=== PATIENT | male | born 1955 | race Caucasian/White ===

== ENCOUNTER 2016-05-25 07:21 | Day surgery (SDC) | payer OTHER ==
[2016-05-24 13:29] VITALS: BMI 40.8
[2016-05-25 07:47] LABS: BASOPHIL 0.5 % (0-2.0); EOSINOPHIL 1.7 % (0-4.5); MCH 31.1 pg (25.7-33.7); MCHC 33.1 g/dl (32.0-35.9); MEAN PLT VOLUME 7.3 fl (7.5-11.1); NEUTROPHILS 74.6 % (42.8-82.8); PLATELET COUNT 140 K/MM3 (134-434); RDW 14.3 % (11.9-15.9); WHITE BLOOD COUNT 6.2 K/mm3 (4.0-10.0)
[2016-05-25 08:01] LABS: INR 1.08 (0.82-1.09); PROTHROMBIN TIME (PATIENT) 11.9 SEC (9.98-11.88)
[2016-05-25 11:39] VITALS: BP 138/73; PULSE 83; TEMP 97.8
== END 2016-05-25 11:30 | disposition home or self-care (01) ==
LOC: JRADIR 07:21
PROVIDERS: ATTEND Internal Medicine Hematology & Oncology
PROC: BH4BZZZ Ultrasonography of Chest Wall (ICD-10-PCS; principal; 2016-05-25)
PROC: 07B53ZX Excision of Right Axillary Lymphatic, Percutaneous Approach, Diagnostic (ICD-10-PCS; 2016-05-25)
DX: R59.0 Localized enlarged lymph nodes (principal); Z53.8 Procedure and treatment not carried out for other reasons
CPT/HCPCS: 36415; 76604; 76942; 85025; 85610

== ENCOUNTER 2016-05-31 06:13 | Day surgery (SDC) | payer OTHER ==
[2016-05-31] MEDS ORDERED: SODIUM CHLORIDE 250 ML IV ONE (08:00)
[2016-05-31] MEDS ORDERED: CYANOCOBALAMIN (VITAMIN B-12) 1000 MCG/1 ML VIAL IM ONE (08:00)
[2016-05-31 08:43] LABS: BASOPHIL 0.8 % (0-2.0); EOSINOPHIL 1.2 % (0-4.5); MCH 30.7 pg (25.7-33.7); MEAN CELL VOLUME 92.9 fl (80-96); MEAN PLT VOLUME 8.4 fl (7.5-11.1); NEUTROPHILS 72.2 % (42.8-82.8); PLATELET COUNT 133 K/MM3 (134-434); RDW 13.9 % (11.9-15.9); WHITE BLOOD COUNT 7.7 K/mm3 (4.0-10.0)
[2016-05-31] MEDS ORDERED: DEXAMETHASONE INJECTION 10 MG, ONDANSETRON INJECTION 12 MG in SODIUM CHLORIDE 100 ML IVPB ONE (09:00)
[2016-05-31] MEDS ORDERED: PEMETREXED DISODIUM IVPB ONE (09:30)
[2016-05-31] MEDS ORDERED: SODIUM CHLORIDE IVPB ONE (09:30)
[2016-05-31 10:31] VITALS: BP 149/76; PULSE 76; TEMP 98.4; BMI 41.0
== END 2016-05-31 14:40 | disposition home or self-care (01) ==
LOC: JCHEMO 06:13 → JONCCHEMO 06:13 → J7W 06:15 → JCHEMO 14:40
PROVIDERS: ATTEND Internal Medicine Hematology & Oncology
PROC: 3E04305 Introduction of Other Antineoplastic into Central Vein, Percutaneous Approach (ICD-10-PCS; principal; 2016-05-31)
PROC: 3E023GC Introduction of Other Therapeutic Substance into Muscle, Percutaneous Approach (ICD-10-PCS; 2016-05-31)
DX: Z12.11 Encounter for screening for malignant neoplasm of colon (principal); C34.90 Malignant neoplasm of unspecified part of unspecified bronchus or lung; I10 Essential (primary) hypertension; E11.9 Type 2 diabetes mellitus without complications; D70.1 Agranulocytosis secondary to cancer chemotherapy; T45.1X5A Adverse effect of antineoplastic and immunosuppressive drugs, initial encounter; Y92.9 Unspecified place or not applicable; E53.8 Deficiency of other specified B group vitamins
CPT/HCPCS: 36415; 85025; 96361; 96372; 96409; 96413; J9305

== ENCOUNTER 2016-06-01 06:52 | Day surgery (SDC) | payer OTHER ==
[2016-06-01] MEDS ORDERED: PEGFILGRASTIM 6 MG/0.6 ML DISP.SYRIN SQ ONE (08:00)
[2016-06-01 15:46] VITALS: PULSE 89
[2016-06-01 15:47] VITALS: BP 131/73; TEMP 98
== END 2016-06-01 14:00 | disposition home or self-care (01) ==
LOC: JCHEMO 06:52 → J7W 06:52 → JONCNONCHE 06:52 → JCHEMO 14:00
PROVIDERS: ATTEND Internal Medicine Hematology & Oncology
PROC: 3E013GC Introduction of Other Therapeutic Substance into Subcutaneous Tissue, Percutaneous Approach (ICD-10-PCS; principal; 2016-06-01)
DX: Z51.11 Encounter for antineoplastic chemotherapy (principal); C34.11 Malignant neoplasm of upper lobe, right bronchus or lung; D70.1 Agranulocytosis secondary to cancer chemotherapy; T45.1X5A Adverse effect of antineoplastic and immunosuppressive drugs, initial encounter; Y92.9 Unspecified place or not applicable; E53.8 Deficiency of other specified B group vitamins
CPT/HCPCS: 96372; J2505

== ENCOUNTER 2016-06-28 06:58 | Day surgery (SDC) | payer OTHER ==
[2016-06-28] MEDS ORDERED: CYANOCOBALAMIN (VITAMIN B-12) 1000 MCG/1 ML VIAL IM ONE (08:00)
[2016-06-28] MEDS ORDERED: SODIUM CHLORIDE 250 ML IV ONE (08:00)
[2016-06-28] MEDS ORDERED: ONDANSETRON INJECTION 12 MG, DEXAMETHASONE INJECTION 10 MG in SODIUM CHLORIDE 100 ML IVPB ONE (08:00)
[2016-06-28 08:22] LABS: BASOPHIL 0.7 % (0-2.0); EOSINOPHIL 1.4 % (0-4.5); MCHC 33.5 g/dl (32.0-35.9); MEAN CELL VOLUME 92.5 fl (80-96); MEAN PLT VOLUME 8.2 fl (7.5-11.1); NEUTROPHILS 75.9 % (42.8-82.8); PLATELET COUNT 138 K/MM3 (134-434); RDW 13.7 % (11.9-15.9); WHITE BLOOD COUNT 8.3 K/mm3 (4.0-10.0)
[2016-06-28] MEDS ORDERED: PEMETREXED DISODIUM IVPB ONE (08:30)
[2016-06-28] MEDS ORDERED: SODIUM CHLORIDE IVPB ONE (08:30)
[2016-06-28 09:59] LABS: ALBUMIN 3.5 g/dl (3.4-5.0); BILIRUBIN,DIRECT 0.1 mg/dL (0.0-0.2); BILIRUBIN,TOTAL 0.4 mg/dL (0.2-1.0); CALCIUM 8.8 mg/dL (8.5-10.1); CREATININE 1.2 mg/dL (0.7-1.3); MAGNESIUM 1.7 mg/dL (1.8-2.4); TOT PROT 6.7 g/dl (6.4-8.2)
[2016-06-28 16:13] VITALS: BP 140/70; PULSE 89; TEMP 98.2
== END 2016-06-28 10:49 | disposition home or self-care (01) ==
LOC: JONCCHEMO 06:58 → J7W 08:50 → JONCCHEMO 10:49
PROVIDERS: ATTEND Internal Medicine Hematology & Oncology
DX: Z51.11 Encounter for antineoplastic chemotherapy (principal); C34.11 Malignant neoplasm of upper lobe, right bronchus or lung; E53.8 Deficiency of other specified B group vitamins; D70.1 Agranulocytosis secondary to cancer chemotherapy
CPT/HCPCS: 36415; 80048; 80076; 82378; 83735; 85025; 96361; 96367; 96372; 96409; 96413; J9305

== ENCOUNTER 2016-06-30 06:59 | Day surgery (SDC) | payer OTHER ==
[~2016-06-30 06:59] MED LIST: PEGFILGRASTIM 6 MG/0.6 ML DISP.SYRIN SQ ONE
[2016-06-30] MEDS ORDERED: PEGFILGRASTIM 6 MG/0.6 ML DISP.SYRIN SQ ONE (08:00)
[2016-06-30 13:50] VITALS: BP 140/74; PULSE 68; TEMP 97.4
== END 2016-06-30 13:53 | disposition home or self-care (01) ==
LOC: JONCCHEMO 06:59 → J7W 11:15 → JONCCHEMO 13:53
PROVIDERS: ATTEND Internal Medicine Hematology & Oncology
PROC: 3E013GC Introduction of Other Therapeutic Substance into Subcutaneous Tissue, Percutaneous Approach (ICD-10-PCS; principal; 2016-06-30)
DX: C34.11 Malignant neoplasm of upper lobe, right bronchus or lung (principal); D70.1 Agranulocytosis secondary to cancer chemotherapy; E53.8 Deficiency of other specified B group vitamins
CPT/HCPCS: 96372; J2505; 96367; 96401

== ENCOUNTER 2016-07-26 07:03 | Day surgery (SDC) | payer OTHER ==
[2016-07-26] MEDS ORDERED: SODIUM CHLORIDE 250 ML IV ONE (08:00)
[2016-07-26] MEDS ORDERED: CYANOCOBALAMIN (VITAMIN B-12) 1000 MCG/1 ML VIAL IM ONE (08:30)
[2016-07-26] MEDS ORDERED: ONDANSETRON INJECTION 12 MG, DEXAMETHASONE INJECTION 10 MG in SODIUM CHLORIDE 100 ML IVPB ONE (08:30)
[2016-07-26 08:33] LABS: BASOPHIL 0.9 % (0-2.0); EOSINOPHIL 1.5 % (0-4.5); MCH 30.7 pg (25.7-33.7); MCHC 33.3 g/dl (32.0-35.9); MEAN CELL VOLUME 92.2 fl (80-96); MEAN PLT VOLUME 8.2 fl (7.5-11.1); NEUTROPHILS 75.1 % (42.8-82.8); PLATELET COUNT 132 K/MM3 (134-434); WHITE BLOOD COUNT 6.6 K/mm3 (4.0-10.0)
[2016-07-26] MEDS ORDERED: PEMETREXED DISODIUM IVPB ONE (09:00)
[2016-07-26] MEDS ORDERED: SODIUM CHLORIDE IVPB ONE (09:00)
[2016-07-26 14:16] VITALS: BP 141/73; PULSE 88; TEMP 98.3
[2016-07-26] MEDS ORDERED: PORTA CATH FLUSH 10 ML IVPUSH ONE (14:16)
== END 2016-07-26 11:00 | disposition home or self-care (01) ==
LOC: JONCCHEMO 07:03 → J7W 09:10 → JONCCHEMO 11:00
PROVIDERS: ATTEND Internal Medicine Hematology & Oncology
PROC: 3E04305 Introduction of Other Antineoplastic into Central Vein, Percutaneous Approach (ICD-10-PCS; principal; 2016-07-26)
PROC: 3E043GC Introduction of Other Therapeutic Substance into Central Vein, Percutaneous Approach (ICD-10-PCS; 2016-07-26)
PROC: 3E0437Z Introduction of Electrolytic and Water Balance Substance into Central Vein, Percutaneous Approach (ICD-10-PCS; 2016-07-26)
PROC: 3E023GC Introduction of Other Therapeutic Substance into Muscle, Percutaneous Approach (ICD-10-PCS; 2016-07-26)
DX: Z51.11 Encounter for antineoplastic chemotherapy (principal); C34.11 Malignant neoplasm of upper lobe, right bronchus or lung; C70.1 Malignant neoplasm of spinal meninges
CPT/HCPCS: 96372; 96375; 96409; J1100; J2405; J3420; J7030; J9305; 36415; 85025; 96360; 96361; 96367; 96413

== ENCOUNTER 2016-07-27 07:04 | Day surgery (SDC) | payer OTHER ==
[2016-07-27] MEDS ORDERED: PEGFILGRASTIM 6 MG/0.6 ML DISP.SYRIN SQ ONE (08:00)
[2016-07-27 17:55] VITALS: BP 125/59; PULSE 91; TEMP 98.3
== END 2016-07-27 14:50 | disposition home or self-care (01) ==
LOC: JONCCHEMO 07:04 → J7W 14:22 → JONCCHEMO 14:50
PROVIDERS: ATTEND Internal Medicine Hematology & Oncology
PROC: 3E023GC Introduction of Other Therapeutic Substance into Muscle, Percutaneous Approach (ICD-10-PCS; principal; 2016-07-27)
DX: Z51.11 Encounter for antineoplastic chemotherapy (principal); C34.11 Malignant neoplasm of upper lobe, right bronchus or lung
CPT/HCPCS: 96372; J2505

== ENCOUNTER 2016-08-23 07:13 | Day surgery (SDC) | payer OTHER ==
[2016-08-23] MEDS ORDERED: SODIUM CHLORIDE 250 ML IV ONE (08:00)
[2016-08-23] MEDS ORDERED: CYANOCOBALAMIN (VITAMIN B-12) 1000 MCG/1 ML VIAL IM ONE (08:00)
[2016-08-23] MEDS ORDERED: DEXAMETHASONE INJECTION 10 MG in SODIUM CHLORIDE 50 ML IVPB ONE (08:00)
[2016-08-23] MEDS ORDERED: ONDANSETRON INJECTION 12 MG in SODIUM CHLORIDE 50 ML IVPB ONE (08:00)
[2016-08-23] MEDS ORDERED: PEMETREXED DISODIUM IVPB ONE (08:30)
[2016-08-23] MEDS ORDERED: SODIUM CHLORIDE IVPB ONE (08:30)
[2016-08-23 09:19] LABS: BASOPHIL 0.7 % (0-2.0); EOSINOPHIL 1.8 % (0-4.5); MCH 30.9 pg (25.7-33.7); MCHC 33.7 g/dl (32.0-35.9); MEAN CELL VOLUME 91.4 fl (80-96); NEUTROPHILS 73.8 % (42.8-82.8); PLATELET COUNT 142 K/MM3 (134-434); RDW 13.7 % (11.9-15.9); WHITE BLOOD COUNT 6.4 K/mm3 (4.0-10.0)
[2016-08-23] MEDS ORDERED: PORTA CATH FLUSH 10 ML IVPUSH ONE (15:17)
[2016-08-23 15:18] VITALS: BP 143/86; PULSE 95; TEMP 98
== END 2016-08-23 15:23 | disposition home or self-care (01) ==
LOC: JONCCHEMO 07:13 → J7W 09:59 → JONCCHEMO 15:23
PROVIDERS: ATTEND Internal Medicine Hematology & Oncology
PROC: 3E04305 Introduction of Other Antineoplastic into Central Vein, Percutaneous Approach (ICD-10-PCS; principal; 2016-08-23)
PROC: 3E013GC Introduction of Other Therapeutic Substance into Subcutaneous Tissue, Percutaneous Approach (ICD-10-PCS; 2016-08-23)
DX: Z51.11 Encounter for antineoplastic chemotherapy (principal); C34.90 Malignant neoplasm of unspecified part of unspecified bronchus or lung; E53.8 Deficiency of other specified B group vitamins
CPT/HCPCS: 36415; 85025; 96372; 96413; 96415; J9305

== ENCOUNTER 2016-08-24 07:12 | Day surgery (SDC) | payer OTHER ==
[2016-08-24] MEDS ORDERED: PEGFILGRASTIM 6 MG/0.6 ML DISP.SYRIN SQ ONE (08:00)
[2016-08-24 14:08] VITALS: TEMP 98.3
[2016-08-24 14:09] VITALS: BP 125/78; PULSE 83
== END 2016-08-24 14:12 | disposition home or self-care (01) ==
LOC: JONCCHEMO 07:12 → J7W 13:18 → JONCCHEMO 14:12
PROVIDERS: ATTEND Internal Medicine Hematology & Oncology
PROC: 3E013GC Introduction of Other Therapeutic Substance into Subcutaneous Tissue, Percutaneous Approach (ICD-10-PCS; principal; 2016-08-24)
DX: C34.11 Malignant neoplasm of upper lobe, right bronchus or lung (principal)
CPT/HCPCS: 96372; J2505

== ENCOUNTER 2016-09-03 09:39 | Emergency (ER) | payer OTHER ==
[2016-09-03 10:04] VITALS: BMI 39.6
--- NOTE | 2016-09-03 10:17 | PDOC ---
History of Present Illness - General History Source: Patient Exam Limitations: No Limitations - History of Present Illness Initial Comments: CHIEF COMPLAINT: 59 y/o afebrile male with PMH adenocarcinoma of the lung ( currently on chemo), HTN, DM, colon polyps, kidney stones c/o low back pain for the past few days. HISTORY OF PRESENT ILLNESS: The patient does have prior history of lumbar spine disc removal many years ago. He states for the past few days he's had pain in his lumbar spine that his oxycodone isn't helping. Dr. Mcgill instructed him to come here if the pain became unbearable and the patient states this morning he couldn't take it anymore. He denies radiation of pain and admits the pain is worse on the right side. He denies recent fall or back trauma, radiation of pain into butt or legs, saddle anesthesia, numbness/ tingling/weakness in LEs. He has called Dr. Pagan, Neurologist, but does not have an appointment scheduled yet. He is currently receiving chemotherapy for his lung CA. Vital signs on arrival are notable for pulse of 100. REVIEW OF SYSTEMS: GENERAL/CONSTITUTIONAL: No fever/chills. No weakness. No weight change. HEAD, EYES, EARS, NOSE AND THROAT: No change in vision. No ear pain or discharge. No sore throat. CARDIOVASCULAR: No chest pain or shortness of breath. RESPIRATORY: No cough, wheezing, or hemoptysis. GASTROINTESTINAL: No abd pain, nausea, vomiting, diarrhea. GENITOURINARY: No dysuria, frequency, or change in urination. MUSCULOSKELETAL: No joint or muscle swelling or pain. No neck pain. +low back pain, worse on right side. SKIN: No rash or easy bruising. NEUROLOGIC: No headache, vertigo, loss of consciousness, or loss of sensation. PHYSICAL EXAM: GENERAL: The patient is awake, alert, and fully oriented, in no acute distress. His movements are slowed secondary to pain. HEAD: Normal with no signs of trauma. ENT: Pupils equal, round and reactive to light, extraocular movements intact, sclera anicteric, conjunctiva clear. Neck supple. LUNGS: Clear to auscultation bilaterally. Normal excursion. No respiratory distress or use of accessory muscles. CV: RRR, S1/S2, no MRG. Cap refill < 2 sec. ABDOMEN: Soft, non-distended, non-tender even to deep palpation, no hepatomegaly or splenomegaly, no masses. BACK: Midline lumbar spine TTP at L5 without step offs. Vertical, well healed scar to lumbar spine at level of pain. Reproducible pain with palpation of right lumbar paravertebral muscles. EXTREMITIES: Normal range of motion, no edema. NEUROLOGICAL: Normal speech, normal gait. CN II-XII grossly intact. No saddle anesthesia. Equal straight leg raise b/l. PSYCH: Normal mood, normal affect. SKIN: Warm, dry, normal turgor, no rashes or lesions noted. <Tressa Maza - Last Filed: 09/03/16 12:45> <David Hernandez - Last Filed: 09/03/16 19:53> - General Chief Complaint: Pain Stated Complaint: BACK PAIN Time Seen by Provider: 09/03/16 10:16 Past History - Past Medical History Anemia: No Asthma: No Cancer: Yes (lung ca) Cardiac Disorders: Yes (PE) CVA: No COPD: No CHF: No Dementia: No Diabetes: Yes (NIDDM) GI Disorders: Yes (COLONIC POLYPS) Disorders: No HTN: Yes Hypercholesterolemia: No Kidney Stones: Yes (LASER TREATMENT) Liver Disease: No Suicide Attempt (Hx): No Seizures: No Thyroid Disease: No - Surgical History Abdominal Surgery: No Appendectomy: No Cardiac Surgery: No Cholecystectomy: No Lung Surgery: No Neurologic Surgery: Yes (SPINAL CERVICAL FUSION TIMES TWO, LUMBAR LAMINECTOMY) Orthopedic Surgery: Yes (SPINAL FUSIONS X2 LAMINECTOMY X2 RIGHT KNEE ARTHROSCOPY ) - Psycho/Social/Smoking Cessation Hx Anxiety: No Suicidal Ideation: No Smoking Status: Yes Smoking History: Former smoker Have you smoked in the past 12 months: Yes Number of Cigarettes Smoked Daily: 30 If you are a former smoker, when did you quit?: 05/02 Information on smoking cessation initiated: No 'Breaking Loose' booklet given: 11/24/15 Hx Alcohol Use: No Drug/Substance Use Hx: No Substance Use Type: None Hx Substance Use Treatment: No <Tressa Maza - Last Filed: 09/03/16 12:45> <David Hernandez - Last Filed: 09/03/16 19:53> - Past Medical History Allergies/Adverse Reactions: Allergies Allergy/AdvReac Type Severity Reaction Status Date / Time No Known Drug Allergies Allergy Verified 09/03/16 10:04 Home Medications: Ambulatory Orders Glipizide [Glipizide ER] 5 mg PO DAILY 04/16/14 Enoxaparin [Lovenox -] 110 mg SQ BID #20 disp.syrin 05/15/14 Diazepam [Valium -] 10 mg PO TID PRN 06/21/14 Oxycodone HCl 10 mg PO Q4H PRN 08/26/14 Amlodipine Besylate 5 mg PO DAILY 05/24/16 Metformin HCl [Glucophage] 500 mg PO DAILY 05/24/16 Atorvastatin Calcium 10 mg PO DAILY 05/25/16 *Physical Exam - Vital Signs Last Vital Signs Temp Pulse Resp BP Pulse Ox 98.1 F 100 H 20 144/90 95 09/03/16 10:00 09/03/16 10:00 09/03/16 10:00 09/03/16 10:00 09/03/16 10:00 <Tressa Maza - Last Filed: 09/03/16 12:45> - Vital Signs Last Vital Signs Temp Pulse Resp BP Pulse Ox 98 F 87 16 141/68 100 09/03/16 13:28 09/03/16 13:28 09/03/16 13:28 09/03/16 13:28 09/03/16 13:28 <David Hernandez - Last Filed: 09/03/16 19:53> ED Treatment Course - Medications Given in the ED: ED Medications Discontinued Medications Generic Name Dose Route Start Last Admin Trade Name Freq PRN Reason Stop Dose Admin Diazepam 10 mg 09/03/16 10:34 09/03/16 10:55 Valium - PO 09/03/16 10:35 10 mg ONCE ONE Administration Ketorolac Tromethamine 60 mg 09/03/16 10:34 09/03/16 10:55 Toradol Injection - IM 09/03/16 10:35 60 mg ONCE ONE Administration <David Hernandez - Last Filed: 09/03/16 19:53> Medical Decision Making - Medical Decision Making A/P: 61 y/o male with Lung CA, HTN, HLD, DM, prior back surgery c/o atraumatic low back pain for the past few days. Plan is as follows: 1. CT scan lumbar spine r/o mets 2. IM toradol 3. PO valium CT scan lumbar spine IMPRESSION: No acute bony abnormalities. No evidence of compression deformities, spondylolisthesis. Similar changes were observed on CT of chest/ abdomen from 12/02/14. The patient was given his results. He states his pain has gone down from a 13/ 10 to a 7/10. He does have valium at home but he hasn't been taking it - I suggested he take 3 times per day for his back pain. I suggested he call Dr. Mcgill and ask him if he can take Ibuprofen along with the valium for pain. Instructed him to f/u with Dr. Pagan and return to the ER with any worsening or concerning symptoms. The patient verbalizes understanding of all instructions, has no further questions and is awaiting discharge. <Tressa Maza - Last Filed: 09/03/16 12:45> - Medical Decision Making 09/03/16 19:53 The patient was seen and evaluated in conjunction with JUAN A Maza under my direct supervision, ancillary studies were reviewed. I agree with the plan as outlined by JUAN A Maza . <David Hernandez - Last Filed: 09/03/16 19:53> *DC/Admit/Observation/Transfer <Tressa Maza - Last Filed: 09/03/16 12:45> <David Hernandez - Last Filed: 09/03/16 19:53> Diagnosis at time of Disposition: Low back strain Qualifiers: Encounter type: initial encounter Qualified Code(s): S39.012A - Strain of muscle, fascia and tendon of lower back, initial encounter - Discharge Dispostion Disposition: HOME Condition at time of disposition: Improved - Patient Instructions Printed Discharge Instructions: DI for Low Back Pain Additional Instructions: Discharge Instructions: -Take Valium 3 times per day for back pain; may cause drowsiness -Call Dr. Mcgill; ask him if you can take Ibuprofen; if so, take with valium for back pain -Return to the ER with any worsening or concerning symptoms.
[2016-09-03] MEDS ORDERED: KETOROLAC TROMETHAMINE 60 MG/2 ML VIAL IM ONE (10:34)
[2016-09-03] MEDS ORDERED: diazePAM 5 MG TABLET PO ONE (10:34)
[2016-09-03] MEDS ORDERED: KETOROLAC TROMETHAMINE 60 MG/2 ML VIAL ONE (10:48)
[2016-09-03] MEDS ORDERED: diazePAM 5 MG TABLET ONE (10:48)
[2016-09-03 14:54] VITALS: BP 141/68; PULSE 87; TEMP 98
== END 2016-09-03 13:30 | disposition home or self-care (01) ==
LOC: JER 09:39
PROC: 3E0233Z Introduction of Anti-inflammatory into Muscle, Percutaneous Approach (ICD-10-PCS; principal; 2016-09-03)
DX: S39.012A Strain of muscle, fascia and tendon of lower back, initial encounter (principal); C34.90 Malignant neoplasm of unspecified part of unspecified bronchus or lung; I10 Essential (primary) hypertension; E11.9 Type 2 diabetes mellitus without complications; Z79.84 Long term (current) use of oral hypoglycemic drugs; Z87.442 Personal history of urinary calculi; Z86.711 Personal history of pulmonary embolism
CPT/HCPCS: 72131-TC; 96372; 99282-25

== ENCOUNTER 2016-09-20 07:43 | Day surgery (SDC) | payer OTHER ==
[2016-09-20 09:10] LABS: BASOPHIL 1.2 % (0-2.0); EOSINOPHIL 2.1 % (0-4.5); MCHC 34.1 g/dl (32.0-35.9); MEAN CELL VOLUME 90.9 fl (80-96); MEAN PLT VOLUME 8.1 fl (7.5-11.1); NEUTROPHILS 69.4 % (42.8-82.8); PLATELET COUNT 142 K/MM3 (134-434); RDW 14.1 % (11.9-15.9); WHITE BLOOD COUNT 7.2 K/mm3 (4.0-10.0)
[2016-09-20] MEDS ORDERED: CYANOCOBALAMIN (VITAMIN B-12) 1000 MCG/1 ML VIAL IM ONE (10:00)
[2016-09-20] MEDS ORDERED: ONDANSETRON INJECTION 12 MG in SODIUM CHLORIDE 50 ML IVPB ONE (10:00)
[2016-09-20] MEDS ORDERED: DEXAMETHASONE INJECTION 10 MG in SODIUM CHLORIDE 50 ML IVPB ONE (10:00)
[2016-09-20] MEDS ORDERED: SODIUM CHLORIDE 250 ML IV ONE (10:00)
[2016-09-20] MEDS ORDERED: PEMETREXED DISODIUM IVPB ONE (10:30)
[2016-09-20] MEDS ORDERED: SODIUM CHLORIDE IVPB ONE (10:30)
[2016-09-20] MEDS ORDERED: PORTA CATH FLUSH 10 ML IVPUSH ONE (10:43)
[2016-09-20 11:50] LABS: ALBUMIN 3.4 g/dl (3.4-5.0); ALK PHOS 137 U/L (45-117); BILIRUBIN,TOTAL 0.4 mg/dL (0.2-1.0); MAGNESIUM 1.7 mg/dL (1.8-2.4); SGOT/AST 20 U/L (15-37); SGPT/ALT 42 U/L (12-78); TOT PROT 6.8 g/dl (6.4-8.2)
[2016-09-20 11:53] LABS: BILIRUBIN,DIRECT < 0.1 mg/dL (0.0-0.2)
[2016-09-20 16:14] VITALS: BP 145/82; PULSE 92; TEMP 98
== END 2016-09-20 18:32 | disposition home or self-care (01) ==
LOC: JONCCHEMO 07:43 → J7W 10:06 → JONCCHEMO 18:32
PROVIDERS: ATTEND Internal Medicine Hematology & Oncology
PROC: 3E04305 Introduction of Other Antineoplastic into Central Vein, Percutaneous Approach (ICD-10-PCS; principal; 2016-09-20)
PROC: 3E023GC Introduction of Other Therapeutic Substance into Muscle, Percutaneous Approach (ICD-10-PCS; 2016-09-20)
DX: Z51.11 Encounter for antineoplastic chemotherapy (principal); C34.90 Malignant neoplasm of unspecified part of unspecified bronchus or lung; E53.8 Deficiency of other specified B group vitamins
CPT/HCPCS: 36415; 80076; 82378; 83735; 85025; 96360; 96367; 96372; 96413; J9305

== ENCOUNTER 2016-09-22 07:37 | Day surgery (SDC) | payer OTHER ==
[2016-09-22 09:35] VITALS: BP 122/70; PULSE 96; TEMP 98.2
[2016-09-22] MEDS ORDERED: PEGFILGRASTIM 6 MG/0.6 ML DISP.SYRIN SQ ONE (10:00)
== END 2016-09-22 09:53 | disposition home or self-care (01) ==
LOC: JONCCHEMO 07:37 → J7W 09:26 → JONCCHEMO 09:53
PROVIDERS: ATTEND Internal Medicine Hematology & Oncology
PROC: 3E013GC Introduction of Other Therapeutic Substance into Subcutaneous Tissue, Percutaneous Approach (ICD-10-PCS; principal; 2016-09-22)
DX: C34.90 Malignant neoplasm of unspecified part of unspecified bronchus or lung (principal)
CPT/HCPCS: 96372; J2505

== ENCOUNTER 2016-10-18 07:33 | Day surgery (SDC) | payer OTHER ==
[2016-10-18 09:16] LABS: BASOPHIL 1.3 % (0-2.0); MCH 30.8 pg (25.7-33.7); MCHC 33.8 g/dl (32.0-35.9); MEAN CELL VOLUME 91.2 fl (80-96); MEAN PLT VOLUME 8.1 fl (7.5-11.1); NEUTROPHILS 71.2 % (42.8-82.8); PLATELET COUNT 189 K/MM3 (134-434); RDW 14.1 % (11.9-15.9); WHITE BLOOD COUNT 7.5 K/mm3 (4.0-10.0)
[2016-10-18 09:32] LABS: ALBUMIN 3.5 g/dl (3.4-5.0); ALK PHOS 120 U/L (45-117); ANION GAP 9 (8-16); BILIRUBIN,DIRECT < 0.1 mg/dL (0.0-0.2); CO2 28 mmol/L (21-32); CREATININE 1.8 mg/dL (0.7-1.3); GLUCOSE,RANDOM 190 mg/dL (74-106); MAGNESIUM 1.7 mg/dL (1.8-2.4); SGOT/AST 18 U/L (15-37); SGPT/ALT 27 U/L (12-78); TOT PROT 7.4 g/dl (6.4-8.2)
[2016-10-18 09:35] LABS: BILIRUBIN,TOTAL 0.2 mg/dL (0.2-1.0)
[2016-10-18] MEDS ORDERED: DEXAMETHASONE INJECTION 10 MG in SODIUM CHLORIDE 50 ML IVPB ONE (10:00)
[2016-10-18] MEDS ORDERED: ONDANSETRON INJECTION 12 MG in SODIUM CHLORIDE 50 ML IVPB ONE (10:00)
[2016-10-18] MEDS ORDERED: SODIUM CHLORIDE 250 ML IV ONE (10:00)
[2016-10-18] MEDS ORDERED: CYANOCOBALAMIN (VITAMIN B-12) 1000 MCG/1 ML VIAL IM ONE (10:00)
[2016-10-18] MEDS ORDERED: PEMETREXED DISODIUM IVPB ONE (10:30)
[2016-10-18] MEDS ORDERED: SODIUM CHLORIDE IVPB ONE (10:30)
[2016-10-18] MEDS ORDERED: PORTA CATH FLUSH 10 ML IVPUSH ONE (10:37)
[2016-10-18 13:25] VITALS: BP 117/70; PULSE 86; TEMP 98.1
== END 2016-10-18 13:58 | disposition home or self-care (01) ==
LOC: JONCCHEMO 07:33 → J7W 10:21 → JONCCHEMO 13:58
PROVIDERS: ATTEND Internal Medicine Hematology & Oncology
DX: Z51.11 Encounter for antineoplastic chemotherapy (principal); C34.90 Malignant neoplasm of unspecified part of unspecified bronchus or lung
CPT/HCPCS: 36415; 80053; 80076; 83735; 85025; 96361; 96375; 96409; 96413; J9305

== ENCOUNTER 2016-10-20 07:49 | Day surgery (SDC) | payer OTHER ==
[2016-10-20] MEDS ORDERED: PEGFILGRASTIM 6 MG/0.6 ML DISP.SYRIN SQ ONE (10:00)
[2016-10-20 12:46] VITALS: BP 105/67; PULSE 97; TEMP 98.3
== END 2016-10-20 14:42 | disposition home or self-care (01) ==
LOC: JONCCHEMO 07:49 → J7W 12:01 → JONCCHEMO 14:42
PROVIDERS: ATTEND Internal Medicine Hematology & Oncology
PROC: 3E013GC Introduction of Other Therapeutic Substance into Subcutaneous Tissue, Percutaneous Approach (ICD-10-PCS; principal; 2016-10-20)
DX: C34.90 Malignant neoplasm of unspecified part of unspecified bronchus or lung (principal)
CPT/HCPCS: 96372; J2505

== ENCOUNTER 2016-11-15 07:31 | Day surgery (SDC) | payer OTHER ==
[2016-11-15] MEDS ORDERED: SODIUM CHLORIDE 250 ML IV ONE (08:00)
[2016-11-15] MEDS ORDERED: DEXAMETHASONE INJECTION 10 MG in SODIUM CHLORIDE 50 ML IVPB ONE (08:30)
[2016-11-15] MEDS ORDERED: CYANOCOBALAMIN (VITAMIN B-12) 1000 MCG/1 ML VIAL IM ONE (08:30)
[2016-11-15] MEDS ORDERED: ONDANSETRON INJECTION 12 MG in SODIUM CHLORIDE 50 ML IVPB ONE (08:30)
[2016-11-15 08:40] LABS: BASOPHIL 0.8 % (0-2.0); EOSINOPHIL 1.2 % (0-4.5); MCH 31.3 pg (25.7-33.7); MCHC 33.7 g/dl (32.0-35.9); MEAN CELL VOLUME 92.8 fl (80-96); NEUTROPHILS 76.5 % (42.8-82.8); PLATELET COUNT 135 K/MM3 (134-434); RDW 14.5 % (11.9-15.9); WHITE BLOOD COUNT 7.3 K/mm3 (4.0-10.0)
[2016-11-15] MEDS ORDERED: PEMETREXED DISODIUM IVPB ONE (09:00)
[2016-11-15] MEDS ORDERED: SODIUM CHLORIDE IVPB ONE (09:00)
[2016-11-15 09:17] LABS: ALBUMIN 3.2 g/dl (3.4-5.0); ANION GAP 8 (8-16); BILIRUBIN,TOTAL 0.2 mg/dL (0.2-1.0); CALCIUM 8.8 mg/dL (8.5-10.1); CO2 24 mmol/L (21-32); CREATININE 1.5 mg/dL (0.7-1.3); GLUCOSE,RANDOM 270 mg/dL (74-106); SGOT/AST 17 U/L (15-37); SGPT/ALT 34 U/L (12-78); TOT PROT 6.5 g/dl (6.4-8.2)
[2016-11-15 09:18] LABS: ALK PHOS 129 U/L (45-117)
[2016-11-15 09:20] LABS: BILIRUBIN,DIRECT < 0.1 mg/dL (0.0-0.2)
[2016-11-15 16:01] VITALS: BP 136/53; PULSE 70; TEMP 97.7
== END 2016-11-15 11:30 | disposition home or self-care (01) ==
LOC: JONCCHEMO 07:31 → J7W 09:09 → JONCCHEMO 11:30
PROVIDERS: ATTEND Internal Medicine Hematology & Oncology
PROC: 3E04305 Introduction of Other Antineoplastic into Central Vein, Percutaneous Approach (ICD-10-PCS; principal; 2016-11-15)
PROC: 3E013GC Introduction of Other Therapeutic Substance into Subcutaneous Tissue, Percutaneous Approach (ICD-10-PCS; 2016-11-15)
DX: Z51.11 Encounter for antineoplastic chemotherapy (principal); C34.90 Malignant neoplasm of unspecified part of unspecified bronchus or lung; C79.51 Secondary malignant neoplasm of bone; E53.8 Deficiency of other specified B group vitamins
CPT/HCPCS: 36415; 80053; 80076; 85025; 96361; 96367; 96372; 96375; 96409; 96413; J9305

== ENCOUNTER 2016-11-16 07:30 | Day surgery (SDC) | payer OTHER ==
[2016-11-16] MEDS ORDERED: PEGFILGRASTIM 6 MG/0.6 ML DISP.SYRIN SQ ONE (08:00)
[2016-11-16 17:54] VITALS: BP 125/91; PULSE 64; TEMP 97.8
== END 2016-11-16 14:30 | disposition home or self-care (01) ==
LOC: JONCCHEMO 07:30 → J7W 13:56 → JONCCHEMO 14:30
PROVIDERS: ATTEND Internal Medicine Hematology & Oncology
PROC: 3E013GC Introduction of Other Therapeutic Substance into Subcutaneous Tissue, Percutaneous Approach (ICD-10-PCS; principal; 2016-11-16)
DX: Z51.11 Encounter for antineoplastic chemotherapy (principal); C34.90 Malignant neoplasm of unspecified part of unspecified bronchus or lung; C79.51 Secondary malignant neoplasm of bone
CPT/HCPCS: 96372; J2505

== ENCOUNTER 2016-12-13 07:23 | Day surgery (SDC) | payer OTHER ==
[2016-12-13 09:56] VITALS: TEMP 98.2
[2016-12-13 10:00] LABS: BASOPHIL 0.3 % (0-2.0); EOSINOPHIL 1.4 % (0-4.5); MCH 31.4 pg (25.7-33.7); MCHC 33.2 g/dl (32.0-35.9); MEAN CELL VOLUME 94.5 fl (80-96); MEAN PLT VOLUME 7.9 fl (7.5-11.1); NEUTROPHILS 75.1 % (42.8-82.8); PLATELET COUNT 156 K/MM3 (134-434); RDW 15.2 % (11.9-15.9); WHITE BLOOD COUNT 7.6 K/mm3 (4.0-10.0)
[2016-12-13] MEDS ORDERED: ONDANSETRON INJECTION 12 MG in SODIUM CHLORIDE 50 ML IVPB ONE (10:00)
[2016-12-13] MEDS ORDERED: SODIUM CHLORIDE 250 ML IV ONE (10:00)
[2016-12-13] MEDS ORDERED: CYANOCOBALAMIN (VITAMIN B-12) 1000 MCG/1 ML VIAL IM ONE (10:00)
[2016-12-13] MEDS ORDERED: DEXAMETHASONE INJECTION 10 MG in SODIUM CHLORIDE 50 ML IVPB ONE (10:00)
[2016-12-13] MEDS ORDERED: PORTA CATH FLUSH 10 ML IVPUSH ONE (10:14)
[2016-12-13 10:19] LABS: ANION GAP 7 (8-16); CALCIUM 9.1 mg/dL (8.5-10.1); CO2 30 mmol/L (21-32); CREATININE 1.2 mg/dL (0.7-1.3); GLUCOSE,RANDOM 193 mg/dL (74-106)
[2016-12-13 10:22] LABS: ALBUMIN 3.4 g/dl (3.4-5.0); ALK PHOS 117 U/L (45-117); BILIRUBIN,TOTAL 0.4 mg/dL (0.2-1.0); SGOT/AST 22 U/L (15-37); SGPT/ALT 50 U/L (12-78); TOT PROT 6.8 g/dl (6.4-8.2)
[2016-12-13 10:24] LABS: BILIRUBIN,DIRECT < 0.2 mg/dL (0.0-0.2)
[2016-12-13] MEDS ORDERED: PEMETREXED DISODIUM IVPB ONE (10:30)
[2016-12-13] MEDS ORDERED: SODIUM CHLORIDE IVPB ONE (10:30)
[2016-12-13 15:48] VITALS: BP 149/84; PULSE 77
== END 2016-12-13 12:20 | disposition home or self-care (01) ==
LOC: JONCCHEMO 07:23 → J7W 09:23 → JONCCHEMO 12:20
PROVIDERS: ATTEND Internal Medicine Hematology & Oncology
PROC: 3E04305 Introduction of Other Antineoplastic into Central Vein, Percutaneous Approach (ICD-10-PCS; principal; 2016-12-13)
PROC: 3E00XGC Introduction of Other Therapeutic Substance into Skin and Mucous Membranes, External Approach (ICD-10-PCS; 2016-12-13)
DX: Z51.11 Encounter for antineoplastic chemotherapy (principal); C34.90 Malignant neoplasm of unspecified part of unspecified bronchus or lung; C79.51 Secondary malignant neoplasm of bone
CPT/HCPCS: 36415; 80048; 80076; 85025; 96361; 96372; 96375; 96413; J9305

== ENCOUNTER 2016-12-14 07:41 | Day surgery (SDC) | payer OTHER ==
[2016-12-14] MEDS ORDERED: PEGFILGRASTIM 6 MG/0.6 ML DISP.SYRIN SQ ONE (10:00)
[2016-12-14 14:11] VITALS: BP 134/77; PULSE 83; TEMP 97.5
== END 2016-12-14 14:17 | disposition home or self-care (01) ==
LOC: JONCCHEMO 07:41 → J7W 13:45 → JONCCHEMO 14:17
PROVIDERS: ATTEND Internal Medicine Hematology & Oncology
PROC: 3E013GC Introduction of Other Therapeutic Substance into Subcutaneous Tissue, Percutaneous Approach (ICD-10-PCS; principal; 2016-12-14)
DX: C34.90 Malignant neoplasm of unspecified part of unspecified bronchus or lung (principal)
CPT/HCPCS: 96372; J2505

== ENCOUNTER 2017-01-17 07:30 | Day surgery (SDC) | payer OTHER ==
[2017-01-17 09:19] LABS: BASOPHIL 0.3 % (0-2.0); EOSINOPHIL 0.8 % (0-4.5); MCH 32.2 pg (25.7-33.7); MCHC 33.4 g/dl (32.0-35.9); MEAN CELL VOLUME 96.6 fl (80-96); MEAN PLT VOLUME 8.4 fl (7.5-11.1); NEUTROPHILS 76.4 % (42.8-82.8); PLATELET COUNT 126 K/MM3 (134-434); RDW 14.4 % (11.9-15.9); WHITE BLOOD COUNT 6.7 K/mm3 (4.0-10.0)
[2017-01-17 09:30] LABS: ALBUMIN 3.3 g/dl (3.4-5.0); ALK PHOS 109 U/L (45-117); ANION GAP 5 (8-16); BILIRUBIN,DIRECT < 0.1 mg/dL (0.0-0.2); BILIRUBIN,TOTAL 0.3 mg/dL (0.2-1.0); CALCIUM 8.6 mg/dL (8.5-10.1); CO2 29 mmol/L (21-32); CREATININE 1.3 mg/dL (0.7-1.3); GLUCOSE,RANDOM 188 mg/dL (74-106); MAGNESIUM 1.7 mg/dL (1.8-2.4); SGOT/AST 13 U/L (15-37); SGPT/ALT 29 U/L (12-78); TOT PROT 6.8 g/dl (6.4-8.2)
[2017-01-17 09:58] VITALS: PULSE 78; TEMP 97.9
[2017-01-17] MEDS ORDERED: PORTA CATH FLUSH 10 ML IVPUSH ONE (09:58)
[2017-01-17] MEDS ORDERED: DEXAMETHASONE INJECTION 10 MG in SODIUM CHLORIDE 50 ML IVPB ONE (10:00)
[2017-01-17] MEDS ORDERED: CYANOCOBALAMIN (VITAMIN B-12) 1000 MCG/1 ML VIAL IM ONE (10:00)
[2017-01-17] MEDS ORDERED: ONDANSETRON INJECTION 12 MG in SODIUM CHLORIDE 50 ML IVPB ONE (10:00)
[2017-01-17] MEDS ORDERED: SODIUM CHLORIDE 250 ML IV ONE (10:00)
[2017-01-17] MEDS ORDERED: PEMETREXED DISODIUM IVPB ONE (10:30)
[2017-01-17] MEDS ORDERED: MAGNESIUM SULF 50% (8.12 MEQ/2 ML-1 GM VIAL) IVPB ONE (10:30)
[2017-01-17] MEDS ORDERED: SODIUM CHLORIDE IVPB ONE (10:30)
[2017-01-17 13:25] VITALS: BP 125/75
== END 2017-01-17 12:30 | disposition home or self-care (01) ==
LOC: JONCCHEMO 07:30 → J7W 09:47 → JONCCHEMO 12:30
PROVIDERS: ATTEND Internal Medicine Hematology & Oncology
PROC: 3E04305 Introduction of Other Antineoplastic into Central Vein, Percutaneous Approach (ICD-10-PCS; principal; 2017-01-17)
PROC: 3E013GC Introduction of Other Therapeutic Substance into Subcutaneous Tissue, Percutaneous Approach (ICD-10-PCS; 2017-01-17)
DX: Z51.11 Encounter for antineoplastic chemotherapy (principal); C34.90 Malignant neoplasm of unspecified part of unspecified bronchus or lung
CPT/HCPCS: 36415; 80053; 80076; 83735; 85025; 96361; 96367; 96372; 96375; 96409; 96413; J9305

== ENCOUNTER 2017-01-18 07:27 | Day surgery (SDC) | payer OTHER ==
[2017-01-18] MEDS ORDERED: PEGFILGRASTIM 6 MG/0.6 ML DISP.SYRIN SQ ONE (10:00)
[2017-01-18 17:20] VITALS: BP 116/66; PULSE 85; TEMP 98.7
== END 2017-01-18 13:20 | disposition home or self-care (01) ==
LOC: JONCCHEMO 07:27 → J7W 13:04 → JONCCHEMO 13:20
PROVIDERS: ATTEND Internal Medicine Hematology & Oncology
PROC: 3E013GC Introduction of Other Therapeutic Substance into Subcutaneous Tissue, Percutaneous Approach (ICD-10-PCS; principal; 2017-01-18)
DX: C34.90 Malignant neoplasm of unspecified part of unspecified bronchus or lung (principal)
CPT/HCPCS: 96372; J2505

== ENCOUNTER 2017-06-01 08:00 | Day surgery (SDC) | payer OTHER ==
[2017-05-24 12:49] VITALS: BMI 39.7
[2017-06-01] MEDS ORDERED: MIDAZOLAM HCL 2 MG/2 ML SINGLE DOSE VIAL ONE ×2 (09:23→09:35)
[2017-06-01] MEDS ORDERED: LIDOCAINE HCL 2% (50ML VIAL) INF ONE (09:39)
[2017-06-01] MEDS ORDERED: KETOROLAC TROMETHAMINE 30 MG/1 ML VIAL ONE (09:59)
[2017-06-01] MEDS ORDERED: PROMETHAZINE HCL 25 MG/1 ML VIAL IVPUSH PRN (10:14)
[2017-06-01] MEDS ORDERED: ONDANSETRON 4 MG/2 ML VIAL IVPUSH PRN (10:14)
[2017-06-01] MEDS ORDERED: LACTATED RINGERS SOLUTION 1,000 ML IV SCH (10:15)
[2017-06-01 11:57] VITALS: TEMP 98.5
[2017-06-01 12:27] VITALS: BP 140/86; PULSE 72
--- NOTE | 2017-06-04 12:10 | OP ---
DATE OF OPERATION: 06/01/2017 PREOPERATIVE DIAGNOSIS: Left carpal tunnel syndrome. POSTOPERATIVE DIAGNOSIS: Left carpal tunnel syndrome. OPERATIVE PROCEDURE: Left carpal tunnel release. ANESTHESIA: Local with sedation. COMPLICATIONS: None. ESTIMATED BLOOD LOSS: Minimal. INDICATIONS FOR PROCEDURE: The patient is a 62-year-old male with the above findings indicated for operative treatment. Risks, benefits, and alternatives were discussed with the patient at length. Proper informed consent was obtained. DESCRIPTION OF PROCEDURE: After proper identification of patient and correct operative site, the patient was brought to the operating room and placed supine on the operative table, prominences well padded. Sedation was given by the anesthesiologist. Local anesthesia was given with 2% lidocaine. The left upper extremity was prepped and draped in the usual sterile fashion. A well-padded tourniquet was placed with a sterile prep. Esmarch bandage used to exsanguinate the left upper extremity. Tourniquet was inflated to 250 mmHg. Longitudinal incision was made at the proximal aspect of the palm. Incision was taken sharply through the skin with sharp and blunt dissection through the subcutaneous tissues. Palmar fascia was divided longitudinally. Transcarpal ligament was divided longitudinally along with the distal 4 cm antebrachial fascia under direct visualization with loop magnification. This provided complete release of the median nerve at the wrist. The wound was irrigated with saline and repaired with a 4-0 nylon suture. Sterile dressings were applied. The patient was reversed from anesthesia and brought to the recovery room in stable condition. He tolerated the procedure well. Svetlana [id number]
== END 2017-06-01 12:10 | disposition home or self-care (01) ==
LOC: FASU 08:00
PROVIDERS: ATTEND Orthopaedic Surgery Hand Surgery
PROC: 01N50ZZ Release Median Nerve, Open Approach (ICD-10-PCS; principal; 2017-06-01 09:52)
DX: G56.02 Carpal tunnel syndrome, left upper limb (principal)
CPT/HCPCS: 82962

== ENCOUNTER 2017-12-14 07:32 | Day surgery (SDC) | payer OTHER ==
[2017-12-14 08:52] LABS: BASO % 0.7 % (0-2.0); EOS % 1.5 % (0-4.5); HEMATOCRIT 41.9 % (35.4-49); HEMOGLOBIN 13.7 GM/dL (11.7-16.9); LYMPH % 15.8 % (8-40); MCH 28.8 pg (25.7-33.7); MCHC 32.8 g/dl (32.0-35.9); MEAN CELL VOLUME 87.9 fl (80-96); MEAN PLT VOLUME 8.1 fl (7.5-11.1); MONO % 5.4 % (3.8-10.2); NEUT % 76.6 % (42.8-82.8); PLATELET COUNT 121 K/MM3 (134-434); RBC 4.77 M/mm3 (4.00-5.60); RDW 14.2 % (11.9-15.9); WHITE BLOOD COUNT 7.3 K/mm3 (4.0-10.0)
[2017-12-14] MEDS ORDERED: SODIUM CHLORIDE 250 ML IV ONE ×2 (09:00→10:40)
[2017-12-14 09:12] LABS: ALBUMIN 3.1 g/dl (3.4-5.0); ALK PHOS 131 U/L (45-117); ANION GAP 6 MMOL/L (8-16); BILIRUBIN,TOTAL 0.2 mg/dL (0.2-1.0); BLOOD UREA NITROGEN 12 mg/dL (7-18); CALCIUM 8.6 mg/dL (8.5-10.1); CHLORIDE 102 mmol/L (98-107); CO2 32 mmol/L (21-32); CREATININE 1.3 mg/dL (0.7-1.3); GLUCOSE,RANDOM 241 mg/dL (74-106); POTASSIUM 4.6 mmol/L (3.5-5.1); SGOT/AST 16 U/L (15-37); SGPT/ALT 33 U/L (12-78); SODIUM 140 mmol/L (136-145); TOT PROT 6.5 g/dl (6.4-8.2)
[2017-12-14 09:19] LABS: ALBUMIN 3.1 g/dl (3.4-5.0); ALK PHOS 130 U/L (45-117); BILIRUBIN,DIRECT < 0.2 mg/dL (0.0-0.2); BILIRUBIN,TOTAL 0.3 mg/dL (0.2-1.0); SGOT/AST 18 U/L (15-37); SGPT/ALT 32 U/L (12-78); TOT PROT 6.5 g/dl (6.4-8.2)
[2017-12-14] MEDS ORDERED: DEXAMETHASONE INJECTION 10 MG in SODIUM CHLORIDE 50 ML IVPB ONE (10:00)
[2017-12-14] MEDS ORDERED: CYANOCOBALAMIN (VITAMIN B-12) 1000 MCG/1 ML VIAL IM ONE (10:00)
[2017-12-14] MEDS ORDERED: PALONOSETRON HCL 0.25 MG/5 ML VIAL IVPUSH ONE (10:00)
[2017-12-14] MEDS ORDERED: SODIUM CHLORIDE IVPB ONE (10:30)
[2017-12-14] MEDS ORDERED: PEMETREXED DISODIUM IVPB ONE (10:30)
[2017-12-14 11:37] VITALS: TEMP 98.1
[2017-12-14] MEDS ORDERED: PORTA CATH FLUSH 10 ML IVPUSH ONE (11:42)
[2017-12-14 12:57] VITALS: BP 141/75; PULSE 81
== END 2017-12-14 12:15 | disposition home or self-care (01) ==
LOC: JONCCHEMO 07:32 → J7W 09:53 → JONCCHEMO 12:15
PROVIDERS: ATTEND Internal Medicine Hematology & Oncology
DX: Z51.11 Encounter for antineoplastic chemotherapy (principal); C34.90 Malignant neoplasm of unspecified part of unspecified bronchus or lung
CPT/HCPCS: 36415; 80053; 80076; 83735; 85025; 96361; 96372; 96375; 96409; 96413; J1100; J2469; J9305

== ENCOUNTER 2018-01-10 07:46 | Day surgery (SDC) | payer OTHER ==
[2018-01-10] MEDS ORDERED: SODIUM CHLORIDE 250 ML IV ONE ×2 (08:00→09:11)
[2018-01-10] MEDS ORDERED: PALONOSETRON HCL 0.25 MG/5 ML VIAL IVPUSH ONE (08:30)
[2018-01-10] MEDS ORDERED: DEXAMETHASONE INJECTION 10 MG in SODIUM CHLORIDE 50 ML IVPB ONE (08:30)
[2018-01-10] MEDS ORDERED: CYANOCOBALAMIN (VITAMIN B-12) 1000 MCG/1 ML VIAL IM ONE (08:30)
[2018-01-10] MEDS ORDERED: PEMETREXED DISODIUM IVPB ONE (09:00)
[2018-01-10] MEDS ORDERED: SODIUM CHLORIDE IVPB ONE (09:00)
[2018-01-10 09:15] LABS: BASO % 0.7 % (0-2.0); EOS % 1.4 % (0-4.5); HEMATOCRIT 42.4 % (35.4-49); HEMOGLOBIN 14.2 GM/dL (11.7-16.9); LYMPH % 14.2 % (8-40); MCH 29.6 pg (25.7-33.7); MCHC 33.5 g/dl (32.0-35.9); MEAN CELL VOLUME 88.4 fl (80-96); MEAN PLT VOLUME 8.6 fl (7.5-11.1); MONO % 5.8 % (3.8-10.2); NEUT % 77.9 % (42.8-82.8); PLATELET COUNT 131 K/MM3 (134-434); RBC 4.79 M/mm3 (4.00-5.60); RDW 15.6 % (11.9-15.9); WHITE BLOOD COUNT 8.1 K/mm3 (4.0-10.0)
[2018-01-10 10:05] LABS: ALBUMIN 3.5 g/dl (3.4-5.0); ALK PHOS 154 U/L (45-117); BILIRUBIN,DIRECT < 0.2 mg/dL (0.0-0.2); BILIRUBIN,TOTAL 0.4 mg/dL (0.2-1); MAGNESIUM 1.7 mg/dL (1.8-2.4); SGOT/AST 20 U/L (15-37); SGPT/ALT 49 U/L (13-61); TOT PROT 7.2 g/dl (6.4-8.2)
[2018-01-10 11:09] LABS: ALBUMIN 3.6 g/dl (3.4-5.0); ALK PHOS 156 U/L (45-117); ANION GAP 10 MMOL/L (8-16); BILIRUBIN,TOTAL 0.4 mg/dL (0.2-1); BLOOD UREA NITROGEN 14 mg/dL (7-18); CALCIUM 9.3 mg/dL (8.5-10.1); CHLORIDE 97 mmol/L (98-107); CO2 30 mmol/L (21-32); CREATININE 1.5 mg/dL (0.55-1.3); POTASSIUM 4.6 mmol/L (3.5-5.1); SGOT/AST 22 U/L (15-37); SGPT/ALT 49 U/L (13-61); SODIUM 138 mmol/L (136-145); TOT PROT 7.4 g/dl (6.4-8.2)
[2018-01-10 11:13] LABS: GLUCOSE,RANDOM 329 mg/dL (74-106)
[2018-01-10] MEDS ORDERED: MAGNESIUM SULF 50% (8.12 MEQ/2 ML-1 GM VIAL) IVPB ONE (12:00)
[2018-01-10] MEDS ORDERED: INSULIN (NOVOLOG) ASPART 100 UNITS/ML 10ML VIAL SQ ONE (12:00)
[2018-01-10 16:29] VITALS: BP 140/74; PULSE 96; TEMP 97.9
[2018-01-10] MEDS ORDERED: PORTA CATH FLUSH 10 ML IVPUSH ONE (16:29)
== END 2018-01-10 12:15 | disposition home or self-care (01) ==
LOC: JONCCHEMO 07:46 → J7W 09:49 → JONCCHEMO 12:15
PROVIDERS: ATTEND Internal Medicine Hematology & Oncology
PROC: 3E04305 Introduction of Other Antineoplastic into Central Vein, Percutaneous Approach (ICD-10-PCS; principal; 2018-01-10)
PROC: 3E043GC Introduction of Other Therapeutic Substance into Central Vein, Percutaneous Approach (ICD-10-PCS; 2018-01-10)
PROC: 3E043GC Introduction of Other Therapeutic Substance into Central Vein, Percutaneous Approach (ICD-10-PCS; 2018-01-10)
DX: Z51.11 Encounter for antineoplastic chemotherapy (principal); C34.90 Malignant neoplasm of unspecified part of unspecified bronchus or lung
CPT/HCPCS: 36415; 80053; 80076; 82378; 83735; 85025; 96361; 96365; 96367; 96375; 96409; 96413; 96417; J1100; J2469; J9305

== ENCOUNTER 2018-01-11 07:46 | Day surgery (SDC) | payer OTHER ==
[2018-01-11] MEDS ORDERED: PEGFILGRASTIM 6 MG/0.6 ML DISP.SYRIN SQ ONE (09:00)
[2018-01-11 15:40] VITALS: BP 145/82; PULSE 87; TEMP 97.9
== END 2018-01-11 13:40 | disposition home or self-care (01) ==
LOC: JONCCHEMO 07:46 → J7W 13:33 → JONCCHEMO 13:40
PROVIDERS: ATTEND Internal Medicine Hematology & Oncology
PROC: 3E013GC Introduction of Other Therapeutic Substance into Subcutaneous Tissue, Percutaneous Approach (ICD-10-PCS; principal; 2018-01-11)
DX: C34.90 Malignant neoplasm of unspecified part of unspecified bronchus or lung (principal); Z76.89 Persons encountering health services in other specified circumstances
CPT/HCPCS: 96372; J2505

== ENCOUNTER 2018-02-06 07:44 | Day surgery (SDC) | payer OTHER ==
[2018-02-06] MEDS ORDERED: SODIUM CHLORIDE 250 ML IV ONE ×2 (09:00→10:40)
[2018-02-06 09:19] LABS: BASO % 0.6 % (0-2.0); EOS % 1.2 % (0-4.5); HEMATOCRIT 41.7 % (35.4-49); HEMOGLOBIN 13.8 GM/dL (11.7-16.9); LYMPH % 13.6 % (8-40); MCHC 33.1 g/dl (32.0-35.9); MEAN CELL VOLUME 90.4 fl (80-96); MEAN PLT VOLUME 8.7 fl (7.5-11.1); MONO % 6.5 % (3.8-10.2); NEUT % 78.1 % (42.8-82.8); PLATELET COUNT 147 K/MM3 (134-434); RBC 4.61 M/mm3 (4.00-5.60); RDW 16.1 % (11.9-15.9); WHITE BLOOD COUNT 6.7 K/mm3 (4.0-10.0)
[2018-02-06] MEDS ORDERED: PORTA CATH FLUSH 10 ML IVPUSH ONE (09:21)
[2018-02-06 09:22] VITALS: TEMP 98.5
[2018-02-06] MEDS ORDERED: amLODIPine BESYLATE 5 MG TABLET (FP) PO PRN (09:27)
[2018-02-06] MEDS ORDERED: CYANOCOBALAMIN (VITAMIN B-12) 1000 MCG/1 ML VIAL IM ONE (10:00)
[2018-02-06] MEDS ORDERED: PALONOSETRON HCL 0.25 MG/5 ML VIAL IVPUSH ONE (10:00)
[2018-02-06] MEDS ORDERED: DEXAMETHASONE INJECTION 10 MG in SODIUM CHLORIDE 50 ML IVPB ONE (10:00)
[2018-02-06 10:01] LABS: ALBUMIN 3.6 g/dl (3.4-5.0); ALK PHOS 152 U/L (45-117); ANION GAP 3 MMOL/L (8-16); BILIRUBIN,DIRECT 0.1 mg/dL (0.0-0.2); BILIRUBIN,TOTAL 0.4 mg/dL (0.2-1); BLOOD UREA NITROGEN 13 mg/dL (7-18); CALCIUM 8.9 mg/dL (8.5-10.1); CHLORIDE 101 mmol/L (98-107); CO2 32 mmol/L (21-32); CREATININE 1.4 mg/dL (0.55-1.3); MAGNESIUM 1.9 mg/dL (1.8-2.4); POTASSIUM 4.4 mmol/L (3.5-5.1); SGOT/AST 16 U/L (15-37); SGPT/ALT 48 U/L (13-61); SODIUM 136 mmol/L (136-145); TOT PROT 7.4 g/dl (6.4-8.2)
[2018-02-06 10:25] LABS: GLUCOSE,RANDOM 324 mg/dL (74-106)
[2018-02-06] MEDS ORDERED: PEMETREXED DISODIUM IVPB ONE (10:30)
[2018-02-06] MEDS ORDERED: SODIUM CHLORIDE IVPB ONE (10:30)
[2018-02-06] MEDS ORDERED: INSULIN (NOVOLOG) ASPART 100 UNITS/ML 10ML VIAL ONE (10:39)
[2018-02-06] MEDS ORDERED: INSULIN (NOVOLOG) ASPART 100 UNITS/ML 10ML VIAL SQ ONE (11:00)
[2018-02-06 12:55] VITALS: BP 133/79; PULSE 83
== END 2018-02-06 11:20 | disposition home or self-care (01) ==
LOC: JONCCHEMO 07:44 → J7W 09:09 → JONCCHEMO 11:20
PROVIDERS: ATTEND Internal Medicine Hematology & Oncology
PROC: 3E04305 Introduction of Other Antineoplastic into Central Vein, Percutaneous Approach (ICD-10-PCS; principal; 2018-02-06)
PROC: 3E0437Z Introduction of Electrolytic and Water Balance Substance into Central Vein, Percutaneous Approach (ICD-10-PCS; 2018-02-06)
DX: Z51.11 Encounter for antineoplastic chemotherapy (principal); C34.90 Malignant neoplasm of unspecified part of unspecified bronchus or lung
CPT/HCPCS: 36415; 80053; 80076; 83735; 85025; 96361; 96372; 96375; 96409; 96413; J1100; J2469; J9305

== ENCOUNTER 2018-02-07 07:21 | Day surgery (SDC) | payer OTHER ==
[2018-02-07] MEDS ORDERED: PEGFILGRASTIM 6 MG/0.6 ML DISP.SYRIN SQ ONE (10:00)
[2018-02-07 15:24] VITALS: BP 126/71; PULSE 82; TEMP 97.5
== END 2018-02-07 13:05 | disposition home or self-care (01) ==
LOC: JONCCHEMO 07:21 → J7W 12:53 → JONCCHEMO 13:05
PROVIDERS: ATTEND Internal Medicine Hematology & Oncology
PROC: 3E013GC Introduction of Other Therapeutic Substance into Subcutaneous Tissue, Percutaneous Approach (ICD-10-PCS; principal; 2018-02-07)
DX: C34.90 Malignant neoplasm of unspecified part of unspecified bronchus or lung (principal); Z76.89 Persons encountering health services in other specified circumstances
CPT/HCPCS: 96372; J2505

== ENCOUNTER 2018-03-13 07:31 | Day surgery (SDC) | payer OTHER ==
[2018-03-13] MEDS ORDERED: SODIUM CHLORIDE 250 ML IV ONE ×2 (09:00→10:40)
[2018-03-13 09:37] LABS: BASO % 0.7 % (0-2.0); HEMATOCRIT 41.3 % (35.4-49); HEMOGLOBIN 14.4 GM/dL (11.7-16.9); LYMPH % 17.6 % (8-40); MCH 31.9 pg (25.7-33.7); MCHC 34.9 g/dl (32.0-35.9); MEAN CELL VOLUME 91.4 fl (80-96); MEAN PLT VOLUME 8.5 fl (7.5-11.1); MONO % 5.6 % (3.8-10.2); NEUT % 75.1 % (42.8-82.8); PLATELET COUNT 142 K/MM3 (134-434); RBC 4.52 M/mm3 (4.00-5.60); RDW 14.5 % (11.9-15.9); WHITE BLOOD COUNT 5.9 K/mm3 (4.0-10.0)
[2018-03-13] MEDS ORDERED: amLODIPine BESYLATE 5 MG TABLET (FP) PO PRN (09:58)
[2018-03-13] MEDS ORDERED: CYANOCOBALAMIN (VITAMIN B-12) 1000 MCG/1 ML VIAL IM ONE (10:00)
[2018-03-13] MEDS ORDERED: DEXAMETHASONE INJECTION 10 MG in SODIUM CHLORIDE 50 ML IVPB ONE (10:00)
[2018-03-13] MEDS ORDERED: PALONOSETRON HCL 0.25 MG/5 ML VIAL IVPUSH ONE (10:00)
[2018-03-13] MEDS ORDERED: SODIUM CHLORIDE IVPB ONE (10:30)
[2018-03-13] MEDS ORDERED: PEMETREXED DISODIUM IVPB ONE (10:30)
[2018-03-13 10:54] LABS: ALBUMIN 3.5 g/dl (3.4-5.0); ALK PHOS 162 U/L (45-117); ANION GAP 7 MMOL/L (8-16); BILIRUBIN,DIRECT 0.1 mg/dL (0.0-0.2); BILIRUBIN,TOTAL 0.4 mg/dL (0.2-1); BLOOD UREA NITROGEN 15 mg/dL (7-18); CALCIUM 8.6 mg/dL (8.5-10.1); CHLORIDE 97 mmol/L (98-107); CO2 30 mmol/L (21-32); CREATININE 1.5 mg/dL (0.55-1.3); POTASSIUM 4.3 mmol/L (3.5-5.1); SGOT/AST 21 U/L (15-37); SGPT/ALT 47 U/L (13-61); SODIUM 134 mmol/L (136-145); TOT PROT 7.1 g/dl (6.4-8.2)
[2018-03-13 11:17] LABS: GLUCOSE,RANDOM 406 mg/dL (74-106)
[2018-03-13] MEDS ORDERED: INSULIN (NOVOLOG) ASPART 100 UNITS/ML 10ML VIAL ONE (11:23)
[2018-03-13] MEDS ORDERED: INSULIN (NOVOLOG) ASPART 100 UNITS/ML 10ML VIAL SQ ONE (11:45)
[2018-03-13] MEDS ORDERED: PORTA CATH FLUSH 10 ML IVPUSH ONE (15:59)
[2018-03-13 16:00] VITALS: BP 148/92; PULSE 95; TEMP 98.4
== END 2018-03-13 11:30 | disposition home or self-care (01) ==
LOC: JONCCHEMO 07:31 → J7W 09:10 → JONCCHEMO 11:30
PROVIDERS: ATTEND Internal Medicine Hematology & Oncology
DX: Z51.11 Encounter for antineoplastic chemotherapy (principal); C34.90 Malignant neoplasm of unspecified part of unspecified bronchus or lung
CPT/HCPCS: 36415; 80048; 80076; 83735; 85025; 96361; 96365; 96367; 96372; 96375; 96409; 96413; J1100; J2469; J9305

== ENCOUNTER 2018-03-14 07:30 | Day surgery (SDC) | payer OTHER ==
[2018-03-14] MEDS ORDERED: PEGFILGRASTIM 6 MG/0.6 ML DISP.SYRIN SQ ONE (10:00)
[2018-03-14 15:36] VITALS: BP 141/83; PULSE 84; TEMP 97.6
== END 2018-03-14 13:00 | disposition home or self-care (01) ==
LOC: JONCCHEMO 07:30
PROVIDERS: ATTEND Internal Medicine Hematology & Oncology
PROC: 3E013GC Introduction of Other Therapeutic Substance into Subcutaneous Tissue, Percutaneous Approach (ICD-10-PCS; principal; 2018-03-14)
DX: C34.90 Malignant neoplasm of unspecified part of unspecified bronchus or lung (principal); Z76.89 Persons encountering health services in other specified circumstances
CPT/HCPCS: 96372; J2505

== ENCOUNTER 2018-04-20 07:27 | Day surgery (SDC) | payer OTHER ==
[2018-04-20] MEDS ORDERED: SODIUM CHLORIDE 250 ML IV ONE ×2 (08:00→09:15)
[2018-04-20] MEDS ORDERED: DEXAMETHASONE SODIUM PHOSPHATE 10 MG in SODIUM CHLORIDE 50 ML IVPB ONE (08:30)
[2018-04-20] MEDS ORDERED: PALONOSETRON HCL 0.25 MG/5 ML VIAL IVPUSH ONE (08:30)
[2018-04-20] MEDS ORDERED: CYANOCOBALAMIN (VITAMIN B-12) 1000 MCG/1 ML VIAL IM ONE (08:30)
[2018-04-20] MEDS ORDERED: SODIUM CHLORIDE IVPB ONE (09:00)
[2018-04-20] MEDS ORDERED: PEMETREXED DISODIUM IVPB ONE (09:00)
[2018-04-20 09:01] LABS: BASO % 0.6 % (0-2.0); HEMATOCRIT 42.8 % (35.4-49); HEMOGLOBIN 15.1 GM/dL (11.7-16.9); LYMPH % 19.2 % (8-40); MCH 32.1 pg (25.7-33.7); MCHC 35.3 g/dl (32.0-35.9); MEAN CELL VOLUME 90.9 fl (80-96); MEAN PLT VOLUME 8.5 fl (7.5-11.1); MONO % 5.7 % (3.8-10.2); NEUT % 73.5 % (42.8-82.8); PLATELET COUNT 128 K/MM3 (134-434); RBC 4.71 M/mm3 (4.00-5.60); RDW 13.8 % (11.9-15.9); WHITE BLOOD COUNT 6.7 K/mm3 (4.0-10.0)
[2018-04-20 09:45] LABS: ALBUMIN 3.6 g/dl (3.4-5.0); ALK PHOS 128 U/L (45-117); ANION GAP 7 MMOL/L (8-16); BILIRUBIN,DIRECT 0.1 mg/dL (0.0-0.2); BILIRUBIN,TOTAL 0.3 mg/dL (0.2-1); BLOOD UREA NITROGEN 13 mg/dL (7-18); CALCIUM 8.8 mg/dL (8.5-10.1); CHLORIDE 102 mmol/L (98-107); CO2 28 mmol/L (21-32); CREATININE 1.6 mg/dL (0.55-1.3); GLUCOSE,RANDOM 173 mg/dL (74-106); MAGNESIUM 1.9 mg/dL (1.8-2.4); POTASSIUM 3.9 mmol/L (3.5-5.1); SGOT/AST 19 U/L (15-37); SGPT/ALT 51 U/L (13-61); SODIUM 137 mmol/L (136-145); TOT PROT 7.2 g/dl (6.4-8.2)
[2018-04-20 09:52] VITALS: TEMP 98.1
[2018-04-20] MEDS ORDERED: PORTA CATH FLUSH 10 ML IVPUSH ONE (10:01)
[2018-04-20 13:42] VITALS: BP 138/75; PULSE 80
== END 2018-04-20 11:30 | disposition home or self-care (01) ==
LOC: JONCCHEMO 07:27 → J7W 09:17 → JONCCHEMO 11:30
PROVIDERS: ATTEND Internal Medicine Hematology & Oncology
DX: Z51.11 Encounter for antineoplastic chemotherapy (principal); C34.90 Malignant neoplasm of unspecified part of unspecified bronchus or lung
CPT/HCPCS: 36415; 80053; 80076; 83735; 85025; 96361; 96375; 96409; 96413; J2469; J9305

== ENCOUNTER 2018-04-21 05:37 | Day surgery (SDC) | payer OTHER ==
[2018-04-21] MEDS ORDERED: PEGFILGRASTIM 6 MG/0.6 ML DISP.SYRIN SQ ONE (09:00)
[2018-04-21 17:09] VITALS: BP 140/83; PULSE 78; TEMP 98.4
== END 2018-04-21 13:30 | disposition home or self-care (01) ==
LOC: JONCCHEMO 05:37 → J7W 15:30
PROVIDERS: ATTEND Internal Medicine Hematology & Oncology
PROC: 3E013GC Introduction of Other Therapeutic Substance into Subcutaneous Tissue, Percutaneous Approach (ICD-10-PCS; principal; 2018-04-21)
DX: C34.90 Malignant neoplasm of unspecified part of unspecified bronchus or lung (principal); Z76.89 Persons encountering health services in other specified circumstances
CPT/HCPCS: 96372; J2505

== ENCOUNTER 2018-05-18 07:18 | Day surgery (SDC) | payer OTHER ==
[2018-05-18 08:37] LABS: BASO % 0.4 % (0-2.0); EOS % 1.4 % (0-4.5); HEMATOCRIT 42.7 % (35.4-49); LYMPH % 18.8 % (8-40); MCH 32.6 pg (25.7-33.7); MCHC 35.1 g/dl (32.0-35.9); MEAN PLT VOLUME 8.5 fl (7.5-11.1); MONO % 5.5 % (3.8-10.2); NEUT % 73.9 % (42.8-82.8); PLATELET COUNT 126 K/MM3 (134-434); RBC 4.59 M/mm3 (4.00-5.60); RDW 14.3 % (11.9-15.9); WHITE BLOOD COUNT 6.5 K/mm3 (4.0-10.0)
[2018-05-18 09:32] LABS: ALBUMIN 3.6 g/dl (3.4-5.0); ALK PHOS 136 U/L (45-117); ANION GAP 6 MMOL/L (8-16); BILIRUBIN,DIRECT 0.1 mg/dL (0.0-0.2); BILIRUBIN,TOTAL 0.3 mg/dL (0.2-1); BLOOD UREA NITROGEN 14 mg/dL (7-18); CALCIUM 8.3 mg/dL (8.5-10.1); CHLORIDE 102 mmol/L (98-107); CO2 29 mmol/L (21-32); CREATININE 1.4 mg/dL (0.55-1.3); GLUCOSE,RANDOM 249 mg/dL (74-106); MAGNESIUM 1.8 mg/dL (1.8-2.4); POTASSIUM 3.9 mmol/L (3.5-5.1); SGOT/AST 28 U/L (15-37); SGPT/ALT 65 U/L (13-61); SODIUM 138 mmol/L (136-145); TOT PROT 7.2 g/dl (6.4-8.2)
[2018-05-18] MEDS ORDERED: DEXAMETHASONE SODIUM PHOSPHATE 10 MG in SODIUM CHLORIDE 50 ML IVPB ONE (10:00)
[2018-05-18] MEDS ORDERED: CYANOCOBALAMIN (VITAMIN B-12) 1000 MCG/1 ML VIAL IM ONE (10:00)
[2018-05-18] MEDS ORDERED: SODIUM CHLORIDE 250 ML IV ONE ×2 (10:00→10:40)
[2018-05-18] MEDS ORDERED: PALONOSETRON HCL 0.25 MG/5 ML VIAL IVPUSH ONE (10:00)
[2018-05-18] MEDS ORDERED: SODIUM CHLORIDE IVPB ONE (10:30)
[2018-05-18] MEDS ORDERED: PEMETREXED DISODIUM IVPB ONE (10:30)
[2018-05-18 14:16] VITALS: TEMP 97.5
[2018-05-18 14:23] VITALS: BP 138/77; PULSE 79
[2018-05-18] MEDS ORDERED: PORTA CATH FLUSH 10 ML IVPUSH ONE (14:23)
== END 2018-05-18 12:00 | disposition home or self-care (01) ==
LOC: JONCCHEMO 07:18 → J7W 09:29 → JONCCHEMO 12:00
PROVIDERS: ATTEND Internal Medicine Hematology & Oncology
PROC: 3E04305 Introduction of Other Antineoplastic into Central Vein, Percutaneous Approach (ICD-10-PCS; principal; 2018-05-18)
PROC: 3E043GC Introduction of Other Therapeutic Substance into Central Vein, Percutaneous Approach (ICD-10-PCS; 2018-05-18)
PROC: 3E043GC Introduction of Other Therapeutic Substance into Central Vein, Percutaneous Approach (ICD-10-PCS; 2018-05-18)
DX: Z51.11 Encounter for antineoplastic chemotherapy (principal); C34.90 Malignant neoplasm of unspecified part of unspecified bronchus or lung
CPT/HCPCS: 36415; 80048; 80076; 83735; 85025; 96361; 96365; 96372; 96375; 96409; 96413; J2469; J9305

== ENCOUNTER 2018-05-19 07:14 | Day surgery (SDC) | payer OTHER ==
[2018-05-19] MEDS ORDERED: PEGFILGRASTIM 6 MG/0.6 ML DISP.SYRIN SQ ONE (10:00)
[2018-05-19 15:23] VITALS: BP 140/80; PULSE 80; TEMP 97.6
== END 2018-05-19 13:40 | disposition home or self-care (01) ==
LOC: JONCCHEMO 07:14 → J7W 13:22 → JONCCHEMO 13:40
PROVIDERS: ATTEND Internal Medicine Hematology & Oncology
PROC: 3E013GC Introduction of Other Therapeutic Substance into Subcutaneous Tissue, Percutaneous Approach (ICD-10-PCS; principal; 2018-05-19)
DX: C34.90 Malignant neoplasm of unspecified part of unspecified bronchus or lung (principal); Z76.89 Persons encountering health services in other specified circumstances
CPT/HCPCS: 96372; J2505

== ENCOUNTER 2018-06-01 13:44 | Day surgery (SDC) | payer OTHER | END 2018-06-01 16:32 | disposition still patient (30) | LOC: JONCNONCHE 13:44 → J7W 13:44 → JONCNONCHE 16:32 ==

== ENCOUNTER 2018-06-01 16:28 | Inpatient (IN) | payer OTHER ==
--- NOTE | 2018-06-01 17:12 | PDOC ---
Attending Attestation - HPI HPI: 06/01/18 18:50 The patient is a 59 year old male with a PMH of metastatic adeno ca of lung s/p C6 carbo/alimta presents to the ER sent in by Dr. Mcgill, oncologist, after he was found to be hypotensive at 70 systolic in the clinic. Patient was sent in for hydration. Patient's creatinine was also found to be elevated to 10.4 from 1.3 two weeks ago. Patient notes he had sweats and rigors four days ago but denies any other complaints today. Patient had a flu swab done in his PCP's office and was found to be negative. <Vira Araujo - Last Filed: 06/01/18 19:01> - Physicial Exam PE: 06/01/18 20:49 Agree with resident exam. Patient is alert and oriented x 3 and is in no acute distress. Lungs are clear. heart has regular rate and rhythm. Abdomen is soft , non tender and non distended without guarding or rebound. - Critical Care Time Total Critical Care Time: 30 Critical Care Statement: The care of this patient involved high complexity decision making to prevent further life threatening deterioration of the patient 's condition and/or to evaluate & treat vital organ system(s) failure or risk of failure. - Medical Decision Making 06/01/18 20:51 Pt presents to the ED complaining of decreased urine output and PO intake. Found to have severe pre renal azotemia. BP dropped to the 70s/50's, improved with fluid. Likely secondary to severe dehydration. Will continue aggressive hydration and admit to medicine for severe dehydration and IGOR. <Yanique Braden - Last Filed: 06/01/18 20:54>
--- NOTE | 2018-06-01 18:00 | CONSULT ---
Consult - text type - Consultation Consultation Note: Patient seen and examined Patient comes in with weakness/ shortness of breath No fever/ cough/SOB/ abdominal pain/nausea/vomiting/diarrhea/urinary symptoms noted to be in acute renal failure AFVSS Cor: RSR, No murmurs, No gallops Lungs: Clear to P&A Abd: Soft, Normal bowel sounds, No organomegaly Ext:1+ edema b/l Labs/Meds reviewed A/P 63 y/o patient well known to our service, with metastatic lung cancer, had been doing very well on maintenance alimta since 2016, comes in now with acute renal failure/hypotension r/o occult sepsis cultures/empiric antibiotics renal consult pain control
[2018-06-01] MEDS ORDERED: SODIUM CHLORIDE 0.9% 500 ML INFUS.BAG IV ONE (18:47)
[2018-06-01] MEDS ORDERED: HYDROCORTISONE 1% TOPICAL CREAM 30 GM TUBE TP ONE (18:47)
[2018-06-01] MEDS ORDERED: PIPERACILLIN/TAZOB 2.25 GM 2.25 GM in DEXTROSE 5%-WATER - 50 ML IVPB ONE (18:52)
[2018-06-01] MEDS ORDERED: VANCOMYCIN 1,000 MG in DEXTROSE 5%-WATER - 250 ML IVPB ONE (18:52)
--- NOTE | 2018-06-01 19:21 | PDOC ---
*Physical Exam - Vital Signs Last Vital Signs Temp Pulse Resp BP Pulse Ox 97.8 F 90 16 105/66 95 06/01/18 17:03 06/01/18 17:03 06/01/18 17:03 06/01/18 17:03 06/01/18 17:03 ED Treatment Course - Medications Given in the ED: ED Medications Discontinued Medications Generic Name Dose Route Start Last Admin Trade Name Freq PRN Reason Stop Dose Admin Sodium Chloride 3,000 ml 06/01/18 18:47 06/01/18 18:55 Normal Saline - IV 06/01/18 18:48 3,000 ml ONCE ONE Administration Medical Decision Making - Medical Decision Making 06/01/18 19:21 Patient signed out by resident Dr. Ruth In short patient is a 59 year old man with a history of metastatic lung adenocarcinoma presents from Dr. Mcgill, oncologist, after he was found to be hypotensive to the 70s in clinic, Cr was found to be 10.4 from 1.3 two weeks ago. In the ED patient given fluids, vanc/zosyn BP improved to 105/66 ED Course: Patient pending CXR, renal and ruq US and UA Nephro consulted and made aware of patient Medicine team contacted for admission, pending call back. *DC/Admit/Observation/Transfer - Referrals Referrals: Vinod Olivier MD [Primary Care Provider] - - Patient Instructions - Post Discharge Activity
--- NOTE | 2018-06-01 19:49 | PN ---
Teaching Attending Note Name of Resident: Mandie Villalobos ATTENDING PHYSICIAN STATEMENT I saw and evaluated the patient. I reviewed the resident's note and discussed the case with the resident. I agree with the resident's findings and plan as documented. SUBJECTIVE: Patient is a 63 year old man with PMH metastatic adenocarcinoma of the lung (On ALINTA chemotherapy), pulmonary embolism, spinal cervical fusion, lumbar laminectomy, HTN, NIDDM, colon polyps and kidney stones sent in by Dr. Mcgill ( Oncologist), after he was found to be hypotensive (70 systolic) in the clinic. Patient was sent in for hydration. Patient's creatinine was also found to be elevated to 10.4 from 1.3 two weeks ago. Patient notes he had sweats and rigors four days ago but denies any other complaints today. Patient had a Flu swab done in his PCP's office that was found to be negative. OBJECTIVE: Alert Vital Signs Period Temp Pulse Resp BP Sys/Small Pulse Ox Last 24 Hr 97.8 F 90 16 105/66 95 HEENT: No Jaundice, eye redness or discharge, PERRLA, EOMI. Normocephalic, atraumatic. External ears are normal and hearing is grossly intact. No nasal discharge. Neck: Supple, nontender. No palpable adenopathy or thyromegaly. No JVD Chest: Good effort. Clear to auscultation and percussion. Heart: Regular. No S3, rub or murmur Abdomen: Not distended, soft, RUQ tenderness and no HSM. No rebound or guarding. Normoactive bowel sounds. Ext: Peripheral pulses intact. No leg edema. Skin: Warm and dry. No petechiae, rash or ecchymosis. Neuro: Alert. Oriented x3. CN 2-12 grossly intact. Sensation grossly intact in all four extremities and DTR are symmetric. Current Medications Generic Name Dose Route Start Last Admin Trade Name Freq PRN Reason Stop Dose Admin Vancomycin HCl 1,000 mg/ 250 mls @ 166.667 mls/hr 06/01/18 18:52 Dextrose IVPB 06/01/18 20:21 ONCE ONE Protocol Home Medications Medication Instructions Recorded Glipizide [Glipizide ER] 5 mg PO DAILY 04/16/14 Enoxaparin [Lovenox -] 110 mg SQ BID #20 disp.syrin 05/15/14 Diazepam [Valium -] 10 mg PO TID PRN 06/21/14 Oxycodone HCl 10 mg PO Q4H PRN 08/26/14 Atorvastatin Calcium 10 mg PO DAILY 05/25/16 Folic Acid 1 mg PO HS 05/24/17 Furosemide [Lasix] 40 mg PO Q48H 05/24/17 Magnesium Oxide [Magnesium] 400 mg PO DAILY 05/24/17 metFORMIN HCL [Metformin ER 1,000 mg PO DAILY 05/24/17 Osmotic] ASSESSMENT AND PLAN: 1. Metastatic lung cancer/Rule out Sepsis - No obvious source of sepsis at this time. Hypotension responded to the initial IV NS bolus in the ER. Blood cultures have been sent and he got IV Vancomycin and Zosyn in the ER. Urinalysis , uric acid level and lactic acid are pending. CXR shows chronic increased interstitial markings. Though elevated LFTs may be due to hepatic metastastasis , cholecystitis or othe hepatobiliary infection is being ruled out - with CT abdomen and pelvis. Will continue dose-adjusted Zosyn therapy but avoid further vancomycin use. Will use Zyvox for now pending results of initial workup. Trend LFTs. Consult ID. Patient is anuric - guerra cathether was passed and no urine was obtained. He has multiple risk factors for acute renal failure including chemotherapy side effects, hyperuricemia, obstructive uropathy, etc. Will continue IV NS while awaiting result of CT abdomen and urinalysis. Will consult nephrology and avoid nephrotoxic agents such as NSAIDS, aminoglycosides, contrast dyes and certain Alternative medicine products. 2. Hypoalbuminemia - Possibly due to combined effects of malnutrition and inflammation associated with comorbid chronic conditions. Will ensure adequate dietary protein intake and also consult lehr cutter. 3. DM For now, we will hold the home diabetes drugs and implement sliding scale insulin regimen. Provide comprehensive diabetes care with patient teaching and counseling about the importance of adherence to prescribed diabetes regimen, euglycemia, eye care and foot care. 4. Obesity - Will provide patient all the necessary assistance, counseling and positive reinforcement to facilitate weight loss. Consult lehr cutter. 5. DVT prophylaxis - Patient on full dose Lovenox for PE 6. Advance directives - Full code
[2018-06-01] MEDS ORDERED: fentaNYL CITRATE 250 MCG/5 ML VIAL IVPUSH ONE (19:53)
--- NOTE | 2018-06-01 20:02 | PDOC ---
History of Present Illness - General Chief Complaint: Revisit, Lab Variance Stated Complaint: Revisit, Lab Variance Time Seen by Provider: 06/01/18 17:10 History Source: Patient, Old Records Exam Limitations: No Limitations - History of Present Illness Initial Comments: HPI: 63 y/o male presenting to [facility] ER on referral from Dr. Cruz office / 7W for hypotension, azotemia, and transaminitis. Pt reports an episode of diaphoresis, chills, and severe shaking for approx. 1 hour on Tuesday. Episode resolved spontaneously. Endorses persistent body aches and RUQ tenderness. Also endorses decreased PO intake secondary to decreased appetite. Has not voided in two days. Pt has a history of stage four lung adenocarcinoma and is currently being treated with chemotherapy agent Alinta. Last dose was on 18 May 2018. Rapid flu reportedly negative at Dr. Dee office yesterday. Seen by Dr. Mcgill today. Found to be hypotensive to 70s systolic. Sent to [facility] for rehydration and lab draws. Results revealed significantly elevated Cr and liver enzymes. PCP: Dr. Olivier Medical Hx: - Stage 4 Lung Adenocarcinoma - Diabetes - Hypertension - Obesity Past History - Past Medical History Allergies/Adverse Reactions: Allergies Allergy/AdvReac Type Severity Reaction Status Date / Time No Known Drug Allergies Allergy Verified 05/24/17 12:37 Home Medications: Ambulatory Orders Glipizide [Glipizide ER] 5 mg PO DAILY 04/16/14 Diazepam [Valium -] 10 mg PO TID PRN 06/21/14 Oxycodone HCl 10 mg PO Q4H PRN 08/26/14 Atorvastatin Calcium 10 mg PO DAILY 05/25/16 Folic Acid 1 mg PO HS 05/24/17 Furosemide [Lasix] 40 mg PO Q48H 05/24/17 Magnesium Oxide [Magnesium] 400 mg PO DAILY 05/24/17 metFORMIN HCL [Metformin ER Osmotic] 1,000 mg PO DAILY 05/24/17 Enoxaparin [Lovenox -] 120 mg SQ BID 06/01/18 Anemia: No Asthma: No Cancer: Yes (lung ca-04/2014-CHEMOTHERAPY) Cardiac Disorders: Yes (PE? HAS BEEN ON LOVENOX X 3 YEARS.) CVA: No COPD: No CHF: No Dementia: No Diabetes: Yes (NIDDM) GI Disorders: Yes (COLONIC POLYPS) Disorders: No HTN: Yes Hypercholesterolemia: Yes Kidney Stones: Yes (LASER TREATMENT) Liver Disease: No Seizures: No Thyroid Disease: No - Surgical History Abdominal Surgery: No Appendectomy: No Cardiac Surgery: No Cholecystectomy: No Lung Surgery: No Neurologic Surgery: Yes (SPINAL CERVICAL FUSION TIMES TWO, LUMBAR LAMINECTOMY) Orthopedic Surgery: Yes (SPINAL FUSIONS X2 LAMINECTOMY X2 RIGHT KNEE ARTHROSCOPY ) - Suicide/Smoking/Psychosocial Hx Smoking Status: Yes Smoking History: Former smoker Have you smoked in the past 12 months: No Number of Cigarettes Smoked Daily: 30 If you are a former smoker, when did you quit?: 05/02 Information on smoking cessation initiated: No 'Breaking Loose' booklet given: 11/24/15 Hx Alcohol Use: Yes (social) Drug/Substance Use Hx: No Substance Use Type: Alcohol Hx Substance Use Treatment: No Review of Systems - Review of Systems Able to Perform ROS?: Yes Comments:: In addition to that documented in the HPI above, the additional ROS was obtained : Constitutional: Endorses chills. Denies fevers. Eyes: Denies vision changes ENMT: Denies sore throat CV: Denies chest pain Resp: Denies SOB GI: Endorses two episodes of vomiting. Denies diarrhea : Denies painful urination MSK: Denies recent trauma Skin: Denies new rashes Neuro: Denies new numbness or tingling or weakness Endocrine: Denies polyuria. Endorses anuria x2 days. Heme: Denies bleeding or bruising *Physical Exam - Vital Signs Last Vital Signs Temp Pulse Resp BP Pulse Ox 97.8 F 90 16 105/66 95 06/01/18 17:03 06/01/18 17:03 06/01/18 17:03 06/01/18 17:03 06/01/18 17:03 - Physical Exam Comments: Constitutional: Well-developed, adult male in no acute distress or obvious discomfort. Found sitting upright on edge of hospital bed. Alert and oriented x4. Answered all questions appropriately and completely. Speech was non-labored , non-pressured. Head: Normocephalic. No obvious external signs of trauma. Eyes: Sclerae icteric. Conjunctiva moist and not injected. Ears: Hearing grossly intact. Nose: No nasal discharge. Throat: Oral cavity and pharynx normal. No inflammation, swelling, exudate, or lesions. Neck: Supple, trachea is midline. Cardiovascular / Chest: Regular rate and regular rhythm. No murmur, rubs, clicks, or gallops. Peripheral pulses: radial pulses full. Respiratory: Breathing unlabored. Equal chest rise and fall. Clear to auscultation bilaterally. No stridor, no wheezing, no rhonchi. Gastrointestinal: abdomen is tender in LUQ with grimace but no rebound or guarding. Globally, abdomen is soft. No pulsatile masses. No overlying skin lesions or obvious signs of trauma. Neuro: Alert and oriented. Moving all four extremities spontaneously. Skin: Warm, dry, and intact. No jaundice. Psych: Affect: appropriate. Mood: normal. Moderate Sedation - Procedure Monitoring Vital Signs: Procedure Monitoring Vital Signs Temperature 97.8 F 06/01/18 17:03 Pulse Rate 90 06/01/18 17:03 Respiratory Rate 16 06/01/18 17:03 Blood Pressure 105/66 06/01/18 17:03 O2 Sat by Pulse Oximetry (%) 95 06/01/18 17:03 ED Treatment Course - LABORATORY CBC & Chemistry Diagram: 06/02/18 05:30 06/02/18 05:30 - RADIOLOGY Radiology Studies Ordered: Category Date Time Status CHEST X-RAY PORTABLE* [RAD] Stat Radiology 06/01/18 19:01 Ordered ABDOMEN US [US] Stat Ultrasound 06/01/18 18:49 Ordered - Medications Given in the ED: ED Medications Discontinued Medications Generic Name Dose Route Start Last Admin Trade Name Freq PRN Reason Stop Dose Admin Sodium Chloride 3,000 ml 06/01/18 18:47 06/01/18 18:55 Normal Saline - IV 06/01/18 18:48 3,000 ml ONCE ONE Administration Medical Decision Making - Medical Decision Making 63 y/o male presenting with hypotension, azotemia, and transaminitis. Episode of rigors on Tuesday. H/o stage 4 lung adenocarcinoma. Afebrile and normotensive on arrival to the department. Physical exam as described above. Concern for possible septic infection versus medication induced hypovolemia versus severe dehydration. Hypovolemic status could cause prerenal azotemia and shock liver. Labs ordered and obtained on 7W. Added on direct bilirubin and CK. Additionally , ordered UA, urine culture, and urine electrolytes. Bedside POUS revealed empty bladder, trace to mild hydronephrosis bilaterally. Will further evaluate with formal bladder/renal and RUQ U/S. 18:03 Telephone consultations with Drs. Mcgill and Kareen. Requested Vancomycin and Zosyn antibiotics and nephrology consult. 18:59 Telephone page sent to Dr. Foley for nephrology consultation. 19:[address] Foley. Verbally appraised of the pts HPI, ED course, and current plan of management. Requested urine electrolytes and U/S. Will evaluate pt in the morning. Did not believe pt requires emergent dialysis. 19:10 Microblog sent to [facility] for admission. 19:[address] Abraham. Verbally appraised of the pts HPI, ED course, and current plan of management. Will admit pt for dehydration, transaminitis, and acute kidney injury. *DC/Admit/Observation/Transfer Diagnosis at time of Disposition: Acute kidney injury, Dehydration, Prerenal azotemia, Transaminitis Hypotension Qualifiers: Hypotension type: unspecified hypotension type Qualified Code(s): I95.9 - Hypotension, unspecified - Discharge Dispostion Condition at time of disposition: Fair Decision to Admit order: Yes - Referrals - Patient Instructions - Post Discharge Activity
[2018-06-01] MEDS ORDERED: PIPERACILLIN/TAZOB 2.25 GM 2.25 GM/50 ML BAG IVPB ONE (20:07)
[2018-06-01] MEDS ORDERED: VANCOMYCIN 1 GRAM (PRE-DOCKED) 1,000 MG/250 ML BAG IVPB ONE (20:10)
--- NOTE | 2018-06-01 21:07 | HP ---
CHIEF COMPLAINT: hypotension, anuria PCP: Dr. Olivier HISTORY OF PRESENT ILLNESS: Patient is a 63 year old male with past medical history of NIDDM and metastatic lung cancer, presented from Dr. Mcgill's office after having been noted to be hypotensive with SBP at 70s, as well as elevated creatinine of 10.8. Patient reported having rigors, body aches and generalized malaise 3 days ago. He came to see his PCP, where flu swab was done and was negative. He was sent home with no medications and was asked to come back after 3 days if symptoms persist. Patient continued to have malaise and body aches, accompanied by poor oral intake. He also reported not making any urine for the past 2 days. Patient denies any fever, headache, dizziness, chest pain , SOB, palpitations, nausea, vomiting, abdominal pain, diarrhea. Today, patient was seen at Dr. Mcgill's office for follow-up. He receives Alimta every month in the last 4 years and has been consistent with his follow-ups. ER course was notable for: (1)IV NS x3L (2)Vanc /Zosyn (3) Recent Travel:denies PAST MEDICAL HISTORY: DM Metastatic lung CA PAST SURGICAL HISTORY: cervical and lumbar surgery for herniated discs (1995) Kidney stone removal Social History: Smoking:previous smoker 1ppd x35, quit 4 years ago Alcohol:occasional Drugs: denies Family History: noncontributory Allergies No Known Drug Allergies Allergy (Verified 05/24/17 12:37) HOME MEDICATIONS: Home Medications Medication Instructions Recorded Glipizide [Glipizide ER] 5 mg PO DAILY 04/16/14 Enoxaparin [Lovenox -] 110 mg SQ BID #20 disp.syrin 05/15/14 Diazepam [Valium -] 10 mg PO TID PRN 06/21/14 Oxycodone HCl 10 mg PO Q4H PRN 08/26/14 Atorvastatin Calcium 10 mg PO DAILY 05/25/16 Folic Acid 1 mg PO HS 05/24/17 Furosemide [Lasix] 40 mg PO Q48H 05/24/17 Magnesium Oxide [Magnesium] 400 mg PO DAILY 05/24/17 metFORMIN HCL [Metformin ER 1,000 mg PO DAILY 05/24/17 Osmotic] REVIEW OF SYSTEMS CONSTITUTIONAL: Absent: fever, chills, diaphoresis, generalized weakness, malaise, loss of appetite, weight change HEENT: Absent: rhinorrhea, nasal congestion, throat pain, throat swelling, difficulty swallowing, mouth swelling, ear pain, eye pain, visual changes CARDIOVASCULAR: Absent: chest pain, syncope, palpitations, irregular heart rate, lightheadedness , peripheral edema RESPIRATORY: Absent: cough, shortness of breath, dyspnea with exertion, orthopnea, wheezing, stridor, hemoptysis GASTROINTESTINAL: Absent: abdominal pain, abdominal distension, nausea, vomiting, diarrhea, constipation, melena, hematochezia GENITOURINARY: Absent: dysuria, frequency, urgency, hesitancy, hematuria, flank pain, genital pain MUSCULOSKELETAL: Absent: myalgia, arthralgia, joint swelling, back pain, neck pain SKIN: Absent: rash, itching, pallor HEMATOLOGIC/IMMUNOLOGIC: Absent: easy bleeding, easy bruising, lymphadenopathy, frequent infections ENDOCRINE: Absent: unexplained weight gain, unexplained weight loss, heat intolerance, cold intolerance NEUROLOGIC: Absent: headache, focal weakness or paresthesias, dizziness, unsteady gait, seizure, mental status changes, bladder or bowel incontinence PSYCHIATRIC: Absent: anxiety, depression, suicidal or homicidal ideation, hallucinations. PHYSICAL EXAMINATION Vital Signs - 24 hr 06/01/18 17:03 Temperature 97.8 F Pulse Rate 90 Respiratory 16 Rate Blood Pressure 105/66 O2 Sat by Pulse 95 Oximetry (%) GENERAL: Awake, alert, and fully oriented, in no acute distress. HEAD: Normal with no signs of trauma. EYES: PERRLA, EOMI, sclera anicteric, conjunctiva clear. EARS, NOSE, THROAT: Ears normal, oropharynx clear without exudates. Dry mucous membranes. NECK: Normal range of motion, supple without lymphadenopathy, JVD, or masses. LUNGS: Breath sounds equal, clear to auscultation bilaterally. HEART: Regular rate and rhythm, normal S1 and S2 without murmur, rub or gallop. ABDOMEN: Soft, +RUQ tenderness, not distended, normoactive bowel sounds. MUSCULOSKELETAL: Normal range of motion at all joints. No bony deformities or tenderness. No CVA tenderness. UPPER EXTREMITIES: 2+ pulses, warm, well-perfused. No peripheral edema. LOWER EXTREMITIES: 2+ pulses, warm, well-perfused. No peripheral edema. NEUROLOGICAL: Cranial nerves II-XII intact. Motor strength 5/5, sensation intact. Normal speech. Normal gait. PSYCHIATRIC: Cooperative. Good eye contact. Appropriate mood and affect. SKIN: Warm, dry, normal turgor, no rashes or lesions noted. CBC, BMP 06/02/18 05:30 ASSESSMENT/PLAN: Patient is a 63 year old male with past medical history of DM and metastatic lung cancer, presented from Dr. Mcgill's office after having been noted to be hypotensive with SBP at 70s, as well as elevated creatinine of 10.8. #Acute renal failure: unclear etiology -may be 2/2 dehydration vs sepsis vs medications -Patient also presented with hypotension, rule out sepsis -Straight cath attempted but had no urine output -CT abdomen/pelvis to rule out possible etiologies of infection including cholecystitis or other hepatobiliary infection, pyelonephritis -IV Vanc and zosyn given at the ED -Will continue renally dosed Zosyn 2.25gm q8h -ID (Dr. Miller) consulted. -Aggressive IV hydration -BP responded to initial IVF bolus -Nephrology (Dr. Foley) consulted. Recommendations appreciated. -Urinalysis, urine crea, urine protein -Lactic acid -Uric acid -Will insert guerra catheter -Avoid nephrotoxic agents such as NSAIDS, aminoglycosides, contrast dyes #Elevated liver enzymes -CT abdomen: diffuse hepatic steatosis with associated mild hepatomegaly, splenomegaly -will trend LFTs. #NIDDM -Hold Janumet and Glipizide -Insulin sliding scale -BGM ACHS #FEN -IV NS @ 150cc/hr -Electrolytes wnl, routine bmp monitoring -Renal diet #Prophylaxis -On Lovenox 120mg sq BID #Disposition -full code -admit to med-surg Visit type - Emergency Visit Emergency Visit: Yes ED Registration Date: 06/01/18 Care time: The patient presented to the Emergency Department on the above date and was hospitalized for further evaluation of their emergent condition. - New Patient This patient is new to me today: Yes Date on this admission: 06/02/18 - Critical Care Critical Care patient: No
[2018-06-01] MEDS ORDERED: INSULIN SLIDING SCALE (NOVOLOG) 1 VIAL SQ SCH (22:00)
[2018-06-01] MEDS ORDERED: SODIUM CHLORIDE 1,000 ML IV SCH (22:15)
[2018-06-01] MEDS ORDERED: ENOXAPARIN NA (PORCINE) 120 MG/0.8 ML DISP.SYRIN SQ SCH ×2 (23:00→23:45)
[2018-06-01] MEDS ORDERED: oxyCODONE HCL 5 MG TABLET PO PRN (23:00)
[2018-06-02] MEDS ORDERED: oxyCODONE HCL 5 MG TABLET ONE (00:27)
[2018-06-02] MEDS: INSULIN SLIDING SCALE (NOVOLOG) 1 VIAL SQ SCH ×5 (00:37→21:19)
[2018-06-02] MEDS: oxyCODONE HCL 5 MG TABLET PO PRN ×5 (00:38→21:22)
[2018-06-02 05:50] LABS: BASO % 0.4 % (0-2.0); HEMATOCRIT 34.6 % (35.4-49); HEMOGLOBIN 11.7 GM/dL (11.7-16.9); LYMPH % 10.5 % (8-40); MCH 31.8 pg (25.7-33.7); MCHC 33.9 g/dl (32.0-35.9); MEAN CELL VOLUME 93.6 fl (80-96); MEAN PLT VOLUME 8.9 fl (7.5-11.1); MONO % 4.7 % (3.8-10.2); NEUT % 83.4 % (42.8-82.8); PLATELET COUNT 51 K/MM3 (134-434); RBC 3.69 M/mm3 (4.00-5.60); RDW 15.2 % (11.9-15.9); WHITE BLOOD COUNT 5.8 K/mm3 (4.0-10.0)
[2018-06-02 06:19] LABS: INR 1.11 (0.83-1.09); PROTHROMBIN TIME (PATIENT) 13.1 SEC (9.7-13.0)
[2018-06-02 06:31] LABS: ALBUMIN 2.5 g/dl (3.4-5.0); ALK PHOS 166 U/L (45-117); ANION GAP 13 MMOL/L (8-16); BILIRUBIN,TOTAL 2.1 mg/dL (0.2-1); BLOOD UREA NITROGEN 73 mg/dL (7-18); CALCIUM 7.1 mg/dL (8.5-10.1); CHLORIDE 97 mmol/L (98-107); CO2 23 mmol/L (21-32); GLUCOSE,RANDOM 65 mg/dL (74-106); MAGNESIUM 2.2 mg/dL (1.8-2.4); PHOSPHOROUS 6.8 mg/dL (2.5-4.9); POTASSIUM 3.9 mmol/L (3.5-5.1); SGOT/AST 82 U/L (15-37); SGPT/ALT 194 U/L (13-61); SODIUM 133 mmol/L (136-145); TOT PROT 5.8 g/dl (6.4-8.2)
[2018-06-02 06:37] LABS: CREATININE 11.5 mg/dL (0.55-1.3)
[2018-06-02] MEDS ORDERED: PIPERACILLIN/TAZOB 2.25 GM 2.25 GM in DEXTROSE 5%-WATER - 50 ML IVPB SCH (07:45)
[2018-06-02] MEDS ORDERED: DEXTROSE 5%-WATER - 50 ML IVPB ONE ×2 (08:19→18:09)
[2018-06-02] MEDS ORDERED: PIPERACILLIN/TAZOBACTAM 2.25 GM VIAL IVPB ONE ×2 (08:19→18:09)
[2018-06-02 11:18] LABS: URIC ACID 15.4 mg/dL (2.6-7.2)
--- NOTE | 2018-06-02 11:34 | PN ---
Physical Exam: SUBJECTIVE: Patient seen and examined, still weak, poor appetite, denies any fevers, chills, URI like illness, Abdominal pain, dysuria, cough, dyspnea, or new concerns. reports has been weak, not eating anything with no urine output for last 5 days. OBJECTIVE: Vital Signs Period Temp Pulse Resp BP Sys/Small Pulse Ox Last 24 Hr 97.8 F-98.1 F 80-90 16-20 89-105/52-68 95-96 GENERAL: The patient is awake, alert, weak but no acute distress HEAD: Normal with no signs of trauma. EYES: PERRL, extraocular movements intact, sclera mild icterus, conjunctiva clear. No ptosis. ENT: Ears normal, nares patent, oropharynx clear without exudates, moist mucous membranes. NECK: Trachea midline, full range of motion, supple. LUNGS: Breath sounds equal, clear to auscultation bilaterally, no wheezes, no crackles, no accessory muscle use. HEART: Regular rate and rhythm, S1, S2 without murmur, rub or gallop. ABDOMEN: Soft, obese, RUQ tenderness, along hepatic margin, Figueroa's sign difficult to elicit, NT otherwise, no suprapubic or CVA tenderness, positive bowel sounds EXTREMITIES: 2+ pulses, warm, well-perfused, no edema. NEUROLOGICAL: Cranial nerves II through XII grossly intact. Normal speech, gait not observed. PSYCH: Normal mood, normal affect. SKIN: Warm, dry, normal turgor, no rashes or lesions noted Laboratory Results - last 24 hr 06/02/18 06/02/18 06/02/18 00:34 05:30 05:30 WBC 5.8 RBC 3.69 L Hgb 11.7 Hct 34.6 L MCV 93.6 MCH 31.8 MCHC 33.9 RDW 15.2 Plt Count 51 L MPV 8.9 Absolute Neuts (auto) 4.8 Neutrophils % 83.4 H Lymphocytes % 10.5 D Monocytes % 4.7 Eosinophils % 1.0 Basophils % 0.4 D Nucleated RBC % 0 PT with INR 13.10 H INR 1.11 H Sodium Potassium Chloride Carbon Dioxide Anion Gap BUN Creatinine Creat Clearance w eGFR POC Glucometer 78 Random Glucose Uric Acid Calcium Phosphorus Magnesium Total Bilirubin Direct Bilirubin AST ALT Alkaline Phosphatase Total Protein Albumin 06/02/18 06/02/18 05:30 05:30 WBC RBC Hgb Hct MCV MCH MCHC RDW Plt Count MPV Absolute Neuts (auto) Neutrophils % Lymphocytes % Monocytes % Eosinophils % Basophils % Nucleated RBC % PT with INR INR Sodium 133 L Potassium 3.9 Chloride 97 L Carbon Dioxide 23 Anion Gap 13 BUN 73 H Creatinine 11.5 H* Creat Clearance w eGFR 4.54 POC Glucometer Random Glucose 65 L Uric Acid 15.4 H* Calcium 7.1 L Phosphorus 6.8 H Magnesium 2.2 Total Bilirubin 2.1 H Direct Bilirubin 1.9 H AST 82 H ALT 194 H Alkaline Phosphatase 166 H Total Protein 5.8 L Albumin 2.5 L Active Medications Generic Name Dose Route Start Last Admin Trade Name Freq PRN Reason Stop Dose Admin Diazepam 10 mg 06/02/18 11:18 Valium - PO 06/05/18 11:18 Q6H PRN ANXIETY Sodium Chloride 1,000 mls @ 150 mls/hr 06/01/18 22:15 06/01/18 23:45 Normal Saline - IV 150 mls/hr ASDIR MONICA Administration Piperacillin Sod/Tazobactam 50 mls @ 100 mls/hr 06/02/18 07:45 06/02/18 08:43 Sod 2.25 gm/ Dextrose IVPB 06/03/18 02:29 100 mls/hr Q8H-IV MONICA Administration Protocol Insulin Aspart 1 vial 06/01/18 23:45 06/02/18 07:16 Novolog Vial Sliding Scale - SQ Not Given ACHS MONICA Protocol Oxycodone HCl 10 mg 06/01/18 23:43 06/02/18 08:54 Roxicodone - PO 10 mg Q4H PRN Administration BACK OR NECK PAIN LEVEL 6-10 CXR/CT A/P/Abdominal/renal/Bladder US results noted ASSESSMENT/PLAN: 63 yom with PMhx of [place] of lung diagnosed in 04/2014, s/p Chemotherapy(carb/ Alimta), currently on maintenance alimta since 2016, Also pleural/pericardial effusion with bilateral pulmonary embolism in 04/2014, s/p pericardial window, on lovenox, NIDDM, with 5 days of minimal po intake, no urinary outpatient, found with IGOR, hypotension -IGOR, ?from hypovolumia/poor oral intake/lasix+/- tumor lysis syndrome, r/o sepsis -Hypotension, from poor oral intak/lasix, r/o sepsis -Abnormal LFTS, ?Liver metastasis, hypotension, low suspicion for gall bladder etiology -H/o bilateral pulmonary embolism in 04/2014 -Adenocarcinoma of lung diagnosed in 04/2014, s/p carb/alimta, now on maintenance alimta since 2016 -h/o pericardial effusion in 2014 s/p pericardial window -NIDDM Plan: Renal function overall unchanged, no urine output yet. Renal input. Continue IVF, Follow up for possible HD. Strict I/Os, counseled patient, agreable to guerra cath for now. Renal/Bladder US noted. Empiric zosyn, follow up blood cx. Abdominal US/CT A/p results noted, Trend LFTs, further imaging including HIDA based on clinical course, currently with no visible gall stones or gall bladder wall thickening. Check hepatitis panel. 2D echo to assess LV function. Oncology input appreciated. D/c lovenox, start heparin drip tomorrow. Hold oral hypoglycemics, ISS, diabetic/renal diet. Disposition continue telemetry monitoring. Plan discussed with patient and nursing in detail, all questions answered. Visit type - Emergency Visit Emergency Visit: Yes ED Registration Date: 06/01/18 Care time: The patient presented to the Emergency Department on the above date and was hospitalized for further evaluation of their emergent condition. - New Patient This patient is new to me today: Yes Date on this admission: 06/02/18 - Critical Care Critical Care patient: No - Discharge Referral Referred to [facility] No
--- NOTE | 2018-06-02 12:04 | CONSULT ---
Consultation: REQUESTING PROVIDER: Dr. 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 12 lb wt loss in the past two weeks. He denies fever, n, v, d , cough, sob, chest pain, abdominal pain, leg swelling. Influenza negative. Admits last urinating on Tuesday, which was very dark yellow. In acute renal failure. Creatinine 10.8. Started on IVF, sepsis workup. 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 REVIEW OF SYSTEMS: CONSTITUTIONAL: Positive: chills, generalized weakness, malaise, loss of appetite, weight change HEENT: Absent: rhinorrhea, nasal congestion, throat pain, throat swelling, difficulty swallowing, mouth swelling, ear pain, eye pain, visual changes CARDIOVASCULAR: Absent: chest pain, syncope, palpitations, irregular heart rate, lightheadedness , peripheral edema RESPIRATORY: Absent: cough, shortness of breath, dyspnea with exertion, orthopnea, wheezing, stridor, hemoptysis GASTROINTESTINAL: Absent: abdominal pain, abdominal distension, nausea, vomiting, diarrhea, constipation, melena, hematochezia GENITOURINARY: Positive: decreased urine output Absent: dysuria, frequency, urgency, hesitancy, hematuria, flank pain, genital pain MUSCULOSKELETAL: Absent: myalgia, arthralgia, joint swelling, back pain, neck pain SKIN: Absent: rash, itching, pallor HEMATOLOGIC/IMMUNOLOGIC: Absent: easy bleeding, easy bruising, lymphadenopathy, frequent infections ENDOCRINE: Absent: unexplained weight gain, unexplained weight loss, heat intolerance, cold intolerance NEUROLOGIC: Absent: headache, focal weakness or paresthesias, dizziness, unsteady gait, seizure, mental status changes, bladder or bowel incontinence PSYCHIATRIC: Absent: anxiety, depression, suicidal or homicidal ideation, hallucinations. PHYSICAL EXAMINATION Vital Signs - 24 hr 06/01/18 06/02/18 06/02/18 17:03 05:29 06:00 Temperature 97.8 F 97.8 F 97.8 F Pulse Rate 90 80 Pulse Rate [ 88 Right Apical] Respiratory 16 18 20 Rate Blood Pressure 105/66 89/52 L Blood Pressure 104/68 [Right Arm] O2 Sat by Pulse 95 96 Oximetry (%) 06/02/18 06/02/18 06/02/18 08:00 09:00 10:00 Temperature 98.1 F Pulse Rate 84 Pulse Rate [ Right Apical] Respiratory 20 20 20 Rate Blood Pressure 97/52 L Blood Pressure [Right Arm] O2 Sat by Pulse 96 96 Oximetry (%) GENERAL: Awake, alert, and fully oriented, in no acute distress. HEAD: Normal with no signs of trauma. NECK: Normal range of motion, supple without lymphadenopathy, JVD, or masses. LUNGS: Breath sounds equal, clear to auscultation bilaterally. No wheezes, and no crackles. No accessory muscle use. Chest: breast esxam ; lumps or masses; axilla no lumps HEART: Regular rate and rhythm, normal S1 and S2 without murmur, rub or gallop. ABDOMEN: Soft, nontender, not distended, normoactive bowel sounds, no guarding, no rebound, no masses. No hepatomegaly or splenomegaly. MUSCULOSKELETAL: Normal range of motion at all joints. No bony deformities or tenderness. No CVA tenderness. UPPER EXTREMITIES: 2+ pulses, warm, well-perfused. No cyanosis. No clubbing. Cap refill <2 seconds. No peripheral edema. LOWER EXTREMITIES: 2+ pulses, warm, well-perfused. No calf tenderness. No peripheral edema. NEUROLOGICAL: Cranial nerves II-XII intact. Normal speech. PSYCHIATRIC: Cooperative. Good eye contact. Appropriate mood and affect. SKIN: Warm, dry, normal turgor, no rashes or lesions noted. Laboratory Results - last 24 hr 06/02/18 06/02/18 06/02/18 00:34 05:30 05:30 WBC 5.8 RBC 3.69 L Hgb 11.7 Hct 34.6 L MCV 93.6 MCH 31.8 MCHC 33.9 RDW 15.2 Plt Count 51 L MPV 8.9 Absolute Neuts (auto) 4.8 Neutrophils % 83.4 H Lymphocytes % 10.5 D Monocytes % 4.7 Eosinophils % 1.0 Basophils % 0.4 D Nucleated RBC % 0 PT with INR 13.10 H INR 1.11 H Sodium Potassium Chloride Carbon Dioxide Anion Gap BUN Creatinine Creat Clearance w eGFR POC Glucometer 78 Random Glucose Uric Acid Calcium Phosphorus Magnesium Total Bilirubin Direct Bilirubin AST ALT Alkaline Phosphatase Total Protein Albumin 06/02/18 06/02/18 05:30 05:30 WBC RBC Hgb Hct MCV MCH MCHC RDW Plt Count MPV Absolute Neuts (auto) Neutrophils % Lymphocytes % Monocytes % Eosinophils % Basophils % Nucleated RBC % PT with INR INR Sodium 133 L Potassium 3.9 Chloride 97 L Carbon Dioxide 23 Anion Gap 13 BUN 73 H Creatinine 11.5 H* Creat Clearance w eGFR 4.54 POC Glucometer Random Glucose 65 L Uric Acid 15.4 H* Calcium 7.1 L Phosphorus 6.8 H Magnesium 2.2 Total Bilirubin 2.1 H Direct Bilirubin 1.9 H AST 82 H ALT 194 H Alkaline Phosphatase 166 H Total Protein 5.8 L Albumin 2.5 L Active Medications Generic Name Dose Route Start Last Admin Trade Name Freq PRN Reason Stop Dose Admin Diazepam 10 mg 06/02/18 11:18 Valium - PO 06/05/18 11:18 Q6H PRN ANXIETY Sodium Chloride 1,000 mls @ 150 mls/hr 06/01/18 22:15 06/01/18 23:45 Normal Saline - IV 150 mls/hr ASDIR MONICA Administration Piperacillin Sod/Tazobactam 50 mls @ 100 mls/hr 06/02/18 07:45 06/02/18 08:43 Sod 2.25 gm/ Dextrose IVPB 06/03/18 02:29 100 mls/hr Q8H-IV MONICA Administration Protocol Insulin Aspart 1 vial 06/01/18 23:45 06/02/18 07:16 Novolog Vial Sliding Scale - SQ Not Given ACHS MONICA Protocol Oxycodone HCl 10 mg 06/01/18 23:43 06/02/18 08:54 Roxicodone - PO 10 mg Q4H PRN Administration BACK OR NECK PAIN LEVEL 6-10 ASSESSMENT/PLAN: This is a 63 year old male with a history of PE, adenocarcinma of the lung s/p carboplantin/alimpta chemotherapy; had interim of remission, now back on chemotherapy alimpta, who presents with complaints of lethargy, body aches, poor oral intake, no urine output since Tuesday, and an episode of rigors. In acute renal failure. Acute renal failure Adenocarinoma of lung hx of PE hyperuricemia transaminitis chronic back pain h/o pericardial effusion in 2014 s/p pericardial window -sepsis workup, urine studies -IVF for acute renal failure may be cast nephropathy from chemotherapy; if does not improve will proceed with dialysis. ayo nephro -on lovenox bid for PE; d/c due to renal failure; starting hep ggt tomorrow -HIDA -CT abdomen showing hepatic steatosis; hepatosplenomegaly -US bladder/kidney unremarkable -urine acid 15; will start allopurinol 50mg po qd; will follow Dispo: We will continue to follow the patient. Thank you for this consultative opportunity. Visit type - Emergency Visit Emergency Visit: Yes ED Registration Date: 06/01/18 Care time: The patient presented to the Emergency Department on the above date and was hospitalized for further evaluation of their emergent condition. - New Patient This patient is new to me today: Yes Date on this admission: 06/02/18 - Critical Care Critical Care patient: No
--- NOTE | 2018-06-02 12:11 | CONSULT ---
Consult Consult Specialty:: Nephrology Reason for Consultation:: IGOR - History of Present Illness Chief Complaint: sent in for renal failure History of Present Illness: Pt is a 59 year old male with pmhx of metastatic adenocarcinoma of the lung who was sent in for acute renal failure. He says that he felt chills and rigors on Tuesday. He went to see his PMD on Tuesday. He has bloodwork done yesterday which showed worsening renal function. He says that he stopped making urine on Tuesday. He has not eaten or drank much of any thing all weak. He denies history of kidney disease but does have abnormal renal function on preview labs. He was on alimta therapy. He denies shortness of breath. He denies nsaid use. - History Source History Provided By: Patient, Medical Record - Past Medical History Cardio/Vascular: Yes: HTN Gastrointestinal: Yes: Other (colon polyps). No: Peptic Ulcer Disease Renal/: Yes: Renal Inusuff, Renal Calculi Musculoskeletal: Yes: Chronic low back pain - Past Surgical History Past Surgical History: Yes: Laminectomy (x2,) - Alcohol/Substance Use Hx Alcohol Use: Yes (social) - Smoking History Smoking history: Former smoker Have you smoked in the past 12 months: No Aproximately how many cigarettes per day: 30 If you are a former smoker, when did you quit?: 05/02 - Social History ADL: Independent Home Medications - Allergies Allergies/Adverse Reactions: Allergies Allergy/AdvReac Type Severity Reaction Status Date / Time No Known Drug Allergies Allergy Verified 05/24/17 12:37 - Home Medications Home Medications: Ambulatory Orders Glipizide [Glipizide ER] 5 mg PO DAILY 04/16/14 Folic Acid 1 mg PO HS 05/24/17 Furosemide [Lasix] 40 mg PO Q48H 05/24/17 Enoxaparin [Lovenox -] 120 mg SQ BID 06/01/18 Diazepam [Valium] 10 mg PO Q6H PRN 06/02/18 Oxycodone HCl 10 mg PO Q6H PRN 06/02/18 Sitagliptin Phos/Metformin HCl [Janumet 50-500 mg Tablet] 2 each PO DAILY Family Disease History - Family Disease History Family History: Denies Review of Systems - Review of Systems Constitutional: reports: Chills, Malaise Eyes: reports: No Symptoms HENT: reports: No Symptoms Neck: reports: No Symptoms Cardiovascular: reports: No Symptoms Gastrointestinal: reports: No Symptoms Genitourinary: reports: Other (pt not making urine) Musculoskeletal: reports: No Symptoms Integumentary: reports: No Symptoms Neurological: reports: No Symptoms Endocrine: reports: No Symptoms Hematology/Lymphatic: reports: No Symptoms Psychiatric: reports: No Symptoms Physical Exam Vital Signs: Vital Signs Temperature 98.1 F 06/02/18 08:00 Pulse Rate 84 06/02/18 08:00 Respiratory Rate 20 06/02/18 10:00 Blood Pressure 97/52 L 06/02/18 08:00 O2 Sat by Pulse Oximetry (%) 96 06/02/18 10:00 Constitutional: Yes: Calm Eyes: Yes: Conjunctiva Clear HENT: Yes: Atraumatic Cardiovascular: Yes: S1, S2 Respiratory: Yes: CTA Bilaterally Gastrointestinal: Yes: Soft, Abdomen, Obese Renal/: Yes: Anuria Musculoskeletal: Yes: WNL Edema: No Integumentary: Yes: WNL Neurological: Yes: Oriented Psychiatric: Yes: Oriented Labs: CBC, BMP 06/02/18 05:30 06/02/18 05:30 Laboratory Tests 01/10/18 02/06/18 03/13/18 08:50 08:30 09:15 WBC Hgb Plt Count Sodium Potassium Chloride Carbon Dioxide Anion Gap BUN Creatinine 1.5 H 1.4 H 1.5 H Creat Clearance w eGFR Phosphorus Magnesium Direct Bilirubin Albumin 03/28/18 04/20/18 05/18/18 12:27 08:40 08:05 WBC Hgb Plt Count Sodium Potassium Chloride Carbon Dioxide Anion Gap BUN Creatinine 1.6 H 1.6 H 1.4 H Creat Clearance w eGFR Phosphorus Magnesium Direct Bilirubin Albumin 06/01/18 06/02/18 06/02/18 14:00 05:30 05:30 WBC 5.8 Hgb 11.7 Plt Count 51 L Sodium 133 L Potassium 3.9 Chloride 97 L Carbon Dioxide 23 Anion Gap 13 BUN 73 H Creatinine 10.8 H* 11.5 H* Creat Clearance w eGFR 4.54 Phosphorus 6.8 H Magnesium 2.2 Direct Bilirubin Albumin 2.5 L 06/02/18 05:30 WBC Hgb Plt Count Sodium Potassium Chloride Carbon Dioxide Anion Gap BUN Creatinine Creat Clearance w eGFR Phosphorus Magnesium Direct Bilirubin 1.9 H Albumin Imaging - Results Chest X-ray: Report Reviewed Assessment/Plan Current Medications Generic Name Dose Route Start Last Admin Trade Name Patricia PRN Reason Stop Dose Admin Diazepam 10 mg 06/02/18 11:18 Valium - PO 06/05/18 11:18 Q6H PRN ANXIETY Sodium Chloride 1,000 mls @ 150 mls/hr 06/01/18 22:15 06/01/18 23:45 Normal Saline - IV 150 mls/hr ASDIR MONICA Administration Piperacillin Sod/Tazobactam 50 mls @ 100 mls/hr 06/02/18 07:45 06/02/18 08:43 Sod 2.25 gm/ Dextrose IVPB 06/03/18 02:29 100 mls/hr Q8H-IV MONICA Administration Protocol Insulin Aspart 1 vial 06/01/18 23:45 06/02/18 07:16 Novolog Vial Sliding Scale - SQ Not Given ACHS MONICA Protocol Oxycodone HCl 10 mg 06/01/18 23:43 06/02/18 08:54 Roxicodone - PO 10 mg Q4H PRN Administration BACK OR NECK PAIN LEVEL 6-10 Impression 1. lung cancer 2. IGOR 3. hyponatremia 4. fever/chills Plan - renal function is worsening - placed guerra and he barely has a drop of urine - cont with fluids as he appears hypovolemic - discussed HD options with pt, he would like to wait - will likely dialyze tomorrow if he does not start to make urine - will send renal workup - unable to check urine studies as he is not making urine - reviewed renal ultrasound - likely etiology is atn, will however send workup - discussed plan at length - monitor for urine output - renal diet - start phos binder Dr Foley
--- NOTE | 2018-06-02 12:53 | EKG ---
Test Reason : Blood Pressure : / mmHG Vent. Rate : 091 BPM Atrial Rate : 091 BPM P-R Int : 146 ms QRS Dur : 096 ms QT Int : 370 ms P-R-T Axes : 062 050 038 degrees QTc Int : 455 ms NORMAL SINUS RHYTHM LOW VOLTAGE QRS INCOMPLETE RIGHT BUNDLE BRANCH BLOCK BORDERLINE ECG WHEN COMPARED WITH ECG OF 24-JUN-2014 07:51, NO SIGNIFICANT CHANGE WAS FOUND Confirmed by TORREY ROCHE, CORNELIUS ([id number]) on 06/02/2018 12:52:54 PM Referred By: Confirmed By:CORNELIUS HIRSCH MD
[2018-06-02] MEDS: diazePAM 5 MG TABLET PO PRN ×2 (13:02→22:15)
--- NOTE | 2018-06-02 13:09 | ECHO ---
Name: NABIL POE Exam:Adult Echocardiogram Study Date: 06/02/2018 11:49 AM Age: 63 yrs Reason For Study: ASSESS LVF Height: 71 in Weight: 289 lb BSA: 2.5 m2 MMode/2D Measurements & Calculations IVSd: 0.84 cm Ao root diam: 3.0 cm LVIDd: 4.2 cm LA dimension: 4.0 cm LVIDs: 3.1 cm LVPWd: 0.77 cm EDV(Teich): 78.4 ml ESV(Teich): 37.0 ml Doppler Measurements & Calculations MV E max cj: 76.0 cm/sec Ao V2 max: 150.3 cm/sec MV A max cj: 98.7 cm/sec Ao max P.0 mmHg MV E/A: 0.77 MV dec time: 0.20 sec LV V1 max P.4 mmHg TR max cj: 244.3 cm/sec LV V1 max: 77.1 cm/sec TR max P.9 mmHg Med Peak E' Cj: 5.9 cm/sec Med E/e': 12.8 Lat Peak E' Cj: 10.5 cm/sec Lat E/e': 7.2 Procedure The study was technically difficult with many images being suboptimal in quality. Left Ventricle Left ventricular systolic function is grossly normal. Ejection Fraction = 55-60%. The transmitral spe ctral Doppler flow pattern is suggestive of impaired LV relaxation. Right Ventricle The right ventricle is not well visualized. Atria The left atrium is mildly dilated. Right atrial size is normal. Mitral Valve The mitral valve is normal in structure and function. There is no mitral valve stenosis. There is tra ce mitral regurgitation. Tricuspid Valve The tricuspid valve is normal in structure and function. There is mild tricuspid regurgitation. Aortic Valve There is mild aortic sclerosis.;. No hemodynamically significant valvular aortic stenosis. No aortic regurgitation is present. Pulmonic Valve The pulmonic valve is not well seen, but is grossly normal. There is no pulmonic valvular stenosis. Great Vessels The aortic root is normal size. Pericardium/Pleura There is pericardial thickening and/or a small pericardial effusion. Interpretation Summary The study was technically difficult with many images being suboptimal in quality. Left ventricular systolic function is grossly normal. Ejection Fraction = 55-60%. The transmitral spectral Doppler flow pattern is suggestive of impaired LV relaxation. The right ventricle is not well visualized. The left atrium is mildly dilated. There is trace mitral regurgitation. There is mild tricuspid regurgitation. There is mild aortic sclerosis.; There is pericardial thickening and/or a small pericardial effusion. MD Lopez *David 06/02/2018 01:09 PM
--- NOTE | 2018-06-02 15:02 | PN ---
Progress Note (short form) - Note Progress Note: ID consult dictated imp/reccd 63 yo man on alimta for adenoca of the lung since 2014, on Tuesday developed acute onset of rigors- felt like he had the flu- no cough, no diarrhea, nodysuria, no abdominal pain, no rash no new meds he has not urinated since Tuesday he came to see Dr. Mcgill and was admitted on Tuesday now in Acute Oliguric Renal Failure Acute renal failure- olicuric- suspect ATN elevated uric acid abnormal lfts- ?secondary to hypotension fevers/rigors-?infection but no source evident continue zosyn send aso/antidnaseb, cortisol level in am BP improved with hydration influenza screen Problem List - Problems (1) Acute renal failure Code(s): N17.9 - ACUTE KIDNEY FAILURE, UNSPECIFIED (2) Hypotension Code(s): I95.9 - HYPOTENSION, UNSPECIFIED Qualifiers: Hypotension type: unspecified hypotension type Qualified Code(s): I95.9 - Hypotension, unspecified (3) Transaminitis Code(s): R74.0 - NONSPEC ELEV OF LEVELS OF TRANSAMNS & LACTIC ACID DEHYDRGNSE (4) Lung cancer, hilus Code(s): C34.00 - MALIGNANT NEOPLASM OF UNSPECIFIED MAIN BRONCHUS
--- NOTE | 2018-06-02 15:21 | PN ---
Progress Note, Physician History of Present Illness: seen and examined at bedside. pt is upset about her overnight ED experience. no urine for a week and poor PO intake. - Current Medication List Current Medications: Active Medications Calcium Acetate (Phoslo -) 667 mg PO TIDCM MONICA Diazepam (Valium -) 10 mg PO Q6H PRN PRN Reason: ANXIETY Stop: 06/05/18 11:18 Last Admin: 06/02/18 13:02 Dose: 10 mg Sodium Chloride (Normal Saline -) 1,000 mls @ 150 mls/hr IV ASDIR MONICA Last Admin: 06/01/18 23:45 Dose: 150 mls/hr Piperacillin Sod/Tazobactam (Sod 2.25 gm/ Dextrose) 50 mls @ 100 mls/hr IVPB Q8H-IV MONICA; Protocol Insulin Aspart (Novolog Vial Sliding Scale -) 1 vial SQ ACHS MONICA; Protocol Last Admin: 06/02/18 12:25 Dose: Not Given Oxycodone HCl (Roxicodone -) 10 mg PO Q4H PRN PRN Reason: BACK OR NECK PAIN LEVEL 6-10 Last Admin: 06/02/18 12:16 Dose: 10 mg - Objective Vital Signs: Vital Signs Temperature 97.7 F 06/02/18 14:00 Pulse Rate 84 06/02/18 14:00 Respiratory Rate 20 06/02/18 14:00 Blood Pressure 101/54 L 06/02/18 14:00 O2 Sat by Pulse Oximetry (%) 96 06/02/18 13:00 Constitutional: Yes: No Distress Respiratory: Yes: CTA Bilaterally Gastrointestinal: Yes: Normal Bowel Sounds, Abdomen, Obese, Tenderness. No: Distention, Hepatomegaly, Melena Edema: No Neurological: Yes: Alert, Oriented Labs: CBC, BMP 06/02/18 05:30 06/02/18 05:30 INR, PTT INR 1.11 (0.83-1.09) H 06/02/18 05:30 Impression/Plan Impression/Plan: 63 yo M h/o adenoCA of lung s/p chemo (carb/alimta), pleural and pericardial effusion w/ PE s/p window on lovenox admitted to the floor for IGOR. - IGOR (tumor lysis syndrome vs. sepsis vs. dehydration) - adenoCA of lung s/p chemo now on maintainence alimta renal input appreciated, likely dialysis tomorow if still no output IGOR workup if enough urine sample renal diet and phos binder start heparin gtt tomorrow after discontinuing lovenox BGM and SSI Visit type - Emergency Visit Emergency Visit: No - New Patient This patient is new to me today: Yes Date on this admission: 06/02/18 - Critical Care Critical Care patient: No - Discharge Referral Referred to [facility] Med [facility] No
[2018-06-02] MEDS ORDERED: DEXTROSE 5%-NORMAL SALINE 1,000 ML IV SCH (17:15)
[2018-06-02] MEDS: ALLOPURINOL 100 MG TABLET (FP) PO SCH (17:30)
[2018-06-02] MEDS: CALCIUM ACETATE 667 MG CAPSULE (FP) PO SCH (17:34)
[2018-06-02] MEDS: PIPERACILLIN/TAZOB 2.25 GM 2.25 GM in DEXTROSE 5%-WATER - 50 ML IVPB SCH (18:28)
--- NOTE | 2018-06-02 18:34 | PN ---
Teaching Attending Note Name of Resident: Mary Swenson ATTENDING PHYSICIAN STATEMENT I saw and evaluated the patient. I reviewed the resident's note and discussed the case with the resident. I agree with the resident's findings and plan as documented. SUBJECTIVE: Patient seen and examined IGOR Adenoca of lung DM Dehydration HBP HEENT: SHERRON, EOM Intact Oropharynx: No thrush, No mucositis,dentures Cor: RSR, No murmurs, No gallops Lungs: Clear to P&A Abd: Soft, Normal bowel sounds, No organomegaly Ext:No significant edema Skin: No rashes, Integument intact No response to trial of hydration . If not improved, will need to be dialyzed Spoke with renal Last Vital Signs Temp Pulse Resp BP Pulse Ox 97.2 F L 82 20 110/60 96 06/02/18 17:51 06/02/18 17:51 06/02/18 17:51 06/02/18 17:51 06/02/18 17:00 CBC, BMP 06/02/18 05:30 06/02/18 05:30 OBJECTIVE: ASSESSMENT AND PLAN:
--- NOTE | 2018-06-02 19:07 | CONS ---
DATE OF CONSULTATION: REQUESTED BY: Hospitalist Service This is a 63-year-old man with a history of metastatic adenocarcinoma of the lung since 2014. He has a history of diabetes as well and is on oral medications. He has been stable on Alimta since 2015. He received his last dose at the end of April. On Tuesday, he had an episode of the worst chills of his life with nithin rigors. He was not able to do anything all day. By Tuesday, he noticed he was not making any urine. He denies any nausea, vomiting or diarrhea. He denies any dysuria. He has had no abdominal pain. He has no rash. He has not had any change in his medications. There is no history of travel. He has no pets. He lives alone. He apparently had one episode of vomiting Tuesday but has had none since. He presented yesterday to Dr. Mcgill for followup. Dr. Mcgill then sent him to the hospital for hydration. He was found to be in acute renal failure with abnormal LFTs. He was hypotensive with a systolic blood pressure in the 80s and he was admitted for further evaluation. He remains oliguric despite IV fluids. He has had ultrasounds of his kidneys, bladder, gallbladder and liver as well as a CT scan of his abdomen and pelvis. These are notable for fatty liver and splenomegaly. He has no evidence of obstruction. PAST MEDICAL HISTORY: Notable for diabetes, metastatic lung cancer, history of pericardial effusion in 2014 status post pericardial window, pulmonary embolus on Lovenox and adenocarcinoma of the lung for which he originally got carboplatin and Alimta and is currently maintained on Alimta. PAST SURGICAL HISTORY: Notable for cervical and lumbar surgery for herniated disk in 1995 and kidney stones. ALLERGIES: No known drug allergies. CURRENT OUTPATIENT MEDICATIONS: Alimta monthly, glipizide, Valium, oxycodone, atorvastatin, folic acid, Lasix, magnesium and metformin. SOCIAL HISTORY: He is a former smoker. He quit four years ago. No history of alcohol. He lives alone at home. REVIEW OF SYSTEMS: In addition to chills and generalized weakness, he has had some loss of appetite. He has no sore throat. He has no difficulty swallowing. He has had no chest pain, abdominal pain or dysuria. He had one episode of vomiting. He has had no diarrhea or rash. PHYSICAL EXAMINATION: GENERAL: He is alert. VITALS: Temperature is 97.7, pulse is 84, blood pressure 101/54, respiratory rate 20, oxygen saturation 96% on room air, weight 131 kg. HEENT: Normocephalic. Eyes are anicteric. He has no conjunctival hemorrhages. He has upper and lower dentures. He has no thrush or pharyngitis. NECK: Supple. There are no meningeal signs. No palpable adenopathy. LUNGS: Clear to auscultation. HEART: Regular rate and rhythm. ABDOMEN: Soft and nontender. There is no CVA or spinal tenderness. EXTREMITIES: No edema. He has no rash. LABS: Notable for a white count of 5.8, hemoglobin of 11.7, platelets of 51,000. INR is 1.1, BUN 73, creatinine 11.5, total bilirubin of 2.1, AST 82, ALT 194. Alkaline phosphatase 166. Of note, on his chemistries, his uric is elevated at 15.4. Cultures are pending and imaging studies are as previously stated. He has not had an influenza screen. His blood cultures are negative. A chest x-ray shows no acute infiltrate. SUMMARY: This is a 63-year-old man with acute renal failure, most likely acute tubular necrosis, with elevated uric acid and abnormal LFTs probably secondary to hypotension, fevers and rigors. I am unclear if this is infection, as there is no source evident, no new medications. He has not been on any non-steroidals. He received vancomycin in the ER and we will continue him on Zosyn at this time. Would send to look for staphylococcal disease, looking for some toxin-mediated phenomenon. Would check a cortisol level in the morning. Would also screen him for influenza. His blood pressure improved with hydration. He is being followed closely by Nephrology at this time. Further recommendations to follow. AMEENA JEWELL M.D. CLIF/[id number]
[2018-06-03] MEDS ORDERED: PIPERACILLIN/TAZOBACTAM 2.25 GM VIAL IVPB ONE ×3 (00:49→17:38)
[2018-06-03] MEDS ORDERED: DEXTROSE 5%-WATER - 50 ML IVPB ONE ×3 (00:49→17:38)
[2018-06-03] MEDS: oxyCODONE HCL 5 MG TABLET PO PRN ×6 (01:11→21:15)
[2018-06-03] MEDS: PIPERACILLIN/TAZOB 2.25 GM 2.25 GM in DEXTROSE 5%-WATER - 50 ML IVPB SCH ×3 (02:19→17:49)
[2018-06-03] MEDS: diazePAM 5 MG TABLET PO PRN ×4 (04:08→21:15)
[2018-06-03 07:20] LABS: BASO % 0.4 % (0-2.0); HEMATOCRIT 34.9 % (35.4-49); HEMOGLOBIN 11.7 GM/dL (11.7-16.9); LYMPH % 9.1 % (8-40); MCH 31.6 pg (25.7-33.7); MCHC 33.6 g/dl (32.0-35.9); MEAN PLT VOLUME 9.1 fl (7.5-11.1); MONO % 3.2 % (3.8-10.2); NEUT % 86.3 % (42.8-82.8); PLATELET COUNT 68 K/MM3 (134-434); RBC 3.71 M/mm3 (4.00-5.60); RDW 15.7 % (11.9-15.9)
[2018-06-03] MEDS: INSULIN SLIDING SCALE (NOVOLOG) 1 VIAL SQ SCH ×4 (07:20→21:24)
[2018-06-03 07:56] LABS: INR 1.01 (0.83-1.09); PROTHROMBIN TIME (PATIENT) 11.9 SEC (9.7-13.0)
[2018-06-03 08:00] LABS: ALBUMIN 2.7 g/dl (3.4-5.0); ALK PHOS 181 U/L (45-117); ANION GAP 16 MMOL/L (8-16); BILIRUBIN,DIRECT 1.4 mg/dL (0.0-0.2); BILIRUBIN,TOTAL 1.6 mg/dL (0.2-1); BLOOD UREA NITROGEN 77 mg/dL (7-18); CALCIUM 7.3 mg/dL (8.5-10.1); CHLORIDE 99 mmol/L (98-107); CO2 21 mmol/L (21-32); GLUCOSE,RANDOM 65 mg/dL (74-106); MAGNESIUM 2.1 mg/dL (1.8-2.4); PHOSPHOROUS 7.9 mg/dL (2.5-4.9); POTASSIUM 4.2 mmol/L (3.5-5.1); SGOT/AST 171 U/L (15-37); SGPT/ALT 239 U/L (13-61); SODIUM 136 mmol/L (136-145); TOT PROT 6.1 g/dl (6.4-8.2)
[2018-06-03 08:22] LABS: CREATININE 13.3 mg/dL (0.55-1.3)
[2018-06-03] MEDS ORDERED: SODIUM CHLORIDE 250 ML IV PRN (08:47)
[2018-06-03] MEDS: CALCIUM ACETATE 667 MG CAPSULE (FP) PO SCH ×3 (09:13→16:46)
[2018-06-03] MEDS: ALLOPURINOL 100 MG TABLET (FP) PO SCH (09:15)
[2018-06-03] MEDS ORDERED: PIPERACILLIN/TAZOB 2.25 GM 2.25 GM in DEXTROSE 5%-WATER - 50 ML IVPB SCH (10:00)
[2018-06-03 10:18] LABS: URINE APPEARANCE CLOUDY; URINE BILIRUBIN NEGATIVE (<2.0 mg/dL); URINE GLUCOSE (UA) NEGATIVE (NEGATIVE); URINE KETONE NEGATIVE (NEGATIVE); URINE LEUK ESTERASE 2+ (NEGATIVE); URINE NITRITE NEGATIVE (NEGATIVE); URINE PROTEIN 2+ (NEGATIVE); URINE UROBILINOGEN NEGATIVE mg/dL (0.2-1.0)
[2018-06-03 10:48] LABS: URINE COLOR YELLOW
[2018-06-03 10:51] LABS: URINE HYALINE CAST 2 /lpf
--- NOTE | 2018-06-03 12:39 | PN ---
Physical Exam: SUBJECTIVE: Patient seen and examined, overall feels unchanged. minimal urine output. OBJECTIVE: Vital Signs Period Temp Pulse Resp BP Sys/Small Pulse Ox Last 24 Hr 97.2 F-97.9 F 80-84 20-20 96-116/52-64 95-96 GENERAL: The patient is awake, alert, and fully oriented, in no acute distress. HEAD: Normal with no signs of trauma. EYES: PERRL, extraocular movements intact, sclera anicteric, conjunctiva clear. No ptosis. ENT: Ears normal, nares patent, oropharynx clear without exudates, moist mucous membranes. NECK: Trachea midline, full range of motion, supple. LUNGS: Breath sounds equal, clear to auscultation bilaterally, no wheezes, no crackles, no accessory muscle use. HEART: Regular rate and rhythm, S1, S2 ABDOMEN: Soft, obese, nontender, normoactive bowel sounds, no guarding, no rebound, no CVA or suprapubic tenderness, mild RUQ tenderness EXTREMITIES: 2+ pulses, warm, well-perfused, no edema. PSYCH: Normal mood, normal affect. SKIN: Warm, dry, normal turgor, no rashes or lesions noted Laboratory Results - last 24 hr 06/02/18 06/02/18 06/02/18 16:59 17:00 17:45 WBC RBC Hgb Hct MCV MCH MCHC RDW Plt Count MPV Absolute Neuts (auto) Neutrophils % Lymphocytes % Monocytes % Eosinophils % Basophils % Nucleated RBC % PT with INR INR Sodium Potassium Chloride Carbon Dioxide Anion Gap BUN Creatinine Creat Clearance w eGFR POC Glucometer 62 Random Glucose Calcium Phosphorus Magnesium Total Bilirubin Direct Bilirubin AST ALT Alkaline Phosphatase Total Protein Albumin Urine Color Urine Appearance Urine pH Ur Specific [place] Urine Protein 526 H Urine Glucose (UA) Urine Ketones Urine Blood Urine Nitrite Urine Bilirubin Urine Urobilinogen Ur Leukocyte Esterase Urine WBC (Auto) Urine RBC (Auto) Hyaline Casts Ur Random Sodium 46 Urine Creatinine 194.0 Influenza A (Rapid) Negative Influenza B (Rapid) Negative 06/02/18 06/03/18 06/03/18 21:17 05:14 07:00 WBC 6.0 RBC 3.71 L Hgb 11.7 Hct 34.9 L MCV 94.0 MCH 31.6 MCHC 33.6 RDW 15.7 Plt Count 68 L D MPV 9.1 Absolute Neuts (auto) 5.2 Neutrophils % 86.3 H Lymphocytes % 9.1 Monocytes % 3.2 L Eosinophils % 1.0 Basophils % 0.4 Nucleated RBC % 0 PT with INR INR Sodium Potassium Chloride Carbon Dioxide Anion Gap BUN Creatinine Creat Clearance w eGFR POC Glucometer 71 54 Random Glucose Calcium Phosphorus Magnesium Total Bilirubin Direct Bilirubin AST ALT Alkaline Phosphatase Total Protein Albumin Urine Color Urine Appearance Urine pH Ur Specific [place] Urine Protein Urine Glucose (UA) Urine Ketones Urine Blood Urine Nitrite Urine Bilirubin Urine Urobilinogen Ur Leukocyte Esterase Urine WBC (Auto) Urine RBC (Auto) Hyaline Casts Ur Random Sodium Urine Creatinine Influenza A (Rapid) Influenza B (Rapid) 06/03/18 06/03/18 06/03/18 07:00 07:00 09:03 WBC RBC Hgb Hct MCV MCH MCHC RDW Plt Count MPV Absolute Neuts (auto) Neutrophils % Lymphocytes % Monocytes % Eosinophils % Basophils % Nucleated RBC % PT with INR 11.90 INR 1.01 Sodium 136 Potassium 4.2 Chloride 99 Carbon Dioxide 21 Anion Gap 16 BUN 77 H Creatinine 13.3 H* Creat Clearance w eGFR 3.83 POC Glucometer Random Glucose 65 L Calcium 7.3 L Phosphorus 7.9 H Magnesium 2.1 Total Bilirubin 1.6 H Direct Bilirubin 1.4 H AST 171 H ALT 239 H Alkaline Phosphatase 181 H Total Protein 6.1 L Albumin 2.7 L Urine Color Yellow Urine Appearance Cloudy Urine pH 5.0 Ur Specific [place] 1.017 Urine Protein 2+ H Urine Glucose (UA) Negative Urine Ketones Negative Urine Blood 3+ H Urine Nitrite Negative Urine Bilirubin Negative Urine Urobilinogen Negative Ur Leukocyte Esterase 2+ H Urine WBC (Auto) 136 Urine RBC (Auto) 14 Hyaline Casts 2 Ur Random Sodium Urine Creatinine Influenza A (Rapid) Influenza B (Rapid) 06/03/18 10:49 WBC RBC Hgb Hct MCV MCH MCHC RDW Plt Count MPV Absolute Neuts (auto) Neutrophils % Lymphocytes % Monocytes % Eosinophils % Basophils % Nucleated RBC % PT with INR INR Sodium Potassium Chloride Carbon Dioxide Anion Gap BUN Creatinine Creat Clearance w eGFR POC Glucometer 62 Random Glucose Calcium Phosphorus Magnesium Total Bilirubin Direct Bilirubin AST ALT Alkaline Phosphatase Total Protein Albumin Urine Color Urine Appearance Urine pH Ur Specific [place] Urine Protein Urine Glucose (UA) Urine Ketones Urine Blood Urine Nitrite Urine Bilirubin Urine Urobilinogen Ur Leukocyte Esterase Urine WBC (Auto) Urine RBC (Auto) Hyaline Casts Ur Random Sodium Urine Creatinine Influenza A (Rapid) Influenza B (Rapid) Active Medications Generic Name Dose Route Start Last Admin Trade Name Freq PRN Reason Stop Dose Admin Allopurinol 500 mg 06/02/18 16:00 06/03/18 09:15 Zyloprim - PO 500 mg DAILY MONICA Administration Calcium Acetate 667 mg 06/02/18 17:30 06/03/18 11:02 Phoslo - PO 667 mg TIDCM MONICA Administration Diazepam 10 mg 06/02/18 11:18 06/03/18 09:15 Valium - PO 06/05/18 11:18 10 mg Q6H PRN Administration ANXIETY Piperacillin Sod/Tazobactam 50 mls @ 100 mls/hr 06/02/18 18:00 06/03/18 09:12 Sod 2.25 gm/ Dextrose IVPB 100 mls/hr Q8H-IV MONICA Administration Protocol Dextrose/Sodium Chloride 1,000 mls @ 125 mls/hr 06/02/18 17:15 06/02/18 17:33 D5-Ns - IV 125 mls/hr ASDIR MONICA Administration Sodium Chloride 250 mls @ 3,000 mls/hr 06/03/18 08:47 Normal Saline - IV 06/04/18 08:47 PRN PRN Hypotension during Dialysis Insulin Aspart 1 vial 06/01/18 23:45 06/03/18 10:53 Novolog Vial Sliding Scale - SQ Not Given ACHS MONICA Protocol Oxycodone HCl 10 mg 06/01/18 23:43 06/03/18 09:15 Roxicodone - PO 10 mg Q4H PRN Administration BACK OR NECK PAIN LEVEL 6-10 ASSESSMENT/PLAN: 63 yom with PMhx of [place] of lung diagnosed in 04/2014, s/p Chemotherapy(carb/ Alimta), currently on maintenance alimta since 2016, Also pleural/pericardial effusion with bilateral pulmonary embolism in 04/2014, s/p pericardial window, on lovenox, NIDDM, with 5 days of minimal po intake, no urinary outpatient, found with IGOR, hypotension -IGOR, ?from hypovolumia/poor oral intake/lasix+/- tumor lysis syndrome, r/o sepsis -Hypotension, from poor oral intak/lasix, r/o sepsis -Lower uncomplicated UTI -Abnormal LFTS, ?Liver metastasis, hypotension, low suspicion for gall bladder etiology -H/o bilateral pulmonary embolism in 04/2014 -Adenocarcinoma of lung diagnosed in 04/2014, s/p carb/alimta, now on maintenance alimta since 2016 -h/o pericardial effusion in 2014 s/p pericardial window -NIDDM Plan: Renal function worse, no urine output. Discussed with Dr. Foley, plan for HD today. IVF per renal. Renal/Bladder US noted. Follow up cortisol/immune studies. U/a noted. zosyn day 2, follow up urine cultures. LFTs worse today, Abdominal US/CT A/P res noted, no visible gall stones or gall bladder wall thickening. GI consult. Follow up hepatitis panel. 2D echo noted. Oncology input appreciated. Heparin drip pending Shiley placement and HD plans. Hold oral hypoglycemics, ISS, diabetic/renal diet. Disposition continue telemetry monitoring. Plan discussed with patient and nursing in detail, all questions answered. Visit type - Emergency Visit Emergency Visit: Yes ED Registration Date: 06/01/18 Care time: The patient presented to the Emergency Department on the above date and was hospitalized for further evaluation of their emergent condition. - New Patient This patient is new to me today: No - Critical Care Critical Care patient: No - Discharge Referral Referred to [facility] No
--- NOTE | 2018-06-03 12:49 | CONSULT ---
Consult - History of Present Illness History of Present Illness: 63 year old man with hx metastatic lung ca on chemotherapy admitted with renal failure. He now requires hemodialysis access for emergency HD. He has a left sided port for chemoRx. - Past Medical History Cardio/Vascular: Yes: HTN Gastrointestinal: Yes: Other (colon polyps). No: Peptic Ulcer Disease Renal/: Yes: Renal Inusuff, Renal Calculi Musculoskeletal: Yes: Chronic low back pain - Past Surgical History Past Surgical History: Yes: Laminectomy (x2,) - Alcohol/Substance Use Hx Alcohol Use: Yes (social) - Smoking History Smoking history: Former smoker Have you smoked in the past 12 months: No Aproximately how many cigarettes per day: 30 If you are a former smoker, when did you quit?: 05/02 - Social History ADL: Independent Home Medications - Allergies Allergies/Adverse Reactions: Allergies Allergy/AdvReac Type Severity Reaction Status Date / Time No Known Drug Allergies Allergy Verified 05/24/17 12:37 - Home Medications Home Medications: Ambulatory Orders Glipizide [Glipizide ER] 5 mg PO DAILY 04/16/14 Folic Acid 1 mg PO HS 05/24/17 Furosemide [Lasix] 40 mg PO Q48H 05/24/17 Enoxaparin [Lovenox -] 120 mg SQ BID 06/01/18 Diazepam [Valium] 10 mg PO Q6H PRN 06/02/18 Oxycodone HCl 10 mg PO Q6H PRN 06/02/18 Sitagliptin Phos/Metformin HCl [Janumet 50-500 mg Tablet] 2 each PO DAILY Physical Exam Vital Signs: Vital Signs Temperature 97.7 F 06/03/18 05:00 Pulse Rate 80 06/03/18 05:00 Respiratory Rate 20 06/03/18 05:00 Blood Pressure 112/60 06/03/18 05:00 O2 Sat by Pulse Oximetry (%) 95 06/02/18 21:00 Constitutional: Yes: Obese Eyes: Yes: WNL HENT: Yes: WNL Neck: Yes: Supple Gastrointestinal: Yes: Soft Edema: Yes Edema: LLE: 2+, RLE: 2+ Labs: CBC, BMP 06/03/18 07:00 06/03/18 07:00 Problem List - Problems (1) Acute kidney injury Assessment/Plan: Will place femoral Shiley. If long-term access needed will place Permacath later in week. Code(s): N17.9 - ACUTE KIDNEY FAILURE, UNSPECIFIED
--- NOTE | 2018-06-03 13:24 | PROC ---
Central Line Insertion Indication: Other (Dialysis access) Risks and Benefits Explained: Yes Consent on Chart: Yes Central Line: Dialysis Cath, Dual Lumen Anesthesia: 1% Lidocaine Sterile Technique: Yes Ultrasound Guided Assistance: No Position: Right Femoral Sterile Dressing Applied: Yes
--- NOTE | 2018-06-03 13:56 | PN ---
Progress Note, Physician History of Present Illness: Pt seen and examined at bedside. He is awake and alert. He denies shortness of breath. He still has not made urine. He agrees to HD today. He does not have appetite and is nauseated. - Current Medication List Current Medications: Active Medications Allopurinol (Zyloprim -) 500 mg PO DAILY [facility] Last Admin: 06/03/18 09:15 Dose: 500 mg Calcium Acetate (Phoslo -) 667 mg PO TIDCM [facility] Last Admin: 06/03/18 11:02 Dose: 667 mg Diazepam (Valium -) 10 mg PO Q6H PRN PRN Reason: ANXIETY Stop: 06/05/18 11:18 Last Admin: 06/03/18 09:15 Dose: 10 mg Piperacillin Sod/Tazobactam (Sod 2.25 gm/ Dextrose) 50 mls @ 100 mls/hr IVPB Q8H-IV MONICA; Protocol Last Admin: 06/03/18 09:12 Dose: 100 mls/hr Dextrose/Sodium Chloride (D5-Ns -) 1,000 mls @ 125 mls/hr IV ASDIR [facility] Last Admin: 06/02/18 17:33 Dose: 125 mls/hr Sodium Chloride (Normal Saline -) 250 mls @ 3,000 mls/hr IV PRN PRN PRN Reason: Hypotension during Dialysis Stop: 06/04/18 08:47 Insulin Aspart (Novolog Vial Sliding Scale -) 1 vial SQ ACHS [facility]; Protocol Last Admin: 06/03/18 10:53 Dose: Not Given Oxycodone HCl (Roxicodone -) 10 mg PO Q4H PRN PRN Reason: BACK OR NECK PAIN LEVEL 6-10 Last Admin: 06/03/18 13:00 Dose: 10 mg - Objective Vital Signs: Vital Signs Temperature 97.7 F 06/03/18 05:00 Pulse Rate 80 06/03/18 05:00 Respiratory Rate 20 06/03/18 05:00 Blood Pressure 112/60 06/03/18 05:00 O2 Sat by Pulse Oximetry (%) 95 06/02/18 21:00 Constitutional: Yes: Calm Eyes: Yes: Conjunctiva Clear HENT: Yes: Atraumatic Cardiovascular: Yes: S1, S2 Respiratory: Yes: Rhonchi, Other (at base) Gastrointestinal: Yes: Soft, Abdomen, Obese Genitourinary: Yes: Anuria Musculoskeletal: Yes: Muscle Weakness Edema: LLE: Trace, RLE: Trace Neurological: Yes: Oriented Psychiatric: Yes: Oriented Labs: CBC, BMP 06/03/18 07:00 06/03/18 07:00 INR, PTT INR 1.01 (0.83-1.09) 06/03/18 07:00 Assessment/Plan Current Medications Generic Name Dose Route Start Last Admin Trade Name Freq PRN Reason Stop Dose Admin Allopurinol 500 mg 06/02/18 16:00 06/03/18 09:15 Zyloprim - PO 500 mg DAILY MONICA Administration Calcium Acetate 667 mg 06/02/18 17:30 06/03/18 11:02 Phoslo - PO 667 mg TIDCM MONICA Administration Diazepam 10 mg 06/02/18 11:18 06/03/18 09:15 Valium - PO 06/05/18 11:18 10 mg Q6H PRN Administration ANXIETY Piperacillin Sod/Tazobactam 50 mls @ 100 mls/hr 06/02/18 18:00 06/03/18 09:12 Sod 2.25 gm/ Dextrose IVPB 100 mls/hr Q8H-IV MONICA Administration Protocol Dextrose/Sodium Chloride 1,000 mls @ 125 mls/hr 06/02/18 17:15 06/02/18 17:33 D5-Ns - IV 125 mls/hr ASDIR MONICA Administration Sodium Chloride 250 mls @ 3,000 mls/hr 06/03/18 08:47 Normal Saline - IV 06/04/18 08:47 PRN PRN Hypotension during Dialysis Insulin Aspart 1 vial 06/01/18 23:45 06/03/18 10:53 Novolog Vial Sliding Scale - SQ Not Given ACHS MONICA Protocol Oxycodone HCl 10 mg 06/01/18 23:43 06/03/18 13:00 Roxicodone - PO 10 mg Q4H PRN Administration BACK OR NECK PAIN LEVEL 6-10 Laboratory Tests 06/02/18 06/03/18 06/03/18 17:00 07:00 07:00 ALISE M-Quinn Pending LUANA Screen Pending c-ANCA Pending Proteinase 3 (PR3) Pending p-ANCA Pending Atypical p-ANCA Pending Myeloperoxidase Ab Pending Double Strand DNA Ab Pending Glomerular Base Memb Ab Pending Hepatitis A Ab Total Pending Hep Bs Antigen Pending Hep Bs Antibody Pending Hep B Core Total Ab Pending HCV Quantitation Pending Influenza A (Rapid) Negative Influenza B (Rapid) Negative Anti-Streptolysin Scrn Anti-DNase B (Strep) Pending 06/03/18 07:00 ALISE M-Quinn LUANA Screen c-ANCA Proteinase 3 (PR3) p-ANCA Atypical p-ANCA Myeloperoxidase Ab Double Strand DNA Ab Glomerular Base Memb Ab Hepatitis A Ab Total Hep Bs Antigen Hep Bs Antibody Hep B Core Total Ab HCV Quantitation Influenza A (Rapid) Influenza B (Rapid) Anti-Streptolysin Scrn Pending Anti-DNase B (Strep) Impression 1. lung cancer 2. IGOR 3. hyponatremia 4. fever/chills 5. decreased appetite/nausea Plan - renal function continues to worsen - pt is not making urine - pt does not have appetite and has uremic symptoms - will dialyze today, will not remove fluids - cont with saline - renal workup in progress - pt likely has anuric atn from severe prerenal disease and hypotension - renal diet - cont phos binder Dr Foley
--- NOTE | 2018-06-03 14:23 | PN ---
Progress Note (short form) - Note Progress Note: now on HD guerra removed Vital Signs Period Temp Pulse Resp BP Sys/Small Pulse Ox Last 24 Hr 97.2 F-97.9 F 73-82 18-20 96-125/52-68 95-96 not examined- he is being dialyzed via femoral access CBC, BMP 06/03/18 07:00 06/03/18 07:00 +UA urine culture pending blood cultures negative to date Current Medications Allopurinol (Zyloprim -) 500 mg PO DAILY [facility]ICA Last Admin: 06/03/18 09:15 Dose: 500 mg Calcium Acetate (Phoslo -) 667 mg PO TIDCM [facility] Last Admin: 06/03/18 11:02 Dose: 667 mg Diazepam (Valium -) 10 mg PO Q6H PRN PRN Reason: ANXIETY Stop: 06/05/18 11:18 Last Admin: 06/03/18 09:15 Dose: 10 mg Piperacillin Sod/Tazobactam (Sod 2.25 gm/ Dextrose) 50 mls @ 100 mls/hr IVPB Q8H-IV MONICA; Protocol Last Admin: 06/03/18 09:12 Dose: 100 mls/hr Dextrose/Sodium Chloride (D5-Ns -) 1,000 mls @ 125 mls/hr IV ASDIR [facility] Last Admin: 06/02/18 17:33 Dose: 125 mls/hr Sodium Chloride (Normal Saline -) 250 mls @ 3,000 mls/hr IV PRN PRN PRN Reason: Hypotension during Dialysis Stop: 06/04/18 08:47 Insulin Aspart (Novolog Vial Sliding Scale -) 1 vial SQ ACHS [facility]; Protocol Last Admin: 06/03/18 10:53 Dose: Not Given Oxycodone HCl (Roxicodone -) 10 mg PO Q4H PRN PRN Reason: BACK OR NECK PAIN LEVEL 6-10 Last Admin: 06/03/18 13:00 Dose: 10 mg a/p Acute renal failure- oliguric- suspect ATN elevated uric acid abnormal lfts- ?secondary to hypotension-f/u hepatitis serology fevers/rigors-?infection but no source evident- +UA but obtained after antiibotics started continue zosyn Problem List - Problems (1) Acute renal failure Code(s): N17.9 - ACUTE KIDNEY FAILURE, UNSPECIFIED (2) Hypotension Code(s): I95.9 - HYPOTENSION, UNSPECIFIED Qualifiers: Hypotension type: unspecified hypotension type Qualified Code(s): I95.9 - Hypotension, unspecified (3) Transaminitis Code(s): R74.0 - NONSPEC ELEV OF LEVELS OF TRANSAMNS & LACTIC ACID DEHYDRGNSE (4) Lung cancer, hilus Code(s): C34.00 - MALIGNANT NEOPLASM OF UNSPECIFIED MAIN BRONCHUS
--- NOTE | 2018-06-03 15:36 | PN ---
Progress Note (short form) - Note Progress Note: Patient seen in follow up. No new complaints. No significant events overnight. No urine passed. Ongoing malaise, poor appetite. Says he is thirsty. Inpatient Meds reviewed. Current Medications Generic Name Dose Route Start Last Admin Trade Name Zackq PRN Reason Stop Dose Admin Allopurinol 500 mg 06/02/18 16:00 06/03/18 09:15 Zyloprim - PO 500 mg DAILY MONICA Administration Calcium Acetate 667 mg 06/02/18 17:30 06/03/18 11:02 Phoslo - PO 667 mg TIDCM MONICA Administration Diazepam 10 mg 06/02/18 11:18 06/03/18 15:13 Valium - PO 06/05/18 11:18 10 mg Q6H PRN Administration ANXIETY Piperacillin Sod/Tazobactam 50 mls @ 100 mls/hr 06/02/18 18:00 06/03/18 09:12 Sod 2.25 gm/ Dextrose IVPB 100 mls/hr Q8H-IV MONICA Administration Protocol Sodium Chloride 250 mls @ 3,000 mls/hr 06/03/18 08:47 Normal Saline - IV 06/04/18 08:47 PRN PRN Hypotension during Dialysis Sodium Chloride 1,000 mls @ 150 mls/hr 06/03/18 15:30 Normal Saline - IV ASDIR MONICA Insulin Aspart 1 vial 06/01/18 23:45 06/03/18 10:53 Novolog Vial Sliding Scale - SQ Not Given ACHS [facility] Protocol Oxycodone HCl 10 mg 06/01/18 23:43 06/03/18 13:00 Roxicodone - PO 10 mg Q4H PRN Administration BACK OR NECK PAIN LEVEL 6-10 On Examination: Last Vital Signs Temp Pulse Resp BP Pulse Ox 98.3 F 71 20 108/66 95 06/03/18 15:33 06/03/18 15:33 06/03/18 15:33 06/03/18 15:33 06/02/18 21:00 General: Obese, lying comfortably in bed. Extremities: No pallor or icterus. No pedal edema. No palpable lymphadenopathy. Chest: breathing comfortably Abdomen: Non-distended, non-tender, no palpable organomegaly. Neuro: Alert, oriented, non-focal. Labs: CBC, BMP 06/03/18 07:00 06/03/18 07:00 Assessment. Metastatic NSCLC, with controlled disease on Alimta, presenting with IGOR. Anuric, without evidence of obstruction. Likely ATN, following suspected long period of dehydration and hypotension. Unclear etiology - empirically being treated for sepsis - on Zosyn, (Caution Zosyn/Vanco combination - potentially nephrotoxic.) No response to 2 days IV fluids - ?4 litres positive - although weight today is below recorded weight on admission (?). Ongoing aggressive hydration, (while no evidence of fluid overload)- suspect still behind on fluid repletion. Consider increasing fluid - boluses? Dialysis discussed with nephrology - being instituted to relieve uremic symptoms (nausea, anorexia)
[2018-06-03] MEDS: SODIUM CHLORIDE 1,000 ML IV SCH (16:22)
[2018-06-04] MEDS ORDERED: PIPERACILLIN/TAZOBACTAM 2.25 GM VIAL IVPB ONE ×3 (00:58→18:02)
[2018-06-04] MEDS ORDERED: DEXTROSE 5%-WATER - 50 ML IVPB ONE ×3 (00:58→18:02)
[2018-06-04] MEDS: oxyCODONE HCL 5 MG TABLET PO PRN ×6 (01:23→21:20)
[2018-06-04] MEDS: PIPERACILLIN/TAZOB 2.25 GM 2.25 GM in DEXTROSE 5%-WATER - 50 ML IVPB SCH ×3 (01:24→18:14)
[2018-06-04] MEDS: diazePAM 5 MG TABLET PO PRN ×3 (03:18→18:15)
[2018-06-04 04:07] LABS: HEP.C VIRUS AB <0.1 s/co ratio (0.0-0.9)
[2018-06-04 06:37] LABS: HBSAG SCREEN Negative (Negative); HEP B CORE AB, TOT Negative (Negative)
[2018-06-04] MEDS: INSULIN SLIDING SCALE (NOVOLOG) 1 VIAL SQ SCH ×4 (06:52→21:25)
[2018-06-04] MEDS: CALCIUM ACETATE 667 MG CAPSULE (FP) PO SCH ×2 (08:08→12:11)
[2018-06-04 08:39] LABS: ALBUMIN 2.3 g/dl (3.4-5.0); ALK PHOS 174 U/L (45-117); ANION GAP 11 MMOL/L (8-16); BILIRUBIN,TOTAL 1.3 mg/dL (0.2-1); BLOOD UREA NITROGEN 54 mg/dL (7-18); CHLORIDE 99 mmol/L (98-107); CO2 25 mmol/L (21-32); GLUCOSE,RANDOM 68 mg/dL (74-106); POTASSIUM 4.4 mmol/L (3.5-5.1); SGOT/AST 213 U/L (15-37); SGPT/ALT 284 U/L (13-61); SODIUM 135 mmol/L (136-145); TOT PROT 5.6 g/dl (6.4-8.2)
[2018-06-04] MEDS ORDERED: SODIUM CHLORIDE 1,000 ML IV STA ×2 (08:48→18:09)
[2018-06-04] MEDS: ALLOPURINOL 100 MG TABLET (FP) PO SCH (09:28)
[2018-06-04] MEDS: SODIUM CHLORIDE 1,000 ML IV SCH (09:28)
[2018-06-04 10:14] LABS: CREATININE 10.8 mg/dL (0.55-1.3)
[2018-06-04] MEDS ORDERED: SODIUM CHLORIDE 250 ML IV PRN (10:42)
[2018-06-04] MEDS ORDERED: ONDANSETRON 4 MG/2 ML VIAL IVPUSH PRN (10:53)
--- NOTE | 2018-06-04 11:58 | PN ---
Physical Exam: SUBJECTIVE: Patient seen and examined, feels nauseous, minimal urine output overnight. Not eating well. No dyspnea, itching or new concerns. OBJECTIVE: Vital Signs Period Temp Pulse Resp BP Sys/Small Pulse Ox Last 24 Hr 97.2 F-98.3 F 71-89 18-20 108-135/59-74 94 GENERAL: The patient is awake, alert, and fully oriented, in no acute distress. HEAD: Normal with no signs of trauma. EYES: PERRL, extraocular movements intact, sclera anicteric, conjunctiva clear. No ptosis. ENT: Ears normal, nares patent, oropharynx clear without exudates, moist mucous membranes. NECK: soft, supple, no JVD LUNGS: no rales or wheezing, positive air entry, no accessory muscle use HEART: Regular rate and rhythm, S1, S2 ABDOMEN: Soft, obese, nontender, nondistended, normoactive bowel sounds, no guarding, no rebound, EXTREMITIES: 2+ pulses, warm, well-perfused, no edema. PSYCH: Normal mood, normal affect. SKIN: Warm, dry, normal turgor, no rashes or lesions noted Laboratory Results - last 24 hr 06/03/18 06/03/18 06/03/18 07:00 07:00 07:00 Sodium Potassium Chloride Carbon Dioxide Anion Gap BUN Creatinine Creat Clearance w eGFR POC Glucometer Random Glucose Calcium Total Bilirubin AST ALT Alkaline Phosphatase Total Protein Albumin Cortisol AM Sample 17.6 Random Vancomycin Hepatitis A IgM Ab Negative Hepatitis A Ab Total Negative Hep Bs Antigen Negative Negative Hep Bs Antibody Non reactive Hep B Core Total Ab Negative Hep B Core IgM Ab Negative Hepatitis C Antibody <0.1 Anti-Streptolysin Scrn 06/03/18 06/03/18 06/03/18 07:00 16:17 21:19 Sodium Potassium Chloride Carbon Dioxide Anion Gap BUN Creatinine Creat Clearance w eGFR POC Glucometer 66 78 Random Glucose Calcium Total Bilirubin AST ALT Alkaline Phosphatase Total Protein Albumin Cortisol AM Sample Random Vancomycin Hepatitis A IgM Ab Hepatitis A Ab Total Hep Bs Antigen Hep Bs Antibody Hep B Core Total Ab Hep B Core IgM Ab Hepatitis C Antibody Anti-Streptolysin Scrn 24.3 06/04/18 06/04/18 06/04/18 06:47 07:38 07:38 Sodium 135 L Potassium 4.4 Chloride 99 Carbon Dioxide 25 Anion Gap 11 BUN 54 H Creatinine 10.8 H* Creat Clearance w eGFR 4.88 POC Glucometer 81 Random Glucose 68 L Calcium 7.0 L Total Bilirubin 1.3 H AST 213 H ALT 284 H Alkaline Phosphatase 174 H Total Protein 5.6 L Albumin 2.3 L Cortisol AM Sample Random Vancomycin 7.8 L Hepatitis A IgM Ab Hepatitis A Ab Total Hep Bs Antigen Hep Bs Antibody Hep B Core Total Ab Hep B Core IgM Ab Hepatitis C Antibody Anti-Streptolysin Scrn Active Medications Generic Name Dose Route Start Last Admin Trade Name Freq PRN Reason Stop Dose Admin Allopurinol 500 mg 06/02/18 16:00 06/04/18 09:28 Zyloprim - PO 500 mg DAILY [facility] Administration Calcium Acetate 667 mg 06/02/18 17:30 06/04/18 08:08 Phoslo - PO 667 mg TIDCM [facility] Administration Diazepam 10 mg 06/02/18 11:18 06/04/18 09:28 Valium - PO 06/05/18 11:18 10 mg Q6H PRN Administration ANXIETY Piperacillin Sod/Tazobactam 50 mls @ 100 mls/hr 06/02/18 18:00 06/04/18 09:28 Sod 2.25 gm/ Dextrose IVPB 100 mls/hr Q8H-IV [facility] Administration Protocol Sodium Chloride 250 mls @ 3,000 mls/hr 06/03/18 08:47 Normal Saline - IV 06/04/18 08:47 PRN PRN Hypotension during Dialysis Sodium Chloride 250 mls @ 3,000 mls/hr 06/04/18 10:42 Normal Saline - IV 06/05/18 10:42 PRN PRN Hypotension during Dialysis Dextrose/Sodium Chloride 1,000 mls @ 150 mls/hr 06/04/18 11:00 D5-Ns - IV ASDIR [facility] Insulin Aspart 1 vial 06/03/18 22:00 06/04/18 06:52 Novolog Vial Sliding Scale - SQ Not Given ACHS [facility] Protocol Ondansetron HCl 4 mg 06/04/18 10:53 06/04/18 11:24 Zofran Injection IVPUSH 4 mg Q6H PRN Administration NAUSEA AND/OR VOMITING Oxycodone HCl 10 mg 06/01/18 23:43 06/04/18 06:50 Roxicodone - PO 10 mg Q4H PRN Administration BACK OR NECK PAIN LEVEL 6-10 Microbiology 06/03/18 09:03 Urine - Urine Flor Urine Culture - Final NO GROWTH OBTAINED ASSESSMENT/PLAN: 63 yom with PMhx of [place] of lung diagnosed in 04/2014, s/p Chemotherapy(carb/ Alimta), currently on maintenance alimta since 2016, Also pleural/pericardial effusion with bilateral pulmonary embolism in 04/2014, s/p pericardial window, on lovenox, NIDDM, with 5 days of minimal po intake, no urinary outpatient, found with IGOR, hypotension -IGOR, ?from hypovolumia/poor oral intake/lasix+/- tumor lysis syndrome, r/o sepsis -Hypotension, from poor oral intak/lasix, r/o sepsis -?Lower uncomplicated UTI -Abnormal LFTS, ?Liver metastasis, hypotension, low suspicion for gall bladder etiology -H/o bilateral pulmonary embolism in 04/2014 -Adenocarcinoma of lung diagnosed in 04/2014, s/p carb/alimta, now on maintenance alimta since 2015 -h/o pericardial effusion in 2014 s/p pericardial window -NIDDM Plan: Started on HD, continue per renal. Patient with ongoing nausea, poor oral intake with BG 60s, will add D5 to IVF. Renal/bladder US noted. AM cortisol normal. Follow up hep panel/immune studies. Zosyn day 3, urine cx noted. discuss with ID about monitoring off antibiotics. LFTs midly worse today, Abdominal US/CT A/P res noted, no visible gall stones or gall bladder wall thickening. Follow up GI input/hep panel. 2D echo noted. Oncology input appreciated. Discussed with Dr. Foley, no imminent surgical plans, will start on heparin Hold oral hypoglycemics, ISS, d/c diabetic diet for now. Renal diet. Disposition continue telemetry monitoring. Plan discussed with patient and nursing in detail, all questions answered. Visit type - Emergency Visit Emergency Visit: Yes ED Registration Date: 06/01/18 Care time: The patient presented to the Emergency Department on the above date and was hospitalized for further evaluation of their emergent condition. - New Patient This patient is new to me today: No - Critical Care Critical Care patient: No - Discharge Referral Referred to [facility] Med P.C.: No
[2018-06-04] MEDS: DEXTROSE 5%-NORMAL SALINE 1,000 ML IV SCH ×2 (12:07→18:15)
--- NOTE | 2018-06-04 12:18 | PN ---
Progress Note (short form) - Note Progress Note: Patient seen in follow up. No new complaints. No significant events overnight. Small amount concentrated urine passed. HD yesterday Ongoing malaise, poor appetite. Inpatient Meds reviewed. Current Medications Allopurinol (Zyloprim -) 500 mg PO DAILY [facility] Last Admin: 06/04/18 09:28 Dose: 500 mg Calcium Acetate (Phoslo -) 667 mg PO TIDCM [facility] Last Admin: 06/04/18 12:11 Dose: Not Given Diazepam (Valium -) 10 mg PO Q6H PRN PRN Reason: ANXIETY Stop: 06/05/18 11:18 Last Admin: 06/04/18 09:28 Dose: 10 mg Heparin Sodium (Porcine) (Heparin -) 1,000 unit IVPUSH PRN PRN PRN Reason: Heparin Heparin Sodium (Porcine) (Heparin -) 5,000 unit IVPUSH PRN PRN PRN Reason: Heparin Piperacillin Sod/Tazobactam (Sod 2.25 gm/ Dextrose) 50 mls @ 100 mls/hr IVPB Q8H-IV [facility]; Protocol Last Admin: 06/04/18 09:28 Dose: 100 mls/hr Sodium Chloride (Normal Saline -) 250 mls @ 3,000 mls/hr IV PRN PRN PRN Reason: Hypotension during Dialysis Stop: 06/04/18 08:47 Sodium Chloride (Normal Saline -) 250 mls @ 3,000 mls/hr IV PRN PRN PRN Reason: Hypotension during Dialysis Stop: 06/05/18 10:42 Dextrose/Sodium Chloride (D5-Ns -) 1,000 mls @ 150 mls/hr IV ASDIR [facility] Last Admin: 06/04/18 12:07 Dose: 150 mls/hr Heparin Sodium (Porcine) 25, (000 unit/ Sodium Chloride) 500 mls @ 20 mls/hr IV TITR [facility]; Protocol Insulin Aspart (Novolog Vial Sliding Scale -) 1 vial SQ ACHS [facility]; Protocol Last Admin: 06/04/18 12:02 Dose: Not Given Ondansetron HCl (Zofran Injection) 4 mg IVPUSH Q6H PRN PRN Reason: NAUSEA AND/OR VOMITING Last Admin: 06/04/18 11:24 Dose: 4 mg Oxycodone HCl (Roxicodone -) 10 mg PO Q4H PRN PRN Reason: BACK OR NECK PAIN LEVEL 6-10 Last Admin: 06/04/18 12:06 Dose: 10 mg On Examination: Last Vital Signs Temp Pulse Resp BP Pulse Ox 97.9 F 89 18 109/62 94 L 06/04/18 09:25 06/04/18 09:25 06/04/18 09:25 06/04/18 09:25 06/03/18 21:00 General: Obese, sitting in bed. Extremities: No pallor or icterus. No pedal edema. Chest: breathing comfortably Abdomen: Non-distended, non-tender, no palpable organomegaly. Neuro: Alert, oriented, non-focal. Labs: CBC, BMP 06/03/18 07:00 06/04/18 07:38 Assessment. Metastatic NSCLC, with controlled disease on Alimta, presenting with IGOR. Anuric, without evidence of obstruction. Likely ATN, following suspected long period of dehydration and hypotension. Unclear etiology - empirically being treated for sepsis - on Zosyn, (Caution Zosyn/Vanco combination - potentially nephrotoxic.) Ongoing aggressive hydration, (while no evidence of fluid overload)- possibly still behind on fluid repletion. Consider increasing fluid - boluses? Dialysis discussed with nephrology - instituted to relieve uremic symptoms ( nausea, anorexia)
--- NOTE | 2018-06-04 13:09 | CON.GI ---
Consult Consult Specialty:: covering for Dr Menchaca - History of Present Illness History of Present Illness: 63 year male with history of metastatic adenocarcinoma of the lung (On ALIMTA chemotherapy), pulmonary embolism, spinal cervical fusion, lumbar laminectomy, HTN, NIDDM, colon polyps and kidney stones sent in by Dr. Mcgill (Oncologist), after he was found to be hypotensive (70 systolic) in the clinic. IHe was admitted 06/01/18. In the ER he was noted to be in acute renal failure, hypotensive and was noted to have elevated liver enzymes. Presently undergoing hemodialysis and empirically started on Zosyn for possible sepsis. CT and abdominal ultrasound revealed hepatosplenomegaly. There were no evidence of metastatic disease. Hepatitis A,B and C were normal. The liver enzymes were persistently elevated since admission consistent with moderate hepatocellular injury. Patient started on Heparin drip because of PE . previously on Lovenox but had to be discontinued because of renal failure. - Past Medical History Cardio/Vascular: Yes: HTN Gastrointestinal: Yes: Other (colon polyps). No: Peptic Ulcer Disease Renal/: Yes: Renal Inusuff, Renal Calculi Musculoskeletal: Yes: Chronic low back pain - Past Surgical History Past Surgical History: Yes: Laminectomy (x2,) - Alcohol/Substance Use Hx Alcohol Use: Yes (social) - Smoking History Smoking history: Former smoker Have you smoked in the past 12 months: No Aproximately how many cigarettes per day: 30 If you are a former smoker, when did you quit?: 05/02 - Social History ADL: Independent Home Medications - Allergies Allergies/Adverse Reactions: Allergies Allergy/AdvReac Type Severity Reaction Status Date / Time No Known Drug Allergies Allergy Verified 05/24/17 12:37 - Home Medications Home Medications: Ambulatory Orders Glipizide [Glipizide ER] 5 mg PO DAILY 04/16/14 Folic Acid 1 mg PO HS 05/24/17 Furosemide [Lasix] 40 mg PO Q48H 05/24/17 Enoxaparin [Lovenox -] 120 mg SQ BID 06/01/18 Diazepam [Valium] 10 mg PO Q6H PRN 06/02/18 Oxycodone HCl 10 mg PO Q6H PRN 06/02/18 Sitagliptin Phos/Metformin HCl [Janumet 50-500 mg Tablet] 2 each PO DAILY Physical Exam-GI Vital Signs: Vital Signs Temperature 97.9 F 06/04/18 09:25 Pulse Rate 89 06/04/18 09:25 Respiratory Rate 18 06/04/18 09:25 Blood Pressure 109/62 06/04/18 09:25 O2 Sat by Pulse Oximetry (%) 94 L 06/03/18 21:00 Constitutional: Yes: Obese Eyes: Yes: Conjunctiva Clear HENT: Yes: Atraumatic Neck: Yes: Supple Cardiovascular: Yes: Regular Rate and Rhythm Respiratory: Yes: CTA Bilaterally ...Auscultate: Yes: Normoactive Bowel Sounds, Hypoactive Bowel Sounds ...Palpate: Yes: Soft. No: Guarding, Hepatomegaly, Mass, Pulsatile Mass, Splenomegaly, Tenderness Labs: CBC, BMP 06/03/18 07:00 06/04/18 07:38 INR, PTT INR 1.01 (0.83-1.09) 06/03/18 07:00 Home Medications Medication Instructions Recorded Glipizide [Glipizide ER] 5 mg PO DAILY 04/16/14 Folic Acid 1 mg PO HS 05/24/17 Furosemide [Lasix] 40 mg PO Q48H 05/24/17 Enoxaparin [Lovenox -] 120 mg SQ BID 06/01/18 Diazepam [Valium] 10 mg PO Q6H PRN 06/02/18 Oxycodone HCl 10 mg PO Q6H PRN 06/02/18 Sitagliptin Phos/Metformin HCl 2 each PO DAILY 06/02/18 [Janumet 50-500 mg Tablet] Home Medication List Medication Instructions Recorded Confirmed Type Glipizide [Glipizide ER] 5 mg PO DAILY 04/16/14 06/01/18 History Folic Acid 1 mg PO HS 05/24/17 06/02/18 History Furosemide [Lasix] 40 mg PO Q48H 05/24/17 06/02/18 History Enoxaparin [Lovenox -] 120 mg SQ BID 06/01/18 06/01/18 History Diazepam [Valium] 10 mg PO Q6H PRN 06/02/18 06/02/18 History Oxycodone HCl 10 mg PO Q6H PRN 06/02/18 06/02/18 History Sitagliptin Phos/Metformin HCl 2 each PO DAILY 06/02/18 06/02/18 History [Janumet 50-500 mg Tablet] Active Medications Generic Name Dose Route Start Last Admin Trade Name Freq PRN Reason Stop Dose Admin Allopurinol 500 mg 06/02/18 16:00 06/04/18 09:28 Zyloprim - PO 500 mg DAILY [facility] Administration Diazepam 10 mg 06/02/18 11:18 06/04/18 18:15 Valium - PO 06/05/18 11:18 10 mg Q6H PRN Administration ANXIETY Heparin Sodium (Porcine) 1,000 unit 06/04/18 12:04 Heparin - IVPUSH PRN PRN Heparin Heparin Sodium (Porcine) 5,000 unit 06/04/18 12:04 Heparin - IVPUSH PRN PRN Heparin Piperacillin Sod/Tazobactam 50 mls @ 100 mls/hr 06/02/18 18:00 06/04/18 18:14 Sod 2.25 gm/ Dextrose IVPB 100 mls/hr Q8H-IV [facility] Administration Protocol Sodium Chloride 250 mls @ 3,000 mls/hr 06/03/18 08:47 Normal Saline - IV 06/04/18 08:47 PRN PRN Hypotension during Dialysis Sodium Chloride 250 mls @ 3,000 mls/hr 06/04/18 10:42 Normal Saline - IV 06/05/18 10:42 PRN PRN Hypotension during Dialysis Dextrose/Sodium Chloride 1,000 mls @ 150 mls/hr 06/04/18 11:00 06/04/18 18:15 D5-Ns - IV 150 mls/hr ASDIR [facility] Administration Heparin Sodium (Porcine) 25, 500 mls @ 20 mls/hr 06/04/18 12:15 000 unit/ Sodium Chloride IV TITR [facility] Protocol 1,000 UNIT/HR Sodium Chloride 1,000 mls @ 1,000 mls/hr 06/04/18 18:09 Normal Saline - IV 06/04/18 19:08 ASDIR STA Insulin Aspart 1 vial 06/03/18 22:00 06/04/18 18:18 Novolog Vial Sliding Scale - SQ Not Given ACHS [facility] Protocol Ondansetron HCl 4 mg 06/04/18 10:53 06/04/18 11:24 Zofran Injection IVPUSH 4 mg Q6H PRN Administration NAUSEA AND/OR VOMITING Oxycodone HCl 10 mg 06/01/18 23:43 06/04/18 17:02 Roxicodone - PO 10 mg Q4H PRN Administration BACK OR NECK PAIN LEVEL 6-10 Problem List - Problems (1) Elevated liver enzymes Assessment/Plan: moderate hepatocellular injury most likely is multifactorial including secondary to medication, previous hypotension and remote possibility of metastatic liver neoplasm R> would serial liver enzyme determinations keep well hydrated avoid hepatotoxic medication Dr Menchaca will resume care in am Code(s): R74.8 - ABNORMAL LEVELS OF OTHER SERUM ENZYMES
--- NOTE | 2018-06-04 14:06 | PN ---
Progress Note (short form) - Note Progress Note: now on HD guerra removed 100 cc urine output this am Vital Signs Period Temp Pulse Resp BP Sys/Small Pulse Ox Last 24 Hr 97.2 F-98.3 F 71-89 18-20 108-135/61-74 94 cor-rrr llungs decreased bs at bases abd soft,nt ext trace edema CBC, BMP 06/03/18 07:00 06/04/18 07:38 Microbiology 06/03/18 09:03 Urine - Urine Guerra Urine Culture - Final NO GROWTH OBTAINED blood cultures negative to date Current Medications Allopurinol (Zyloprim -) 500 mg PO DAILY [facility] Last Admin: 06/04/18 09:28 Dose: 500 mg Calcium Acetate (Phoslo -) 667 mg PO TIDCM [facility] Last Admin: 06/04/18 12:11 Dose: Not Given Diazepam (Valium -) 10 mg PO Q6H PRN PRN Reason: ANXIETY Stop: 06/05/18 11:18 Last Admin: 06/04/18 09:28 Dose: 10 mg Heparin Sodium (Porcine) (Heparin -) 1,000 unit IVPUSH PRN PRN PRN Reason: Heparin Heparin Sodium (Porcine) (Heparin -) 5,000 unit IVPUSH PRN PRN PRN Reason: Heparin Piperacillin Sod/Tazobactam (Sod 2.25 gm/ Dextrose) 50 mls @ 100 mls/hr IVPB Q8H-IV [facility]; Protocol Last Admin: 06/04/18 09:28 Dose: 100 mls/hr Sodium Chloride (Normal Saline -) 250 mls @ 3,000 mls/hr IV PRN PRN PRN Reason: Hypotension during Dialysis Stop: 06/04/18 08:47 Sodium Chloride (Normal Saline -) 250 mls @ 3,000 mls/hr IV PRN PRN PRN Reason: Hypotension during Dialysis Stop: 06/05/18 10:42 Dextrose/Sodium Chloride (D5-Ns -) 1,000 mls @ 150 mls/hr IV ASDIR [facility] Last Admin: 06/04/18 12:07 Dose: 150 mls/hr Heparin Sodium (Porcine) 25, (000 unit/ Sodium Chloride) 500 mls @ 20 mls/hr IV TITR [facility]; Protocol Insulin Aspart (Novolog Vial Sliding Scale -) 1 vial SQ ACHS [facility]; Protocol Last Admin: 06/04/18 12:02 Dose: Not Given Ondansetron HCl (Zofran Injection) 4 mg IVPUSH Q6H PRN PRN Reason: NAUSEA AND/OR VOMITING Last Admin: 06/04/18 11:24 Dose: 4 mg Oxycodone HCl (Roxicodone -) 10 mg PO Q4H PRN PRN Reason: BACK OR NECK PAIN LEVEL 6-10 Last Admin: 06/04/18 12:06 Dose: 10 mg a/p Acute renal failure- oliguric- suspect ATN elevated uric acid abnormal lfts- ?secondary to hypotension-f/u with GI fevers/rigors-?infection but no source evident- +UA but obtained after antiibotics started would continue zosyn day #3 Problem List - Problems (1) Acute renal failure Code(s): N17.9 - ACUTE KIDNEY FAILURE, UNSPECIFIED (2) Hypotension Code(s): I95.9 - HYPOTENSION, UNSPECIFIED Qualifiers: Hypotension type: unspecified hypotension type Qualified Code(s): I95.9 - Hypotension, unspecified (3) Transaminitis Code(s): R74.0 - NONSPEC ELEV OF LEVELS OF TRANSAMNS & LACTIC ACID DEHYDRGNSE (4) Lung cancer, hilus Code(s): C34.00 - MALIGNANT NEOPLASM OF UNSPECIFIED MAIN BRONCHUS
--- NOTE | 2018-06-04 14:46 | PN ---
Progress Note, Physician History of Present Illness: Pt seen and examined at bedside. He complains or nausea and decreased appetite. He denies chest pain. He made about 100 cc of urine. - Current Medication List Current Medications: Active Medications Allopurinol (Zyloprim -) 500 mg PO DAILY [facility] Last Admin: 06/04/18 09:28 Dose: 500 mg Calcium Acetate (Phoslo -) 667 mg PO TIDCM [facility] Last Admin: 06/04/18 12:11 Dose: Not Given Diazepam (Valium -) 10 mg PO Q6H PRN PRN Reason: ANXIETY Stop: 06/05/18 11:18 Last Admin: 06/04/18 09:28 Dose: 10 mg Heparin Sodium (Porcine) (Heparin -) 1,000 unit IVPUSH PRN PRN PRN Reason: Heparin Heparin Sodium (Porcine) (Heparin -) 5,000 unit IVPUSH PRN PRN PRN Reason: Heparin Piperacillin Sod/Tazobactam (Sod 2.25 gm/ Dextrose) 50 mls @ 100 mls/hr IVPB Q8H-IV [facility]; Protocol Last Admin: 06/04/18 09:28 Dose: 100 mls/hr Sodium Chloride (Normal Saline -) 250 mls @ 3,000 mls/hr IV PRN PRN PRN Reason: Hypotension during Dialysis Stop: 06/04/18 08:47 Sodium Chloride (Normal Saline -) 250 mls @ 3,000 mls/hr IV PRN PRN PRN Reason: Hypotension during Dialysis Stop: 06/05/18 10:42 Dextrose/Sodium Chloride (D5-Ns -) 1,000 mls @ 150 mls/hr IV ASDIR [facility] Last Admin: 06/04/18 12:07 Dose: 150 mls/hr Heparin Sodium (Porcine) 25, (000 unit/ Sodium Chloride) 500 mls @ 20 mls/hr IV TITR [facility]; Protocol Insulin Aspart (Novolog Vial Sliding Scale -) 1 vial SQ ACHS [facility]; Protocol Last Admin: 06/04/18 12:02 Dose: Not Given Ondansetron HCl (Zofran Injection) 4 mg IVPUSH Q6H PRN PRN Reason: NAUSEA AND/OR VOMITING Last Admin: 06/04/18 11:24 Dose: 4 mg Oxycodone HCl (Roxicodone -) 10 mg PO Q4H PRN PRN Reason: BACK OR NECK PAIN LEVEL 6-10 Last Admin: 06/04/18 12:06 Dose: 10 mg - Objective Vital Signs: Vital Signs Temperature 97.9 F 06/04/18 09:25 Pulse Rate 85 06/04/18 13:20 Respiratory Rate 18 06/04/18 13:20 Blood Pressure 125/66 06/04/18 13:20 O2 Sat by Pulse Oximetry (%) 94 L 06/03/18 21:00 Constitutional: Yes: Calm Eyes: Yes: Conjunctiva Clear HENT: Yes: Atraumatic Cardiovascular: Yes: S1, S2 Respiratory: Yes: CTA Bilaterally Gastrointestinal: Yes: Soft Genitourinary: Yes: WNL Musculoskeletal: Yes: WNL Edema: Yes Edema: LLE: Trace, RLE: Trace Neurological: Yes: Oriented Psychiatric: Yes: Oriented Labs: CBC, BMP 06/03/18 07:00 06/04/18 07:38 INR, PTT INR 1.01 (0.83-1.09) 06/03/18 07:00 - ....Imaging Chest X-ray: Report Reviewed Assessment/Plan Current Medications Generic Name Dose Route Start Last Admin Trade Name Freq PRN Reason Stop Dose Admin Allopurinol 500 mg 06/02/18 16:00 06/04/18 09:28 Zyloprim - PO 500 mg DAILY [facility] Administration Calcium Acetate 667 mg 06/02/18 17:30 06/04/18 12:11 Phoslo - PO Not Given TIDCM [facility] Diazepam 10 mg 06/02/18 11:18 06/04/18 09:28 Valium - PO 06/05/18 11:18 10 mg Q6H PRN Administration ANXIETY Heparin Sodium (Porcine) 1,000 unit 06/04/18 12:04 Heparin - IVPUSH PRN PRN Heparin Heparin Sodium (Porcine) 5,000 unit 06/04/18 12:04 Heparin - IVPUSH PRN PRN Heparin Piperacillin Sod/Tazobactam 50 mls @ 100 mls/hr 06/02/18 18:00 06/04/18 09:28 Sod 2.25 gm/ Dextrose IVPB 100 mls/hr Q8H-IV [facility] Administration Protocol Sodium Chloride 250 mls @ 3,000 mls/hr 06/03/18 08:47 Normal Saline - IV 06/04/18 08:47 PRN PRN Hypotension during Dialysis Sodium Chloride 250 mls @ 3,000 mls/hr 06/04/18 10:42 Normal Saline - IV 06/05/18 10:42 PRN PRN Hypotension during Dialysis Dextrose/Sodium Chloride 1,000 mls @ 150 mls/hr 06/04/18 11:00 06/04/18 12:07 D5-Ns - IV 150 mls/hr ASDIR [facility] Administration Heparin Sodium (Porcine) 25, 500 mls @ 20 mls/hr 06/04/18 12:15 000 unit/ Sodium Chloride IV TITR [facility] Protocol 1,000 UNIT/HR Insulin Aspart 1 vial 06/03/18 22:00 06/04/18 12:02 Novolog Vial Sliding Scale - SQ Not Given ACHS [facility] Protocol Ondansetron HCl 4 mg 06/04/18 10:53 06/04/18 11:24 Zofran Injection IVPUSH 4 mg Q6H PRN Administration NAUSEA AND/OR VOMITING Oxycodone HCl 10 mg 06/01/18 23:43 06/04/18 12:06 Roxicodone - PO 10 mg Q4H PRN Administration BACK OR NECK PAIN LEVEL 6-10 Impression 1. lung cancer 2. IGOR 3. hyponatremia 4. fever/chills 5. decreased appetite/nausea Plan - HD today, perhaps reversing uremia may help with nausea - pt has made 100 cc of urine - will cont fluids with extra boluses - he did vomit today - repeat labs in an - follow renal workup - pt likely has ATN - encourage PO intake Dr Foley
[2018-06-04] MEDS: HEPARIN - 25,000 UNIT in SODIUM CHLORIDE 495 ML IV SCH (18:30)
[2018-06-05] MEDS: diazePAM 5 MG TABLET PO PRN ×4 (00:29→20:12)
[2018-06-05] MEDS ORDERED: PIPERACILLIN/TAZOBACTAM 2.25 GM VIAL IVPB ONE ×3 (01:56→16:56)
[2018-06-05] MEDS ORDERED: DEXTROSE 5%-WATER - 50 ML IVPB ONE ×3 (01:56→16:56)
[2018-06-05] MEDS: PIPERACILLIN/TAZOB 2.25 GM 2.25 GM in DEXTROSE 5%-WATER - 50 ML IVPB SCH ×3 (01:59→17:43)
[2018-06-05] MEDS: HEPARIN NA (PORCINE) 5,000 UNITS/ML 1ML VIAL IVPUSH PRN ×4 (01:59→22:21)
[2018-06-05] MEDS: oxyCODONE HCL 5 MG TABLET PO PRN ×6 (02:35→22:22)
[2018-06-05] MEDS: INSULIN SLIDING SCALE (NOVOLOG) 1 VIAL SQ SCH ×4 (06:39→22:26)
[2018-06-05 07:35] LABS: BASO % 0.5 % (0-2.0); EOS % 0.9 % (0-4.5); HEMATOCRIT 31.8 % (35.4-49); HEMOGLOBIN 10.9 GM/dL (11.7-16.9); MCH 32.5 pg (25.7-33.7); MCHC 34.2 g/dl (32.0-35.9); MEAN PLT VOLUME 8.6 fl (7.5-11.1); MONO % 4.4 % (3.8-10.2); NEUT % 83.2 % (42.8-82.8); PLATELET COUNT 88 K/MM3 (134-434); RBC 3.35 M/mm3 (4.00-5.60); RDW 15.3 % (11.9-15.9); WHITE BLOOD COUNT 5.5 K/mm3 (4.0-10.0)
--- NOTE | 2018-06-05 07:47 | OP ---
DATE OF OPERATION: 06/03/2018 SURGEON: Eb Mckee MD PROCEDURE: Placement of temporary dialysis catheter, right femoral vein. PREOPERATIVE DIAGNOSIS: Acute renal failure. POSTOPERATIVE DIAGNOSIS: Acute renal failure. ANESTHESIA: Local. PROCEDURE: Following routine patient identification and timeout, the right groin was prepped with ChloraPrep. Lidocaine 1% was infiltrated medial to the right femoral pulse and the right femoral vein was cannulated with an 18-gauge needle. A wire was passed proximally. The needle was removed and the tract around the wire was dilated. A double-lumen dialysis catheter was advanced over the wire and the wire was removed. Each lumen was aspirated for blood and flushed with saline and heparin solution. The catheter was sutured to the skin at the exit site with 3-0 nylon and a sterile dressing was applied. The patient tolerated procedure well. EB MCKEE M.D. DANIEL/[id number]
[2018-06-05 08:37] LABS: ALBUMIN 2.2 g/dl (3.4-5.0); ALK PHOS 168 U/L (45-117); ANION GAP 9 MMOL/L (8-16); BILIRUBIN,DIRECT 0.8 mg/dL (0.0-0.2); BILIRUBIN,TOTAL 1.1 mg/dL (0.2-1); BLOOD UREA NITROGEN 36 mg/dL (7-18); CHLORIDE 103 mmol/L (98-107); CO2 27 mmol/L (21-32); GLUCOSE,RANDOM 139 mg/dL (74-106); MAGNESIUM 1.7 mg/dL (1.8-2.4); PHOSPHOROUS 5.9 mg/dL (2.5-4.9); SGOT/AST 135 U/L (15-37); SGPT/ALT 240 U/L (13-61); SODIUM 139 mmol/L (136-145); TOT PROT 5.3 g/dl (6.4-8.2)
[2018-06-05 09:33] LABS: CALCIUM 6.9 mg/dL (8.5-10.1); CREATININE 8.4 mg/dL (0.55-1.3)
[2018-06-05] MEDS ORDERED: SODIUM CHLORIDE 1,000 ML IV STA ×2 (09:51→16:04)
[2018-06-05] MEDS: HEPARIN - 25,000 UNIT in SODIUM CHLORIDE 495 ML IV SCH ×2 (09:58→16:45)
[2018-06-05] MEDS: ALLOPURINOL 100 MG TABLET (FP) PO SCH (09:59)
[2018-06-05] MEDS ORDERED: MAGNESIUM SULF 50% (8.12 MEQ/2 ML-1 GM VIAL) IVPB ONE (10:30)
[2018-06-05] MEDS ORDERED: MAGNESIUM OXIDE 400 MG TABLET (FP) PO ONE (10:54)
[2018-06-05] MEDS ORDERED: CALCIUM GLUCONATE 10% - 1,000 MG/10 ML VIAL IVPB ONE (10:55)
--- NOTE | 2018-06-05 11:03 | PN ---
Teaching Attending Note Name of Resident: Rohith Eduardo ATTENDING PHYSICIAN STATEMENT I saw and evaluated the patient. I reviewed the resident's note and discussed the case with the resident. I agree with the resident's findings and plan as documented below. SUBJECTIVE: Patient seen and examined. no further nausea, reports urine output with some improvement. NO dyspnea, abdominal pain or other symptoms. OBJECTIVE: Vital Signs Period Temp Pulse Resp BP Sys/Small Pulse Ox Last 24 Hr 97.6 F-98.1 F 80-89 - 116-161/63-86 94 Intake & Output 06/02/18 06/03/18 06/04/18 06/05/18 23:59 23:59 23:59 23:59 Intake Total 475 3650 5425 1402 Output Total 25 200 100 Balance 450 3650 5225 1302 Weight 289 lb 292 lb 292 lb 6.4 oz General: sitting in bed in no acute distress Chest: CTAB, no rales or wheezing Abdomen:soft, obese, NT, no suprapubic or CVA tenderness Extremities: no edema Active Medications Allopurinol (Zyloprim -) 500 mg PO DAILY MONICA Last Admin: 06/05/18 09:59 Dose: 500 mg Calcium Carbonate (Calcium Carbonate -) 650 mg PO DAILY [facility] Calcium Gluconate (Calcium Gluconate 10% -) 1,000 mg IVPB ONCE ONE Stop: 06/05/18 10:56 Diazepam (Valium -) 10 mg PO Q6H PRN PRN Reason: ANXIETY Stop: 06/05/18 11:18 Last Admin: 06/05/18 06:33 Dose: 10 mg Heparin Sodium (Porcine) (Heparin -) 1,000 unit IVPUSH PRN PRN PRN Reason: Heparin Heparin Sodium (Porcine) (Heparin -) 5,000 unit IVPUSH PRN PRN PRN Reason: Heparin Last Admin: 06/05/18 09:58 Dose: 5,000 unit Piperacillin Sod/Tazobactam (Sod 2.25 gm/ Dextrose) 50 mls @ 100 mls/hr IVPB Q8H-IV MONICA; Protocol Last Admin: 06/05/18 10:07 Dose: 100 mls/hr Sodium Chloride (Normal Saline -) 250 mls @ 3,000 mls/hr IV PRN PRN PRN Reason: Hypotension during Dialysis Stop: 06/04/18 08:47 Sodium Chloride (Normal Saline -) 250 mls @ 3,000 mls/hr IV PRN PRN PRN Reason: Hypotension during Dialysis Stop: 06/05/18 10:42 Dextrose/Sodium Chloride (D5-Ns -) 1,000 mls @ 150 mls/hr IV ASDIR MONICA Last Admin: 06/04/18 18:15 Dose: 150 mls/hr Heparin Sodium (Porcine) 25, (000 unit/ Sodium Chloride) 500 mls @ 20 mls/hr IV TITR MONICA; Protocol Last Admin: 06/05/18 09:58 Dose: 1,300 unit/hr, 26 mls/hr Insulin Aspart (Novolog Vial Sliding Scale -) 1 vial SQ ACHS [facility]; Protocol Last Admin: 06/05/18 06:39 Dose: Not Given Magnesium Oxide (Mag-Ox -) 400 mg PO ONCE ONE Stop: 06/05/18 10:55 Ondansetron HCl (Zofran Injection) 4 mg IVPUSH Q6H PRN PRN Reason: NAUSEA AND/OR VOMITING Last Admin: 06/04/18 11:24 Dose: 4 mg Oxycodone HCl (Roxicodone -) 10 mg PO Q4H PRN PRN Reason: BACK OR NECK PAIN LEVEL 6-10 Last Admin: 06/05/18 10:39 Dose: 10 mg Laboratory Results - last 24 hr 06/04/18 06/04/18 06/04/18 11:56 17:07 21:23 WBC RBC Hgb Hct MCV MCH MCHC RDW Plt Count MPV Absolute Neuts (auto) Neutrophils % Lymphocytes % Monocytes % Eosinophils % Basophils % Nucleated RBC % PTT (Actin FS) Sodium Potassium Chloride Carbon Dioxide Anion Gap BUN Creatinine Creat Clearance w eGFR POC Glucometer 74 145 141 Random Glucose Calcium Phosphorus Magnesium Total Bilirubin Direct Bilirubin AST ALT Alkaline Phosphatase Total Protein Albumin 06/05/18 06/05/18 06/05/18 00:10 05:25 05:25 WBC 5.5 RBC 3.35 L Hgb 10.9 L Hct 31.8 L MCV 95.0 MCH 32.5 MCHC 34.2 RDW 15.3 Plt Count 88 L D MPV 8.6 Absolute Neuts (auto) 4.6 Neutrophils % 83.2 H Lymphocytes % 11.0 D Monocytes % 4.4 Eosinophils % 0.9 Basophils % 0.5 Nucleated RBC % 0 PTT (Actin FS) 34.0 Sodium 139 Potassium 4.0 Chloride 103 Carbon Dioxide 27 Anion Gap 9 BUN 36 H Creatinine 8.4 H* Creat Clearance w eGFR 6.52 POC Glucometer Random Glucose 139 H Calcium 6.9 L* Phosphorus 5.9 H Magnesium 1.7 L Total Bilirubin 1.1 H Direct Bilirubin 0.8 H AST 135 H ALT 240 H Alkaline Phosphatase 168 H Total Protein 5.3 L Albumin 2.2 L 06/05/18 06/05/18 05:25 06:36 WBC RBC Hgb Hct MCV MCH MCHC RDW Plt Count MPV Absolute Neuts (auto) Neutrophils % Lymphocytes % Monocytes % Eosinophils % Basophils % Nucleated RBC % PTT (Actin FS) 39.3 H Sodium Potassium Chloride Carbon Dioxide Anion Gap BUN Creatinine Creat Clearance w eGFR POC Glucometer 150 Random Glucose Calcium Phosphorus Magnesium Total Bilirubin Direct Bilirubin AST ALT Alkaline Phosphatase Total Protein Albumin Microbiology 06/03/18 09:03 Urine - Urine Flor Urine Culture - Final NO GROWTH OBTAINED ASSESSMENT AND PLAN: 63 yom with PMhx of Adenoca of lung diagnosed in 04/2014, s/p Chemotherapy(carb/ Alimta), currently on maintenance alimta since 2015, Also pleural/pericardial effusion with bilateral pulmonary embolism in 04/2014, s/p pericardial window, on lovenox, NIDDM, with 5 days of minimal po intake, no urinary outpatient, 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 IVF bolus prn per renal. D5NS at 150 ml/hr/ Strict I/Os, daily weights. Renal function/urine output with some improvement. Renal /bladder US noted. Replete Mg Corrected Ca 8.6 AM cortisol normal. Follow up hep panel/immune studies. Zosyn day 4, urine cx noted. ID input noted, plan to continue to for now as sent post antibiotics. LFTs improved, Abdominal US/CT A/P res noted, no visible gall stones or gall bladder wall thickening. GI input appreciated. 2D echo noted. Oncology input appreciated. heparin drip for h/o Bilateral PE in 2014. HOld lovenox. Hold oral hypoglycemics, ISS, d/c diabetic diet for now. Renal diet. Disposition continue telemetry monitoring. Plan discussed with patient in detail, all questions answered.
[2018-06-05] MEDS: DEXTROSE 5%-NORMAL SALINE 1,000 ML IV SCH (12:43)
[2018-06-05] MEDS ORDERED: PT OWN MED DRAWER 7, Y5N ONE ×2 (12:45→14:43)
--- NOTE | 2018-06-05 14:16 | PN ---
Progress Note (short form) - Note Progress Note: Patient seen and examined Minimal output to date Ongoing HD Last Vital Signs Temp Pulse Resp BP Pulse Ox 98 F 88 18 134/70 94 L 06/05/18 10:00 06/05/18 10:00 06/05/18 10:00 06/05/18 10:00 06/05/18 09:00 HEENT: SHERRON, EOM Intact Oropharynx: No thrush, No mucositis, dentures Cor: RSR, No murmurs, No gallops Lungs: Clear to P&A Abd: Soft, Normal bowel sounds, No organomegaly Ext:No significant edema Skin: No rashes, Integument intact CBC, BMP 06/05/18 05:25 06/05/18 05:25 Current Medications Generic Name Dose Route Start Last Admin Trade Name Freq PRN Reason Stop Dose Admin Allopurinol 500 mg 06/02/18 16:00 06/05/18 09:59 Zyloprim - PO 500 mg DAILY MONICA Administration Calcium Carbonate 650 mg 06/06/18 10:00 Calcium Carbonate - PO DAILY MONICA Diazepam 10 mg 06/05/18 13:20 06/05/18 14:14 Valium - PO 10 mg Q6H PRN Administration ANXIETY Heparin Sodium (Porcine) 1,000 unit 06/04/18 12:04 Heparin - IVPUSH PRN PRN Heparin Heparin Sodium (Porcine) 5,000 unit 06/04/18 12:04 06/05/18 09:58 Heparin - IVPUSH 5,000 unit PRN PRN Administration Heparin Piperacillin Sod/Tazobactam 50 mls @ 100 mls/hr 06/02/18 18:00 06/05/18 10:07 Sod 2.25 gm/ Dextrose IVPB 100 mls/hr Q8H-IV MONICA Administration Protocol Sodium Chloride 250 mls @ 3,000 mls/hr 06/03/18 08:47 Normal Saline - IV 06/04/18 08:47 PRN PRN Hypotension during Dialysis Sodium Chloride 250 mls @ 3,000 mls/hr 06/04/18 10:42 Normal Saline - IV 06/05/18 10:42 PRN PRN Hypotension during Dialysis Dextrose/Sodium Chloride 1,000 mls @ 150 mls/hr 06/04/18 11:00 06/05/18 12:43 D5-Ns - IV 150 mls/hr ASDIR MONICA Administration Heparin Sodium (Porcine) 25, 500 mls @ 20 mls/hr 06/04/18 12:15 06/05/18 09: 58 000 unit/ Sodium Chloride IV 1,300 unit/hr TITR MONICA 26 mls/hr Administration Protocol 1,000 UNIT/HR Insulin Aspart 1 vial 06/03/18 22:00 06/05/18 12:43 Novolog Vial Sliding Scale - SQ Not Given ACHS [facility] Protocol Ondansetron HCl 4 mg 06/04/18 10:53 06/04/18 11:24 Zofran Injection IVPUSH 4 mg Q6H PRN Administration NAUSEA AND/OR VOMITING Oxycodone HCl 10 mg 06/01/18 23:43 06/05/18 10:39 Roxicodone - PO 10 mg Q4H PRN Administration BACK OR NECK PAIN LEVEL 6-10 Microbiology 06/03/18 09:03 Urine - Urine Flor Urine Culture - Final NO GROWTH OBTAINED Impression: Adenoca of lung S/P chemotherapy with ALIMTA IGOR ?ATN secondary to sepsis with hypotension and dehydration Plan : Continuing with antibiotics and with HD.
--- NOTE | 2018-06-05 14:24 | PN ---
Progress Note (short form) - Note Progress Note: no HD today 100 cc urine output today +BM no vomiting Vital Signs Period Temp Pulse Resp BP Sys/Small Pulse Ox Last 24 Hr 97.8 F-98.1 F 80-89 18-19 126-155/64-86 94-94 cor-rrr lungs decreased bs at bases abd soft,nt ext trace edema CBC, BMP 06/05/18 05:25 06/05/18 05:25 Microbiology 06/03/18 09:03 Urine - Urine Flor Urine Culture - Final NO GROWTH OBTAINED a/p Acute renal failure- oliguric- suspect ATN elevated uric acid abnormal lfts- ?secondary to hypotension-improving fevers/rigors-?infection but no source evident- +UA but obtained after antiibotics started would continue zosyn day #4 metastatic adenoca of the lung Problem List - Problems (1) Acute renal failure Code(s): N17.9 - ACUTE KIDNEY FAILURE, UNSPECIFIED (2) Hypotension Code(s): I95.9 - HYPOTENSION, UNSPECIFIED Qualifiers: Hypotension type: unspecified hypotension type Qualified Code(s): I95.9 - Hypotension, unspecified (3) Transaminitis Code(s): R74.0 - NONSPEC ELEV OF LEVELS OF TRANSAMNS & LACTIC ACID DEHYDRGNSE (4) Lung cancer, hilus Code(s): C34.00 - MALIGNANT NEOPLASM OF UNSPECIFIED MAIN BRONCHUS
--- NOTE | 2018-06-05 15:32 | PN ---
GI Progress Note Subjective: No acute events States still feeling weak Normal BM's noted. No melena or rectal bleeding history Denies a personal or family history of liver disease. Denies alcohol consumption States that he follows with Dr. Abelrado Elaine at [facility], who last performed his colonoscopy Denies abdominal pain Review of [facility]: ALP has been mildly elevated from the past, bilirubin has been normal, normal transaminsases and had chronic hepatosplenomegaly on imaging - Objective Vital Signs: Vital Signs Temperature 97.8 F 06/05/18 14:00 Pulse Rate 81 06/05/18 14:00 Respiratory Rate 20 06/05/18 14:00 Blood Pressure 142/72 06/05/18 14:00 O2 Sat by Pulse Oximetry (%) 94 L 06/05/18 09:00 Constitutional: Calm Eyes: No: Sclera Icterus Cardiovascular: Yes: Regular Rate and Rhythm Respiratory: Yes: Diminished (at bases bilaterally with poor insp effort) Gastrointestinal Inspection: No: Hernia ...Auscultate: Yes: Normoactive Bowel Sounds ...Palpate: No: Tenderness ...Percussion: No: Tympanitic Edema: Yes Edema: LLE: Trace Neurological: Yes: Alert Labs: CBC, BMP 06/05/18 05:25 06/05/18 05:25 INR, PTT INR 1.01 (0.83-1.09) 06/03/18 07:00 Hepatic Panel Total Bilirubin 1.1 mg/dL (0.2-1) H 06/05/18 05:25 Direct Bilirubin 0.8 mg/dL (0.0-0.2) H 06/05/18 05:25 AST 135 U/L (15-37) H 06/05/18 05:25 ALT 240 U/L (13-61) H 06/05/18 05:25 Alkaline Phosphatase 168 U/L (45-117) H 06/05/18 05:25 Albumin 2.2 g/dl (3.4-5.0) L 06/05/18 05:25 Laboratory Tests 06/03/18 06/03/18 07:00 07:00 Hepatitis A Ab Total Negative Hep Bs Antigen Negative Hep Bs Antibody Non reactive Hep B Core Total Ab Negative Hepatitis C Antibody <0.1 Problem List - Problems (1) Elevated liver enzymes Assessment/Plan: Preexisting ALP elevation and hepatosplenomegaly. ? if component of chronic liver disease (NAFLD?) with acute liver injury secondary to hypotension along with increased side effect profile of home medications (and increased hepatotoxicity) in setting of renal failure. Avoid hepatotoxic agents Monitor LFTs Check CPK (added on and ordered for AM) to assess for possible concomitant rhabdomyolysis contributing to transaminitis Consider MRCP for further evaluation of biliary tract if anticoagulation can be held Code(s): R74.8 - ABNORMAL LEVELS OF OTHER SERUM ENZYMES
--- NOTE | 2018-06-05 16:04 | PN ---
Progress Note, Physician History of Present Illness: Pt seen and examined at bedside. He felt that his appetite was improved this morning. He made urine twice today but he says it was a very small amount. He denies shortness of breath. - Current Medication List Current Medications: Active Medications Allopurinol (Zyloprim -) 500 mg PO DAILY MONICA Last Admin: 06/05/18 09:59 Dose: 500 mg Calcium Carbonate (Calcium Carbonate -) 650 mg PO DAILY MONICA Diazepam (Valium -) 10 mg PO Q6H PRN PRN Reason: ANXIETY Last Admin: 06/05/18 14:14 Dose: 10 mg Heparin Sodium (Porcine) (Heparin -) 1,000 unit IVPUSH PRN PRN PRN Reason: Heparin Heparin Sodium (Porcine) (Heparin -) 5,000 unit IVPUSH PRN PRN PRN Reason: Heparin Last Admin: 06/05/18 09:58 Dose: 5,000 unit Piperacillin Sod/Tazobactam (Sod 2.25 gm/ Dextrose) 50 mls @ 100 mls/hr IVPB Q8H-IV MONICA; Protocol Last Admin: 06/05/18 10:07 Dose: 100 mls/hr Sodium Chloride (Normal Saline -) 250 mls @ 3,000 mls/hr IV PRN PRN PRN Reason: Hypotension during Dialysis Stop: 06/04/18 08:47 Sodium Chloride (Normal Saline -) 250 mls @ 3,000 mls/hr IV PRN PRN PRN Reason: Hypotension during Dialysis Stop: 06/05/18 10:42 Dextrose/Sodium Chloride (D5-Ns -) 1,000 mls @ 150 mls/hr IV ASDIR MONICA Last Admin: 06/05/18 12:43 Dose: 150 mls/hr Heparin Sodium (Porcine) 25, (000 unit/ Sodium Chloride) 500 mls @ 20 mls/hr IV TITR MONICA; Protocol Last Admin: 06/05/18 09:58 Dose: 1,300 unit/hr, 26 mls/hr Insulin Aspart (Novolog Vial Sliding Scale -) 1 vial SQ ACHS MONICA; Protocol Last Admin: 06/05/18 12:43 Dose: Not Given Ondansetron HCl (Zofran Injection) 4 mg IVPUSH Q6H PRN PRN Reason: NAUSEA AND/OR VOMITING Last Admin: 06/04/18 11:24 Dose: 4 mg Oxycodone HCl (Roxicodone -) 10 mg PO Q4H PRN PRN Reason: PAIN LEVEL 4 - 6 - Objective Vital Signs: Vital Signs Temperature 97.8 F 06/05/18 14:00 Pulse Rate 81 06/05/18 14:00 Respiratory Rate 20 06/05/18 14:00 Blood Pressure 142/72 06/05/18 14:00 O2 Sat by Pulse Oximetry (%) 94 L 06/05/18 09:00 Constitutional: Yes: Calm Eyes: Yes: Conjunctiva Clear HENT: Yes: Atraumatic Neck: Yes: Supple Cardiovascular: Yes: S1, S2 Respiratory: Yes: CTA Bilaterally Gastrointestinal: Yes: Soft Genitourinary: Yes: WNL Musculoskeletal: Yes: WNL Edema: No Neurological: Yes: Oriented Psychiatric: Yes: Oriented Labs: CBC, BMP 06/05/18 05:25 06/05/18 05:25 INR, PTT INR 1.01 (0.83-1.09) 06/03/18 07:00 Assessment/Plan Current Medications Generic Name Dose Route Start Last Admin Trade Name Freq PRN Reason Stop Dose Admin Allopurinol 500 mg 06/02/18 16:00 06/05/18 09:59 Zyloprim - PO 500 mg DAILY MONICA Administration Calcium Carbonate 650 mg 06/06/18 10:00 Calcium Carbonate - PO DAILY MONICA Diazepam 10 mg 06/05/18 13:20 06/05/18 14:14 Valium - PO 10 mg Q6H PRN Administration ANXIETY Heparin Sodium (Porcine) 1,000 unit 06/04/18 12:04 Heparin - IVPUSH PRN PRN Heparin Heparin Sodium (Porcine) 5,000 unit 06/04/18 12:04 06/05/18 09:58 Heparin - IVPUSH 5,000 unit PRN PRN Administration Heparin Piperacillin Sod/Tazobactam 50 mls @ 100 mls/hr 06/02/18 18:00 06/05/18 10:07 Sod 2.25 gm/ Dextrose IVPB 100 mls/hr Q8H-IV MONICA Administration Protocol Sodium Chloride 250 mls @ 3,000 mls/hr 06/03/18 08:47 Normal Saline - IV 06/04/18 08:47 PRN PRN Hypotension during Dialysis Sodium Chloride 250 mls @ 3,000 mls/hr 06/04/18 10:42 Normal Saline - IV 06/05/18 10:42 PRN PRN Hypotension during Dialysis Dextrose/Sodium Chloride 1,000 mls @ 150 mls/hr 06/04/18 11:00 06/05/18 12:43 D5-Ns - IV 150 mls/hr ASDIR MONICA Administration Heparin Sodium (Porcine) 25, 500 mls @ 20 mls/hr 06/04/18 12:15 06/05/18 09: 58 000 unit/ Sodium Chloride IV 1,300 unit/hr TITR MONICA 26 mls/hr Administration Protocol 1,000 UNIT/HR Insulin Aspart 1 vial 06/03/18 22:00 06/05/18 12:43 Novolog Vial Sliding Scale - SQ Not Given ACHS [facility] Protocol Ondansetron HCl 4 mg 06/04/18 10:53 06/04/18 11:24 Zofran Injection IVPUSH 4 mg Q6H PRN Administration NAUSEA AND/OR VOMITING Oxycodone HCl 10 mg 06/05/18 15:07 Roxicodone - PO Q4H PRN PAIN LEVEL 4 - 6 Impression 1. lung cancer 2. IGOR 3. hyponatremia 4. fever/chills 5. decreased appetite/nausea Plan - cont with fluids - will evaluate for HD tomorrow - monitor urine output - pt has not vomited and is tolerating diet today - cont fluids - saline bolus - follow renal workup - pt likely has ATN - encourage PO intake Dr Foley
--- NOTE | 2018-06-05 17:20 | PN ---
Physical Exam: SUBJECTIVE: Patient seen and examined OBJECTIVE: Vital Signs Period Temp Pulse Resp BP Sys/Small Pulse Ox Last 24 Hr 97.8 F-98.1 F 81-88 18-20 126-142/64-76 94-94 GENERAL: Awake, alert, and fully oriented, in no acute distress. HEAD: Normal with no signs of trauma. EARS, NOSE, THROAT: Dry mucous membranes. NECK: Normal range of motion, supple without lymphadenopathy, JVD, or masses. LUNGS: Breath sounds equal, clear to auscultation bilaterally. HEART: Regular rate and rhythm, normal S1 and S2 without murmur, ABDOMEN: Soft, no tenderness, not distended, normoactive bowel sounds. MUSCULOSKELETAL: Normal range of motion at all joints. UPPER EXTREMITIES: 2+ pulses, warm, well-perfused. No peripheral edema. LOWER EXTREMITIES: warm, well-perfused. No peripheral edema. SKIN: Warm, dry, normal turgor, no rashes or lesions noted. Laboratory Results - last 24 hr 06/03/18 06/04/18 06/05/18 07:00 21:23 00:10 WBC RBC Hgb Hct MCV MCH MCHC RDW Plt Count MPV Absolute Neuts (auto) Neutrophils % Lymphocytes % Monocytes % Eosinophils % Basophils % Nucleated RBC % PTT (Actin FS) 34.0 Sodium Potassium Chloride Carbon Dioxide Anion Gap BUN Creatinine Creat Clearance w eGFR POC Glucometer 141 Random Glucose Calcium Phosphorus Magnesium Total Bilirubin Direct Bilirubin AST ALT Alkaline Phosphatase Total Protein Albumin Double Strand DNA Ab 1 06/05/18 06/05/18 06/05/18 05:25 05:25 05:25 WBC 5.5 RBC 3.35 L Hgb 10.9 L Hct 31.8 L MCV 95.0 MCH 32.5 MCHC 34.2 RDW 15.3 Plt Count 88 L D MPV 8.6 Absolute Neuts (auto) 4.6 Neutrophils % 83.2 H Lymphocytes % 11.0 D Monocytes % 4.4 Eosinophils % 0.9 Basophils % 0.5 Nucleated RBC % 0 PTT (Actin FS) 39.3 H Sodium 139 Potassium 4.0 Chloride 103 Carbon Dioxide 27 Anion Gap 9 BUN 36 H Creatinine 8.4 H* Creat Clearance w eGFR 6.52 POC Glucometer Random Glucose 139 H Calcium 6.9 L* Phosphorus 5.9 H Magnesium 1.7 L Total Bilirubin 1.1 H Direct Bilirubin 0.8 H AST 135 H ALT 240 H Alkaline Phosphatase 168 H Total Protein 5.3 L Albumin 2.2 L Double Strand DNA Ab 06/05/18 06/05/18 06/05/18 06:36 11:51 15:30 WBC RBC Hgb Hct MCV MCH MCHC RDW Plt Count MPV Absolute Neuts (auto) Neutrophils % Lymphocytes % Monocytes % Eosinophils % Basophils % Nucleated RBC % PTT (Actin FS) 37.8 H Sodium Potassium Chloride Carbon Dioxide Anion Gap BUN Creatinine Creat Clearance w eGFR POC Glucometer 150 160 Random Glucose Calcium Phosphorus Magnesium Total Bilirubin Direct Bilirubin AST ALT Alkaline Phosphatase Total Protein Albumin Double Strand DNA Ab 06/05/18 16:41 WBC RBC Hgb Hct MCV MCH MCHC RDW Plt Count MPV Absolute Neuts (auto) Neutrophils % Lymphocytes % Monocytes % Eosinophils % Basophils % Nucleated RBC % PTT (Actin FS) Sodium Potassium Chloride Carbon Dioxide Anion Gap BUN Creatinine Creat Clearance w eGFR POC Glucometer 124 Random Glucose Calcium Phosphorus Magnesium Total Bilirubin Direct Bilirubin AST ALT Alkaline Phosphatase Total Protein Albumin Double Strand DNA Ab Active Medications Generic Name Dose Route Start Last Admin Trade Name Freq PRN Reason Stop Dose Admin Allopurinol 500 mg 06/02/18 16:00 06/05/18 09:59 Zyloprim - PO 500 mg DAILY MONICA Administration Diazepam 10 mg 06/05/18 13:20 06/05/18 14:14 Valium - PO 10 mg Q6H PRN Administration ANXIETY Heparin Sodium (Porcine) 1,000 unit 06/04/18 12:04 Heparin - IVPUSH PRN PRN Heparin Heparin Sodium (Porcine) 5,000 unit 06/04/18 12:04 06/05/18 16:45 Heparin - IVPUSH 5,000 unit PRN PRN Administration Heparin Piperacillin Sod/Tazobactam 50 mls @ 100 mls/hr 06/02/18 18:00 06/05/18 10:07 Sod 2.25 gm/ Dextrose IVPB 100 mls/hr Q8H-IV MONICA Administration Protocol Sodium Chloride 250 mls @ 3,000 mls/hr 06/03/18 08:47 Normal Saline - IV 06/04/18 08:47 PRN PRN Hypotension during Dialysis Sodium Chloride 250 mls @ 3,000 mls/hr 06/04/18 10:42 Normal Saline - IV 06/05/18 10:42 PRN PRN Hypotension during Dialysis Dextrose/Sodium Chloride 1,000 mls @ 150 mls/hr 06/04/18 11:00 06/05/18 12:43 D5-Ns - IV 150 mls/hr ASDIR MONICA Administration Heparin Sodium (Porcine) 25, 500 mls @ 20 mls/hr 06/04/18 12:15 06/05/18 16: 45 000 unit/ Sodium Chloride IV 1,450 unit/hr TITR MONICA 29 mls/hr Administration Protocol 1,000 UNIT/HR Insulin Aspart 1 vial 06/03/18 22:00 06/05/18 16:43 Novolog Vial Sliding Scale - SQ Not Given ACHS MONICA Protocol Ondansetron HCl 4 mg 06/04/18 10:53 06/04/18 11:24 Zofran Injection IVPUSH 4 mg Q6H PRN Administration NAUSEA AND/OR VOMITING Oxycodone HCl 10 mg 06/05/18 15:07 Roxicodone - PO Q4H PRN PAIN LEVEL 4 - 6 ASSESSMENT/PLAN: 63 yom with PMhx of Adenoca of lung diagnosed in 04/2014, s/p Chemotherapy(carb/Alimta), currently on maintenance alimta since 2016, Also pleural/pericardial effusion with bilateral pulmonary embolism in 04/2014, s/p pericardial window, on lovenox, NIDDM, with 5 days of minimal po intake, no urinary outpatient, found with IGOR, hypotension -IGOR, ?from hypovolumia/poor oral intake/lasix+/- tumor lysis syndrome, r/o sepsis Continue IV fluid @150ml/hr avoid nephrotoxic drugs renal and bladder usg reviewed. got HD yesterday dialysis catheter care nephro on case. blood workup results pending repeat cr and bun in am daily weight' monitor urine output. 2d echo reviewed oncology on case -Lower uncomplicated UTI continue IV antibiotics ID on case continue zosyn culture was sent post antibiotic - Abnormal LFTS, ?Liver metastasis, hypotension, usg liver reviewed avoid hepatotoxic dugs repeat lft in am gi on case follow cpk in am NIDDM bgm insulin sliding scale thrombocytopenia; can be because of splenomegaly elevated uric acid continue allopurinol -H/o bilateral pulmonary embolism in 04/2014: hold lovenox for igor. continue heparin drip -Adenocarcinoma of lung diagnosed in 04/2014, s/p carb/alimta, now on maintenance alimta since 2015 -h/o pericardial effusion in 2014 s/p pericardial window Fluid; 150ml/hr electrolyte: repeat mg in am nutrition: diabetic and renal diet gi pro:not required dvt pro: on heparin drip dispo: tele Visit type - Emergency Visit Emergency Visit: Yes ED Registration Date: 06/01/18 Care time: The patient presented to the Emergency Department on the above date and was hospitalized for further evaluation of their emergent condition. - New Patient This patient is new to me today: Yes Date on this admission: 06/05/18 - Critical Care Critical Care patient: No
[2018-06-06] MEDS ORDERED: PIPERACILLIN/TAZOBACTAM 2.25 GM VIAL IVPB ONE ×3 (01:27→16:55)
[2018-06-06] MEDS ORDERED: DEXTROSE 5%-WATER - 50 ML IVPB ONE ×3 (01:27→16:55)
[2018-06-06] MEDS: PIPERACILLIN/TAZOB 2.25 GM 2.25 GM in DEXTROSE 5%-WATER - 50 ML IVPB SCH ×3 (01:43→17:52)
[2018-06-06] MEDS: oxyCODONE HCL 5 MG TABLET PO PRN ×5 (02:32→19:42)
[2018-06-06] MEDS: diazePAM 5 MG TABLET PO PRN ×4 (02:32→21:26)
[2018-06-06 05:15] LABS: ANTI-DNAse B <78 U/mL (0-120)
[2018-06-06 06:31] LABS: BASO % 0.3 % (0-2.0); EOS % 1.3 % (0-4.5); HEMOGLOBIN 10.8 GM/dL (11.7-16.9); LYMPH % 11.4 % (8-40); MCH 32.3 pg (25.7-33.7); MCHC 33.8 g/dl (32.0-35.9); MEAN CELL VOLUME 95.4 fl (80-96); MEAN PLT VOLUME 8.5 fl (7.5-11.1); MONO % 3.6 % (3.8-10.2); NEUT % 83.4 % (42.8-82.8); PLATELET COUNT 106 K/MM3 (134-434); RBC 3.36 M/mm3 (4.00-5.60); WHITE BLOOD COUNT 4.9 K/mm3 (4.0-10.0)
[2018-06-06] MEDS: INSULIN SLIDING SCALE (NOVOLOG) 1 VIAL SQ SCH ×4 (06:45→21:58)
[2018-06-06] MEDS: HEPARIN NA (PORCINE) 5,000 UNITS/ML 1ML VIAL IVPUSH PRN ×3 (06:48→22:07)
[2018-06-06 07:15] LABS: ALBUMIN 2.2 g/dl (3.4-5.0); ALK PHOS 161 U/L (45-117); ANION GAP 8 MMOL/L (8-16); BILIRUBIN,TOTAL 0.8 mg/dL (0.2-1); BLOOD UREA NITROGEN 37 mg/dL (7-18); CALCIUM 7.2 mg/dL (8.5-10.1); CHLORIDE 106 mmol/L (98-107); CO2 25 mmol/L (21-32); GLUCOSE,RANDOM 142 mg/dL (74-106); PHOSPHOROUS 6.4 mg/dL (2.5-4.9); POTASSIUM 4.4 mmol/L (3.5-5.1); SGOT/AST 64 U/L (15-37); SGPT/ALT 174 U/L (13-61); SODIUM 139 mmol/L (136-145); TOT PROT 5.4 g/dl (6.4-8.2)
[2018-06-06 07:37] LABS: CREATININE 9.5 mg/dL (0.55-1.3)
[2018-06-06] MEDS ORDERED: SODIUM CHLORIDE 250 ML IV PRN (08:12)
[2018-06-06] MEDS ORDERED: PT OWN MED DRAWER 7, Y5N ONE (09:15)
[2018-06-06] MEDS ORDERED: CALCIUM CARBONATE 650 MG TABLET PO SCH (10:00)
--- NOTE | 2018-06-06 10:09 | PN ---
Physical Exam: SUBJECTIVE: Patient seen and examined. pt feels same. states he feels like his body is getting swelled up. Denies sob, chest pain, palpitations, nausea, vomiting OBJECTIVE: Vital Signs Period Temp Pulse Resp BP Sys/Small Pulse Ox Last 24 Hr 97.8 F-98 F 81-93 20-20 129-145/64-78 92 GENERAL: Awake, alert, and fully oriented, in no acute distress. HEAD: Normal with no signs of trauma. EARS, NOSE, THROAT: moist mucous membranes. NECK: Normal range of motion, supple without lymphadenopathy, JVD, or masses. LUNGS: Breath sounds equal, clear to auscultation bilaterally. HEART: Regular rate and rhythm, normal S1 and S2 without murmur, ABDOMEN: Soft, no tenderness, not distended, normoactive bowel sounds. MUSCULOSKELETAL: Normal range of motion at all joints. UPPER EXTREMITIES: 2+ pulses, warm, well-perfused. No peripheral edema. LOWER EXTREMITIES: warm, well-perfused. peripheral edema 1+ SKIN: Warm, dry, Laboratory Results - last 24 hr 06/03/18 06/03/18 06/05/18 07:00 07:00 05:25 WBC RBC Hgb Hct MCV MCH MCHC RDW Plt Count MPV Absolute Neuts (auto) Neutrophils % Lymphocytes % Monocytes % Eosinophils % Basophils % Nucleated RBC % PTT (Actin FS) Sodium 139 Potassium 4.0 Chloride 103 Carbon Dioxide 27 Anion Gap 9 BUN 36 H Creatinine 8.4 H* Creat Clearance w eGFR 6.52 POC Glucometer Random Glucose 139 H Calcium 6.9 L* Phosphorus 5.9 H Magnesium 1.7 L Total Bilirubin 1.1 H Direct Bilirubin 0.8 H AST 135 H ALT 240 H Alkaline Phosphatase 168 H Creatine Kinase 81 Total Protein 5.3 L Total Protein (PEP) 6.0 Albumin 2.2 L Albumin (PEP) 2.8 L Globulin 3.2 Albumin/Globulin Ratio 0.9 Beta Globulins 1.0 ALISE M-Quinn Not observed LUANA Screen Negative Double Strand DNA Ab 1 Anti-DNase B (Strep) <78 06/05/18 06/05/18 06/05/18 11:51 15:30 16:41 WBC RBC Hgb Hct MCV MCH MCHC RDW Plt Count MPV Absolute Neuts (auto) Neutrophils % Lymphocytes % Monocytes % Eosinophils % Basophils % Nucleated RBC % PTT (Actin FS) 37.8 H Sodium Potassium Chloride Carbon Dioxide Anion Gap BUN Creatinine Creat Clearance w eGFR POC Glucometer 160 124 Random Glucose Calcium Phosphorus Magnesium Total Bilirubin Direct Bilirubin AST ALT Alkaline Phosphatase Creatine Kinase Total Protein Total Protein (PEP) Albumin Albumin (PEP) Globulin Albumin/Globulin Ratio Beta Globulins ALISE M-Quinn LUANA Screen Double Strand DNA Ab Anti-DNase B (Strep) 06/05/18 06/05/18 06/06/18 21:30 22:25 05:30 WBC RBC Hgb Hct MCV MCH MCHC RDW Plt Count MPV Absolute Neuts (auto) Neutrophils % Lymphocytes % Monocytes % Eosinophils % Basophils % Nucleated RBC % PTT (Actin FS) 44.9 H 40.6 H Sodium Potassium Chloride Carbon Dioxide Anion Gap BUN Creatinine Creat Clearance w eGFR POC Glucometer 170 Random Glucose Calcium Phosphorus Magnesium Total Bilirubin Direct Bilirubin AST ALT Alkaline Phosphatase Creatine Kinase Total Protein Total Protein (PEP) Albumin Albumin (PEP) Globulin Albumin/Globulin Ratio Beta Globulins ALISE M-Quinn LUANA Screen Double Strand DNA Ab Anti-DNase B (Strep) 06/06/18 06/06/18 06/06/18 05:30 05:30 06:44 WBC 4.9 RBC 3.36 L Hgb 10.8 L Hct 32.0 L MCV 95.4 MCH 32.3 MCHC 33.8 RDW 15.0 Plt Count 106 L D MPV 8.5 Absolute Neuts (auto) 4.1 Neutrophils % 83.4 H Lymphocytes % 11.4 Monocytes % 3.6 L Eosinophils % 1.3 Basophils % 0.3 Nucleated RBC % 0 PTT (Actin FS) Sodium 139 Potassium 4.4 Chloride 106 Carbon Dioxide 25 Anion Gap 8 BUN 37 H Creatinine 9.5 H* Creat Clearance w eGFR 5.65 POC Glucometer 151 Random Glucose 142 H Calcium 7.2 L Phosphorus 6.4 H Magnesium 2.0 Total Bilirubin 0.8 Direct Bilirubin AST 64 H ALT 174 H Alkaline Phosphatase 161 H Creatine Kinase 51 Total Protein 5.4 L Total Protein (PEP) Albumin 2.2 L Albumin (PEP) Globulin Albumin/Globulin Ratio Beta Globulins ALISE M-Quinn LUANA Screen Double Strand DNA Ab Anti-DNase B (Strep) Active Medications Generic Name Dose Route Start Last Admin Trade Name Freq PRN Reason Stop Dose Admin Allopurinol 500 mg 06/02/18 16:00 06/05/18 09:59 Zyloprim - PO 500 mg DAILY MONICA Administration Diazepam 10 mg 06/05/18 13:20 06/06/18 09:05 Valium - PO 10 mg Q6H PRN Administration ANXIETY Heparin Sodium (Porcine) 1,000 unit 06/04/18 12:04 06/06/18 06:48 Heparin - IVPUSH 1,000 unit PRN PRN Administration Heparin Heparin Sodium (Porcine) 5,000 unit 06/04/18 12:04 06/05/18 16:45 Heparin - IVPUSH 5,000 unit PRN PRN Administration Heparin Piperacillin Sod/Tazobactam 50 mls @ 100 mls/hr 06/02/18 18:00 06/06/18 01:43 Sod 2.25 gm/ Dextrose IVPB 100 mls/hr Q8H-IV MONICA Administration Protocol Dextrose/Sodium Chloride 1,000 mls @ 150 mls/hr 06/04/18 11:00 06/05/18 12:43 D5-Ns - IV 150 mls/hr ASDIR MONICA Administration Heparin Sodium (Porcine) 25, 500 mls @ 20 mls/hr 06/04/18 12:15 06/06/18 06: 47 000 unit/ Sodium Chloride IV 1,650 unit/hr TITR MONICA 33 mls/hr Titration Protocol 1,000 UNIT/HR Sodium Chloride 250 mls @ 3,000 mls/hr 06/06/18 08:12 Normal Saline - IV 06/07/18 08:12 PRN PRN Hypotension during Dialysis Insulin Aspart 1 vial 06/03/18 22:00 06/06/18 06:45 Novolog Vial Sliding Scale - SQ Not Given ACHS [facility] Protocol Ondansetron HCl 4 mg 06/04/18 10:53 06/04/18 11:24 Zofran Injection IVPUSH 4 mg Q6H PRN Administration NAUSEA AND/OR VOMITING Oxycodone HCl 10 mg 06/05/18 15:07 06/06/18 06:39 Roxicodone - PO 10 mg Q4H PRN Administration PAIN LEVEL 4 - 6 ASSESSMENT/PLAN:63 yom with PMhx of [place] of lung diagnosed in 04/2014, s/p Chemotherapy(carb/Alimta), currently on maintenance alimta since 2015, Also pleural/pericardial effusion with bilateral pulmonary embolism in 04/2014, s/p pericardial window, on lovenox, NIDDM, with 5 days of minimal po intake, no urinary outpatient, 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 on HD dialysis catheter care nephro on case. blood workup results pending repeat cr and bun in am daily weight' monitor urine output. overnight 300ml 2d echo reviewed oncology on case -Lower uncomplicated UTI continue IV antibiotics ID on case continue zosyn culture was sent post antibiotic id on case - Abnormal LFTS, ?Liver metastasis, hypotension, usg liver reviewed avoid hepatotoxic dugs repeat lft in am gi on case cpk 58 NIDDM bgm insulin sliding scale thrombocytopenia; can be because of splenomegaly elevated uric acid continue allopurinol -H/o bilateral pulmonary embolism in 04/2014: hold lovenox for igor. continue heparin drip -Adenocarcinoma of lung diagnosed in 04/2014, s/p carb/alimta, now on maintenance alimta since 2015 -h/o pericardial effusion in 2014 s/p pericardial window Fluid; 150ml/hr electrolyte: repeat mg in am nutrition: diabetic and renal diet gi pro:not required dvt pro: on heparin drip dispo: tele Visit type - Emergency Visit Emergency Visit: Yes ED Registration Date: 06/01/18 Care time: The patient presented to the Emergency Department on the above date and was hospitalized for further evaluation of their emergent condition. - New Patient This patient is new to me today: No - Critical Care Critical Care patient: No
[2018-06-06] MEDS: DEXTROSE 5%-NORMAL SALINE 1,000 ML IV SCH (11:00)
[2018-06-06 11:23] LABS: ANTIGLOMERULAR BASEMENT MEN.AB 5 units (0-20)
[2018-06-06] MEDS: HEPARIN - 25,000 UNIT in SODIUM CHLORIDE 495 ML IV SCH ×2 (11:49→22:06)
[2018-06-06] MEDS: ALLOPURINOL 100 MG TABLET (FP) PO SCH (14:04)
[2018-06-06] MEDS ORDERED: FUROSEMIDE 40 MG/4 ML INJECTABLE VIAL IVPUSH ONE (14:30)
--- NOTE | 2018-06-06 14:30 | PN ---
Progress Note, Physician History of Present Illness: Pt seen and examined at bedside. He tolerated HD today. He complains of generalized edema. He denies shortness of breath. - Current Medication List Current Medications: Active Medications Allopurinol (Zyloprim -) 500 mg PO DAILY MONICA Last Admin: 06/06/18 14:04 Dose: 500 mg Diazepam (Valium -) 10 mg PO Q6H PRN PRN Reason: ANXIETY Last Admin: 06/06/18 09:05 Dose: 10 mg Heparin Sodium (Porcine) (Heparin -) 1,000 unit IVPUSH PRN PRN PRN Reason: Heparin Last Admin: 06/06/18 06:48 Dose: 1,000 unit Heparin Sodium (Porcine) (Heparin -) 5,000 unit IVPUSH PRN PRN PRN Reason: Heparin Last Admin: 06/05/18 16:45 Dose: 5,000 unit Piperacillin Sod/Tazobactam (Sod 2.25 gm/ Dextrose) 50 mls @ 100 mls/hr IVPB Q8H-IV MONICA; Protocol Last Admin: 06/06/18 13:40 Dose: 100 mls/hr Dextrose/Sodium Chloride (D5-Ns -) 1,000 mls @ 150 mls/hr IV ASDIR MONICA Last Admin: 06/06/18 11:00 Dose: 150 mls/hr Heparin Sodium (Porcine) 25, (000 unit/ Sodium Chloride) 500 mls @ 20 mls/hr IV TITR MONICA; Protocol Last Admin: 06/06/18 11:49 Dose: 1,650 unit/hr, 33 mls/hr Sodium Chloride (Normal Saline -) 250 mls @ 3,000 mls/hr IV PRN PRN PRN Reason: Hypotension during Dialysis Stop: 06/07/18 08:12 Insulin Aspart (Novolog Vial Sliding Scale -) 1 vial SQ ACHS MONICA; Protocol Last Admin: 06/06/18 11:00 Dose: Not Given Ondansetron HCl (Zofran Injection) 4 mg IVPUSH Q6H PRN PRN Reason: NAUSEA AND/OR VOMITING Last Admin: 06/04/18 11:24 Dose: 4 mg Oxycodone HCl (Roxicodone -) 10 mg PO Q4H PRN PRN Reason: PAIN LEVEL 4 - 6 Last Admin: 06/06/18 11:32 Dose: 10 mg - Objective Vital Signs: Vital Signs Temperature 97.9 F 06/06/18 10:00 Pulse Rate 82 06/06/18 13:30 Respiratory Rate 18 06/06/18 13:30 Blood Pressure 171/81 H 06/06/18 13:30 O2 Sat by Pulse Oximetry (%) 92 L 06/05/18 21:00 Constitutional: Yes: Calm Eyes: Yes: Conjunctiva Clear HENT: Yes: Atraumatic Cardiovascular: Yes: S1, S2 Respiratory: Yes: CTA Bilaterally Gastrointestinal: Yes: Soft, Abdomen, Obese Genitourinary: Yes: WNL Musculoskeletal: Yes: WNL Edema: Yes Edema: LUE: 1+, RUE: 1+, LLE: 1+, RLE: 1+ Neurological: Yes: Oriented Psychiatric: Yes: Oriented Labs: CBC, BMP 06/06/18 05:30 06/06/18 05:30 INR, PTT INR 1.01 (0.83-1.09) 06/03/18 07:00 Problem List - Problems (1) Acute kidney injury Code(s): N17.9 - ACUTE KIDNEY FAILURE, UNSPECIFIED (2) Dehydration Code(s): E86.0 - DEHYDRATION (3) Prerenal azotemia Code(s): R79.89 - OTHER SPECIFIED ABNORMAL FINDINGS OF BLOOD CHEMISTRY Assessment/Plan Current Medications Generic Name Dose Route Start Last Admin Trade Name Freq PRN Reason Stop Dose Admin Allopurinol 500 mg 06/02/18 16:00 06/06/18 14:04 Zyloprim - PO 500 mg DAILY MONICA Administration Diazepam 10 mg 06/05/18 13:20 06/06/18 09:05 Valium - PO 10 mg Q6H PRN Administration ANXIETY Heparin Sodium (Porcine) 1,000 unit 06/04/18 12:04 06/06/18 06:48 Heparin - IVPUSH 1,000 unit PRN PRN Administration Heparin Heparin Sodium (Porcine) 5,000 unit 06/04/18 12:04 06/06/18 14:22 Heparin - IVPUSH 5,000 unit PRN PRN Administration Heparin Piperacillin Sod/Tazobactam 50 mls @ 100 mls/hr 06/02/18 18:00 06/06/18 13:40 Sod 2.25 gm/ Dextrose IVPB 100 mls/hr Q8H-IV MONICA Administration Protocol Dextrose/Sodium Chloride 1,000 mls @ 150 mls/hr 06/04/18 11:00 06/06/18 11:00 D5-Ns - IV 150 mls/hr ASDIR MONICA Administration Heparin Sodium (Porcine) 25, 500 mls @ 20 mls/hr 06/04/18 12:15 06/06/18 14: 16 000 unit/ Sodium Chloride IV 1,800 unit/hr TITR MONICA 36 mls/hr Titration Protocol 1,000 UNIT/HR Sodium Chloride 250 mls @ 3,000 mls/hr 06/06/18 08:12 Normal Saline - IV 06/07/18 08:12 PRN PRN Hypotension during Dialysis Insulin Aspart 1 vial 06/03/18 22:00 06/06/18 11:00 Novolog Vial Sliding Scale - SQ Not Given ACHS MONICA Protocol Ondansetron HCl 4 mg 06/04/18 10:53 06/04/18 11:24 Zofran Injection IVPUSH 4 mg Q6H PRN Administration NAUSEA AND/OR VOMITING Oxycodone HCl 10 mg 06/05/18 15:07 06/06/18 11:32 Roxicodone - PO 10 mg Q4H PRN Administration PAIN LEVEL 4 - 6 Laboratory Tests 06/02/18 06/03/18 06/03/18 17:00 07:00 07:00 ALISE M-Quinn Pending LUANA Screen Pending c-ANCA Pending Proteinase 3 (PR3) Pending p-ANCA Pending Atypical p-ANCA Pending Myeloperoxidase Ab Pending Double Strand DNA Ab 1 Glomerular Base Memb Ab 5 Influenza A (Rapid) Negative Influenza B (Rapid) Negative Anti-Streptolysin Scrn Anti-DNase B (Strep) <78 06/03/18 07:00 ALISE M-Quinn LUANA Screen c-ANCA Proteinase 3 (PR3) p-ANCA Atypical p-ANCA Myeloperoxidase Ab Double Strand DNA Ab Glomerular Base Memb Ab Influenza A (Rapid) Influenza B (Rapid) Anti-Streptolysin Scrn 24.3 Anti-DNase B (Strep) Impression 1. lung cancer 2. IGOR 3. hyponatremia 4. fever/chills 5. decreased appetite/nausea Plan - pt tolerated HD today - he does appear overloaded - d/c fluids - will give a dose of lasix - he is now making urine, cont to monitor - called vascular to d/c femoral catheter - renal workup in progress - pt likely has ATN - encourage PO intake Dr Foley
--- NOTE | 2018-06-06 15:26 | PN ---
Physical Exam: SUBJECTIVE: Patient seen and examined; anasarca; very uncomfortable; HD today OBJECTIVE: Vital Signs Period Temp Pulse Resp BP Sys/Small Pulse Ox Last 24 Hr 97.8 F-98.2 F 75-93 18-20 129-177/64-92 92 GENERAL: The patient is awake, alert, and fully oriented, very uncomfortable due to fluid HEAD: Normal with no signs of trauma. LUNGS: decreased breath sounds HEART: Regular rate and rhythm, S1, S2 without murmur, rub or gallop. ABDOMEN:obese; distended; non tender EXTREMITIES: 2+ pulses, warm, well-perfused, b/l upper and lower extremities w edema NEUROLOGICAL: Cranial nerves II through XII grossly intact. Normal speech, gait not observed. PSYCH: Normal mood, normal affect. SKIN: Warm, dry, normal turgor, no rashes or lesions noted Laboratory Results - last 24 hr 06/03/18 06/03/18 06/05/18 07:00 07:00 05:25 WBC RBC Hgb Hct MCV MCH MCHC RDW Plt Count MPV Absolute Neuts (auto) Neutrophils % Lymphocytes % Monocytes % Eosinophils % Basophils % Nucleated RBC % PTT (Actin FS) Sodium 139 Potassium 4.0 Chloride 103 Carbon Dioxide 27 Anion Gap 9 BUN 36 H Creatinine 8.4 H* Creat Clearance w eGFR 6.52 POC Glucometer Random Glucose 139 H Calcium 6.9 L* Phosphorus 5.9 H Magnesium 1.7 L Total Bilirubin 1.1 H Direct Bilirubin 0.8 H AST 135 H ALT 240 H Alkaline Phosphatase 168 H Creatine Kinase 81 Total Protein 5.3 L Total Protein (PEP) 6.0 Albumin 2.2 L Albumin (PEP) 2.8 L Globulin 3.2 Albumin/Globulin Ratio 0.9 Beta Globulins 1.0 ALISE M-Quinn Not observed LUANA Screen Negative Glomerular Base Memb Ab 5 HCV Quantitation Hcv not detected HCV RNA log copies/mL TNP Anti-DNase B (Strep) <78 06/05/18 06/05/18 06/05/18 15:30 16:41 21:30 WBC RBC Hgb Hct MCV MCH MCHC RDW Plt Count MPV Absolute Neuts (auto) Neutrophils % Lymphocytes % Monocytes % Eosinophils % Basophils % Nucleated RBC % PTT (Actin FS) 37.8 H 44.9 H Sodium Potassium Chloride Carbon Dioxide Anion Gap BUN Creatinine Creat Clearance w eGFR POC Glucometer 124 Random Glucose Calcium Phosphorus Magnesium Total Bilirubin Direct Bilirubin AST ALT Alkaline Phosphatase Creatine Kinase Total Protein Total Protein (PEP) Albumin Albumin (PEP) Globulin Albumin/Globulin Ratio Beta Globulins ALISE M-Quinn LUANA Screen Glomerular Base Memb Ab HCV Quantitation HCV RNA log copies/mL Anti-DNase B (Strep) 06/05/18 06/06/18 06/06/18 22:25 05:30 05:30 WBC 4.9 RBC 3.36 L Hgb 10.8 L Hct 32.0 L MCV 95.4 MCH 32.3 MCHC 33.8 RDW 15.0 Plt Count 106 L D MPV 8.5 Absolute Neuts (auto) 4.1 Neutrophils % 83.4 H Lymphocytes % 11.4 Monocytes % 3.6 L Eosinophils % 1.3 Basophils % 0.3 Nucleated RBC % 0 PTT (Actin FS) 40.6 H Sodium Potassium Chloride Carbon Dioxide Anion Gap BUN Creatinine Creat Clearance w eGFR POC Glucometer 170 Random Glucose Calcium Phosphorus Magnesium Total Bilirubin Direct Bilirubin AST ALT Alkaline Phosphatase Creatine Kinase Total Protein Total Protein (PEP) Albumin Albumin (PEP) Globulin Albumin/Globulin Ratio Beta Globulins ALISE M-Quinn LUANA Screen Glomerular Base Memb Ab HCV Quantitation HCV RNA log copies/mL Anti-DNase B (Strep) 06/06/18 06/06/18 06/06/18 05:30 06:44 11:29 WBC RBC Hgb Hct MCV MCH MCHC RDW Plt Count MPV Absolute Neuts (auto) Neutrophils % Lymphocytes % Monocytes % Eosinophils % Basophils % Nucleated RBC % PTT (Actin FS) Sodium 139 Potassium 4.4 Chloride 106 Carbon Dioxide 25 Anion Gap 8 BUN 37 H Creatinine 9.5 H* Creat Clearance w eGFR 5.65 POC Glucometer 151 116 Random Glucose 142 H Calcium 7.2 L Phosphorus 6.4 H Magnesium 2.0 Total Bilirubin 0.8 Direct Bilirubin AST 64 H ALT 174 H Alkaline Phosphatase 161 H Creatine Kinase 51 Total Protein 5.4 L Total Protein (PEP) Albumin 2.2 L Albumin (PEP) Globulin Albumin/Globulin Ratio Beta Globulins ALISE M-Quinn LUANA Screen Glomerular Base Memb Ab HCV Quantitation HCV RNA log copies/mL Anti-DNase B (Strep) 06/06/18 11:50 WBC RBC Hgb Hct MCV MCH MCHC RDW Plt Count MPV Absolute Neuts (auto) Neutrophils % Lymphocytes % Monocytes % Eosinophils % Basophils % Nucleated RBC % PTT (Actin FS) 30.1 Sodium Potassium Chloride Carbon Dioxide Anion Gap BUN Creatinine Creat Clearance w eGFR POC Glucometer Random Glucose Calcium Phosphorus Magnesium Total Bilirubin Direct Bilirubin AST ALT Alkaline Phosphatase Creatine Kinase Total Protein Total Protein (PEP) Albumin Albumin (PEP) Globulin Albumin/Globulin Ratio Beta Globulins ALISE M-Quinn LUANA Screen Glomerular Base Memb Ab HCV Quantitation HCV RNA log copies/mL Anti-DNase B (Strep) Active Medications Generic Name Dose Route Start Last Admin Trade Name Freq PRN Reason Stop Dose Admin Allopurinol 500 mg 06/02/18 16:00 06/06/18 14:04 Zyloprim - PO 500 mg DAILY MONICA Administration Diazepam 10 mg 06/05/18 13:20 06/06/18 09:05 Valium - PO 10 mg Q6H PRN Administration ANXIETY Heparin Sodium (Porcine) 1,000 unit 06/04/18 12:04 06/06/18 06:48 Heparin - IVPUSH 1,000 unit PRN PRN Administration Heparin Heparin Sodium (Porcine) 5,000 unit 06/04/18 12:04 06/06/18 14:22 Heparin - IVPUSH 5,000 unit PRN PRN Administration Heparin Piperacillin Sod/Tazobactam 50 mls @ 100 mls/hr 06/02/18 18:00 06/06/18 13:40 Sod 2.25 gm/ Dextrose IVPB 100 mls/hr Q8H-IV MONICA Administration Protocol Heparin Sodium (Porcine) 25, 500 mls @ 20 mls/hr 06/04/18 12:15 06/06/18 14: 16 000 unit/ Sodium Chloride IV 1,800 unit/hr TITR MONICA 36 mls/hr Titration Protocol 1,000 UNIT/HR Sodium Chloride 250 mls @ 3,000 mls/hr 06/06/18 08:12 Normal Saline - IV 06/07/18 08:12 PRN PRN Hypotension during Dialysis Insulin Aspart 1 vial 06/03/18 22:00 06/06/18 11:00 Novolog Vial Sliding Scale - SQ Not Given ACHS MONICA Protocol Ondansetron HCl 4 mg 06/04/18 10:53 06/04/18 11:24 Zofran Injection IVPUSH 4 mg Q6H PRN Administration NAUSEA AND/OR VOMITING Oxycodone HCl 10 mg 06/05/18 15:07 06/06/18 11:32 Roxicodone - PO 10 mg Q4H PRN Administration PAIN LEVEL 4 - 6 ASSESSMENT/PLAN: This is a 63 year old male with a history of PE, adenocarcinma of the lung s/p carboplantin/alimpta chemotherapy; had interim of remission, now back on chemotherapy alimpta, who presents with complaints of lethargy, body aches, poor oral intake, no urine output since Tuesday, and an episode of rigors. In acute renal failure. Acute renal failure Adenocarinoma of lung; s/p alimpta hx of PE hyperuricemia transaminitis chronic back pain h/o pericardial effusion in 2014 s/p pericardial window -HD and lasix today; diuresing -making urine Visit type - Emergency Visit Emergency Visit: Yes ED Registration Date: 06/01/18 Care time: The patient presented to the Emergency Department on the above date and was hospitalized for further evaluation of their emergent condition. - New Patient This patient is new to me today: No - Critical Care Critical Care patient: No
--- NOTE | 2018-06-06 15:32 | PN ---
Teaching Attending Note Name of Resident: Rohith Eduardo ATTENDING PHYSICIAN STATEMENT I saw and evaluated the patient. I reviewed the resident's note and discussed the case with the resident. I agree with the resident's findings and plan as documented with exceptions below. SUBJECTIVE: Patient seen and examined. No complaints. Feels is getting swollen. no dyspnea, abdominal or urinary symptoms. Nausea resolved. OBJECTIVE: Vital Signs Period Temp Pulse Resp BP Sys/Small Pulse Ox Last 24 Hr 97.8 F-98.2 F 75-93 18-20 129-177/64-92 92 Intake & Output 06/03/18 06/04/18 06/05/18 06/06/18 23:59 23:59 23:59 23:59 Intake Total 3650 5425 4118 1267 Output Total 200 200 300 Balance 3650 5225 3918 967 Weight 292 lb 292 lb 6.4 oz General: lying in bed in no acute distress Chest: CTAB, no rales or wheezing Abdomen:Soft, obese, NT, no suprapubic or CVA tenderness Extremities: no pedal edema Home Medications Medication Instructions Recorded Glipizide [Glipizide ER] 5 mg PO DAILY 04/16/14 Folic Acid 1 mg PO HS 05/24/17 Furosemide [Lasix] 40 mg PO Q48H 05/24/17 Enoxaparin [Lovenox -] 120 mg SQ BID 06/01/18 Diazepam [Valium] 10 mg PO Q6H PRN 06/02/18 Oxycodone HCl 10 mg PO Q6H PRN 06/02/18 Sitagliptin Phos/Metformin HCl 2 each PO DAILY 06/02/18 [Janumet 50-500 mg Tablet] Active Medications Allopurinol (Zyloprim -) 500 mg PO DAILY MONICA Last Admin: 06/06/18 14:04 Dose: 500 mg Diazepam (Valium -) 10 mg PO Q6H PRN PRN Reason: ANXIETY Last Admin: 06/06/18 09:05 Dose: 10 mg Heparin Sodium (Porcine) (Heparin -) 1,000 unit IVPUSH PRN PRN PRN Reason: Heparin Last Admin: 06/06/18 06:48 Dose: 1,000 unit Heparin Sodium (Porcine) (Heparin -) 5,000 unit IVPUSH PRN PRN PRN Reason: Heparin Last Admin: 06/06/18 14:22 Dose: 5,000 unit Piperacillin Sod/Tazobactam (Sod 2.25 gm/ Dextrose) 50 mls @ 100 mls/hr IVPB Q8H-IV MONICA; Protocol Last Admin: 06/06/18 13:40 Dose: 100 mls/hr Heparin Sodium (Porcine) 25, (000 unit/ Sodium Chloride) 500 mls @ 20 mls/hr IV TITR MONICA; Protocol Last Titration: 06/06/18 14:16 Dose: 1,800 unit/hr, 36 mls/hr Sodium Chloride (Normal Saline -) 250 mls @ 3,000 mls/hr IV PRN PRN PRN Reason: Hypotension during Dialysis Stop: 06/07/18 08:12 Insulin Aspart (Novolog Vial Sliding Scale -) 1 vial SQ ACHS MONICA; Protocol Last Admin: 06/06/18 11:00 Dose: Not Given Ondansetron HCl (Zofran Injection) 4 mg IVPUSH Q6H PRN PRN Reason: NAUSEA AND/OR VOMITING Last Admin: 06/04/18 11:24 Dose: 4 mg Oxycodone HCl (Roxicodone -) 10 mg PO Q4H PRN PRN Reason: PAIN LEVEL 4 - 6 Last Admin: 06/06/18 11:32 Dose: 10 mg Laboratory Results - last 24 hr 06/03/18 06/03/18 06/05/18 07:00 07:00 05:25 WBC RBC Hgb Hct MCV MCH MCHC RDW Plt Count MPV Absolute Neuts (auto) Neutrophils % Lymphocytes % Monocytes % Eosinophils % Basophils % Nucleated RBC % PTT (Actin FS) Sodium 139 Potassium 4.0 Chloride 103 Carbon Dioxide 27 Anion Gap 9 BUN 36 H Creatinine 8.4 H* Creat Clearance w eGFR 6.52 POC Glucometer Random Glucose 139 H Calcium 6.9 L* Phosphorus 5.9 H Magnesium 1.7 L Total Bilirubin 1.1 H Direct Bilirubin 0.8 H AST 135 H ALT 240 H Alkaline Phosphatase 168 H Creatine Kinase 81 Total Protein 5.3 L Total Protein (PEP) 6.0 Albumin 2.2 L Albumin (PEP) 2.8 L Globulin 3.2 Albumin/Globulin Ratio 0.9 Beta Globulins 1.0 ALISE M-Quinn Not observed LUANA Screen Negative Glomerular Base Memb Ab 5 HCV Quantitation Hcv not detected HCV RNA log copies/mL TNP Anti-DNase B (Strep) <78 06/05/18 06/05/18 06/05/18 15:30 16:41 21:30 WBC RBC Hgb Hct MCV MCH MCHC RDW Plt Count MPV Absolute Neuts (auto) Neutrophils % Lymphocytes % Monocytes % Eosinophils % Basophils % Nucleated RBC % PTT (Actin FS) 37.8 H 44.9 H Sodium Potassium Chloride Carbon Dioxide Anion Gap BUN Creatinine Creat Clearance w eGFR POC Glucometer 124 Random Glucose Calcium Phosphorus Magnesium Total Bilirubin Direct Bilirubin AST ALT Alkaline Phosphatase Creatine Kinase Total Protein Total Protein (PEP) Albumin Albumin (PEP) Globulin Albumin/Globulin Ratio Beta Globulins ALISE M-Quinn LUANA Screen Glomerular Base Memb Ab HCV Quantitation HCV RNA log copies/mL Anti-DNase B (Strep) 06/05/18 06/06/18 06/06/18 22:25 05:30 05:30 WBC 4.9 RBC 3.36 L Hgb 10.8 L Hct 32.0 L MCV 95.4 MCH 32.3 MCHC 33.8 RDW 15.0 Plt Count 106 L D MPV 8.5 Absolute Neuts (auto) 4.1 Neutrophils % 83.4 H Lymphocytes % 11.4 Monocytes % 3.6 L Eosinophils % 1.3 Basophils % 0.3 Nucleated RBC % 0 PTT (Actin FS) 40.6 H Sodium Potassium Chloride Carbon Dioxide Anion Gap BUN Creatinine Creat Clearance w eGFR POC Glucometer 170 Random Glucose Calcium Phosphorus Magnesium Total Bilirubin Direct Bilirubin AST ALT Alkaline Phosphatase Creatine Kinase Total Protein Total Protein (PEP) Albumin Albumin (PEP) Globulin Albumin/Globulin Ratio Beta Globulins ALISE M-Quinn LUANA Screen Glomerular Base Memb Ab HCV Quantitation HCV RNA log copies/mL Anti-DNase B (Strep) 06/06/18 06/06/18 06/06/18 05:30 06:44 11:29 WBC RBC Hgb Hct MCV MCH MCHC RDW Plt Count MPV Absolute Neuts (auto) Neutrophils % Lymphocytes % Monocytes % Eosinophils % Basophils % Nucleated RBC % PTT (Actin FS) Sodium 139 Potassium 4.4 Chloride 106 Carbon Dioxide 25 Anion Gap 8 BUN 37 H Creatinine 9.5 H* Creat Clearance w eGFR 5.65 POC Glucometer 151 116 Random Glucose 142 H Calcium 7.2 L Phosphorus 6.4 H Magnesium 2.0 Total Bilirubin 0.8 Direct Bilirubin AST 64 H ALT 174 H Alkaline Phosphatase 161 H Creatine Kinase 51 Total Protein 5.4 L Total Protein (PEP) Albumin 2.2 L Albumin (PEP) Globulin Albumin/Globulin Ratio Beta Globulins ALISE M-Quinn LUANA Screen Glomerular Base Memb Ab HCV Quantitation HCV RNA log copies/mL Anti-DNase B (Strep) 06/06/18 11:50 WBC RBC Hgb Hct MCV MCH MCHC RDW Plt Count MPV Absolute Neuts (auto) Neutrophils % Lymphocytes % Monocytes % Eosinophils % Basophils % Nucleated RBC % PTT (Actin FS) 30.1 Sodium Potassium Chloride Carbon Dioxide Anion Gap BUN Creatinine Creat Clearance w eGFR POC Glucometer Random Glucose Calcium Phosphorus Magnesium Total Bilirubin Direct Bilirubin AST ALT Alkaline Phosphatase Creatine Kinase Total Protein Total Protein (PEP) Albumin Albumin (PEP) Globulin Albumin/Globulin Ratio Beta Globulins ALISE M-Quinn LUANA Screen Glomerular Base Memb Ab HCV Quantitation HCV RNA log copies/mL Anti-DNase B (Strep) Microbiology 06/03/18 09:03 Urine - Urine Flor Urine Culture - Final NO GROWTH OBTAINED ASSESSMENT AND PLAN: 63 yom with PMhx of Aden[place] of lung diagnosed in 04/2014, s/p Chemotherapy(carb/ Alimta), currently on maintenance alimta since 2015, Also pleural/pericardial effusion with bilateral pulmonary embolism in 04/2014, s/p pericardial window, on lovenox, NIDDM, with 5 days of minimal po intake, no urinary output, 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 Plan for second session today. Follow up with renal for Shiley removal. IVF bolus prn per renal. D5NS at 150 ml/hr/ Strict I/Os, daily weights. Urine output with some improvement. Renal /bladder US noted. Replete Mg/Ca prn. AM cortisol normal. Follow up hep panel/immune studies. Zosyn day 5, urine cx noted. ID input noted, plan to continue to for now as sent post antibiotics. LFTs improved, Abdominal US/CT A/P res noted, no visible gall stones or gall bladder wall thickening. GI input appreciated. 2D echo noted. Oncology input appreciated. heparin drip for h/o Bilateral PE in 2014. Hold lovenox. Will need to address NOAC on d.c Discussed with Dr. Mcgill. Hold oral hypoglycemics, ISS, d/c diabetic diet for now. Renal diet. Disposition continue telemetry monitoring. Plan discussed with patient, nursing, Dr. Foley, Dr. Mcgill in detail, all questions answered.
--- NOTE | 2018-06-06 16:10 | PROC ---
Procedure Note Procedure: Case d/w Dr Pinzon/Dr Foley. Pt had R femoral shiley placed 06/03 for temporary dialysis. Plan for removal today. Pt seen. R femoral shiley removed by JUAN A Carrasco without issue, tip intact, pt tolerated well. Direct pressure held x 10 minutes. R groin dry. Pressure dressing placed. Pt tolerated procedure well. RN aware.
[2018-06-06 17:12] LABS: ATYPICAL pANCA <1:20 titer (Neg:<1:20); C-ANCA <1:20 titer (Neg:<1:20); P-ANCA <1:20 titer (Neg:<1:20)
--- NOTE | 2018-06-06 19:11 | CON.PSY ---
Psychiatry Consult Chief Complaint: I dont have any psych issues, who asked you to come see me?/ I dont need to talk to you. Symptoms: reports: Irritability - Previous Psychiatric Treatment Outpatient: None Inpatient: None - Previous Substance Abuse Treatment Outpatient: None Inpatient: None - Current Medications Current Medications: Active Medications Allopurinol (Zyloprim -) 500 mg PO DAILY MONICA Last Admin: 06/06/18 14:04 Dose: 500 mg Diazepam (Valium -) 10 mg PO Q6H PRN PRN Reason: ANXIETY Last Admin: 06/06/18 15:32 Dose: 10 mg Heparin Sodium (Porcine) (Heparin -) 1,000 unit IVPUSH PRN PRN PRN Reason: Heparin Last Admin: 06/06/18 06:48 Dose: 1,000 unit Heparin Sodium (Porcine) (Heparin -) 5,000 unit IVPUSH PRN PRN PRN Reason: Heparin Last Admin: 06/06/18 14:22 Dose: 5,000 unit Piperacillin Sod/Tazobactam (Sod 2.25 gm/ Dextrose) 50 mls @ 100 mls/hr IVPB Q8H-IV MONICA; Protocol Last Admin: 06/06/18 17:52 Dose: 100 mls/hr Heparin Sodium (Porcine) 25, (000 unit/ Sodium Chloride) 500 mls @ 20 mls/hr IV TITR MONICA; Protocol Last Titration: 06/06/18 14:16 Dose: 1,800 unit/hr, 36 mls/hr Sodium Chloride (Normal Saline -) 250 mls @ 3,000 mls/hr IV PRN PRN PRN Reason: Hypotension during Dialysis Stop: 06/07/18 08:12 Insulin Aspart (Novolog Vial Sliding Scale -) 1 vial SQ ACHS MONICA; Protocol Last Admin: 06/06/18 17:00 Dose: Not Given Ondansetron HCl (Zofran Injection) 4 mg IVPUSH Q6H PRN PRN Reason: NAUSEA AND/OR VOMITING Last Admin: 06/04/18 11:24 Dose: 4 mg Oxycodone HCl (Roxicodone -) 10 mg PO Q4H PRN PRN Reason: PAIN LEVEL 4 - 6 Last Admin: 06/06/18 15:30 Dose: 10 mg - Allergies Allergies: Allergies Allergy/AdvReac Type Severity Reaction Status Date / Time No Known Drug Allergies Allergy Verified 05/24/17 12:37 - Current Living Status Usual Living Arrangement: With Spouse - Current Mental Status Evaluation Appearance: Well Groomed Attitude: Uncooperative - Affect Affect: Full Range Appropriateness: Appropriate to Content - Mood Mood: Angry - Speech/Language Expressive: Coherent - Psychomotor Activity Psychomotor Activity: Normal - Thought Process Thought Process: Intact - Thought Content Hallucinations: Absent Delusions: Absent - Self Perception Self Perception: No Impairment - Cognition Attention: Alert Memory, Immediate Recall: Intact Memory, Short Term: 2/3 Memory, Remote with Promptin/3 - Concentration Serial Sevens Intact: No Simple Calculations Intact: No - Abstraction Proverb Interpretation: Intact Judgement: Intact - Insight Insight: Intact - Impulse Control Impulse Control: Minimally Impaired - Suicidal Ideation Suicidal Ideation: No - Homicidal Ideation Homicidal Ideation: No Assessment/Plan 1) Continue with Valium PRN.
--- NOTE | 2018-06-06 20:00 | PN ---
Progress Note (short form) - Note Progress Note: Patient seen and examined Continues with oliguria Underwent dialysis Developing fluid overload with anasarca Last Vital Signs Temp Pulse Resp BP Pulse Ox 98.2 F 89 20 156/92 92 L 06/06/18 14:00 06/06/18 14:00 06/06/18 14:00 06/06/18 14:00 06/06/18 09:00 HEENT: SHERRON, EOM Intact Oropharynx: No thrush, No mucositis,dentures Cor: RSR, No murmurs, No gallops Lungs: Clear to P&A Abd: Soft, Normal bowel sounds, No organomegaly Ext edema LE Skin: No rashes, Integument intact CBC, BMP 06/06/18 05:30 06/06/18 05:30 Current Medications Generic Name Dose Route Start Last Admin Trade Name Freq PRN Reason Stop Dose Admin Allopurinol 500 mg 06/02/18 16:00 06/06/18 14:04 Zyloprim - PO 500 mg DAILY MONICA Administration Diazepam 10 mg 06/05/18 13:20 06/06/18 15:32 Valium - PO 10 mg Q6H PRN Administration ANXIETY Heparin Sodium (Porcine) 1,000 unit 06/04/18 12:04 06/06/18 06:48 Heparin - IVPUSH 1,000 unit PRN PRN Administration Heparin Heparin Sodium (Porcine) 5,000 unit 06/04/18 12:04 06/06/18 14:22 Heparin - IVPUSH 5,000 unit PRN PRN Administration Heparin Piperacillin Sod/Tazobactam 50 mls @ 100 mls/hr 06/02/18 18:00 06/06/18 17:52 Sod 2.25 gm/ Dextrose IVPB 100 mls/hr Q8H-IV MONICA Administration Protocol Heparin Sodium (Porcine) 25, 500 mls @ 20 mls/hr 06/04/18 12:15 06/06/18 14: 16 000 unit/ Sodium Chloride IV 1,800 unit/hr TITR MONICA 36 mls/hr Titration Protocol 1,000 UNIT/HR Sodium Chloride 250 mls @ 3,000 mls/hr 06/06/18 08:12 Normal Saline - IV 06/07/18 08:12 PRN PRN Hypotension during Dialysis Insulin Aspart 1 vial 06/03/18 22:00 06/06/18 17:00 Novolog Vial Sliding Scale - SQ Not Given ACHS MONICA Protocol Ondansetron HCl 4 mg 06/04/18 10:53 06/04/18 11:24 Zofran Injection IVPUSH 4 mg Q6H PRN Administration NAUSEA AND/OR VOMITING Oxycodone HCl 10 mg 06/05/18 15:07 06/06/18 19:42 Roxicodone - PO 10 mg Q4H PRN Administration PAIN LEVEL 4 - 6 Impression: IGOR Adenoca of lung A/C IDDM Antibiotics per ID Current management
[2018-06-07] MEDS: oxyCODONE HCL 5 MG TABLET PO PRN ×6 (00:01→22:05)
[2018-06-07] MEDS ORDERED: DEXTROSE 5%-WATER - 50 ML IVPB ONE ×3 (01:15→16:44)
[2018-06-07] MEDS ORDERED: PIPERACILLIN/TAZOBACTAM 2.25 GM VIAL IVPB ONE ×3 (01:15→16:44)
[2018-06-07] MEDS: PIPERACILLIN/TAZOB 2.25 GM 2.25 GM in DEXTROSE 5%-WATER - 50 ML IVPB SCH ×3 (01:23→17:03)
[2018-06-07] MEDS: diazePAM 5 MG TABLET PO PRN ×4 (03:30→20:12)
[2018-06-07] MEDS: INSULIN SLIDING SCALE (NOVOLOG) 1 VIAL SQ SCH ×4 (06:20→22:07)
[2018-06-07 07:26] LABS: BASO % 0.4 % (0-2.0); EOS % 1.4 % (0-4.5); HEMATOCRIT 31.8 % (35.4-49); HEMOGLOBIN 10.8 GM/dL (11.7-16.9); LYMPH % 11.9 % (8-40); MCHC 33.9 g/dl (32.0-35.9); MEAN CELL VOLUME 94.4 fl (80-96); MEAN PLT VOLUME 8.1 fl (7.5-11.1); MONO % 5.6 % (3.8-10.2); NEUT % 80.7 % (42.8-82.8); PLATELET COUNT 125 K/MM3 (134-434); RBC 3.36 M/mm3 (4.00-5.60); RDW 14.7 % (11.9-15.9); WHITE BLOOD COUNT 4.3 K/mm3 (4.0-10.0)
[2018-06-07 08:00] LABS: ALBUMIN 2.2 g/dl (3.4-5.0); ALK PHOS 168 U/L (45-117); ANION GAP 9 MMOL/L (8-16); BILIRUBIN,TOTAL 0.9 mg/dL (0.2-1); BLOOD UREA NITROGEN 25 mg/dL (7-18); CALCIUM 7.7 mg/dL (8.5-10.1); CHLORIDE 104 mmol/L (98-107); CO2 28 mmol/L (21-32); GLUCOSE,RANDOM 95 mg/dL (74-106); POTASSIUM 3.9 mmol/L (3.5-5.1); SGOT/AST 47 U/L (15-37); SGPT/ALT 132 U/L (13-61); SODIUM 140 mmol/L (136-145); TOT PROT 5.6 g/dl (6.4-8.2)
[2018-06-07 08:04] LABS: CREATININE 7.6 mg/dL (0.55-1.3)
[2018-06-07] MEDS: HEPARIN NA (PORCINE) 5,000 UNITS/ML 1ML VIAL IVPUSH PRN ×2 (08:05→15:39)
[2018-06-07] MEDS: HEPARIN - 25,000 UNIT in SODIUM CHLORIDE 495 ML IV SCH ×3 (08:05→22:03)
[2018-06-07] MEDS: ALLOPURINOL 100 MG TABLET (FP) PO SCH (09:09)
--- NOTE | 2018-06-07 09:37 | PN ---
Physical Exam: SUBJECTIVE: Patient seen and examined pt feels same. little happy as he started making urine again. HD cath removed yesterday tolerated HD yesterday. sattes still feels like body is bloated Denies sob, chest pain, palpitations, nausea, vomiting OBJECTIVE: Vital Signs Period Temp Pulse Resp BP Sys/Small Pulse Ox Last 24 Hr 97.9 F-98.2 F 75-95 16-20 144-177/70-96 91 GENERAL: Awake, alert, and fully oriented, in no acute distress. HEAD: Normal with no signs of trauma. EARS, NOSE, THROAT: moist mucous membranes. NECK: Normal range of motion, supple without lymphadenopathy, JVD, or masses. LUNGS: Breath sounds equal, clear to auscultation bilaterally. HEART: Regular rate and rhythm, normal S1 and S2 without murmur, ABDOMEN: Soft, no tenderness, not distended, normoactive bowel sounds. MUSCULOSKELETAL: Normal range of motion at all joints. UPPER EXTREMITIES: 2+ pulses, warm, well-perfused. No peripheral edema. LOWER EXTREMITIES: warm, well-perfused. peripheral edema 1+ SKIN: Warm, dry, Laboratory Results - last 24 hr 06/03/18 06/06/18 06/06/18 07:00 11:29 11:50 WBC RBC Hgb Hct MCV MCH MCHC RDW Plt Count MPV Absolute Neuts (auto) Neutrophils % Lymphocytes % Monocytes % Eosinophils % Basophils % Nucleated RBC % PTT (Actin FS) 30.1 Sodium Potassium Chloride Carbon Dioxide Anion Gap BUN Creatinine Creat Clearance w eGFR POC Glucometer 116 Random Glucose Calcium Total Bilirubin AST ALT Alkaline Phosphatase Total Protein Albumin c-ANCA <1:20 Proteinase 3 (PR3) <3.5 p-ANCA <1:20 Atypical p-ANCA <1:20 Myeloperoxidase Ab <9.0 Glomerular Base Memb Ab 5 HCV Quantitation Hcv not detected HCV RNA log copies/mL TNP 06/06/18 06/06/18 06/06/18 17:16 20:00 21:41 WBC RBC Hgb Hct MCV MCH MCHC RDW Plt Count MPV Absolute Neuts (auto) Neutrophils % Lymphocytes % Monocytes % Eosinophils % Basophils % Nucleated RBC % PTT (Actin FS) 43.6 H Sodium Potassium Chloride Carbon Dioxide Anion Gap BUN Creatinine Creat Clearance w eGFR POC Glucometer 127 117 Random Glucose Calcium Total Bilirubin AST ALT Alkaline Phosphatase Total Protein Albumin c-ANCA Proteinase 3 (PR3) p-ANCA Atypical p-ANCA Myeloperoxidase Ab Glomerular Base Memb Ab HCV Quantitation HCV RNA log copies/mL 06/07/18 06/07/18 06/07/18 05:30 05:30 05:30 WBC 4.3 RBC 3.36 L Hgb 10.8 L Hct 31.8 L MCV 94.4 MCH 32.0 MCHC 33.9 RDW 14.7 Plt Count 125 L MPV 8.1 Absolute Neuts (auto) 3.5 Neutrophils % 80.7 Lymphocytes % 11.9 Monocytes % 5.6 Eosinophils % 1.4 Basophils % 0.4 Nucleated RBC % 0 PTT (Actin FS) 40.2 H Sodium 140 Potassium 3.9 Chloride 104 Carbon Dioxide 28 Anion Gap 9 BUN 25 H Creatinine 7.6 H* Creat Clearance w eGFR 7.31 POC Glucometer Random Glucose 95 Calcium 7.7 L Total Bilirubin 0.9 AST 47 H ALT 132 H Alkaline Phosphatase 168 H Total Protein 5.6 L Albumin 2.2 L c-ANCA Proteinase 3 (PR3) p-ANCA Atypical p-ANCA Myeloperoxidase Ab Glomerular Base Memb Ab HCV Quantitation HCV RNA log copies/mL 06/07/18 06:18 WBC RBC Hgb Hct MCV MCH MCHC RDW Plt Count MPV Absolute Neuts (auto) Neutrophils % Lymphocytes % Monocytes % Eosinophils % Basophils % Nucleated RBC % PTT (Actin FS) Sodium Potassium Chloride Carbon Dioxide Anion Gap BUN Creatinine Creat Clearance w eGFR POC Glucometer 106 Random Glucose Calcium Total Bilirubin AST ALT Alkaline Phosphatase Total Protein Albumin c-ANCA Proteinase 3 (PR3) p-ANCA Atypical p-ANCA Myeloperoxidase Ab Glomerular Base Memb Ab HCV Quantitation HCV RNA log copies/mL Active Medications Generic Name Dose Route Start Last Admin Trade Name Freq PRN Reason Stop Dose Admin Allopurinol 500 mg 06/02/18 16:00 06/07/18 09:09 Zyloprim - PO 500 mg DAILY MONICA Administration Diazepam 10 mg 06/05/18 13:20 06/07/18 09:12 Valium - PO 10 mg Q6H PRN Administration ANXIETY Heparin Sodium (Porcine) 1,000 unit 06/04/18 12:04 06/07/18 08:05 Heparin - IVPUSH 1,000 unit PRN PRN Administration Heparin Heparin Sodium (Porcine) 5,000 unit 06/04/18 12:04 06/06/18 14:22 Heparin - IVPUSH 5,000 unit PRN PRN Administration Heparin Piperacillin Sod/Tazobactam 50 mls @ 100 mls/hr 06/02/18 18:00 06/07/18 09:09 Sod 2.25 gm/ Dextrose IVPB 100 mls/hr Q8H-IV MONICA Administration Protocol Heparin Sodium (Porcine) 25, 500 mls @ 20 mls/hr 06/04/18 12:15 06/07/18 08: 05 000 unit/ Sodium Chloride IV 2,000 unit/hr TITR MONICA 40 mls/hr Administration Protocol 1,000 UNIT/HR Sodium Chloride 250 mls @ 3,000 mls/hr 06/06/18 08:12 Normal Saline - IV 06/07/18 08:12 PRN PRN Hypotension during Dialysis Insulin Aspart 1 vial 06/03/18 22:00 06/07/18 06:20 Novolog Vial Sliding Scale - SQ Not Given ACHS MONICA Protocol Ondansetron HCl 4 mg 06/04/18 10:53 06/04/18 11:24 Zofran Injection IVPUSH 4 mg Q6H PRN Administration NAUSEA AND/OR VOMITING Oxycodone HCl 10 mg 06/05/18 15:07 06/07/18 07:33 Roxicodone - PO 10 mg Q4H PRN Administration PAIN LEVEL 4 - 6 ASSESSMENT/PLAN:63 yom with PMhx of [place] of lung diagnosed in 04/2014, s/p Chemotherapy(carb/Alimta), currently on maintenance alimta since 2016, Also pleural/pericardial effusion with bilateral pulmonary embolism in 04/2014, s/p pericardial window, on lovenox, NIDDM, with 5 days of minimal po intake, no urinary outpatient, 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 tolerated hd yesterday HD cath removed yesterday avoid nephrotoxic drugs renal and bladder usg reviewed. nephro on case. repeat cr and bun in am daily weight 2d echo reviewed oncology on case -Lower uncomplicated UTI continue IV antibiotics ID on case continue zosyn culture was sent post antibiotic id on case - Abnormal LFTS, ?Liver metastasis, hypotension, usg liver reviewed avoid hepatotoxic dugs repeat lft in am gi on case cpk 58 NIDDM bgm insulin sliding scale thrombocytopenia; can be because of splenomegaly elevated uric acid continue allopurinol -H/o bilateral pulmonary embolism in 04/2014: hold lovenox for igor. continue heparin drip -Adenocarcinoma of lung diagnosed in 04/2014, s/p carb/alimta, now on maintenance alimta since 2015 -h/o pericardial effusion in 2014 s/p pericardial window Fluid; orally allowed electrolyte: repeat mg in am nutrition: diabetic and renal diet gi pro:not required dvt pro: on heparin drip dispo: tele Visit type - Emergency Visit Emergency Visit: Yes ED Registration Date: 06/01/18 Care time: The patient presented to the Emergency Department on the above date and was hospitalized for further evaluation of their emergent condition. - New Patient This patient is new to me today: No - Critical Care Critical Care patient: No
[2018-06-07 12:04] LABS: URIC ACID 3.9 mg/dL (2.6-7.2)
--- NOTE | 2018-06-07 12:45 | PN ---
Progress Note, Physician History of Present Illness: Pt seen and examined at bedside. He is awake and alert. He denies shortness of breath. He complains of edema. He is making much more urine. - Current Medication List Current Medications: Active Medications Allopurinol (Zyloprim -) 500 mg PO DAILY MONICA Last Admin: 06/07/18 09:09 Dose: 500 mg Diazepam (Valium -) 10 mg PO Q6H PRN PRN Reason: ANXIETY Last Admin: 06/07/18 09:12 Dose: 10 mg Heparin Sodium (Porcine) (Heparin -) 1,000 unit IVPUSH PRN PRN PRN Reason: Heparin Last Admin: 06/07/18 08:05 Dose: 1,000 unit Heparin Sodium (Porcine) (Heparin -) 5,000 unit IVPUSH PRN PRN PRN Reason: Heparin Last Admin: 06/06/18 14:22 Dose: 5,000 unit Piperacillin Sod/Tazobactam (Sod 2.25 gm/ Dextrose) 50 mls @ 100 mls/hr IVPB Q8H-IV MONICA; Protocol Last Admin: 06/07/18 09:09 Dose: 100 mls/hr Heparin Sodium (Porcine) 25, (000 unit/ Sodium Chloride) 500 mls @ 20 mls/hr IV TITR MONICA; Protocol Last Admin: 06/07/18 08:05 Dose: 2,000 unit/hr, 40 mls/hr Sodium Chloride (Normal Saline -) 250 mls @ 3,000 mls/hr IV PRN PRN PRN Reason: Hypotension during Dialysis Stop: 06/07/18 08:12 Insulin Aspart (Novolog Vial Sliding Scale -) 1 vial SQ ACHS MONICA; Protocol Last Admin: 06/07/18 12:05 Dose: Not Given Ondansetron HCl (Zofran Injection) 4 mg IVPUSH Q6H PRN PRN Reason: NAUSEA AND/OR VOMITING Last Admin: 06/04/18 11:24 Dose: 4 mg Oxycodone HCl (Roxicodone -) 10 mg PO Q4H PRN PRN Reason: PAIN LEVEL 4 - 6 Last Admin: 06/07/18 12:04 Dose: 10 mg - Objective Vital Signs: Vital Signs Temperature 98.7 F 06/07/18 09:00 Pulse Rate 92 H 06/07/18 09:00 Respiratory Rate 18 06/07/18 09:00 Blood Pressure 157/84 06/07/18 09:00 O2 Sat by Pulse Oximetry (%) 91 L 06/07/18 09:00 Constitutional: Yes: Calm Eyes: Yes: Conjunctiva Clear HENT: Yes: Atraumatic Neck: Yes: Supple Cardiovascular: Yes: S1, S2 Respiratory: Yes: CTA Bilaterally Gastrointestinal: Yes: Normal Bowel Sounds, Soft Genitourinary: Yes: WNL Musculoskeletal: Yes: WNL Edema: Yes Edema: LLE: 1+, RLE: 1+ Neurological: Yes: Oriented Psychiatric: Yes: Oriented Labs: CBC, BMP 06/07/18 05:30 06/07/18 05:30 INR, PTT INR 1.01 (0.83-1.09) 06/03/18 07:00 Problem List - Problems (1) Acute kidney injury Code(s): N17.9 - ACUTE KIDNEY FAILURE, UNSPECIFIED (2) Dehydration Code(s): E86.0 - DEHYDRATION (3) Prerenal azotemia Code(s): R79.89 - OTHER SPECIFIED ABNORMAL FINDINGS OF BLOOD CHEMISTRY Assessment/Plan Current Medications Generic Name Dose Route Start Last Admin Trade Name Freq PRN Reason Stop Dose Admin Allopurinol 500 mg 06/02/18 16:00 06/07/18 09:09 Zyloprim - PO 500 mg DAILY MONICA Administration Diazepam 10 mg 06/05/18 13:20 06/07/18 09:12 Valium - PO 10 mg Q6H PRN Administration ANXIETY Heparin Sodium (Porcine) 1,000 unit 06/04/18 12:04 06/07/18 08:05 Heparin - IVPUSH 1,000 unit PRN PRN Administration Heparin Heparin Sodium (Porcine) 5,000 unit 06/04/18 12:04 06/06/18 14:22 Heparin - IVPUSH 5,000 unit PRN PRN Administration Heparin Piperacillin Sod/Tazobactam 50 mls @ 100 mls/hr 06/02/18 18:00 06/07/18 09:09 Sod 2.25 gm/ Dextrose IVPB 100 mls/hr Q8H-IV MONICA Administration Protocol Heparin Sodium (Porcine) 25, 500 mls @ 20 mls/hr 06/04/18 12:15 06/07/18 08: 05 000 unit/ Sodium Chloride IV 2,000 unit/hr TITR MONICA 40 mls/hr Administration Protocol 1,000 UNIT/HR Sodium Chloride 250 mls @ 3,000 mls/hr 06/06/18 08:12 Normal Saline - IV 06/07/18 08:12 PRN PRN Hypotension during Dialysis Insulin Aspart 1 vial 06/03/18 22:00 06/07/18 12:05 Novolog Vial Sliding Scale - SQ Not Given ACHS MONICA Protocol Ondansetron HCl 4 mg 06/04/18 10:53 06/04/18 11:24 Zofran Injection IVPUSH 4 mg Q6H PRN Administration NAUSEA AND/OR VOMITING Oxycodone HCl 10 mg 06/05/18 15:07 06/07/18 12:04 Roxicodone - PO 10 mg Q4H PRN Administration PAIN LEVEL 4 - 6 Laboratory Tests 06/03/18 07:00 ALISE M-Quinn Not observed LUANA Screen Negative c-ANCA <1:20 Proteinase 3 (PR3) <3.5 p-ANCA <1:20 Atypical p-ANCA <1:20 Myeloperoxidase Ab <9.0 Double Strand DNA Ab 1 Glomerular Base Memb Ab 5 Impression 1. lung cancer 2. IGOR 3. hyponatremia 4. fever/chills 5. decreased appetite/nausea Plan - renal function is improving - urine output is improving - will give a dose of lasix - repeat labs in am - likely recovering ATN - encourage PO intake Dr Foley
--- NOTE | 2018-06-07 12:47 | PN ---
Teaching Attending Note Name of Resident: Rohith Eduardo ATTENDING PHYSICIAN STATEMENT I saw and evaluated the patient. I reviewed the resident's note and discussed the case with the resident. I agree with the resident's findings and plan as documented. SUBJECTIVE: Mr Paul says he feels swollen but improved. No cp, sob, n/v. Is making urine. OBJECTIVE: Last Vital Signs Temp Pulse Resp BP Pulse Ox 37.1 C 92 H 18 157/84 91 L 06/07/18 09:00 06/07/18 09:00 06/07/18 09:00 06/07/18 09:00 06/07/18 09:00 Gen: nad Pulm: ctab w/o w/r/r CV: rrr w/o m/r/g Abd: +bs, s/nt/nd Ext: 2+ pitting edema CBC, BMP 06/07/18 05:30 06/07/18 05:30 ASSESSMENT AND PLAN: Problem List - Problems (1) Acute kidney injury Assessment/Plan: -case d/w Dr Foley -improving -suspect ATN -making urine -continue IVF and will give lasix 40mg IV x1 today Code(s): N17.9 - ACUTE KIDNEY FAILURE, UNSPECIFIED (2) Acute CHF (congestive heart failure) Assessment/Plan: -improving with diuresis Code(s): I50.9 - HEART FAILURE, UNSPECIFIED Qualifiers: Heart failure type: diastolic Qualified Code(s): I50.31 - Acute diastolic ( congestive) heart failure (3) Diabetes Assessment/Plan: -continue diabetic diet -FSBS and SSI Code(s): E11.9 - TYPE 2 DIABETES MELLITUS WITHOUT COMPLICATIONS (4) Hypertension Assessment/Plan: -received lasix today Code(s): I10 - ESSENTIAL (PRIMARY) HYPERTENSION (5) Elevated liver enzymes Assessment/Plan: -improved since admission -appreciate GI assistance Code(s): R74.8 - ABNORMAL LEVELS OF OTHER SERUM ENZYMES (6) Anxiety Assessment/Plan: -continue prn valium Code(s): F41.9 - ANXIETY DISORDER, UNSPECIFIED (7) Lung cancer, hilus Assessment/Plan: -heme/onc following Code(s): C34.00 - MALIGNANT NEOPLASM OF UNSPECIFIED MAIN BRONCHUS
[2018-06-07] MEDS ORDERED: FUROSEMIDE 40 MG/4 ML INJECTABLE VIAL IVPUSH ONE (13:00)
--- NOTE | 2018-06-07 15:20 | PN ---
Progress Note (short form) - Note Progress Note: no HD today feels well increasing urine output Vital Signs Period Temp Pulse Resp BP Sys/Small Pulse Ox Last 24 Hr 97.9 F-98.7 F 144-174/- cor-rrr llungs clear abd soft,nt ext +edema Vital Signs Period Temp Pulse Resp BP Sys/Small Pulse Ox Last 24 Hr 97.9 F-98.7 F 144-174/- a/p Acute renal failure- oliguric- suspect ATN elevated uric acid abnormal lfts- ?secondary to hypotension-improving fevers/rigors-?infection but no source evident- +UA but obtained after antiibotics started would continue zosyn day #6 metastatic adenoca of the lung Problem List - Problems (1) Acute renal failure Code(s): N17.9 - ACUTE KIDNEY FAILURE, UNSPECIFIED (2) Hypotension Code(s): I95.9 - HYPOTENSION, UNSPECIFIED Qualifiers: Hypotension type: unspecified hypotension type Qualified Code(s): I95.9 - Hypotension, unspecified (3) Transaminitis Code(s): R74.0 - NONSPEC ELEV OF LEVELS OF TRANSAMNS & LACTIC ACID DEHYDRGNSE (4) Lung cancer, hilus Code(s): C34.00 - MALIGNANT NEOPLASM OF UNSPECIFIED MAIN BRONCHUS
--- NOTE | 2018-06-07 18:08 | PN ---
Physical Exam: SUBJECTIVE: Patient seen and examined; anasarca; OBJECTIVE: Vital Signs Period Temp Pulse Resp BP Sys/Small Pulse Ox Last 24 Hr 97.9 F-98.7 F 89-96 18-20 144-174/72-96 91-91 GENERAL: The patient is obese male ; in discomfort due to pain HEAD: Normal with no signs of trauma. LUNGS; decreased breath sounds b/l HEART: Regular rate and rhythm, S1, S2 without murmur, rub or gallop. ABDOMEN: abdominal distention rebound, no hepatosplenomegaly, no masses. EXTREMITIES: 2+ pulses, warm, well-perfused, b/l UE/LE edema NEUROLOGICAL: Cranial nerves II through XII grossly intact. Normal speech, gait not observed. PSYCH: Normal mood, normal affect. SKIN: Warm, dry, normal turgor, no rashes or lesions noted Laboratory Results - last 24 hr 06/06/18 06/06/18 06/07/18 20:00 21:41 05:30 WBC RBC Hgb Hct MCV MCH MCHC RDW Plt Count MPV Absolute Neuts (auto) Neutrophils % Lymphocytes % Monocytes % Eosinophils % Basophils % Nucleated RBC % PTT (Actin FS) 43.6 H 40.2 H Sodium Potassium Chloride Carbon Dioxide Anion Gap BUN Creatinine Creat Clearance w eGFR POC Glucometer 117 Random Glucose Uric Acid Calcium Total Bilirubin AST ALT Alkaline Phosphatase Total Protein Albumin 06/07/18 06/07/18 06/07/18 05:30 05:30 06:18 WBC 4.3 RBC 3.36 L Hgb 10.8 L Hct 31.8 L MCV 94.4 MCH 32.0 MCHC 33.9 RDW 14.7 Plt Count 125 L MPV 8.1 Absolute Neuts (auto) 3.5 Neutrophils % 80.7 Lymphocytes % 11.9 Monocytes % 5.6 Eosinophils % 1.4 Basophils % 0.4 Nucleated RBC % 0 PTT (Actin FS) Sodium 140 Potassium 3.9 Chloride 104 Carbon Dioxide 28 Anion Gap 9 BUN 25 H Creatinine 7.6 H* Creat Clearance w eGFR 7.31 POC Glucometer 106 Random Glucose 95 Uric Acid 3.9 Calcium 7.7 L Total Bilirubin 0.9 AST 47 H ALT 132 H Alkaline Phosphatase 168 H Total Protein 5.6 L Albumin 2.2 L 02/20/19 02/20/19 02/20/19 12:02 14:30 17:01 WBC RBC Hgb Hct MCV MCH MCHC RDW Plt Count MPV Absolute Neuts (auto) Neutrophils % Lymphocytes % Monocytes % Eosinophils % Basophils % Nucleated RBC % PTT (Actin FS) 49.1 H Sodium Potassium Chloride Carbon Dioxide Anion Gap BUN Creatinine Creat Clearance w eGFR POC Glucometer 112 139 Random Glucose Uric Acid Calcium Total Bilirubin AST ALT Alkaline Phosphatase Total Protein Albumin Active Medications Generic Name Dose Route Start Last Admin Trade Name Freq PRN Reason Stop Dose Admin Allopurinol 500 mg 06/02/18 16:00 06/07/18 09:09 Zyloprim - PO 500 mg DAILY MONICA Administration Diazepam 10 mg 06/05/18 13:20 06/07/18 14:23 Valium - PO 10 mg Q6H PRN Administration ANXIETY Heparin Sodium (Porcine) 1,000 unit 06/04/18 12:04 06/07/18 15:39 Heparin - IVPUSH 1,000 unit PRN PRN Administration Heparin Heparin Sodium (Porcine) 5,000 unit 06/04/18 12:04 06/06/18 14:22 Heparin - IVPUSH 5,000 unit PRN PRN Administration Heparin Piperacillin Sod/Tazobactam 50 mls @ 100 mls/hr 06/02/18 18:00 06/07/18 17:03 Sod 2.25 gm/ Dextrose IVPB 100 mls/hr Q8H-IV MONICA Administration Protocol Heparin Sodium (Porcine) 25, 500 mls @ 20 mls/hr 06/04/18 12:15 06/07/18 15: 39 000 unit/ Sodium Chloride IV 2,100 unit/hr TITR MONICA 42 mls/hr Administration Protocol 1,000 UNIT/HR Sodium Chloride 250 mls @ 3,000 mls/hr 06/06/18 08:12 Normal Saline - IV 06/07/18 08:12 PRN PRN Hypotension during Dialysis Insulin Aspart 1 vial 06/03/18 22:00 06/07/18 17:03 Novolog Vial Sliding Scale - SQ Not Given ACHS [facility] Protocol Ondansetron HCl 4 mg 06/04/18 10:53 06/04/18 11:24 Zofran Injection IVPUSH 4 mg Q6H PRN Administration NAUSEA AND/OR VOMITING Oxycodone HCl 10 mg 06/05/18 15:07 06/07/18 12:04 Roxicodone - PO 10 mg Q4H PRN Administration PAIN LEVEL 4 - 6 ASSESSMENT/PLAN: This is a 63 year old male with a history of PE, adenocarcinma of the lung s/p carboplantin/alimpta chemotherapy; had interim of remission, now back on chemotherapy alimpta, who presents with complaints of lethargy, body aches, poor oral intake, no urine output since Tuesday, and an episode of rigors. In acute renal failure. Acute renal failure Adenocarinoma of lung; s/p alimpta hx of PE hyperuricemia transaminitis chronic back pain h/o pericardial effusion in 2014 s/p pericardial window -HD diuresis -making urine -creatinine improving Visit type - Emergency Visit Emergency Visit: Yes ED Registration Date: 06/01/18 Care time: The patient presented to the Emergency Department on the above date and was hospitalized for further evaluation of their emergent condition. - New Patient This patient is new to me today: No - Critical Care Critical Care patient: No
--- NOTE | 2018-06-07 18:54 | PN ---
Progress Note, Physician History of Present Illness: Pt seen/examined at bedside, feels weak with poor appetite, denies abdominal pain, n/v. Moving bowels, no blood. - Current Medication List Current Medications: Active Medications Allopurinol (Zyloprim -) 500 mg PO DAILY MONICA Last Admin: 06/07/18 09:09 Dose: 500 mg Diazepam (Valium -) 10 mg PO Q6H PRN PRN Reason: ANXIETY Last Admin: 06/07/18 14:23 Dose: 10 mg Heparin Sodium (Porcine) (Heparin -) 1,000 unit IVPUSH PRN PRN PRN Reason: Heparin Last Admin: 06/07/18 15:39 Dose: 1,000 unit Heparin Sodium (Porcine) (Heparin -) 5,000 unit IVPUSH PRN PRN PRN Reason: Heparin Last Admin: 06/06/18 14:22 Dose: 5,000 unit Piperacillin Sod/Tazobactam (Sod 2.25 gm/ Dextrose) 50 mls @ 100 mls/hr IVPB Q8H-IV MONICA; Protocol Last Admin: 06/07/18 17:03 Dose: 100 mls/hr Heparin Sodium (Porcine) 25, (000 unit/ Sodium Chloride) 500 mls @ 20 mls/hr IV TITR MONICA; Protocol Last Admin: 06/07/18 15:39 Dose: 2,100 unit/hr, 42 mls/hr Sodium Chloride (Normal Saline -) 250 mls @ 3,000 mls/hr IV PRN PRN PRN Reason: Hypotension during Dialysis Stop: 06/07/18 08:12 Insulin Aspart (Novolog Vial Sliding Scale -) 1 vial SQ ACHS MONICA; Protocol Last Admin: 06/07/18 17:03 Dose: Not Given Ondansetron HCl (Zofran Injection) 4 mg IVPUSH Q6H PRN PRN Reason: NAUSEA AND/OR VOMITING Last Admin: 06/04/18 11:24 Dose: 4 mg Oxycodone HCl (Roxicodone -) 10 mg PO Q4H PRN PRN Reason: PAIN LEVEL 4 - 6 Last Admin: 06/07/18 18:10 Dose: 10 mg - Objective Vital Signs: Vital Signs Temperature 98 F 06/07/18 14:25 Pulse Rate 96 H 06/07/18 14:25 Respiratory Rate 18 06/07/18 14:25 Blood Pressure 174/82 H 06/07/18 14:25 O2 Sat by Pulse Oximetry (%) 91 L 06/07/18 09:00 Constitutional: Yes: Well Nourished, No Distress, Calm Cardiovascular: Yes: WNL, Regular Rate and Rhythm Respiratory: Yes: WNL, Regular, CTA Bilaterally Gastrointestinal: Yes: WNL, Normal Bowel Sounds, Soft, Abdomen, Obese, Other ( Nontender, nondistended) Labs: CBC, BMP 06/07/18 05:30 06/07/18 05:30 INR, PTT INR 1.01 (0.83-1.09) 06/03/18 07:00 Problem List - Problems (1) Elevated liver enzymes Assessment/Plan: with previous alk phos elevation and evidence of hepatosplenomegaly with thrombocytopenia ?early cirrhosis. Etiology likely multifactorial in setting of possibly underlying NAFLD with acute on chronic injury in setting of medications vs ischemia/hypotension vs possible non-liver or bone origin for elevation in alk phos. Hepatitis panel negative. LFTs otherwise downtrending. -Continue to closely monitor LFT trend -Avoid nonessential hepatotoxic agents -Avoid hypotension -Check AMA r/o PBC and consider MRCP for further evaluation r/o biliary obstructive process, though low suspicion Code(s): R74.8 - ABNORMAL LEVELS OF OTHER SERUM ENZYMES
--- NOTE | 2018-06-07 20:07 | PN ---
Teaching Attending Note Name of Resident: Mary Swenson ATTENDING PHYSICIAN STATEMENT I saw and evaluated the patient. I reviewed the resident's note and discussed the case with the resident. I agree with the resident's findings and plan as documented. SUBJECTIVE Patient seen and examined Kidneys beginning to open up and function improving LFT's improving Disposition improving with clinical improvement Last Vital Signs Temp Pulse Resp BP Pulse Ox 98.0 F 94 H 18 142/75 91 L 06/07/18 17:30 06/07/18 17:30 06/07/18 17:30 06/07/18 17:30 06/07/18 09:00 HEENT: SHERRON, EOM Intact Cor: RSR, No murmurs, No gallops Lungs: Clear to P&A Abd: Soft, Normal bowel sounds, No organomegaly Ext:LE edema Skin: No rashes, Integument intact CBC, BMP 06/07/18 05:30 06/07/18 05:30 OBJECTIVE: ASSESSMENT AND PLAN: Current Medications Generic Name Dose Route Start Last Admin Trade Name Freq PRN Reason Stop Dose Admin Allopurinol 500 mg 06/02/18 16:00 06/07/18 09:09 Zyloprim - PO 500 mg DAILY MONICA Administration Diazepam 10 mg 06/05/18 13:20 06/07/18 14:23 Valium - PO 10 mg Q6H PRN Administration ANXIETY Heparin Sodium (Porcine) 1,000 unit 06/04/18 12:04 06/07/18 15:39 Heparin - IVPUSH 1,000 unit PRN PRN Administration Heparin Heparin Sodium (Porcine) 5,000 unit 06/04/18 12:04 06/06/18 14:22 Heparin - IVPUSH 5,000 unit PRN PRN Administration Heparin Piperacillin Sod/Tazobactam 50 mls @ 100 mls/hr 06/02/18 18:00 06/07/18 17:03 Sod 2.25 gm/ Dextrose IVPB 100 mls/hr Q8H-IV MONICA Administration Protocol Heparin Sodium (Porcine) 25, 500 mls @ 20 mls/hr 06/04/18 12:15 06/07/18 15: 39 000 unit/ Sodium Chloride IV 2,100 unit/hr TITR MONICA 42 mls/hr Administration Protocol 1,000 UNIT/HR Sodium Chloride 250 mls @ 3,000 mls/hr 06/06/18 08:12 Normal Saline - IV 06/07/18 08:12 PRN PRN Hypotension during Dialysis Insulin Aspart 1 vial 06/03/18 22:00 06/07/18 17:03 Novolog Vial Sliding Scale - SQ Not Given ACHS MONICA Protocol Ondansetron HCl 4 mg 06/04/18 10:53 06/04/18 11:24 Zofran Injection IVPUSH 4 mg Q6H PRN Administration NAUSEA AND/OR VOMITING Oxycodone HCl 10 mg 06/05/18 15:07 06/07/18 18:10 Roxicodone - PO 10 mg Q4H PRN Administration PAIN LEVEL 4 - 6 Impression: ?ATN from sepsis IGOR Adenoca of lung LFT abnormalities --? hypotension Continue current therpy.
[2018-06-08] MEDS ORDERED: PIPERACILLIN/TAZOBACTAM 2.25 GM VIAL IVPB ONE ×3 (01:59→16:06)
[2018-06-08] MEDS ORDERED: DEXTROSE 5%-WATER - 50 ML IVPB ONE ×3 (02:00→16:07)
[2018-06-08] MEDS: oxyCODONE HCL 5 MG TABLET PO PRN ×5 (02:04→18:00)
[2018-06-08] MEDS: PIPERACILLIN/TAZOB 2.25 GM 2.25 GM in DEXTROSE 5%-WATER - 50 ML IVPB SCH ×3 (02:04→17:18)
[2018-06-08] MEDS: diazePAM 5 MG TABLET PO PRN ×4 (02:05→21:53)
[2018-06-08] MEDS: INSULIN SLIDING SCALE (NOVOLOG) 1 VIAL SQ SCH ×4 (06:51→21:52)
[2018-06-08 09:01] LABS: ANION GAP 9 MMOL/L (8-16); BLOOD UREA NITROGEN 29 mg/dL (7-18); CALCIUM 7.9 mg/dL (8.5-10.1); CHLORIDE 104 mmol/L (98-107); CO2 28 mmol/L (21-32); GLUCOSE,RANDOM 115 mg/dL (74-106); MAGNESIUM 1.5 mg/dL (1.8-2.4); PHOSPHOROUS 5.7 mg/dL (2.5-4.9); POTASSIUM 4.3 mmol/L (3.5-5.1); SODIUM 141 mmol/L (136-145)
[2018-06-08] MEDS ORDERED: MAGNESIUM OXIDE 400 MG TABLET (FP) PO ONE (09:05)
[2018-06-08 09:41] LABS: CREATININE 8.7 mg/dL (0.55-1.3)
[2018-06-08] MEDS ORDERED: RANITIDINE HCL 150 MG TABLET (FP) PO PRN (10:10)
--- NOTE | 2018-06-08 10:13 | PN ---
GI Progress Note Subjective: No acute events States appetite improving a bit COomplains of acid reflux No abdominal pain Complains of arms and legs swelling - Objective Vital Signs: Vital Signs Temperature 98 F 06/08/18 05:28 Pulse Rate 100 H 06/08/18 05:28 Respiratory Rate 18 06/08/18 05:28 Blood Pressure 157/89 06/08/18 05:28 O2 Sat by Pulse Oximetry (%) 90 L 06/07/18 21:00 Constitutional: Calm Eyes: No: Sclera Icterus Cardiovascular: Yes: Tachycardia. No: Murmur Respiratory: Yes: CTA Bilaterally Gastrointestinal Inspection: No: Distention ...Auscultate: Yes: Normoactive Bowel Sounds ...Palpate: No: Hepatomegaly, Splenomegaly, Tenderness ...Percussion: No: Tympanitic Edema: Yes Edema: LUE: 1+, RUE: 2+, LLE: 2+, RLE: 2+ Labs: CBC, BMP 06/07/18 05:30 06/08/18 06:00 INR, PTT INR 1.01 (0.83-1.09) 06/03/18 07:00 Hepatic Panel Total Bilirubin 0.9 mg/dL (0.2-1) 06/07/18 05:30 Direct Bilirubin 0.8 mg/dL (0.0-0.2) H 06/05/18 05:25 AST 47 U/L (15-37) H 06/07/18 05:30 ALT 132 U/L (13-61) H 06/07/18 05:30 Alkaline Phosphatase 168 U/L (45-117) H 06/07/18 05:30 Albumin 2.2 g/dl (3.4-5.0) L 06/07/18 05:30 Problem List - Problems (1) Elevated liver enzymes Assessment/Plan: Continued normalizing trend. Continue to monitor. check GGT. Code(s): R74.8 - ABNORMAL LEVELS OF OTHER SERUM ENZYMES (2) Heartburn Assessment/Plan: Suspect precipitated by meds, including opiate analgesia affecting gastric motility Ordered Ranitidine 150mg daily PRN Evaluation of UE / LE edema per primary team Code(s): R12 - HEARTBURN
--- NOTE | 2018-06-08 10:17 | PN ---
Physical Exam: SUBJECTIVE: Patient seen and examined no new patients overnight. pt feels better today. states swelling in his body is decreaseing and he is making a good amount of urine. patient looks happy today. OBJECTIVE: Vital Signs Period Temp Pulse Resp BP Sys/Small Pulse Ox Last 24 Hr 98 F-98.9 F 92-100 18-18 142-174/75-89 90 GENERAL: Awake, alert, and fully oriented, in no acute distress. HEAD: Normal with no signs of trauma. EARS, NOSE, THROAT: moist mucous membranes. NECK: Normal range of motion, supple without lymphadenopathy, JVD, or masses. LUNGS: Breath sounds equal, clear to auscultation bilaterally. HEART: Regular rate and rhythm, normal S1 and S2 without murmur, ABDOMEN: Soft, no tenderness, not distended, normoactive bowel sounds. MUSCULOSKELETAL: Normal range of motion at all joints. UPPER EXTREMITIES: 2+ pulses, warm, well-perfused. No peripheral edema. LOWER EXTREMITIES: warm, well-perfused. peripheral edema 1+ SKIN: Warm, dry, Laboratory Results - last 24 hr 06/07/18 06/07/18 06/07/18 05:30 12:02 14:30 PTT (Actin FS) 49.1 H Sodium 140 Potassium 3.9 Chloride 104 Carbon Dioxide 28 Anion Gap 9 BUN 25 H Creatinine 7.6 H* Creat Clearance w eGFR 7.31 POC Glucometer 112 Random Glucose 95 Uric Acid 3.9 Calcium 7.7 L Phosphorus Magnesium Total Bilirubin 0.9 AST 47 H ALT 132 H Alkaline Phosphatase 168 H Total Protein 5.6 L Albumin 2.2 L 06/07/18 06/07/18 06/07/18 17:01 21:00 22:02 PTT (Actin FS) 49.2 H Sodium Potassium Chloride Carbon Dioxide Anion Gap BUN Creatinine Creat Clearance w eGFR POC Glucometer 139 121 Random Glucose Uric Acid Calcium Phosphorus Magnesium Total Bilirubin AST ALT Alkaline Phosphatase Total Protein Albumin 06/08/18 06/08/18 06/08/18 06:00 06:00 06:00 PTT (Actin FS) 51.5 H Sodium 141 Potassium 4.3 Chloride 104 Carbon Dioxide 28 Anion Gap 9 BUN 29 H Creatinine 8.7 H* Creat Clearance w eGFR 6.26 POC Glucometer 122 Random Glucose 115 H Uric Acid Calcium 7.9 L Phosphorus 5.7 H Magnesium 1.5 L Total Bilirubin AST ALT Alkaline Phosphatase Total Protein Albumin Active Medications Generic Name Dose Route Start Last Admin Trade Name Freq PRN Reason Stop Dose Admin Allopurinol 500 mg 06/02/18 16:00 06/07/18 09:09 Zyloprim - PO 500 mg DAILY MONICA Administration Diazepam 10 mg 06/05/18 13:20 06/08/18 07:56 Valium - PO 10 mg Q6H PRN Administration ANXIETY Heparin Sodium (Porcine) 1,000 unit 06/04/18 12:04 06/07/18 15:39 Heparin - IVPUSH 1,000 unit PRN PRN Administration Heparin Heparin Sodium (Porcine) 5,000 unit 06/04/18 12:04 06/06/18 14:22 Heparin - IVPUSH 5,000 unit PRN PRN Administration Heparin Piperacillin Sod/Tazobactam 50 mls @ 100 mls/hr 06/02/18 18:00 06/08/18 02:04 Sod 2.25 gm/ Dextrose IVPB 100 mls/hr Q8H-IV MONICA Administration Protocol Heparin Sodium (Porcine) 25, 500 mls @ 20 mls/hr 06/04/18 12:15 06/07/18 22: 03 000 unit/ Sodium Chloride IV 2,200 unit/hr TITR MONICA 44 mls/hr Administration Protocol 1,000 UNIT/HR Sodium Chloride 250 mls @ 3,000 mls/hr 06/06/18 08:12 Normal Saline - IV 06/07/18 08:12 PRN PRN Hypotension during Dialysis Insulin Aspart 1 vial 06/03/18 22:00 06/08/18 06:51 Novolog Vial Sliding Scale - SQ Not Given A[facility]S [facility] Protocol Oxycodone HCl 10 mg 06/05/18 15:07 06/08/18 06:04 Roxicodone - PO 10 mg Q4H PRN Administration PAIN LEVEL 4 - 6 Ranitidine HCl 150 mg 06/08/18 10:10 Zantac - PO DAILY PRN INDIGESTION ASSESSMENT/PLAN: :63 yom with PMhx of Adenoca of lung diagnosed in 04/2014, s/p Chemotherapy(carb/Alimta), currently on maintenance alimta since 2016, Also pleural/pericardial effusion with bilateral pulmonary embolism in 04/2014, s/p pericardial window, on lovenox, NIDDM, with 5 days of minimal po intake, no urinary outpatient, found with IGOR, hypotension -IGOR, ?from hypovolumia/poor oral intake/lasix+/- tumor lysis syndrome, r/o sepsis made 1900 ml of urine yesterday avoid nephrotoxic drugs nephro on case. repeat cr and bun in am daily weight 2d echo reviewed oncology on case nephrology on case -Lower uncomplicated UTI ID on case continue zosyn day 7 culture was sent post antibiotic pt afebrile - Abnormal LFTS, ?Liver metastasis, hypotension, avoid hepatotoxic dugs repeat lft in am gi on case cpk 58 NIDDM bgm insulin sliding scale thrombocytopenia; can be because of splenomegaly plt improved elevated uric acid continue allopurinol -H/o bilateral pulmonary embolism in 04/2014: hold lovenox for igor. continue heparin drip -Adenocarcinoma of lung diagnosed in 04/2014, s/p carb/alimta, now on maintenance alimta since 2015 -h/o pericardial effusion in 2014 s/p pericardial window Fluid; orally allowed electrolyte: repeat in am nutrition: diabetic and renal diet gi pro:not required dvt pro: on heparin drip dispo: tele Visit type - Emergency Visit Emergency Visit: Yes ED Registration Date: 06/01/18 Care time: The patient presented to the Emergency Department on the above date and was hospitalized for further evaluation of their emergent condition. - New Patient This patient is new to me today: No - Critical Care Critical Care patient: No
--- NOTE | 2018-06-08 10:26 | PN ---
Teaching Attending Note Name of Resident: Rohith Eduardo ATTENDING PHYSICIAN STATEMENT I saw and evaluated the patient. I reviewed the resident's note and discussed the case with the resident. I agree with the resident's findings and plan as documented. SUBJECTIVE: Mr Paul is without complaint today. No cp, sob, n/v. OBJECTIVE: Last Vital Signs Temp Pulse Resp BP Pulse Ox 36.6 C 100 H 18 157/89 90 L 06/08/18 05:28 06/08/18 05:28 06/08/18 05:28 06/08/18 05:28 06/07/18 21:00 Gen: nad, flat affect, obese Pulm: ctab w/o w/r/r CV: rrr w/o m/r/g Abd: +bs, s/nt/nd Ext: edema CBC, BMP 06/07/18 05:30 06/08/18 06:00 ASSESSMENT AND PLAN: (1) Acute kidney injury Assessment/Plan: -worsening today -s/p lasix 40mg IV daily x2 days -making urine -case d/w Dr Foley Code(s): N17.9 - ACUTE KIDNEY FAILURE, UNSPECIFIED (2) Acute CHF (congestive heart failure) Assessment/Plan: -still with edema but improved -renal injury complicating plan -will give lasix 40mg po x1 today Code(s): I50.9 - HEART FAILURE, UNSPECIFIED Qualifiers: Heart failure type: diastolic Qualified Code(s): I50.31 - Acute diastolic ( congestive) heart failure (3) Diabetes Assessment/Plan: -continue diabetic diet -FSBS and SSI Code(s): E11.9 - TYPE 2 DIABETES MELLITUS WITHOUT COMPLICATIONS (4) Hypertension Assessment/Plan: -will need better control -avoid ACEI/ARBs -will give lasix 40mg po x1 and add low dose beta claudy Code(s): I10 - ESSENTIAL (PRIMARY) HYPERTENSION (5) Elevated liver enzymes Assessment/Plan: -improved since admission -appreciate GI assistance Code(s): R74.8 - ABNORMAL LEVELS OF OTHER SERUM ENZYMES (6) Anxiety Assessment/Plan: -continue prn valium Code(s): F41.9 - ANXIETY DISORDER, UNSPECIFIED (7) Lung cancer, hilus Assessment/Plan: -heme/onc following Code(s): C34.00 - MALIGNANT NEOPLASM OF UNSPECIFIED MAIN BRONCHUS (8) h/o PE -on heparin gtt Problem List - Problems (1) Acute kidney injury Code(s): N17.9 - ACUTE KIDNEY FAILURE, UNSPECIFIED (2) Acute CHF (congestive heart failure) Code(s): I50.9 - HEART FAILURE, UNSPECIFIED Qualifiers: Qualified Code(s): I50.31 - Acute diastolic (congestive) heart failure (3) Diabetes Code(s): E11.9 - TYPE 2 DIABETES MELLITUS WITHOUT COMPLICATIONS (4) Hypertension Code(s): I10 - ESSENTIAL (PRIMARY) HYPERTENSION (5) Elevated liver enzymes Code(s): R74.8 - ABNORMAL LEVELS OF OTHER SERUM ENZYMES (6) Anxiety Code(s): F41.9 - ANXIETY DISORDER, UNSPECIFIED (7) Lung cancer, hilus Code(s): C34.00 - MALIGNANT NEOPLASM OF UNSPECIFIED MAIN BRONCHUS
[2018-06-08] MEDS ORDERED: METOPROLOL TARTRATE 25 MG TABLET (FP) PO SCH (10:33)
[2018-06-08] MEDS ORDERED: FUROSEMIDE 40 MG TABLET (FP) PO SCH (10:45)
[2018-06-08] MEDS ORDERED: FUROSEMIDE 40 MG TABLET (FP) PO ONE (10:45)
[2018-06-08] MEDS: HEPARIN - 25,000 UNIT in SODIUM CHLORIDE 495 ML IV SCH (11:10)
[2018-06-08] MEDS: ALLOPURINOL 100 MG TABLET (FP) PO SCH (12:24)
[2018-06-08] MEDS ORDERED: oxyCODONE HCL 5 MG TABLET PO PRN (15:56)
[2018-06-08] MEDS ORDERED: PATIENT'S OWN MEDICATION (NON-FORMULARY) (Oxycodone Hcl [Oxycodone Hcl] 10 MG) PO PRN (16:02)
--- NOTE | 2018-06-08 16:31 | PN ---
Progress Note, Physician History of Present Illness: Pt seen and examined at bedside. He feels that his appetite is a little better. He is making more urine. - Current Medication List Current Medications: Active Medications Allopurinol (Zyloprim -) 500 mg PO DAILY [facility] Last Admin: 06/08/18 12:24 Dose: 500 mg Diazepam (Valium -) 10 mg PO Q6H PRN PRN Reason: WITHDRAWAL(CONT SUBST) Stop: 06/11/18 15:57 Last Admin: 06/08/18 16:18 Dose: 10 mg Heparin Sodium (Porcine) (Heparin -) 1,000 unit IVPUSH PRN PRN PRN Reason: Heparin Last Admin: 06/07/18 15:39 Dose: 1,000 unit Heparin Sodium (Porcine) (Heparin -) 5,000 unit IVPUSH PRN PRN PRN Reason: Heparin Last Admin: 06/06/18 14:22 Dose: 5,000 unit Piperacillin Sod/Tazobactam (Sod 2.25 gm/ Dextrose) 50 mls @ 100 mls/hr IVPB Q8H-IV [facility]; Protocol Last Admin: 06/08/18 10:06 Dose: 100 mls/hr Heparin Sodium (Porcine) 25, (000 unit/ Sodium Chloride) 500 mls @ 20 mls/hr IV TITR [facility]; Protocol Last Admin: 06/08/18 11:10 Dose: 2,200 unit/hr, 44 mls/hr Insulin Aspart (Novolog Vial Sliding Scale -) 1 vial SQ ACHS [facility]; Protocol Last Admin: 06/08/18 12:26 Dose: Not Given Metoprolol Tartrate (Lopressor -) 25 mg PO DAILY [facility] Last Admin: 06/08/18 12:25 Dose: 25 mg Oxycodone HCl (Roxicodone -) 10 mg PO Q6H PRN PRN Reason: PAIN LEVEL 6-10 Ranitidine HCl (Zantac -) 150 mg PO DAILY PRN PRN Reason: INDIGESTION - Objective Vital Signs: Vital Signs Temperature 99 F 06/08/18 14:10 Pulse Rate 97 H 06/08/18 14:10 Respiratory Rate 18 06/08/18 14:10 Blood Pressure 144/67 06/08/18 14:10 O2 Sat by Pulse Oximetry (%) 90 L 06/08/18 09:10 Constitutional: Yes: Calm Eyes: Yes: Conjunctiva Clear HENT: Yes: Atraumatic Cardiovascular: Yes: S1, S2 Respiratory: Yes: CTA Bilaterally Gastrointestinal: Yes: Soft, Abdomen, Obese Genitourinary: Yes: WNL Musculoskeletal: Yes: WNL Edema: Yes Edema: LLE: 1+, RLE: 1+ Integumentary: Yes: WNL Neurological: Yes: Oriented Psychiatric: Yes: Oriented Labs: CBC, BMP 06/07/18 05:30 06/08/18 06:00 INR, PTT INR 1.01 (0.83-1.09) 06/03/18 07:00 Problem List - Problems (1) Acute kidney injury Code(s): N17.9 - ACUTE KIDNEY FAILURE, UNSPECIFIED (2) Dehydration Code(s): E86.0 - DEHYDRATION (3) Prerenal azotemia Code(s): R79.89 - OTHER SPECIFIED ABNORMAL FINDINGS OF BLOOD CHEMISTRY Assessment/Plan Current Medications Generic Name Dose Route Start Last Admin Trade Name Freq PRN Reason Stop Dose Admin Allopurinol 500 mg 06/02/18 16:00 06/08/18 12:24 Zyloprim - PO 500 mg DAILY [facility] Administration Diazepam 10 mg 06/08/18 15:57 06/08/18 16:18 Valium - PO 06/11/18 15:57 10 mg Q6H PRN Administration WITHDRAWAL(CONT SUBST) Heparin Sodium (Porcine) 1,000 unit 06/04/18 12:04 06/07/18 15:39 Heparin - IVPUSH 1,000 unit PRN PRN Administration Heparin Heparin Sodium (Porcine) 5,000 unit 06/04/18 12:04 06/06/18 14:22 Heparin - IVPUSH 5,000 unit PRN PRN Administration Heparin Piperacillin Sod/Tazobactam 50 mls @ 100 mls/hr 06/02/18 18:00 06/08/18 10:06 Sod 2.25 gm/ Dextrose IVPB 100 mls/hr Q8H-IV [facility] Administration Protocol Heparin Sodium (Porcine) 25, 500 mls @ 20 mls/hr 06/04/18 12:15 06/08/18 11: 10 000 unit/ Sodium Chloride IV 2,200 unit/hr TITR [facility] 44 mls/hr Administration Protocol 1,000 UNIT/HR Insulin Aspart 1 vial 06/03/18 22:00 06/08/18 12:26 Novolog Vial Sliding Scale - SQ Not Given ACHS [facility] Protocol Metoprolol Tartrate 25 mg 06/08/18 10:33 06/08/18 12:25 Lopressor - PO 25 mg DAILY [facility] Administration Oxycodone HCl 10 mg 06/08/18 16:10 Roxicodone - PO Q6H PRN PAIN LEVEL 6-10 Ranitidine HCl 150 mg 06/08/18 10:10 Zantac - PO DAILY PRN INDIGESTION Impression 1. lung cancer 2. IGOR 3. hyponatremia 4. fever/chills 5. decreased appetite/nausea Plan - cont to monitor renal function - pt is making more urine - will hold off HD as he is showing signs of recovery - encourage PO intake - can give a dose of lasix today - likely recovering ATN - renal workup in progress Dr Foley
[2018-06-09] MEDS: oxyCODONE HCL 5 MG TABLET PO PRN ×4 (00:22→16:42)
[2018-06-09] MEDS ORDERED: DEXTROSE 5%-WATER - 50 ML IVPB ONE ×2 (02:34→09:20)
[2018-06-09] MEDS ORDERED: PIPERACILLIN/TAZOBACTAM 2.25 GM VIAL IVPB ONE ×2 (02:34→09:20)
[2018-06-09] MEDS: PIPERACILLIN/TAZOB 2.25 GM 2.25 GM in DEXTROSE 5%-WATER - 50 ML IVPB SCH ×2 (02:40→09:52)
[2018-06-09] MEDS: diazePAM 5 MG TABLET PO PRN ×3 (05:39→19:54)
[2018-06-09] MEDS: INSULIN SLIDING SCALE (NOVOLOG) 1 VIAL SQ SCH ×4 (06:10→22:12)
[2018-06-09 08:55] LABS: ALBUMIN 2.2 g/dl (3.4-5.0); ALK PHOS 148 U/L (45-117); ANION GAP 11 MMOL/L (8-16); BILIRUBIN,TOTAL 0.7 mg/dL (0.2-1); BLOOD UREA NITROGEN 32 mg/dL (7-18); CALCIUM 7.6 mg/dL (8.5-10.1); CHLORIDE 102 mmol/L (98-107); CO2 24 mmol/L (21-32); GLUCOSE,RANDOM 152 mg/dL (74-106); MAGNESIUM 1.9 mg/dL (1.8-2.4); POTASSIUM 3.7 mmol/L (3.5-5.1); SGOT/AST 32 U/L (15-37); SGPT/ALT 87 U/L (13-61); SODIUM 136 mmol/L (136-145); TOT PROT 5.9 g/dl (6.4-8.2)
[2018-06-09 09:03] LABS: CREATININE 9.1 mg/dL (0.55-1.3)
[2018-06-09] MEDS ORDERED: METOPROLOL TARTRATE 25 MG TABLET (FP) PO SCH ×2 (09:35→10:00)
--- NOTE | 2018-06-09 09:49 | PN ---
Progress Note (short form) - Note Progress Note: increasing urine output still with edema of his legs and hands Vital Signs Period Temp Pulse Resp BP Sys/Small Pulse Ox Last 24 Hr 98.5 F-99.1 F 97-112 18-20 96-144/51-67 92 cor-rrr lungs decreased bs at bases abd soft,nt ext +edema CBC, BMP 06/07/18 05:30 06/09/18 06:25 Microbiology 06/03/18 09:03 Urine - Urine Flor Urine Culture - Final NO GROWTH OBTAINED blood cultures negative a/p Acute renal failure- oliguric- suspect ATN elevated uric acid abnormal lfts- ?resolving fevers/rigors-?infection but no source evident- +UA but obtained after antiibotics started has completed 7 days of zosyn, will d/c metastatic adenoca of the lung d/w hospitalist please call back if needed Problem List - Problems (1) Acute renal failure Code(s): N17.9 - ACUTE KIDNEY FAILURE, UNSPECIFIED (2) Hypotension Code(s): I95.9 - HYPOTENSION, UNSPECIFIED Qualifiers: Hypotension type: unspecified hypotension type Qualified Code(s): I95.9 - Hypotension, unspecified (3) Transaminitis Code(s): R74.0 - NONSPEC ELEV OF LEVELS OF TRANSAMNS & LACTIC ACID DEHYDRGNSE (4) Lung cancer, hilus Code(s): C34.00 - MALIGNANT NEOPLASM OF UNSPECIFIED MAIN BRONCHUS
[2018-06-09] MEDS: ALLOPURINOL 100 MG TABLET (FP) PO SCH (09:50)
--- NOTE | 2018-06-09 11:38 | PN ---
Progress Note, Physician History of Present Illness: Pt seen and examined at bedside. he is awake and alert. He is agitated today. He is making more urine. He feels appetite is better. - Current Medication List Current Medications: Active Medications Allopurinol (Zyloprim -) 500 mg PO DAILY [facility] Last Admin: 06/09/18 09:50 Dose: 500 mg Diazepam (Valium -) 10 mg PO Q6H PRN PRN Reason: WITHDRAWAL(CONT SUBST) Stop: 06/11/18 15:57 Last Admin: 06/08/18 21:53 Dose: 10 mg Heparin Sodium (Porcine) (Heparin -) 1,000 unit IVPUSH PRN PRN PRN Reason: Heparin Last Admin: 06/07/18 15:39 Dose: 1,000 unit Heparin Sodium (Porcine) (Heparin -) 5,000 unit IVPUSH PRN PRN PRN Reason: Heparin Last Admin: 06/06/18 14:22 Dose: 5,000 unit Heparin Sodium (Porcine) 25, (000 unit/ Sodium Chloride) 500 mls @ 20 mls/hr IV TITR [facility]; Protocol Last Admin: 06/08/18 11:10 Dose: 2,200 unit/hr, 44 mls/hr Insulin Aspart (Novolog Vial Sliding Scale -) 1 vial SQ ACHS [facility]; Protocol Last Admin: 06/09/18 06:10 Dose: 1 unit Metoprolol Tartrate (Lopressor -) 25 mg PO DAILY [facility] Oxycodone HCl (Roxicodone -) 10 mg PO Q6H PRN PRN Reason: PAIN LEVEL 6-10 Last Admin: 06/09/18 09:48 Dose: 10 mg Ranitidine HCl (Zantac -) 150 mg PO DAILY PRN PRN Reason: INDIGESTION Last Admin: 06/09/18 09:50 Dose: 150 mg - Objective Vital Signs: Vital Signs Temperature 98.8 F 06/09/18 09:00 Pulse Rate 111 H 06/09/18 09:00 Respiratory Rate 20 06/09/18 09:00 Blood Pressure 96/51 L 06/09/18 09:00 O2 Sat by Pulse Oximetry (%) 92 L 06/08/18 21:00 Constitutional: Yes: Calm Eyes: Yes: Conjunctiva Clear HENT: Yes: Atraumatic Cardiovascular: Yes: S1, S2 Respiratory: Yes: CTA Bilaterally Gastrointestinal: Yes: Soft Genitourinary: Yes: WNL Musculoskeletal: Yes: WNL Edema: Yes Edema: LLE: 1+, RLE: 1+ Neurological: Yes: Oriented Psychiatric: Yes: Oriented Labs: CBC, BMP 06/07/18 05:30 06/09/18 06:25 INR, PTT INR 1.01 (0.83-1.09) 06/03/18 07:00 Problem List - Problems (1) Acute kidney injury Code(s): N17.9 - ACUTE KIDNEY FAILURE, UNSPECIFIED (2) Dehydration Code(s): E86.0 - DEHYDRATION (3) Prerenal azotemia Code(s): R79.89 - OTHER SPECIFIED ABNORMAL FINDINGS OF BLOOD CHEMISTRY Assessment/Plan Current Medications Generic Name Dose Route Start Last Admin Trade Name Freq PRN Reason Stop Dose Admin Allopurinol 500 mg 06/02/18 16:00 06/09/18 09:50 Zyloprim - PO 500 mg DAILY [facility] Administration Diazepam 10 mg 06/08/18 15:57 06/08/18 21:53 Valium - PO 06/11/18 15:57 10 mg Q6H PRN Administration WITHDRAWAL(CONT SUBST) Heparin Sodium (Porcine) 1,000 unit 06/04/18 12:04 06/07/18 15:39 Heparin - IVPUSH 1,000 unit PRN PRN Administration Heparin Heparin Sodium (Porcine) 5,000 unit 06/04/18 12:04 06/06/18 14:22 Heparin - IVPUSH 5,000 unit PRN PRN Administration Heparin Heparin Sodium (Porcine) 25, 500 mls @ 20 mls/hr 06/04/18 12:15 06/08/18 11: 10 000 unit/ Sodium Chloride IV 2,200 unit/hr TITR [facility] 44 mls/hr Administration Protocol 1,000 UNIT/HR Insulin Aspart 1 vial 06/03/18 22:00 06/09/18 06:10 Novolog Vial Sliding Scale - SQ 1 unit ACHS [facility] Administration Protocol Metoprolol Tartrate 25 mg 06/10/18 10:00 Lopressor - PO DAILY [facility] Oxycodone HCl 10 mg 06/08/18 16:10 06/09/18 09:48 Roxicodone - PO 10 mg Q6H PRN Administration PAIN LEVEL 6-10 Ranitidine HCl 150 mg 06/08/18 10:10 06/09/18 09:50 Zantac - PO 150 mg DAILY PRN Administration INDIGESTION Laboratory Tests 06/03/18 07:00 ALISE M-Quinn Not observed LUANA Screen Negative c-ANCA <1:20 Proteinase 3 (PR3) <3.5 p-ANCA <1:20 Atypical p-ANCA <1:20 Myeloperoxidase Ab <9.0 Double Strand DNA Ab 1 Glomerular Base Memb Ab 5 Impression 1. lung cancer 2. IGOR 3. hyponatremia 4. fever/chills 5. decreased appetite/nausea Plan - will give 40 mg of lasix - monitor renal function - pt made over 2 liters of urine yesterday and is showing signs of recovery - likely atn - kidney biopsy would be difficult on anticoagulation, possible next week if renal function does not improve - serologic workup negative - will repeat ua Dr Foley
--- NOTE | 2018-06-09 12:37 | PN ---
Physical Exam: SUBJECTIVE: Patient seen and examined no new events overnight OBJECTIVE: Vital Signs Period Temp Pulse Resp BP Sys/Small Pulse Ox Last 24 Hr 98.5 F-99.1 F 97-112 18-20 96-144/51-67 92 GENERAL: Awake, alert, and fully oriented, in no acute distress. HEAD: Normal with no signs of trauma. EARS, NOSE, THROAT: moist mucous membranes. NECK: Normal range of motion, supple without lymphadenopathy, JVD, or masses. LUNGS: Breath sounds equal, clear to auscultation bilaterally. HEART: Regular rate and rhythm, normal S1 and S2 without murmur, ABDOMEN: Soft, no tenderness, not distended, normoactive bowel sounds. MUSCULOSKELETAL: Normal range of motion at all joints. UPPER EXTREMITIES: 2+ pulses, warm, well-perfused. No peripheral edema. LOWER EXTREMITIES: warm, well-perfused. peripheral edema 1+ SKIN: Warm, dry, Laboratory Results - last 24 hr 06/08/18 06/08/18 06/08/18 11:24 17:16 21:49 PTT (Actin FS) Sodium Potassium Chloride Carbon Dioxide Anion Gap BUN Creatinine Creat Clearance w eGFR POC Glucometer 139 124 164 Random Glucose Calcium Magnesium Total Bilirubin AST ALT Alkaline Phosphatase Total Protein Albumin 06/09/18 06/09/18 06/09/18 05:41 06:25 06:25 PTT (Actin FS) 50.5 H Sodium 136 Potassium 3.7 Chloride 102 Carbon Dioxide 24 Anion Gap 11 BUN 32 H Creatinine 9.1 H* Creat Clearance w eGFR 5.94 POC Glucometer 165 Random Glucose 152 H Calcium 7.6 L Magnesium 1.9 Total Bilirubin 0.7 AST 32 ALT 87 H Alkaline Phosphatase 148 H Total Protein 5.9 L Albumin 2.2 L 06/09/18 12:31 PTT (Actin FS) Sodium Potassium Chloride Carbon Dioxide Anion Gap BUN Creatinine Creat Clearance w eGFR POC Glucometer 171 Random Glucose Calcium Magnesium Total Bilirubin AST ALT Alkaline Phosphatase Total Protein Albumin Active Medications Generic Name Dose Route Start Last Admin Trade Name Freq PRN Reason Stop Dose Admin Allopurinol 500 mg 06/02/18 16:00 06/09/18 09:50 Zyloprim - PO 500 mg DAILY [facility] Administration Diazepam 10 mg 06/08/18 15:57 06/08/18 21:53 Valium - PO 06/11/18 15:57 10 mg Q6H PRN Administration WITHDRAWAL(CONT SUBST) Heparin Sodium (Porcine) 1,000 unit 06/04/18 12:04 06/07/18 15:39 Heparin - IVPUSH 1,000 unit PRN PRN Administration Heparin Heparin Sodium (Porcine) 5,000 unit 06/04/18 12:04 06/06/18 14:22 Heparin - IVPUSH 5,000 unit PRN PRN Administration Heparin Heparin Sodium (Porcine) 25, 500 mls @ 20 mls/hr 06/04/18 12:15 06/08/18 11: 10 000 unit/ Sodium Chloride IV 2,200 unit/hr TITR [facility] 44 mls/hr Administration Protocol 1,000 UNIT/HR Insulin Aspart 1 vial 06/03/18 22:00 06/09/18 06:10 Novolog Vial Sliding Scale - SQ 1 unit ACHS [facility] Administration Protocol Metoprolol Tartrate 25 mg 06/10/18 10:00 Lopressor - PO DAILY [facility] Oxycodone HCl 10 mg 06/08/18 16:10 06/09/18 09:48 Roxicodone - PO 10 mg Q6H PRN Administration PAIN LEVEL 6-10 Ranitidine HCl 150 mg 06/08/18 10:10 06/09/18 09:50 Zantac - PO 150 mg DAILY PRN Administration INDIGESTION ASSESSMENT/PLAN:63 yom with PMhx of Adenoca of lung diagnosed in 04/2014, s/p Chemotherapy(carb/Alimta), currently on maintenance alimta since 2016, Also pleural/pericardial effusion with bilateral pulmonary embolism in 04/2014, s/p pericardial window, on lovenox, NIDDM, with 5 days of minimal po intake, no urinary outpatient, 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 daily weight 2d echo reviewed oncology on case nephrology on case serology negative so far -Lower uncomplicated UTI off from antibiotisc Abnormal LFTS, ?Liver metastasis, hypotension, improving NIDDM bgm insulin sliding scale thrombocytopenia; plt improved elevated uric acid continue allopurinol -H/o bilateral pulmonary embolism in 04/2014: hold lovenox for igor. continue heparin drip -Adenocarcinoma of lung diagnosed in 04/2014, s/p carb/alimta, now on maintenance alimta since 2016 -h/o pericardial effusion in 2014 s/p pericardial window Fluid; orally allowed electrolyte: repeat in am nutrition: diabetic and renal diet gi pro:not required dvt pro: on heparin drip dispo:med surg Visit type - Emergency Visit Emergency Visit: Yes ED Registration Date: 06/01/18 Care time: The patient presented to the Emergency Department on the above date and was hospitalized for further evaluation of their emergent condition. - New Patient This patient is new to me today: No - Critical Care Critical Care patient: No
[2018-06-09] MEDS ORDERED: RANITIDINE HCL 150 MG TABLET (FP) PO PRN (13:53)
[2018-06-09] MEDS ORDERED: HEPARIN NA (PORCINE) 5,000 UNITS/ML 1ML VIAL IVPUSH PRN ×4 (13:53)
[2018-06-09] MEDS ORDERED: oxyCODONE HCL 5 MG TABLET PO PRN (13:53)
[2018-06-09] MEDS ORDERED: HEPARIN - 25,000 UNIT in SODIUM CHLORIDE 495 ML IV SCH ×2 (13:53→17:45)
--- NOTE | 2018-06-09 13:53 | PN ---
Teaching Attending Note Name of Resident: Rohith Eduardo ATTENDING PHYSICIAN STATEMENT I saw and evaluated the patient. I reviewed the resident's note and discussed the case with the resident. I agree with the resident's findings and plan as documented. SUBJECTIVE: Mr Paul mainly complains about how many pills he has to take and how he does not want to take them. Will not give me subjective today. OBJECTIVE: Last Vital Signs Temp Pulse Resp BP Pulse Ox 37.1 C 111 H 20 96/51 L 94 L 06/09/18 09:00 06/09/18 09:00 06/09/18 09:00 06/09/18 09:00 06/09/18 09:00 Gen: nad, obese Pulm: ctab w/o w/r/r CV: rrr w/o m/r/g Abd: +bs, s/nt/nd Ext: BLE edema CBC, BMP 06/07/18 05:30 06/09/18 06:25 ASSESSMENT AND PLAN: -will hold on metoprolol today secondary to low blood pressure -creatinine increased but patient making urine, produced 2L yesterday -case d/w Dr Foley -repeat lasix 40mg today -continue heparin gtt for h/o PE -ID following, finished full course of antibiotics -continue current management Problem List - Problems (1) Acute kidney injury Code(s): N17.9 - ACUTE KIDNEY FAILURE, UNSPECIFIED (2) Acute CHF (congestive heart failure) Code(s): I50.9 - HEART FAILURE, UNSPECIFIED Qualifiers: Heart failure type: diastolic Qualified Code(s): I50.31 - Acute diastolic ( congestive) heart failure (3) Diabetes Code(s): E11.9 - TYPE 2 DIABETES MELLITUS WITHOUT COMPLICATIONS (4) Hypertension Code(s): I10 - ESSENTIAL (PRIMARY) HYPERTENSION (5) Elevated liver enzymes Code(s): R74.8 - ABNORMAL LEVELS OF OTHER SERUM ENZYMES (6) Anxiety Code(s): F41.9 - ANXIETY DISORDER, UNSPECIFIED (7) Lung cancer, hilus Code(s): C34.00 - MALIGNANT NEOPLASM OF UNSPECIFIED MAIN BRONCHUS
[2018-06-09] MEDS ORDERED: FUROSEMIDE 40 MG TABLET (FP) PO ONE (15:30)
[2018-06-09 16:59] VITALS: BMI 44.3
[2018-06-09] MEDS: HEPARIN - 25,000 UNIT in SODIUM CHLORIDE 495 ML IV SCH ×2 (18:00→20:11)
[2018-06-10] MEDS: oxyCODONE HCL 5 MG TABLET PO PRN ×6 (00:27→23:08)
[2018-06-10] MEDS: diazePAM 5 MG TABLET PO PRN ×3 (03:39→20:28)
[2018-06-10] MEDS: INSULIN SLIDING SCALE (NOVOLOG) 1 VIAL SQ SCH ×4 (06:28→22:01)
[2018-06-10] MEDS: HEPARIN - 25,000 UNIT in SODIUM CHLORIDE 495 ML IV SCH ×2 (06:54→20:29)
[2018-06-10 09:08] LABS: ALBUMIN 2.2 g/dl (3.4-5.0); ALK PHOS 131 U/L (45-117); ANION GAP 8 MMOL/L (8-16); BILIRUBIN,TOTAL 0.7 mg/dL (0.2-1); BLOOD UREA NITROGEN 35 mg/dL (7-18); CALCIUM 7.7 mg/dL (8.5-10.1); CHLORIDE 102 mmol/L (98-107); CO2 27 mmol/L (21-32); GLUCOSE,RANDOM 126 mg/dL (74-106); MAGNESIUM 1.8 mg/dL (1.8-2.4); POTASSIUM 3.8 mmol/L (3.5-5.1); SGOT/AST 25 U/L (15-37); SGPT/ALT 70 U/L (13-61); SODIUM 137 mmol/L (136-145); TOT PROT 5.7 g/dl (6.4-8.2)
[2018-06-10 09:15] LABS: CREATININE 9.4 mg/dL (0.55-1.3)
[2018-06-10] MEDS: METOPROLOL TARTRATE 25 MG TABLET (FP) PO SCH (09:58)
[2018-06-10] MEDS ORDERED: ALLOPURINOL 100 MG TABLET (FP) PO SCH (10:00)
[2018-06-10] MEDS ORDERED: METOPROLOL TARTRATE 25 MG TABLET (FP) PO SCH (10:00)
--- NOTE | 2018-06-10 12:42 | PN ---
Progress Note (short form) - Note Progress Note: covering dr kaiser problems 1. lung cancer 2. IGOR 3. hyponatremia 4. fever/chills 5. decreased appetite/nausea Current Medications Allopurinol (Zyloprim -) 500 mg PO DAILY [facility] Last Admin: 06/10/18 09:57 Dose: 500 mg Diazepam (Valium -) 10 mg PO Q6H PRN PRN Reason: WITHDRAWAL(CONT SUBST) Stop: 06/11/18 15:57 Last Admin: 06/10/18 03:39 Dose: 10 mg Heparin Sodium (Porcine) (Heparin -) 1,000 unit IVPUSH PRN PRN PRN Reason: Heparin Heparin Sodium (Porcine) (Heparin -) 5,000 unit IVPUSH PRN PRN PRN Reason: Heparin Heparin Sodium (Porcine) 25, (000 unit/ Sodium Chloride) 500 mls @ 44 mls/hr IV TITR [facility]; Protocol Last Titration: 06/10/18 11:01 Dose: 2,200 unit/hr, 44 mls/hr Insulin Aspart (Novolog Vial Sliding Scale -) 1 vial SQ ACHS [facility]; Protocol Last Admin: 06/10/18 06:28 Dose: Not Given Metoprolol Tartrate (Lopressor -) 25 mg PO DAILY [facility] Last Admin: 06/10/18 09:58 Dose: 25 mg Oxycodone HCl (Roxicodone -) 10 mg PO Q4H PRN PRN Reason: PAIN LEVEL 6-10 Last Admin: 06/10/18 10:03 Dose: 10 mg Ranitidine HCl (Zantac -) 150 mg PO DAILY PRN PRN Reason: INDIGESTION Last Vital Signs Temp Pulse Resp BP Pulse Ox 98.4 F 103 H 18 113/66 94 L 06/10/18 06:00 06/10/18 10:00 06/10/18 10:00 06/10/18 10:00 06/10/18 09:00 Intake & Output 06/09/18 06/10/18 06/10/18 23:59 07:59 15:59 Intake Total 550 1028 Output Total 500 Balance 550 528 Weight 317 lb 3 oz alert in nad lungs clear heart reg abd soft nontender ext moderate generalized edema CBC, BMP 06/07/18 05:30 06/10/18 07:00 Plan - will give 40 mg of lasix - monitor renal function - pt made over 2 liters of urine yesterday and is showing signs of recovery - likely atn - kidney biopsy would be difficult on anticoagulation, possible next week if renal function does not improve - serologic workup negative - will repeat ua
--- NOTE | 2018-06-10 16:17 | PN ---
Progress Note, Physician Chief Complaint: Mr Paul complains about how many pills he is taking. Denies cp, sob, n/v. States he is still urinating. - Current Medication List Current Medications: Active Medications Allopurinol (Zyloprim -) 100 mg PO DAILY [facility] Diazepam (Valium -) 10 mg PO Q6H PRN PRN Reason: WITHDRAWAL(CONT SUBST) Stop: 06/11/18 15:57 Last Admin: 06/10/18 12:47 Dose: 10 mg Heparin Sodium (Porcine) (Heparin -) 1,000 unit IVPUSH PRN PRN PRN Reason: Heparin Heparin Sodium (Porcine) (Heparin -) 5,000 unit IVPUSH PRN PRN PRN Reason: Heparin Heparin Sodium (Porcine) 25, (000 unit/ Sodium Chloride) 500 mls @ 44 mls/hr IV TITR [facility]; Protocol Last Titration: 06/10/18 11:01 Dose: 2,200 unit/hr, 44 mls/hr Insulin Aspart (Novolog Vial Sliding Scale -) 1 vial SQ ACHS [facility]; Protocol Last Admin: 06/10/18 13:25 Dose: 1 unit Metoprolol Tartrate (Lopressor -) 25 mg PO DAILY [facility] Last Admin: 06/10/18 09:58 Dose: 25 mg Oxycodone HCl (Roxicodone -) 10 mg PO Q4H PRN PRN Reason: PAIN LEVEL 6-10 Last Admin: 06/10/18 15:10 Dose: 10 mg Ranitidine HCl (Zantac -) 150 mg PO DAILY PRN PRN Reason: INDIGESTION - Objective Vital Signs: Vital Signs Temperature 36.7 C 06/10/18 13:54 Pulse Rate 89 06/10/18 13:54 Respiratory Rate 20 06/10/18 13:54 Blood Pressure 126/82 06/10/18 13:54 O2 Sat by Pulse Oximetry (%) 94 L 06/10/18 09:00 Constitutional: Yes: No Distress, Calm, Obese Cardiovascular: Yes: Regular Rate and Rhythm. No: Gallop, Murmur, Rub Respiratory: Yes: Regular, CTA Bilaterally. No: Rales, Rhonchi, Wheezes Gastrointestinal: Yes: Normal Bowel Sounds, Soft. No: Distention, Tenderness Extremities: Yes: WNL Edema: No Labs: CBC, BMP 06/07/18 05:30 06/10/18 07:00 INR, PTT INR 1.01 (0.83-1.09) 06/03/18 07:00 Problem List - Problems (1) Acute kidney injury Code(s): N17.9 - ACUTE KIDNEY FAILURE, UNSPECIFIED (2) Acute CHF (congestive heart failure) Code(s): I50.9 - HEART FAILURE, UNSPECIFIED Qualifiers: Heart failure type: diastolic Qualified Code(s): I50.31 - Acute diastolic ( congestive) heart failure (3) Diabetes Code(s): E11.9 - TYPE 2 DIABETES MELLITUS WITHOUT COMPLICATIONS (4) Hypertension Code(s): I10 - ESSENTIAL (PRIMARY) HYPERTENSION (5) Elevated liver enzymes Code(s): R74.8 - ABNORMAL LEVELS OF OTHER SERUM ENZYMES (6) Anxiety Code(s): F41.9 - ANXIETY DISORDER, UNSPECIFIED (7) Lung cancer, hilus Code(s): C34.00 - MALIGNANT NEOPLASM OF UNSPECIFIED MAIN BRONCHUS Assessment/Plan -creatinine slightly increased but patient says he is urinating -will continue to monitor off of IVF and lasix for improvement -decrease allopurinol to 100mg daily since uric acid has been treated -continue heparin gtt for h/o PE -s/p full course antibiotics -continue current management -will d/w nephrology on Tuesday if needs biopsy and HD
--- NOTE | 2018-06-10 19:14 | PN ---
Progress Note, Physician Chief Complaint: IGOR History of Present Illness: Reports decrease in arm/leg swelling. Denies SOB. Concerned about HD in the future. - Current Medication List Current Medications: Active Medications Allopurinol (Zyloprim -) 100 mg PO DAILY [facility] Diazepam (Valium -) 10 mg PO Q6H PRN PRN Reason: WITHDRAWAL(CONT SUBST) Stop: 06/11/18 15:57 Last Admin: 06/10/18 12:47 Dose: 10 mg Heparin Sodium (Porcine) (Heparin -) 1,000 unit IVPUSH PRN PRN PRN Reason: Heparin Heparin Sodium (Porcine) (Heparin -) 5,000 unit IVPUSH PRN PRN PRN Reason: Heparin Heparin Sodium (Porcine) 25, (000 unit/ Sodium Chloride) 500 mls @ 44 mls/hr IV TITR [facility]; Protocol Last Titration: 06/10/18 11:01 Dose: 2,200 unit/hr, 44 mls/hr Insulin Aspart (Novolog Vial Sliding Scale -) 1 vial SQ ACHS [facility]; Protocol Last Admin: 06/10/18 16:48 Dose: Not Given Metoprolol Tartrate (Lopressor -) 25 mg PO DAILY [facility] Last Admin: 06/10/18 09:58 Dose: 25 mg Oxycodone HCl (Roxicodone -) 10 mg PO Q4H PRN PRN Reason: PAIN LEVEL 6-10 Last Admin: 06/10/18 15:10 Dose: 10 mg Ranitidine HCl (Zantac -) 150 mg PO DAILY PRN PRN Reason: INDIGESTION - Objective Vital Signs: Vital Signs Temperature 98.4 F 06/10/18 17:00 Pulse Rate 86 06/10/18 17:00 Respiratory Rate 20 06/10/18 17:00 Blood Pressure 138/84 06/10/18 17:00 O2 Sat by Pulse Oximetry (%) 94 L 06/10/18 09:00 Constitutional: Yes: No Distress, Calm Cardiovascular: Yes: Regular Rate and Rhythm Respiratory: Yes: Regular, CTA Bilaterally Gastrointestinal: Yes: Soft, Distention Edema: LLE: 2+, RLE: 2+ Labs: CBC, BMP 06/07/18 05:30 06/10/18 07:00 INR, PTT INR 1.01 (0.83-1.09) 06/03/18 07:00 Assessment/Plan 63M with metastatic NSCLC, with controlled disease on Alimta, admitted with IGOR thought to be 2/2 ATN after a suspected long period of dehydration and hypotension. Creatinine persistently high but good urine output and less edema. On Lasix. On UFH for PE, PTTs at goal
[2018-06-10] MEDS ORDERED: PT OWN MED DRAWER 7, Y5N ONE (20:25)
[2018-06-10] MEDS ORDERED: INSULIN (NOVOLOG) ASPART 100 UNITS/ML 10ML VIAL ONE (21:08)
[2018-06-11] MEDS: oxyCODONE HCL 5 MG TABLET PO PRN ×4 (03:47→19:01)
[2018-06-11] MEDS: diazePAM 5 MG TABLET PO PRN ×4 (03:48→22:49)
[2018-06-11] MEDS: INSULIN SLIDING SCALE (NOVOLOG) 1 VIAL SQ SCH ×4 (06:29→21:10)
[2018-06-11 08:27] LABS: BASO % 0.5 % (0-2.0); HEMATOCRIT 30.3 % (35.4-49); HEMOGLOBIN 10.2 GM/dL (11.7-16.9); LYMPH % 19.4 % (8-40); MCH 31.8 pg (25.7-33.7); MCHC 33.5 g/dl (32.0-35.9); MEAN PLT VOLUME 8.7 fl (7.5-11.1); MONO % 10.6 % (3.8-10.2); NEUT % 67.5 % (42.8-82.8); PLATELET COUNT 124 K/MM3 (134-434); RBC 3.19 M/mm3 (4.00-5.60); RDW 14.8 % (11.9-15.9); WHITE BLOOD COUNT 3.6 K/mm3 (4.0-10.0)
[2018-06-11 08:56] LABS: ANION GAP 9 MMOL/L (8-16); BLOOD UREA NITROGEN 38 mg/dL (7-18); CALCIUM 8.2 mg/dL (8.5-10.1); CHLORIDE 102 mmol/L (98-107); CO2 26 mmol/L (21-32); GLUCOSE,RANDOM 136 mg/dL (74-106); MAGNESIUM 1.7 mg/dL (1.8-2.4); PHOSPHOROUS 6.2 mg/dL (2.5-4.9); POTASSIUM 3.6 mmol/L (3.5-5.1); SODIUM 137 mmol/L (136-145)
--- NOTE | 2018-06-11 10:28 | PN ---
Progress Note, Physician Chief Complaint: Mr Paul says he feels fine today. Denies cp, sob, n/v. Says he is urinating without lasix. - Current Medication List Current Medications: Active Medications Allopurinol (Zyloprim -) 100 mg PO DAILY [facility] Diazepam (Valium -) 10 mg PO Q6H PRN PRN Reason: WITHDRAWAL(CONT SUBST) Stop: 06/11/18 15:57 Last Admin: 06/11/18 03:48 Dose: 10 mg Heparin Sodium (Porcine) (Heparin -) 1,000 unit IVPUSH PRN PRN PRN Reason: Heparin Heparin Sodium (Porcine) (Heparin -) 5,000 unit IVPUSH PRN PRN PRN Reason: Heparin Heparin Sodium (Porcine) 25, (000 unit/ Sodium Chloride) 500 mls @ 44 mls/hr IV TITR [facility]; Protocol Last Admin: 06/10/18 20:29 Dose: 2,200 unit/hr, 44 mls/hr Insulin Aspart (Novolog Vial Sliding Scale -) 1 vial SQ ACHS [facility]; Protocol Last Admin: 06/11/18 06:29 Dose: Not Given Metoprolol Tartrate (Lopressor -) 25 mg PO DAILY [facility] Last Admin: 06/10/18 09:58 Dose: 25 mg Oxycodone HCl (Roxicodone -) 10 mg PO Q4H PRN PRN Reason: PAIN LEVEL 6-10 Last Admin: 06/11/18 08:12 Dose: 10 mg Ranitidine HCl (Zantac -) 150 mg PO DAILY PRN PRN Reason: INDIGESTION - Objective Vital Signs: Vital Signs Temperature 36.8 C 06/11/18 05:00 Pulse Rate 95 H 06/11/18 05:00 Respiratory Rate 20 06/11/18 05:00 Blood Pressure 123/68 06/11/18 05:00 O2 Sat by Pulse Oximetry (%) 94 L 06/10/18 09:00 Constitutional: Yes: No Distress, Calm, Obese Cardiovascular: Yes: Regular Rate and Rhythm. No: Gallop, Murmur, Rub Respiratory: Yes: Regular, CTA Bilaterally. No: Rales, Rhonchi, Wheezes Gastrointestinal: Yes: Normal Bowel Sounds, Soft. No: Distention, Tenderness Extremities: Yes: WNL Edema: Yes Edema: LLE: 3+, RLE: 3+ Labs: CBC, BMP 06/11/18 07:00 06/11/18 07:00 INR, PTT INR 1.01 (0.83-1.09) 06/03/18 07:00 Problem List - Problems (1) Acute kidney injury Code(s): N17.9 - ACUTE KIDNEY FAILURE, UNSPECIFIED (2) Acute CHF (congestive heart failure) Code(s): I50.9 - HEART FAILURE, UNSPECIFIED Qualifiers: Heart failure type: diastolic Qualified Code(s): I50.31 - Acute diastolic ( congestive) heart failure (3) Diabetes Code(s): E11.9 - TYPE 2 DIABETES MELLITUS WITHOUT COMPLICATIONS (4) Hypertension Code(s): I10 - ESSENTIAL (PRIMARY) HYPERTENSION (5) Elevated liver enzymes Code(s): R74.8 - ABNORMAL LEVELS OF OTHER SERUM ENZYMES (6) Anxiety Code(s): F41.9 - ANXIETY DISORDER, UNSPECIFIED (7) Lung cancer, hilus Code(s): C34.00 - MALIGNANT NEOPLASM OF UNSPECIFIED MAIN BRONCHUS Assessment/Plan -creatinine slightly improved today -now making urine without lasix -hopefully renal function continues to improve -will hold on lasix and IVF currently -continue current management -continue heparin gtt for h/o PE
[2018-06-11] MEDS: ALLOPURINOL 100 MG TABLET (FP) PO SCH (10:31)
[2018-06-11] MEDS: METOPROLOL TARTRATE 25 MG TABLET (FP) PO SCH (10:31)
[2018-06-11] MEDS: HEPARIN - 25,000 UNIT in SODIUM CHLORIDE 495 ML IV SCH ×2 (14:23→22:48)
--- NOTE | 2018-06-11 19:04 | PN ---
Progress Note, Physician Chief Complaint: IGOR History of Present Illness: No new events. Continues to have good urine output - Current Medication List Current Medications: Active Medications Allopurinol (Zyloprim -) 100 mg PO DAILY [facility] Last Admin: 06/11/18 10:31 Dose: 100 mg Diazepam (Valium -) 10 mg PO Q6H PRN PRN Reason: WITHDRAWAL(CONT SUBST) Stop: 06/14/18 16:32 Last Admin: 06/11/18 16:42 Dose: 10 mg Heparin Sodium (Porcine) (Heparin -) 1,000 unit IVPUSH PRN PRN PRN Reason: Heparin Last Admin: 06/11/18 09:25 Dose: 1,000 unit Heparin Sodium (Porcine) (Heparin -) 5,000 unit IVPUSH PRN PRN PRN Reason: Heparin Last Admin: 06/11/18 16:23 Dose: 5,000 unit Heparin Sodium (Porcine) 25, (000 unit/ Sodium Chloride) 500 mls @ 44 mls/hr IV TITR [facility]; Protocol Last Titration: 06/11/18 16:23 Dose: 2,550 unit/hr, 51 mls/hr Insulin Aspart (Novolog Vial Sliding Scale -) 1 vial SQ ACHS [facility]; Protocol Last Admin: 06/11/18 17:30 Dose: Not Given Metoprolol Tartrate (Lopressor -) 25 mg PO DAILY [facility] Last Admin: 06/11/18 10:31 Dose: 25 mg Oxycodone HCl (Roxicodone -) 10 mg PO Q4H PRN PRN Reason: PAIN LEVEL 6-10 Last Admin: 06/11/18 19:01 Dose: 10 mg Ranitidine HCl (Zantac -) 150 mg PO DAILY PRN PRN Reason: INDIGESTION - Objective Vital Signs: Vital Signs Temperature 98.1 F 06/11/18 18:00 Pulse Rate 89 06/11/18 18:00 Respiratory Rate 18 06/11/18 18:00 Blood Pressure 125/57 L 06/11/18 18:00 O2 Sat by Pulse Oximetry (%) 94 L 06/11/18 09:00 Constitutional: Yes: Well Nourished, Other (sleeping comfortably) Respiratory: Yes: WNL, Regular, CTA Bilaterally Gastrointestinal: Yes: Distention Edema: LLE: 2+, RLE: 2+ Labs: CBC, BMP 06/11/18 07:00 06/11/18 07:00 INR, PTT INR 1.01 (0.83-1.09) 06/03/18 07:00 Assessment/Plan 63M with metastatic NSCLC, with controlled disease on Alimta, admitted with IGOR thought to be 2/2 ATN after a suspected long period of dehydration and hypotension. Creatinine persistently high but good urine output and less edema. On UFH for hx PE,
[2018-06-11] MEDS ORDERED: INSULIN (NOVOLOG) ASPART 100 UNITS/ML 10ML VIAL ONE (21:04)
--- NOTE | 2018-06-11 22:50 | PN ---
Progress Note (short form) - Note Progress Note: covering dr kaiser problems 1. lung cancer 2. IGOR 3. hyponatremia 4. fever/chills 5. decreased appetite/nausea Current Medications Allopurinol (Zyloprim -) 100 mg PO DAILY [facility] Last Admin: 06/11/18 10:31 Dose: 100 mg Diazepam (Valium -) 10 mg PO Q6H PRN PRN Reason: WITHDRAWAL(CONT SUBST) Stop: 06/14/18 16:32 Last Admin: 06/11/18 16:42 Dose: 10 mg Heparin Sodium (Porcine) (Heparin -) 1,000 unit IVPUSH PRN PRN PRN Reason: Heparin Last Admin: 06/11/18 09:25 Dose: 1,000 unit Heparin Sodium (Porcine) (Heparin -) 5,000 unit IVPUSH PRN PRN PRN Reason: Heparin Last Admin: 06/11/18 16:23 Dose: 5,000 unit Heparin Sodium (Porcine) 25, (000 unit/ Sodium Chloride) 500 mls @ 44 mls/hr IV TITR [facility]; Protocol Last Titration: 06/11/18 16:23 Dose: 2,550 unit/hr, 51 mls/hr Insulin Aspart (Novolog Vial Sliding Scale -) 1 vial SQ ACHS [facility]; Protocol Last Admin: 06/11/18 21:10 Dose: 1 unit Metoprolol Tartrate (Lopressor -) 25 mg PO DAILY [facility] Last Admin: 06/11/18 10:31 Dose: 25 mg Oxycodone HCl (Roxicodone -) 10 mg PO Q4H PRN PRN Reason: PAIN LEVEL 6-10 Last Admin: 06/11/18 19:01 Dose: 10 mg Ranitidine HCl (Zantac -) 150 mg PO DAILY PRN PRN Reason: INDIGESTION Last Vital Signs Temp Pulse Resp BP Pulse Ox 98.1 F 89 18 125/57 L 94 L 06/11/18 18:00 06/11/18 18:00 06/11/18 18:00 06/11/18 18:00 06/11/18 09:00 alert in nad lungs clear heart reg abd soft nontender ext moderate generalized edema CBC, BMP 06/11/18 07:00 06/11/18 07:00 CBC, BMP 06/07/18 05:30 06/10/18 07:00 igor adjustment disorder resistant to a trial of fluids because of the edema also unwilling to do dialysis "if not needed" Plan - encourage oral hydration follow up renal function tomorrow
[2018-06-12] MEDS: oxyCODONE HCL 5 MG TABLET PO PRN ×5 (00:44→20:10)
[2018-06-12] MEDS: INSULIN SLIDING SCALE (NOVOLOG) 1 VIAL SQ SCH ×4 (06:01→21:28)
[2018-06-12] MEDS: diazePAM 5 MG TABLET PO PRN ×3 (06:01→23:46)
[2018-06-12 07:35] LABS: BASO % 0.5 % (0-2.0); EOS % 2.4 % (0-4.5); HEMOGLOBIN 9.9 GM/dL (11.7-16.9); LYMPH % 20.3 % (8-40); MCH 32.3 pg (25.7-33.7); MCHC 34.1 g/dl (32.0-35.9); MEAN CELL VOLUME 94.6 fl (80-96); MEAN PLT VOLUME 8.9 fl (7.5-11.1); MONO % 10.2 % (3.8-10.2); NEUT % 66.6 % (42.8-82.8); PLATELET COUNT 131 K/MM3 (134-434); RBC 3.07 M/mm3 (4.00-5.60); RDW 14.9 % (11.9-15.9); WHITE BLOOD COUNT 3.9 K/mm3 (4.0-10.0)
[2018-06-12] MEDS: HEPARIN - 25,000 UNIT in SODIUM CHLORIDE 495 ML IV SCH ×2 (08:07→19:54)
[2018-06-12 08:54] LABS: ANION GAP 10 MMOL/L (8-16); BLOOD UREA NITROGEN 39 mg/dL (7-18); CALCIUM 8.3 mg/dL (8.5-10.1); CHLORIDE 102 mmol/L (98-107); CO2 28 mmol/L (21-32); GLUCOSE,RANDOM 126 mg/dL (74-106); MAGNESIUM 1.5 mg/dL (1.8-2.4); PHOSPHOROUS 5.8 mg/dL (2.5-4.9); POTASSIUM 3.5 mmol/L (3.5-5.1); SODIUM 140 mmol/L (136-145)
[2018-06-12 09:08] LABS: CREATININE 8.4 mg/dL (0.55-1.3)
[2018-06-12] MEDS ORDERED: PT OWN MED DRAWER 7, Y5N ONE ×2 (09:16→19:52)
[2018-06-12] MEDS: ALLOPURINOL 100 MG TABLET (FP) PO SCH (09:22)
[2018-06-12] MEDS: METOPROLOL TARTRATE 25 MG TABLET (FP) PO SCH (09:22)
[2018-06-12] MEDS ORDERED: MAGNESIUM OXIDE 400 MG TABLET (FP) PO ONE (12:08)
--- NOTE | 2018-06-12 12:22 | PN ---
Physical Exam: SUBJECTIVE: Patient seen and examined feeling much better. No new issues overnight. made 1900ml urine. BP 151/53 OBJECTIVE: Vital Signs Period Temp Pulse Resp BP Sys/Small Pulse Ox Last 24 Hr 98.1 F-98.8 F 89-104 18-21 125-151/53-82 95-95 GENERAL: Awake, alert, and fully oriented, in no acute distress. HEAD: Normal with no signs of trauma. EARS, NOSE, THROAT: moist mucous membranes. NECK: Normal range of motion, supple without lymphadenopathy, JVD, or masses. LUNGS: Breath sounds equal, clear to auscultation bilaterally. HEART: Regular rate and rhythm, normal S1 and S2 without murmur, ABDOMEN: Soft, no tenderness, not distended, normoactive bowel sounds. MUSCULOSKELETAL: Normal range of motion at all joints. UPPER EXTREMITIES: 2+ pulses, warm, well-perfused. No peripheral edema. LOWER EXTREMITIES: warm, well-perfused. peripheral edema 1+ SKIN: Warm, dry, d Laboratory Results - last 24 hr 06/11/18 06/11/18 06/11/18 14:58 16:54 21:08 WBC RBC Hgb Hct MCV MCH MCHC RDW Plt Count MPV Absolute Neuts (auto) Neutrophils % Lymphocytes % Monocytes % Eosinophils % Basophils % Nucleated RBC % PTT (Actin FS) 30.4 Sodium Potassium Chloride Carbon Dioxide Anion Gap BUN Creatinine Creat Clearance w eGFR POC Glucometer 153 169 Random Glucose Calcium Phosphorus Magnesium 06/11/18 06/12/18 06/12/18 21:45 05:56 06:35 WBC RBC Hgb Hct MCV MCH MCHC RDW Plt Count MPV Absolute Neuts (auto) Neutrophils % Lymphocytes % Monocytes % Eosinophils % Basophils % Nucleated RBC % PTT (Actin FS) 62.3 H 50.6 H Sodium Potassium Chloride Carbon Dioxide Anion Gap BUN Creatinine Creat Clearance w eGFR POC Glucometer 165 Random Glucose Calcium Phosphorus Magnesium 06/12/18 06/12/18 06/12/18 06:35 06:35 11:20 WBC 3.9 L RBC 3.07 L Hgb 9.9 L Hct 29.0 L MCV 94.6 MCH 32.3 MCHC 34.1 RDW 14.9 Plt Count 131 L MPV 8.9 Absolute Neuts (auto) 2.6 Neutrophils % 66.6 Lymphocytes % 20.3 Monocytes % 10.2 Eosinophils % 2.4 Basophils % 0.5 Nucleated RBC % 0 PTT (Actin FS) Sodium 140 Potassium 3.5 Chloride 102 Carbon Dioxide 28 Anion Gap 10 BUN 39 H Creatinine 8.4 H* Creat Clearance w eGFR 6.52 POC Glucometer 175 Random Glucose 126 H Calcium 8.3 L Phosphorus 5.8 H Magnesium 1.5 L Active Medications Generic Name Dose Route Start Last Admin Trade Name Freq PRN Reason Stop Dose Admin Allopurinol 100 mg 06/11/18 10:00 06/12/18 09:22 Zyloprim - PO 100 mg DAILY [facility] Administration Diazepam 10 mg 06/11/18 16:32 06/12/18 06:01 Valium - PO 06/14/18 16:32 10 mg Q6H PRN Administration WITHDRAWAL(CONT SUBST) Heparin Sodium (Porcine) 1,000 unit 06/09/18 13:53 06/11/18 09:25 Heparin - IVPUSH 1,000 unit PRN PRN Administration Heparin Heparin Sodium (Porcine) 5,000 unit 06/09/18 13:53 06/11/18 16:23 Heparin - IVPUSH 5,000 unit PRN PRN Administration Heparin Heparin Sodium (Porcine) 25, 500 mls @ 44 mls/hr 06/09/18 20:15 06/12/18 08: 07 000 unit/ Sodium Chloride IV 2,550 unit/hr TITR [facility] 51 mls/hr Administration Protocol 2,200 UNIT/HR Insulin Aspart 1 vial 06/09/18 16:30 06/12/18 11:45 Novolog Vial Sliding Scale - SQ 1 unit ACHS [facility] Administration Protocol Metoprolol Tartrate 25 mg 06/10/18 10:00 06/12/18 09:22 Lopressor - PO 25 mg DAILY [facility] Administration Oxycodone HCl 10 mg 06/09/18 14:13 06/12/18 12:11 Roxicodone - PO 10 mg Q4H PRN Administration PAIN LEVEL 6-10 Ranitidine HCl 150 mg 06/09/18 13:53 06/12/18 09:22 Zantac - PO 150 mg DAILY PRN Administration INDIGESTION ASSESSMENT/PLAN:63 yom with PMhx of [place] of lung diagnosed in 04/2014, s/p Chemotherapy(carb/Alimta), currently on maintenance alimta since 2015, Also pleural/pericardial effusion with bilateral pulmonary embolism in 04/2014, s/p pericardial window, on lovenox, NIDDM, with 5 days of minimal po intake, no urinary outpatient, found with IGOR, hypotension -IGOR, ?from hypovolumia/poor oral intake/lasix+/- tumor lysis syndrome, r/o sepsis made 1900 ml urine yesterday off from lasix and fluid avoid nephrotoxic drugs nephro on case. daily weight 2d echo reviewed oncology on case serology negative cr 9.0 ---> 8.4 -Lower uncomplicated UTI off from antibiotics afebrile Abnormal LFTS, hypotension, improving NIDDM bgm insulin sliding scale thrombocytopenia; plt 131 elevated uric acid continue allopurinol - H/o bilateral pulmonary embolism in 04/2014: hold lovenox for igor. continue heparin drip -Adenocarcinoma of lung diagnosed in 04/2014, s/p carb/alimta, now on maintenance alimta since 2015 -h/o pericardial effusion in 2014 s/p pericardial window Fluid; orally allowed electrolyte: repeat in am nutrition: diabetic and renal diet gi pro:not required dvt pro: on heparin drip dispo:med surg Visit type - Emergency Visit Emergency Visit: Yes ED Registration Date: 06/01/18 Care time: The patient presented to the Emergency Department on the above date and was hospitalized for further evaluation of their emergent condition. - New Patient This patient is new to me today: No - Critical Care Critical Care patient: No
[2018-06-12 12:49] LABS: URINE APPEARANCE SLCLOUDY; URINE BILIRUBIN NEGATIVE (<2.0 mg/dL); URINE COLOR LTYELLOW; URINE GLUCOSE (UA) NEGATIVE (NEGATIVE); URINE KETONE NEGATIVE (NEGATIVE); URINE LEUK ESTERASE NEGATIVE (NEGATIVE); URINE NITRITE NEGATIVE (NEGATIVE); URINE PROTEIN NEGATIVE (NEGATIVE); URINE UROBILINOGEN NEGATIVE mg/dL (0.2-1.0)
[2018-06-12 12:57] LABS: URINE MUCUS RARE
--- NOTE | 2018-06-12 14:29 | PN ---
Progress Note, Physician History of Present Illness: Pt seen and examined at bedside. He is awake and alert. He denies shortness of breath. He complains of lower ext edema. - Current Medication List Current Medications: Active Medications Allopurinol (Zyloprim -) 100 mg PO DAILY [facility] Last Admin: 06/12/18 09:22 Dose: 100 mg Diazepam (Valium -) 10 mg PO Q6H PRN PRN Reason: WITHDRAWAL(CONT SUBST) Stop: 06/14/18 16:32 Last Admin: 06/12/18 06:01 Dose: 10 mg Heparin Sodium (Porcine) (Heparin -) 1,000 unit IVPUSH PRN PRN PRN Reason: Heparin Last Admin: 06/11/18 09:25 Dose: 1,000 unit Heparin Sodium (Porcine) (Heparin -) 5,000 unit IVPUSH PRN PRN PRN Reason: Heparin Last Admin: 06/11/18 16:23 Dose: 5,000 unit Heparin Sodium (Porcine) 25, (000 unit/ Sodium Chloride) 500 mls @ 44 mls/hr IV TITR [facility]; Protocol Last Admin: 06/12/18 08:07 Dose: 2,550 unit/hr, 51 mls/hr Insulin Aspart (Novolog Vial Sliding Scale -) 1 vial SQ ACHS [facility]; Protocol Last Admin: 06/12/18 11:45 Dose: 1 unit Metoprolol Tartrate (Lopressor -) 25 mg PO DAILY [facility] Last Admin: 06/12/18 09:22 Dose: 25 mg Oxycodone HCl (Roxicodone -) 10 mg PO Q4H PRN PRN Reason: PAIN LEVEL 6-10 Last Admin: 06/12/18 12:11 Dose: 10 mg Ranitidine HCl (Zantac -) 150 mg PO DAILY PRN PRN Reason: INDIGESTION Last Admin: 06/12/18 09:22 Dose: 150 mg - Objective Vital Signs: Vital Signs Temperature 98.6 F 06/12/18 13:09 Pulse Rate 83 06/12/18 13:09 Respiratory Rate 20 06/12/18 08:05 Blood Pressure 117/61 06/12/18 13:09 O2 Sat by Pulse Oximetry (%) 95 06/12/18 09:00 Constitutional: Yes: Calm Eyes: Yes: Conjunctiva Clear HENT: Yes: Atraumatic Cardiovascular: Yes: S1, S2 Respiratory: Yes: CTA Bilaterally Gastrointestinal: Yes: Soft, Abdomen, Obese Genitourinary: Yes: WNL Musculoskeletal: Yes: WNL Edema: Yes Edema: LLE: 2+, RLE: 2+ Neurological: Yes: Oriented Psychiatric: Yes: Oriented Labs: CBC, BMP 06/12/18 06:35 06/12/18 06:35 INR, PTT INR 1.01 (0.83-1.09) 06/03/18 07:00 Problem List - Problems (1) Acute kidney injury Code(s): N17.9 - ACUTE KIDNEY FAILURE, UNSPECIFIED (2) Dehydration Code(s): E86.0 - DEHYDRATION (3) Prerenal azotemia Code(s): R79.89 - OTHER SPECIFIED ABNORMAL FINDINGS OF BLOOD CHEMISTRY Assessment/Plan Current Medications Generic Name Dose Route Start Last Admin Trade Name Freq PRN Reason Stop Dose Admin Allopurinol 100 mg 06/11/18 10:00 06/12/18 09:22 Zyloprim - PO 100 mg DAILY [facility] Administration Diazepam 10 mg 06/11/18 16:32 06/12/18 06:01 Valium - PO 06/14/18 16:32 10 mg Q6H PRN Administration WITHDRAWAL(CONT SUBST) Heparin Sodium (Porcine) 1,000 unit 06/09/18 13:53 06/11/18 09:25 Heparin - IVPUSH 1,000 unit PRN PRN Administration Heparin Heparin Sodium (Porcine) 5,000 unit 06/09/18 13:53 06/11/18 16:23 Heparin - IVPUSH 5,000 unit PRN PRN Administration Heparin Heparin Sodium (Porcine) 25, 500 mls @ 44 mls/hr 06/09/18 20:15 06/12/18 08: 07 000 unit/ Sodium Chloride IV 2,550 unit/hr TITR [facility] 51 mls/hr Administration Protocol 2,200 UNIT/HR Insulin Aspart 1 vial 06/09/18 16:30 06/12/18 11:45 Novolog Vial Sliding Scale - SQ 1 unit ACHS [facility] Administration Protocol Metoprolol Tartrate 25 mg 06/10/18 10:00 06/12/18 09:22 Lopressor - PO 25 mg DAILY [facility] Administration Oxycodone HCl 10 mg 06/09/18 14:13 06/12/18 12:11 Roxicodone - PO 10 mg Q4H PRN Administration PAIN LEVEL 6-10 Ranitidine HCl 150 mg 06/09/18 13:53 06/12/18 09:22 Zantac - PO 150 mg DAILY PRN Administration INDIGESTION Laboratory Tests 06/12/18 11:20 Urine Protein Negative Urine Blood 1+ H Impression 1. lung cancer 2. IGOR 3. hyponatremia 4. fever/chills 5. decreased appetite/nausea Plan - renal function is improving - pt is making urine - will give a dose of lasix and potassium - repeat labs in am - serologies are negative - likely atn - will repeat ua Dr Foley
[2018-06-12] MEDS ORDERED: POTASSIUM CHLORIDE TABS 20 MEQ TABLET.ER (FP) PO ONE (14:30)
[2018-06-12] MEDS ORDERED: FUROSEMIDE 40 MG/4 ML INJECTABLE VIAL IVPUSH ONE (14:30)
--- NOTE | 2018-06-12 15:22 | PN ---
Teaching Attending Note Name of Resident: Rohith Eduardo ATTENDING PHYSICIAN STATEMENT I saw and evaluated the patient. I reviewed the resident's note and discussed the case with the resident. I agree with the resident's findings and plan as documented. SUBJECTIVE: Mr Paul says he is still swollen but is better. Denies cp, sob, n /v. Making urine OBJECTIVE: Last Vital Signs Temp Pulse Resp BP Pulse Ox 37.0 C 83 20 117/61 95 06/12/18 13:09 06/12/18 13:09 06/12/18 08:05 06/12/18 13:09 06/12/18 09:00 Gen: nad Pulm: ctab w/o m/r/g CV: rrr w/o m/r/g Abd: +bs, s/nt/nd Ext: 3+ BLE pitting edema CBC, BMP 06/12/18 06:35 06/12/18 06:35 ASSESSMENT AND PLAN: -creatinine continues to improve -case d/w Dr Foley -will give lasix to improve diuresis -continue current management -continue heparin gtt -d/w hematology about organizational effectiveness director anticoagulation Problem List - Problems (1) Acute kidney injury Code(s): N17.9 - ACUTE KIDNEY FAILURE, UNSPECIFIED (2) Acute CHF (congestive heart failure) Code(s): I50.9 - HEART FAILURE, UNSPECIFIED Qualifiers: Heart failure type: diastolic Qualified Code(s): I50.31 - Acute diastolic ( congestive) heart failure (3) Diabetes Code(s): E11.9 - TYPE 2 DIABETES MELLITUS WITHOUT COMPLICATIONS (4) Hypertension Code(s): I10 - ESSENTIAL (PRIMARY) HYPERTENSION (5) Elevated liver enzymes Code(s): R74.8 - ABNORMAL LEVELS OF OTHER SERUM ENZYMES (6) Anxiety Code(s): F41.9 - ANXIETY DISORDER, UNSPECIFIED (7) Lung cancer, hilus Code(s): C34.00 - MALIGNANT NEOPLASM OF UNSPECIFIED MAIN BRONCHUS
--- NOTE | 2018-06-12 16:15 | PN ---
Physical Exam: SUBJECTIVE: Patient seen and examined creatinine improving; weight stable ; serology negative; U/O OBJECTIVE: Vital Signs Period Temp Pulse Resp BP Sys/Small Pulse Ox Last 24 Hr 98.1 F-98.8 F 83-104 18-20 117-151/53-76 95-95 GENERAL: obese male ; anasarca NECK: Trachea midline, full range of motion, supple. LUNGS: Breath sounds equal, clear to auscultation bilaterally, no wheezes, no crackles, no accessory muscle use. HEART: Regular rate and rhythm, S1, S2 without murmur, rub or gallop. ABDOMEN: Soft, nontender, nondistended, normoactive bowel sounds, no guarding, no rebound, no hepatosplenomegaly, no masses. EXTREMITIES: 2+ pulses, warm, well-perfused, no edema. NEUROLOGICAL: Cranial nerves II through XII grossly intact. Normal speech, gait not observed. PSYCH: Normal mood, normal affect. SKIN: Warm, dry, normal turgor, no rashes or lesions noted Laboratory Results - last 24 hr 06/11/18 06/11/18 06/11/18 16:54 21:08 21:45 WBC RBC Hgb Hct MCV MCH MCHC RDW Plt Count MPV Absolute Neuts (auto) Neutrophils % Lymphocytes % Monocytes % Eosinophils % Basophils % Nucleated RBC % PTT (Actin FS) 62.3 H Sodium Potassium Chloride Carbon Dioxide Anion Gap BUN Creatinine Creat Clearance w eGFR POC Glucometer 153 169 Random Glucose Calcium Phosphorus Magnesium Urine Color Urine Appearance Urine pH Ur Specific [place] Urine Protein Urine Glucose (UA) Urine Ketones Urine Blood Urine Nitrite Urine Bilirubin Urine Urobilinogen Ur Leukocyte Esterase Urine WBC (Auto) Urine RBC (Auto) Urine Mucus Ur Random Sodium Ur Random Potassium Ur Random Chloride Urine Creatinine 06/12/18 06/12/18 06/12/18 05:56 06:35 06:35 WBC 3.9 L RBC 3.07 L Hgb 9.9 L Hct 29.0 L MCV 94.6 MCH 32.3 MCHC 34.1 RDW 14.9 Plt Count 131 L MPV 8.9 Absolute Neuts (auto) 2.6 Neutrophils % 66.6 Lymphocytes % 20.3 Monocytes % 10.2 Eosinophils % 2.4 Basophils % 0.5 Nucleated RBC % 0 PTT (Actin FS) 50.6 H Sodium Potassium Chloride Carbon Dioxide Anion Gap BUN Creatinine Creat Clearance w eGFR POC Glucometer 165 Random Glucose Calcium Phosphorus Magnesium Urine Color Urine Appearance Urine pH Ur Specific [place] Urine Protein Urine Glucose (UA) Urine Ketones Urine Blood Urine Nitrite Urine Bilirubin Urine Urobilinogen Ur Leukocyte Esterase Urine WBC (Auto) Urine RBC (Auto) Urine Mucus Ur Random Sodium Ur Random Potassium Ur Random Chloride Urine Creatinine 06/12/18 06/12/18 06/12/18 06:35 11:20 11:20 WBC RBC Hgb Hct MCV MCH MCHC RDW Plt Count MPV Absolute Neuts (auto) Neutrophils % Lymphocytes % Monocytes % Eosinophils % Basophils % Nucleated RBC % PTT (Actin FS) Sodium 140 Potassium 3.5 Chloride 102 Carbon Dioxide 28 Anion Gap 10 BUN 39 H Creatinine 8.4 H* Creat Clearance w eGFR 6.52 POC Glucometer 175 Random Glucose 126 H Calcium 8.3 L Phosphorus 5.8 H Magnesium 1.5 L Urine Color Urine Appearance Urine pH Ur Specific [place] Urine Protein Urine Glucose (UA) Urine Ketones Urine Blood Urine Nitrite Urine Bilirubin Urine Urobilinogen Ur Leukocyte Esterase Urine WBC (Auto) Urine RBC (Auto) Urine Mucus Ur Random Sodium 34 L Ur Random Potassium 9.3 L Ur Random Chloride 26 L Urine Creatinine 111.0 06/12/18 11:20 WBC RBC Hgb Hct MCV MCH MCHC RDW Plt Count MPV Absolute Neuts (auto) Neutrophils % Lymphocytes % Monocytes % Eosinophils % Basophils % Nucleated RBC % PTT (Actin FS) Sodium Potassium Chloride Carbon Dioxide Anion Gap BUN Creatinine Creat Clearance w eGFR POC Glucometer Random Glucose Calcium Phosphorus Magnesium Urine Color Ltyellow Urine Appearance Slcloudy Urine pH 5.0 Ur Specific [place] 1.006 L Urine Protein Negative Urine Glucose (UA) Negative Urine Ketones Negative Urine Blood 1+ H Urine Nitrite Negative Urine Bilirubin Negative Urine Urobilinogen Negative Ur Leukocyte Esterase Negative Urine WBC (Auto) 1 Urine RBC (Auto) <1 Urine Mucus Rare Ur Random Sodium Ur Random Potassium Ur Random Chloride Urine Creatinine Active Medications Generic Name Dose Route Start Last Admin Trade Name Freq PRN Reason Stop Dose Admin Allopurinol 100 mg 06/11/18 10:00 06/12/18 09:22 Zyloprim - PO 100 mg DAILY MONICA Administration Diazepam 10 mg 06/11/18 16:32 06/12/18 06:01 Valium - PO 06/14/18 16:32 10 mg Q6H PRN Administration WITHDRAWAL(CONT SUBST) Heparin Sodium (Porcine) 1,000 unit 06/09/18 13:53 06/11/18 09:25 Heparin - IVPUSH 1,000 unit PRN PRN Administration Heparin Heparin Sodium (Porcine) 5,000 unit 06/09/18 13:53 06/11/18 16:23 Heparin - IVPUSH 5,000 unit PRN PRN Administration Heparin Heparin Sodium (Porcine) 25, 500 mls @ 44 mls/hr 06/09/18 20:15 06/12/18 08: 07 000 unit/ Sodium Chloride IV 2,550 unit/hr TITR MONICA 51 mls/hr Administration Protocol 2,200 UNIT/HR Insulin Aspart 1 vial 06/09/18 16:30 06/12/18 11:45 Novolog Vial Sliding Scale - SQ 1 unit ACHS MONICA Administration Protocol Metoprolol Tartrate 25 mg 06/10/18 10:00 06/12/18 09:22 Lopressor - PO 25 mg DAILY MONICA Administration Oxycodone HCl 10 mg 06/09/18 14:13 06/12/18 12:11 Roxicodone - PO 10 mg Q4H PRN Administration PAIN LEVEL 6-10 Ranitidine HCl 150 mg 06/09/18 13:53 06/12/18 09:22 Zantac - PO 150 mg DAILY PRN Administration INDIGESTION ASSESSMENT/PLAN: This is a 63 year old male with a history of PE, adenocarcinma of the lung s/p carboplantin/alimpta chemotherapy; had interim of remission, now back on chemotherapy alimpta, who presents with complaints of lethargy, body aches, poor oral intake, no urine output since Tuesday, and an episode of rigors. In acute renal failure. Acute renal failure Adenocarinoma of lung; s/p alimpta hx of PE hyperuricemia transaminitis chronic back pain h/o pericardial effusion in 2014 s/p pericardial window -HD diuresis -making urine -creatinine improving Visit type - Emergency Visit Emergency Visit: Yes ED Registration Date: 06/01/18 Care time: The patient presented to the Emergency Department on the above date and was hospitalized for further evaluation of their emergent condition. - New Patient This patient is new to me today: No - Critical Care Critical Care patient: No
[2018-06-12] MEDS ORDERED: INSULIN (NOVOLOG) ASPART 100 UNITS/ML 10ML VIAL ONE (21:27)
--- NOTE | 2018-06-12 21:29 | PN ---
Progress Note (short form) - Note Progress Note: patient seen and examined feels beeter no specific c/o afvss Cor: RSR, No murmurs, No gallops Lungs: Clear to P&A Abd: Soft, Normal bowel sounds, No organomegaly Ext:No significant edema Labs/meds reviewed a/p 63 y/o patient with metastatic lung cancer Also IGOR/ATN Gradually improving f/u renal recomendations
[2018-06-13] MEDS: oxyCODONE HCL 5 MG TABLET PO PRN ×5 (02:39→20:28)
[2018-06-13] MEDS: INSULIN SLIDING SCALE (NOVOLOG) 1 VIAL SQ SCH ×4 (06:41→21:28)
[2018-06-13] MEDS: diazePAM 5 MG TABLET PO PRN ×3 (08:02→21:33)
--- NOTE | 2018-06-13 08:02 | PN ---
Physical Exam: SUBJECTIVE: Patient seen and examined no new complaints over night stills complains of swelling in his legs denies sob, chest pain, palpitations OBJECTIVE: Vital Signs Period Temp Pulse Resp BP Sys/Small Pulse Ox Last 24 Hr 97.9 F-98.8 F 83-104 20-20 117-151/53-67 95-95 GENERAL: Awake, alert, and fully oriented, in no acute distress. HEAD: Normal with no signs of trauma. EARS, NOSE, THROAT: moist mucous membranes. NECK: Normal range of motion, supple without lymphadenopathy, JVD, or masses. LUNGS: Breath sounds equal, clear to auscultation bilaterally. mild expi wheezing HEART: Regular rate and rhythm, normal S1 and S2 without murmur, ABDOMEN: Soft, no tenderness, not distended, normoactive bowel sounds. MUSCULOSKELETAL: Normal range of motion at all joints. UPPER EXTREMITIES: 2+ pulses, warm, well-perfused. No peripheral edema. LOWER EXTREMITIES: warm, well-perfused. peripheral edema 1+ SKIN: Warm, dry, Laboratory Results - last 24 hr 06/12/18 06/12/18 06/12/18 06:35 06:35 11:20 PTT (Actin FS) 50.6 H Sodium 140 Potassium 3.5 Chloride 102 Carbon Dioxide 28 Anion Gap 10 BUN 39 H Creatinine 8.4 H* Creat Clearance w eGFR 6.52 POC Glucometer 175 Random Glucose 126 H Calcium 8.3 L Phosphorus 5.8 H Magnesium 1.5 L Urine Color Urine Appearance Urine pH Ur Specific [place] Urine Protein Urine Glucose (UA) Urine Ketones Urine Blood Urine Nitrite Urine Bilirubin Urine Urobilinogen Ur Leukocyte Esterase Urine WBC (Auto) Urine RBC (Auto) Urine Mucus Ur Random Sodium Ur Random Potassium Ur Random Chloride Urine Creatinine 06/12/18 06/12/18 06/12/18 11:20 11:20 16:32 PTT (Actin FS) Sodium Potassium Chloride Carbon Dioxide Anion Gap BUN Creatinine Creat Clearance w eGFR POC Glucometer 125 Random Glucose Calcium Phosphorus Magnesium Urine Color Ltyellow Urine Appearance Slcloudy Urine pH 5.0 Ur Specific [place] 1.006 L Urine Protein Negative Urine Glucose (UA) Negative Urine Ketones Negative Urine Blood 1+ H Urine Nitrite Negative Urine Bilirubin Negative Urine Urobilinogen Negative Ur Leukocyte Esterase Negative Urine WBC (Auto) 1 Urine RBC (Auto) <1 Urine Mucus Rare Ur Random Sodium 34 L Ur Random Potassium 9.3 L Ur Random Chloride 26 L Urine Creatinine 111.0 06/12/18 21:22 PTT (Actin FS) Sodium Potassium Chloride Carbon Dioxide Anion Gap BUN Creatinine Creat Clearance w eGFR POC Glucometer 169 Random Glucose Calcium Phosphorus Magnesium Urine Color Urine Appearance Urine pH Ur Specific [place] Urine Protein Urine Glucose (UA) Urine Ketones Urine Blood Urine Nitrite Urine Bilirubin Urine Urobilinogen Ur Leukocyte Esterase Urine WBC (Auto) Urine RBC (Auto) Urine Mucus Ur Random Sodium Ur Random Potassium Ur Random Chloride Urine Creatinine Active Medications Generic Name Dose Route Start Last Admin Trade Name Freq PRN Reason Stop Dose Admin Allopurinol 100 mg 06/11/18 10:00 06/12/18 09:22 Zyloprim - PO 100 mg DAILY MONICA Administration Diazepam 10 mg 06/11/18 16:32 06/12/18 23:46 Valium - PO 06/14/18 16:32 10 mg Q6H PRN Administration WITHDRAWAL(CONT SUBST) Heparin Sodium (Porcine) 1,000 unit 06/09/18 13:53 06/11/18 09:25 Heparin - IVPUSH 1,000 unit PRN PRN Administration Heparin Heparin Sodium (Porcine) 5,000 unit 06/09/18 13:53 06/11/18 16:23 Heparin - IVPUSH 5,000 unit PRN PRN Administration Heparin Heparin Sodium (Porcine) 25, 500 mls @ 44 mls/hr 06/09/18 20:15 06/12/18 19: 54 000 unit/ Sodium Chloride IV 2,550 unit/hr TITR MONICA 51 mls/hr Administration Protocol 2,200 UNIT/HR Insulin Aspart 1 vial 06/09/18 16:30 06/13/18 06:41 Novolog Vial Sliding Scale - SQ 1 unit ACHS MONICA Administration Protocol Metoprolol Tartrate 25 mg 06/10/18 10:00 06/12/18 09:22 Lopressor - PO 25 mg DAILY MONICA Administration Oxycodone HCl 10 mg 06/09/18 14:13 06/13/18 06:41 Roxicodone - PO 10 mg Q4H PRN Administration PAIN LEVEL 6-10 Ranitidine HCl 150 mg 06/09/18 13:53 06/12/18 09:22 Zantac - PO 150 mg DAILY PRN Administration INDIGESTION ASSESSMENT/PLAN:63 yom with PMhx of [place] of lung diagnosed in 04/2014, s/p Chemotherapy(carb/Alimta), currently on maintenance alimta since 2016, Also pleural/pericardial effusion with bilateral pulmonary embolism in 04/2014, s/p pericardial window, on lovenox, NIDDM, with 5 days of minimal po intake, no urinary outpatient, found with IGOR, hypotension -IGOR, ?from hypovolumia/poor oral intake/lasix+/- tumor lysis syndrome, r/o sepsis UO 2550, improving, got lasix yesterday avoid nephrotoxic drugs daily weight oncology on case serology negative renal function pending -Lower uncomplicated UTI off from antibiotics afebrile Abnormal LFTS, hypotension, improving NIDDM bgm insulin sliding scale thrombocytopenia; improving plt 131 elevated uric acid continue allopurinol - H/o bilateral pulmonary embolism in 04/2014: hold lovenox for igor. continue heparin drip. we will get INR and start him on coumadin -Adenocarcinoma of lung diagnosed in 04/2014, s/p carb/alimta, now on maintenance alimta since 2015 -h/o pericardial effusion in 2014 s/p pericardial window Fluid; orally allowed electrolyte: repeat in am nutrition: diabetic and renal diet gi pro:not required dvt pro: on heparin drip. dispo:med surg Visit type - Emergency Visit Emergency Visit: Yes ED Registration Date: 06/01/18 Care time: The patient presented to the Emergency Department on the above date and was hospitalized for further evaluation of their emergent condition. - New Patient This patient is new to me today: No - Critical Care Critical Care patient: No
[2018-06-13] MEDS ORDERED: PT OWN MED DRAWER 7, Y5N ONE (09:18)
[2018-06-13] MEDS: ALLOPURINOL 100 MG TABLET (FP) PO SCH (09:19)
[2018-06-13] MEDS: METOPROLOL TARTRATE 25 MG TABLET (FP) PO SCH (09:19)
[2018-06-13] MEDS: HEPARIN - 25,000 UNIT in SODIUM CHLORIDE 495 ML IV SCH ×2 (09:20→19:38)
[2018-06-13 09:39] LABS: INR 1.13 (0.83-1.09); PROTHROMBIN TIME (PATIENT) 13.3 SEC (9.7-13.0)
[2018-06-13 09:45] LABS: ALBUMIN 2.4 g/dl (3.4-5.0); ALK PHOS 128 U/L (45-117); ANION GAP 5 MMOL/L (8-16); BILIRUBIN,TOTAL 0.5 mg/dL (0.2-1); BLOOD UREA NITROGEN 36 mg/dL (7-18); CHLORIDE 104 mmol/L (98-107); CO2 31 mmol/L (21-32); GLUCOSE,RANDOM 143 mg/dL (74-106); MAGNESIUM 1.6 mg/dL (1.8-2.4); POTASSIUM 3.6 mmol/L (3.5-5.1); SGOT/AST 18 U/L (15-37); SGPT/ALT 48 U/L (13-61); SODIUM 140 mmol/L (136-145); TOT PROT 6.1 g/dl (6.4-8.2)
--- NOTE | 2018-06-13 10:09 | PN ---
Teaching Attending Note Name of Resident: Rohith Eduardo ATTENDING PHYSICIAN STATEMENT I saw and evaluated the patient. I reviewed the resident's note and discussed the case with the resident. I agree with the resident's findings and plan as documented. SUBJECTIVE: Mr Paul is without complaint today. Says his swelling is getting better and he is urinating. Denies cp, sob, n/v. 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 if can use eliquis or needs coumadin -if needs coumadin, would start bridge NOW so as not to extend length of stay -continue current management Problem List - Problems (1) Acute kidney injury Code(s): N17.9 - ACUTE KIDNEY FAILURE, UNSPECIFIED (2) Acute CHF (congestive heart failure) Code(s): I50.9 - HEART FAILURE, UNSPECIFIED Qualifiers: Heart failure type: diastolic Qualified Code(s): I50.31 - Acute diastolic ( congestive) heart failure (3) Diabetes Code(s): E11.9 - TYPE 2 DIABETES MELLITUS WITHOUT COMPLICATIONS (4) Hypertension Code(s): I10 - ESSENTIAL (PRIMARY) HYPERTENSION (5) Elevated liver enzymes Code(s): R74.8 - ABNORMAL LEVELS OF OTHER SERUM ENZYMES (6) Anxiety Code(s): F41.9 - ANXIETY DISORDER, UNSPECIFIED (7) Lung cancer, hilus Code(s): C34.00 - MALIGNANT NEOPLASM OF UNSPECIFIED MAIN BRONCHUS
[2018-06-13] MEDS ORDERED: MAGNESIUM OXIDE 400 MG TABLET (FP) PO ONE (10:30)
[2018-06-13 10:31] LABS: CREATININE 7.6 mg/dL (0.55-1.3)
[2018-06-13] MEDS ORDERED: FUROSEMIDE 40 MG/4 ML INJECTABLE VIAL IVPUSH ONE (12:55)
--- NOTE | 2018-06-13 12:58 | PN ---
Progress Note, Physician History of Present Illness: Pt seen and examined at bedside. He is awake and alert. He denies shortness of breath. He complains of edema. - Current Medication List Current Medications: Active Medications Allopurinol (Zyloprim -) 100 mg PO DAILY [facility] Last Admin: 06/13/18 09:19 Dose: 100 mg Diazepam (Valium -) 10 mg PO Q6H PRN PRN Reason: WITHDRAWAL(CONT SUBST) Stop: 06/14/18 16:32 Last Admin: 06/13/18 08:02 Dose: 10 mg Furosemide (Lasix Injection -) 80 mg IVPUSH ONCE ONE Stop: 06/13/18 12:56 Heparin Sodium (Porcine) (Heparin -) 1,000 unit IVPUSH PRN PRN PRN Reason: Heparin Last Admin: 06/11/18 09:25 Dose: 1,000 unit Heparin Sodium (Porcine) (Heparin -) 5,000 unit IVPUSH PRN PRN PRN Reason: Heparin Last Admin: 06/11/18 16:23 Dose: 5,000 unit Heparin Sodium (Porcine) 25, (000 unit/ Sodium Chloride) 500 mls @ 44 mls/hr IV TITR [facility]; Protocol Last Titration: 06/13/18 10:47 Dose: 2,550 unit/hr, 51 mls/hr Insulin Aspart (Novolog Vial Sliding Scale -) 1 vial SQ ACHS [facility]; Protocol Last Admin: 06/13/18 11:52 Dose: 1 unit Metoprolol Tartrate (Lopressor -) 25 mg PO DAILY [facility] Last Admin: 06/13/18 09:19 Dose: 25 mg Oxycodone HCl (Roxicodone -) 10 mg PO Q4H PRN PRN Reason: PAIN LEVEL 6-10 Last Admin: 06/13/18 10:45 Dose: 10 mg Ranitidine HCl (Zantac -) 150 mg PO DAILY PRN PRN Reason: INDIGESTION Last Admin: 06/12/18 09:22 Dose: 150 mg - Objective Vital Signs: Vital Signs Temperature 98.7 F 06/13/18 10:00 Pulse Rate 88 06/13/18 10:00 Respiratory Rate 20 06/13/18 10:00 Blood Pressure 127/62 06/13/18 10:00 O2 Sat by Pulse Oximetry (%) 95 06/12/18 22:00 Constitutional: Yes: Calm Eyes: Yes: Conjunctiva Clear HENT: Yes: Atraumatic Cardiovascular: Yes: S1, S2 Respiratory: Yes: CTA Bilaterally Gastrointestinal: Yes: Soft, Abdomen, Obese Musculoskeletal: Yes: WNL Edema: Yes Edema: LLE: 2+, RLE: 2+ Neurological: Yes: Oriented Psychiatric: Yes: Oriented Labs: CBC, BMP 06/12/18 06:35 06/13/18 08:30 INR, PTT INR 1.13 (0.83-1.09) H 06/13/18 08:30 Problem List - Problems (1) Acute kidney injury Code(s): N17.9 - ACUTE KIDNEY FAILURE, UNSPECIFIED (2) Dehydration Code(s): E86.0 - DEHYDRATION (3) Prerenal azotemia Code(s): R79.89 - OTHER SPECIFIED ABNORMAL FINDINGS OF BLOOD CHEMISTRY Assessment/Plan Current Medications Generic Name Dose Route Start Last Admin Trade Name Freq PRN Reason Stop Dose Admin Allopurinol 100 mg 06/11/18 10:00 06/13/18 09:19 Zyloprim - PO 100 mg DAILY MONICA Administration Diazepam 10 mg 06/11/18 16:32 06/13/18 08:02 Valium - PO 06/14/18 16:32 10 mg Q6H PRN Administration WITHDRAWAL(CONT SUBST) Furosemide 80 mg 06/13/18 12:55 Lasix Injection - IVPUSH 06/13/18 12:56 ONCE ONE Heparin Sodium (Porcine) 1,000 unit 06/09/18 13:53 06/11/18 09:25 Heparin - IVPUSH 1,000 unit PRN PRN Administration Heparin Heparin Sodium (Porcine) 5,000 unit 06/09/18 13:53 06/11/18 16:23 Heparin - IVPUSH 5,000 unit PRN PRN Administration Heparin Heparin Sodium (Porcine) 25, 500 mls @ 44 mls/hr 06/09/18 20:15 06/13/18 10: 47 000 unit/ Sodium Chloride IV 2,550 unit/hr TITR MONICA 51 mls/hr Titration Protocol 2,200 UNIT/HR Insulin Aspart 1 vial 06/09/18 16:30 06/13/18 11:52 Novolog Vial Sliding Scale - SQ 1 unit ACHS MONICA Administration Protocol Metoprolol Tartrate 25 mg 06/10/18 10:00 06/13/18 09:19 Lopressor - PO 25 mg DAILY MONICA Administration Oxycodone HCl 10 mg 06/09/18 14:13 06/13/18 10:45 Roxicodone - PO 10 mg Q4H PRN Administration PAIN LEVEL 6-10 Potassium Chloride 20 meq 06/13/18 12:55 K-Dur - PO 06/13/18 12:56 ONCE ONE Ranitidine HCl 150 mg 06/09/18 13:53 06/12/18 09:22 Zantac - PO 150 mg DAILY PRN Administration INDIGESTION Laboratory Tests 06/12/18 11:20 Ur Specific [place] 1.006 L Urine Protein Negative Urine Glucose (UA) Negative Urine Ketones Negative Urine Blood 1+ H Impression 1. lung cancer 2. IGOR 3. hyponatremia 4. fever/chills 5. decreased appetite/nausea Plan - renal function is improved - repeat labs in am - lasix today - volume status is improving - serologies are negative - likely atn - repeat ua improved Dr Foley
[2018-06-13] MEDS ORDERED: POTASSIUM CHLORIDE TABS 20 MEQ TABLET.ER (FP) PO ONE (13:15)
--- NOTE | 2018-06-13 17:16 | PN ---
Physical Exam: SUBJECTIVE: Patient seen and examined; creatinine improving; increased urine/o OBJECTIVE: Vital Signs Period Temp Pulse Resp BP Sys/Small Pulse Ox Last 24 Hr 97.9 F-98.7 F 85-88 20-20 127-133/60-67 95 GENERAL: The patient is obese; aaox3 LUNGS: Breath sounds equal, clear to auscultation bilaterally, no wheezes, no crackles, no accessory muscle use. HEART: Regular rate and rhythm, S1, S2 without murmur, rub or gallop. ABDOMEN: Soft, nontender, nondistended, normoactive bowel sounds, no guarding, no rebound, no hepatosplenomegaly, no masses. EXTREMITIES: 2+ pulses, warm, well-perfused, anasarca; improved; with scrotal edema NEUROLOGICAL: Cranial nerves II through XII grossly intact. Normal speech, gait not observed. PSYCH: Normal mood, normal affect. SKIN: Warm, dry, normal turgor, no rashes or lesions noted Laboratory Results - last 24 hr 06/12/18 06/13/18 06/13/18 21:22 06:37 08:30 PT with INR INR PTT (Actin FS) 53.7 H Sodium Potassium Chloride Carbon Dioxide Anion Gap BUN Creatinine Creat Clearance w eGFR POC Glucometer 169 152 Random Glucose Calcium Magnesium Total Bilirubin AST ALT Alkaline Phosphatase Total Protein Albumin 06/13/18 06/13/18 06/13/18 08:30 08:30 11:37 PT with INR 13.30 H INR 1.13 H PTT (Actin FS) Sodium 140 Potassium 3.6 Chloride 104 Carbon Dioxide 31 Anion Gap 5 L BUN 36 H Creatinine 7.6 H* Creat Clearance w eGFR 7.31 POC Glucometer 153 Random Glucose 143 H Calcium 8.0 L Magnesium 1.6 L Total Bilirubin 0.5 AST 18 ALT 48 Alkaline Phosphatase 128 H Total Protein 6.1 L Albumin 2.4 L 06/13/18 16:25 PT with INR INR PTT (Actin FS) Sodium Potassium Chloride Carbon Dioxide Anion Gap BUN Creatinine Creat Clearance w eGFR POC Glucometer 140 Random Glucose Calcium Magnesium Total Bilirubin AST ALT Alkaline Phosphatase Total Protein Albumin Active Medications Generic Name Dose Route Start Last Admin Trade Name Freq PRN Reason Stop Dose Admin Allopurinol 100 mg 06/11/18 10:00 06/13/18 09:19 Zyloprim - PO 100 mg DAILY MONICA Administration Diazepam 10 mg 06/11/18 16:32 06/13/18 14:15 Valium - PO 06/14/18 16:32 10 mg Q6H PRN Administration WITHDRAWAL(CONT SUBST) Heparin Sodium (Porcine) 1,000 unit 06/09/18 13:53 06/11/18 09:25 Heparin - IVPUSH 1,000 unit PRN PRN Administration Heparin Heparin Sodium (Porcine) 5,000 unit 06/09/18 13:53 06/11/18 16:23 Heparin - IVPUSH 5,000 unit PRN PRN Administration Heparin Heparin Sodium (Porcine) 25, 500 mls @ 44 mls/hr 06/09/18 20:15 06/13/18 10: 47 000 unit/ Sodium Chloride IV 2,550 unit/hr TITR MONICA 51 mls/hr Titration Protocol 2,200 UNIT/HR Insulin Aspart 1 vial 06/09/18 16:30 06/13/18 16:28 Novolog Vial Sliding Scale - SQ Not Given ACHS MONICA Protocol Metoprolol Tartrate 25 mg 06/10/18 10:00 06/13/18 09:19 Lopressor - PO 25 mg DAILY MONICA Administration Oxycodone HCl 10 mg 06/09/18 14:13 06/13/18 16:30 Roxicodone - PO 10 mg Q4H PRN Administration PAIN LEVEL 6-10 Ranitidine HCl 150 mg 06/09/18 13:53 06/12/18 09:22 Zantac - PO 150 mg DAILY PRN Administration INDIGESTION ASSESSMENT/PLAN: This is a 63 year old male with a history of PE, adenocarcinma of the lung s/p carboplantin/alimpta chemotherapy; had interim of remission, now back on chemotherapy alimpta, who presents with complaints of lethargy, body aches, poor oral intake, no urine output since Tuesday, and an episode of rigors. In acute renal failure. Acute renal failure Adenocarinoma of lung; s/p alimpta hx of PE hyperuricemia transaminitis chronic back pain h/o pericardial effusion in 2014 s/p pericardial window -HD and diuresis as per nephrology -making urine -creatinine improving -as per AC for hx of PE; ok to give lovenox 1mg/kg daily for Creatinine clearance <20. Visit type - Emergency Visit Emergency Visit: Yes ED Registration Date: 06/01/18 Care time: The patient presented to the Emergency Department on the above date and was hospitalized for further evaluation of their emergent condition. - New Patient This patient is new to me today: No - Critical Care Critical Care patient: No
--- NOTE | 2018-06-13 17:41 | PN ---
Teaching Attending Note Name of Resident: Mary Swenson ATTENDING PHYSICIAN STATEMENT I saw and evaluated the patient. I reviewed the resident's note and discussed the case with the resident. I agree with the resident's findings and plan as documented. SUBJECTIVE: Patient seen and examined Improvement in kidney function noted Spoke with pharmacy Can give lovenox 1 mg/kg - full dose Assume weight is 280 --pre renal failure weight Would give 130 mg of lovenox daily -ONCE ONLY. OBJECTIVE: ASSESSMENT AND PLAN:
[2018-06-13] MEDS ORDERED: INSULIN (NOVOLOG) ASPART 100 UNITS/ML 10ML VIAL ONE (20:58)
[2018-06-14] MEDS: oxyCODONE HCL 5 MG TABLET PO PRN ×6 (00:24→19:16)
[2018-06-14] MEDS: diazePAM 5 MG TABLET PO PRN ×4 (03:09→22:38)
[2018-06-14] MEDS: INSULIN SLIDING SCALE (NOVOLOG) 1 VIAL SQ SCH ×4 (06:15→22:38)
[2018-06-14 07:19] LABS: BASO % 0.8 % (0-2.0); EOS % 2.7 % (0-4.5); HEMATOCRIT 27.1 % (35.4-49); HEMOGLOBIN 9.2 GM/dL (11.7-16.9); LYMPH % 19.1 % (8-40); MCH 31.8 pg (25.7-33.7); MCHC 33.9 g/dl (32.0-35.9); MEAN PLT VOLUME 8.4 fl (7.5-11.1); MONO % 12.2 % (3.8-10.2); NEUT % 65.2 % (42.8-82.8); PLATELET COUNT 131 K/MM3 (134-434); RBC 2.88 M/mm3 (4.00-5.60); RDW 14.4 % (11.9-15.9); WHITE BLOOD COUNT 4.3 K/mm3 (4.0-10.0)
[2018-06-14] MEDS ORDERED: INSULIN (NOVOLOG) ASPART 100 UNITS/ML 10ML VIAL ONE (07:33)
[2018-06-14 07:39] LABS: ANION GAP 6 MMOL/L (8-16); BLOOD UREA NITROGEN 36 mg/dL (7-18); CALCIUM 7.9 mg/dL (8.5-10.1); CHLORIDE 105 mmol/L (98-107); CO2 32 mmol/L (21-32); CREATININE 6.7 mg/dL (0.55-1.3); GLUCOSE,RANDOM 151 mg/dL (74-106); PHOSPHOROUS 5.2 mg/dL (2.5-4.9); POTASSIUM 3.4 mmol/L (3.5-5.1); SODIUM 143 mmol/L (136-145)
[2018-06-14] MEDS ORDERED: POTASSIUM CHLORIDE TABS 20 MEQ TABLET.ER (FP) PO ONE (07:41)
[2018-06-14] MEDS ORDERED: FUROSEMIDE 100 MG/10 ML INJECTABLE VIAL IVPB ONE (07:41)
[2018-06-14] MEDS: HEPARIN - 25,000 UNIT in SODIUM CHLORIDE 495 ML IV SCH (07:56)
--- NOTE | 2018-06-14 09:10 | PN ---
Teaching Attending Note Name of Resident: Rohith Eduardo ATTENDING PHYSICIAN STATEMENT I saw and evaluated the patient. I reviewed the resident's note and discussed the case with the resident. I agree with the resident's findings and plan as documented. SUBJECTIVE: OBJECTIVE: Vital Signs Temperature 98.1 F 06/14/18 09:00 Pulse Rate 96 H 06/14/18 09:00 Respiratory Rate 20 06/14/18 09:00 Blood Pressure 130/72 06/14/18 09:00 O2 Sat by Pulse Oximetry (%) 96 06/13/18 22:00 ASSESSMENT AND PLAN:63 yrs old man h/o obesity adenocarcinoma Lung s/p Chemotherapy(carb/Alimta), currently on maintenance alimta since 2015, Also pleural/pericardial effusion with bilateral pulmonary embolism in 04/2014, s/p pericardial window, on lovenox, T2DM admitted with hypotention with poor PO intake and nausea, vomiting and diarrhea, with IGOR initially treated for sepsis and IV Hydration renal functions are improving at home on therapeutic dose of Lovenox switched to Heparin infusion, evaluated by Oncology recommended Lovenox 1 mg /KG daily for AC. Problem List - Problems (1) Acute kidney injury Assessment/Plan: Due to Hypotention improving on Hydration F/U BMP and renal recommendations Code(s): N17.9 - ACUTE KIDNEY FAILURE, UNSPECIFIED (2) Acute renal failure Assessment/Plan: Cont IV Hydration F/U BMP Code(s): N17.9 - ACUTE KIDNEY FAILURE, UNSPECIFIED (3) Hypotension Assessment/Plan: Resolved due to sepsis Code(s): I95.9 - HYPOTENSION, UNSPECIFIED Qualifiers: Hypotension type: unspecified hypotension type Qualified Code(s): I95.9 - Hypotension, unspecified (4) Elevated liver enzymes Assessment/Plan: Due to Hypotention Code(s): R74.8 - ABNORMAL LEVELS OF OTHER SERUM ENZYMES (5) Hypertension Assessment/Plan: Off BP meds due to Hypotention Code(s): I10 - ESSENTIAL (PRIMARY) HYPERTENSION (6) Pulmonary embolism Assessment/Plan: on Life long AC switch to Lovenox 130 mg daily as recommended by Hematology consult. Code(s): I26.99 - OTHER PULMONARY EMBOLISM WITHOUT ACUTE COR PULMONALE (7) Carcinoma, lung Assessment/Plan: F/U Oncology recommendation Code(s): C34.90 - MALIGNANT NEOPLASM OF UNSP PART OF UNSP BRONCHUS OR LUNG
[2018-06-14] MEDS ORDERED: PT OWN MED DRAWER 7, Y5N ONE (09:19)
[2018-06-14] MEDS: METOPROLOL TARTRATE 25 MG TABLET (FP) PO SCH (09:20)
[2018-06-14] MEDS: ALLOPURINOL 100 MG TABLET (FP) PO SCH (09:20)
[2018-06-14 10:39] LABS: ANISOCYTOSIS 0; PLATELET ESTIMATE DECREASED
[2018-06-14 10:59] LABS: MACROCYTOSIS 1+
[2018-06-14] MEDS ORDERED: ENOXAPARIN NA (PORCINE) 40 MG/0.4 ML DISP.SYRIN SQ SCH (11:00)
[2018-06-14] MEDS ORDERED: ENOXAPARIN NA (PORCINE) 30 MG/0.3 ML DISP.SYRIN SQ ONE (12:05)
[2018-06-14] MEDS ORDERED: ENOXAPARIN NA (PORCINE) 100 MG/1 ML DISP.SYRIN SQ ONE (12:05)
[2018-06-14] MEDS: ENOXAPARIN 100 MG, ENOXAPARIN 30 MG SQ SCH (12:09)
--- NOTE | 2018-06-14 13:09 | PN ---
Progress Note, Physician History of Present Illness: Pt seen and examined at bedside. He is awake and alert. He feels that the edema is improving. - Current Medication List Current Medications: Active Medications Allopurinol (Zyloprim -) 100 mg PO DAILY [facility] Last Admin: 06/14/18 09:20 Dose: 100 mg Diazepam (Valium -) 10 mg PO Q6H PRN PRN Reason: WITHDRAWAL(CONT SUBST) Stop: 06/14/18 16:32 Last Admin: 06/14/18 09:25 Dose: 10 mg Enoxaparin Sodium 100 mg/ (Enoxaparin Sodium 30 mg) 130 mg SQ DAILY [facility] Last Admin: 06/14/18 12:09 Dose: 130 mg Insulin Aspart (Novolog Vial Sliding Scale -) 1 vial SQ [facility]; Protocol Last Admin: 06/14/18 11:17 Dose: 1 unit Metoprolol Tartrate (Lopressor -) 25 mg PO DAILY [facility] Last Admin: 06/14/18 09:20 Dose: 25 mg Oxycodone HCl (Roxicodone -) 10 mg PO Q4H PRN PRN Reason: PAIN LEVEL 6-10 Last Admin: 06/14/18 12:09 Dose: 10 mg Ranitidine HCl (Zantac -) 150 mg PO DAILY PRN PRN Reason: INDIGESTION Last Admin: 06/12/18 09:22 Dose: 150 mg - Objective Vital Signs: Vital Signs Temperature 98.1 F 06/14/18 09:00 Pulse Rate 96 H 06/14/18 09:00 Respiratory Rate 20 06/14/18 09:00 Blood Pressure 130/72 06/14/18 09:00 O2 Sat by Pulse Oximetry (%) 96 06/13/18 22:00 Constitutional: Yes: Calm Eyes: Yes: Conjunctiva Clear HENT: Yes: Atraumatic Neck: Yes: Supple Cardiovascular: Yes: S1, S2 Respiratory: Yes: CTA Bilaterally Gastrointestinal: Yes: Soft Genitourinary: Yes: WNL Musculoskeletal: Yes: WNL Edema: Yes Edema: LLE: 1+, RLE: 1+ Neurological: Yes: Oriented Psychiatric: Yes: Oriented Labs: CBC, BMP 06/14/18 06:30 06/14/18 06:30 INR, PTT INR 1.13 (0.83-1.09) H 06/13/18 08:30 Problem List - Problems (1) Acute kidney injury Code(s): N17.9 - ACUTE KIDNEY FAILURE, UNSPECIFIED (2) Dehydration Code(s): E86.0 - DEHYDRATION (3) Prerenal azotemia Code(s): R79.89 - OTHER SPECIFIED ABNORMAL FINDINGS OF BLOOD CHEMISTRY Assessment/Plan Current Medications Generic Name Dose Route Start Last Admin Trade Name Freq PRN Reason Stop Dose Admin Allopurinol 100 mg 06/11/18 10:00 06/14/18 09:20 Zyloprim - PO 100 mg DAILY [facility] Administration Diazepam 10 mg 06/11/18 16:32 06/14/18 09:25 Valium - PO 06/14/18 16:32 10 mg Q6H PRN Administration WITHDRAWAL(CONT SUBST) Enoxaparin Sodium 100 mg/ 130 mg 06/14/18 11:00 06/14/18 12:09 Enoxaparin Sodium 30 mg SQ 130 mg DAILY [facility] Administration Insulin Aspart 1 vial 06/09/18 16:30 06/14/18 11:17 Novolog Vial Sliding Scale - SQ 1 unit ACHS [facility] Administration Protocol Metoprolol Tartrate 25 mg 06/10/18 10:00 06/14/18 09:20 Lopressor - PO 25 mg DAILY [facility] Administration Oxycodone HCl 10 mg 06/09/18 14:13 06/14/18 12:09 Roxicodone - PO 10 mg Q4H PRN Administration PAIN LEVEL 6-10 Ranitidine HCl 150 mg 06/09/18 13:53 06/12/18 09:22 Zantac - PO 150 mg DAILY PRN Administration INDIGESTION Impression 1. lung cancer 2. IGOR 3. hyponatremia 4. fever/chills 5. decreased appetite/nausea Plan - renal function is improving - cont with lasix, gave a dose this morning - repeat labs in am - volume status is improving - serologies are negative - likely atn Dr Foley
--- NOTE | 2018-06-14 16:57 | PN ---
Physical Exam: SUBJECTIVE: Patient seen and examined OBJECTIVE: Vital Signs Period Temp Pulse Resp BP Sys/Small Pulse Ox Last 24 Hr 97.9 F-98.3 F 79-96 19-21 129-145/69-78 96 GENERAL: AAox3 ; anasarca. HEAD: Normal with no signs of trauma. LUNGS: Breath sounds equal, clear to auscultation bilaterally, no wheezes, no crackles, no accessory muscle use. HEART: Regular rate and rhythm, S1, S2 without murmur, rub or gallop. ABDOMEN: obese; Soft, nontender, nondistended, normoactive bowel sounds, no guarding, no rebound, no hepatosplenomegaly, no masses. EXTREMITIES: 2+ pulses, warm, well-perfused, anasarca; improved NEUROLOGICAL: Cranial nerves II through XII grossly intact. Normal speech, gait not observed. PSYCH: Normal mood, normal affect. SKIN: Warm, dry, normal turgor, no rashes or lesions noted Laboratory Results - last 24 hr 06/13/18 06/14/18 06/14/18 21:27 05:56 06:30 WBC RBC Hgb Hct MCV MCH MCHC RDW Plt Count MPV Absolute Neuts (auto) Neutrophils % Neutrophils % (Manual) Band Neutrophils % Lymphocytes % Lymphocytes % (Manual) Monocytes % Monocytes % (Manual) Eosinophils % Eosinophils % (Manual) Basophils % Basophils % (Manual) Myelocytes % (Man) Promyelocytes % (Man) Blast Cells % (Manual) Nucleated RBC % Metamyelocytes Hypochromia Platelet Estimate Polychromasia Poikilocytosis Anisocytosis Microcytosis Macrocytosis PTT (Actin FS) 53.3 H Sodium Potassium Chloride Carbon Dioxide Anion Gap BUN Creatinine Creat Clearance w eGFR POC Glucometer 164 139 Random Glucose Calcium Phosphorus 06/14/18 06/14/18 06/14/18 06:30 06:30 11:15 WBC 4.3 RBC 2.88 L Hgb 9.2 L Hct 27.1 L MCV 94.0 MCH 31.8 MCHC 33.9 RDW 14.4 Plt Count 131 L MPV 8.4 Absolute Neuts (auto) 2.8 Neutrophils % 65.2 Neutrophils % (Manual) 59.0 Band Neutrophils % 2.0 Lymphocytes % 19.1 Lymphocytes % (Manual) 21.0 D Monocytes % 12.2 H Monocytes % (Manual) 10 Eosinophils % 2.7 Eosinophils % (Manual) 6.0 H D Basophils % 0.8 Basophils % (Manual) 2.0 D Myelocytes % (Man) 0 D Promyelocytes % (Man) 0 D Blast Cells % (Manual) 0 Nucleated RBC % 0 Metamyelocytes 0 Hypochromia 0 Platelet Estimate Decreased Polychromasia 0 Poikilocytosis 0 Anisocytosis 0 Microcytosis 0 Macrocytosis 1+ PTT (Actin FS) Sodium 143 Potassium 3.4 L Chloride 105 Carbon Dioxide 32 Anion Gap 6 L BUN 36 H Creatinine 6.7 H Creat Clearance w eGFR 8.46 POC Glucometer 197 Random Glucose 151 H Calcium 7.9 L Phosphorus 5.2 H 06/14/18 16:17 WBC RBC Hgb Hct MCV MCH MCHC RDW Plt Count MPV Absolute Neuts (auto) Neutrophils % Neutrophils % (Manual) Band Neutrophils % Lymphocytes % Lymphocytes % (Manual) Monocytes % Monocytes % (Manual) Eosinophils % Eosinophils % (Manual) Basophils % Basophils % (Manual) Myelocytes % (Man) Promyelocytes % (Man) Blast Cells % (Manual) Nucleated RBC % Metamyelocytes Hypochromia Platelet Estimate Polychromasia Poikilocytosis Anisocytosis Microcytosis Macrocytosis PTT (Actin FS) Sodium Potassium Chloride Carbon Dioxide Anion Gap BUN Creatinine Creat Clearance w eGFR POC Glucometer 187 Random Glucose Calcium Phosphorus Active Medications Generic Name Dose Route Start Last Admin Trade Name Freq PRN Reason Stop Dose Admin Allopurinol 100 mg 06/11/18 10:00 06/14/18 09:20 Zyloprim - PO 100 mg DAILY [facility] Administration Enoxaparin Sodium 100 mg/ 130 mg 06/14/18 11:00 06/14/18 12:09 Enoxaparin Sodium 30 mg SQ 130 mg DAILY [facility] Administration Insulin Aspart 1 vial 06/09/18 16:30 06/14/18 16:18 Novolog Vial Sliding Scale - SQ 1 unit ACHS [facility] Administration Protocol Metoprolol Tartrate 25 mg 06/10/18 10:00 06/14/18 09:20 Lopressor - PO 25 mg DAILY [facility] Administration Oxycodone HCl 10 mg 06/09/18 14:13 06/14/18 15:17 Roxicodone - PO 10 mg Q4H PRN Administration PAIN LEVEL 6-10 Ranitidine HCl 150 mg 06/09/18 13:53 06/12/18 09:22 Zantac - PO 150 mg DAILY PRN Administration INDIGESTION ASSESSMENT/PLAN: Acute renal failure Adenocarinoma of lung; s/p alimpta hx of PE hyperuricemia transaminitis chronic back pain h/o pericardial effusion in 2014 s/p pericardial window -HD and diuresis as per nephrology -making urine -creatinine improving -as per AC for hx of PE; ok to give lovenox 1mg/kg daily for Creatinine clearance <20. Visit type - Emergency Visit Emergency Visit: Yes ED Registration Date: 06/01/18 Care time: The patient presented to the Emergency Department on the above date and was hospitalized for further evaluation of their emergent condition. - New Patient This patient is new to me today: No - Critical Care Critical Care patient: No
--- NOTE | 2018-06-14 17:26 | PN ---
Physical Exam: SUBJECTIVE: Patient seen and examined no new complaints over night denies sob, chest pain, palpitations OBJECTIVE: Vital Signs Period Temp Pulse Resp BP Sys/Small Pulse Ox Last 24 Hr 97.9 F-98.3 F 79-96 19-21 129-145/69-78 96 GENERAL: Awake, alert, and fully oriented, in no acute distress. HEAD: Normal with no signs of trauma. EARS, NOSE, THROAT: moist mucous membranes. NECK: Normal range of motion, supple without lymphadenopathy, JVD, or masses. LUNGS: Breath sounds equal, clear to auscultation bilaterally. mild expi wheezing HEART: Regular rate and rhythm, normal S1 and S2 without murmur, ABDOMEN: Soft, no tenderness, not distended, normoactive bowel sounds. scrotal swelling MUSCULOSKELETAL: Normal range of motion at all joints. UPPER EXTREMITIES: 2+ pulses, warm, well-perfused. No peripheral edema. LOWER EXTREMITIES: warm, well-perfused. peripheral edema 1+ SKIN: Warm, dry, Laboratory Results - last 24 hr 06/13/18 06/14/18 06/14/18 21:27 05:56 06:30 WBC RBC Hgb Hct MCV MCH MCHC RDW Plt Count MPV Absolute Neuts (auto) Neutrophils % Neutrophils % (Manual) Band Neutrophils % Lymphocytes % Lymphocytes % (Manual) Monocytes % Monocytes % (Manual) Eosinophils % Eosinophils % (Manual) Basophils % Basophils % (Manual) Myelocytes % (Man) Promyelocytes % (Man) Blast Cells % (Manual) Nucleated RBC % Metamyelocytes Hypochromia Platelet Estimate Polychromasia Poikilocytosis Anisocytosis Microcytosis Macrocytosis PTT (Actin FS) 53.3 H Sodium Potassium Chloride Carbon Dioxide Anion Gap BUN Creatinine Creat Clearance w eGFR POC Glucometer 164 139 Random Glucose Calcium Phosphorus 06/14/18 06/14/18 06/14/18 06:30 06:30 11:15 WBC 4.3 RBC 2.88 L Hgb 9.2 L Hct 27.1 L MCV 94.0 MCH 31.8 MCHC 33.9 RDW 14.4 Plt Count 131 L MPV 8.4 Absolute Neuts (auto) 2.8 Neutrophils % 65.2 Neutrophils % (Manual) 59.0 Band Neutrophils % 2.0 Lymphocytes % 19.1 Lymphocytes % (Manual) 21.0 D Monocytes % 12.2 H Monocytes % (Manual) 10 Eosinophils % 2.7 Eosinophils % (Manual) 6.0 H D Basophils % 0.8 Basophils % (Manual) 2.0 D Myelocytes % (Man) 0 D Promyelocytes % (Man) 0 D Blast Cells % (Manual) 0 Nucleated RBC % 0 Metamyelocytes 0 Hypochromia 0 Platelet Estimate Decreased Polychromasia 0 Poikilocytosis 0 Anisocytosis 0 Microcytosis 0 Macrocytosis 1+ PTT (Actin FS) Sodium 143 Potassium 3.4 L Chloride 105 Carbon Dioxide 32 Anion Gap 6 L BUN 36 H Creatinine 6.7 H Creat Clearance w eGFR 8.46 POC Glucometer 197 Random Glucose 151 H Calcium 7.9 L Phosphorus 5.2 H 06/14/18 16:17 WBC RBC Hgb Hct MCV MCH MCHC RDW Plt Count MPV Absolute Neuts (auto) Neutrophils % Neutrophils % (Manual) Band Neutrophils % Lymphocytes % Lymphocytes % (Manual) Monocytes % Monocytes % (Manual) Eosinophils % Eosinophils % (Manual) Basophils % Basophils % (Manual) Myelocytes % (Man) Promyelocytes % (Man) Blast Cells % (Manual) Nucleated RBC % Metamyelocytes Hypochromia Platelet Estimate Polychromasia Poikilocytosis Anisocytosis Microcytosis Macrocytosis PTT (Actin FS) Sodium Potassium Chloride Carbon Dioxide Anion Gap BUN Creatinine Creat Clearance w eGFR POC Glucometer 187 Random Glucose Calcium Phosphorus Active Medications Generic Name Dose Route Start Last Admin Trade Name Freq PRN Reason Stop Dose Admin Allopurinol 100 mg 06/11/18 10:00 06/14/18 09:20 Zyloprim - PO 100 mg DAILY [facility] Administration Enoxaparin Sodium 100 mg/ 130 mg 06/14/18 11:00 06/14/18 12:09 Enoxaparin Sodium 30 mg SQ 130 mg DAILY [facility] Administration Insulin Aspart 1 vial 06/09/18 16:30 06/14/18 16:18 Novolog Vial Sliding Scale - SQ 1 unit ACHS [facility] Administration Protocol Metoprolol Tartrate 25 mg 06/10/18 10:00 06/14/18 09:20 Lopressor - PO 25 mg DAILY [facility] Administration Oxycodone HCl 10 mg 06/09/18 14:13 06/14/18 15:17 Roxicodone - PO 10 mg Q4H PRN Administration PAIN LEVEL 6-10 Ranitidine HCl 150 mg 06/09/18 13:53 06/12/18 09:22 Zantac - PO 150 mg DAILY PRN Administration INDIGESTION ASSESSMENT/PLAN: 63 yom with PMhx of [place]en[place] of lung diagnosed in 04/2014, s/p Chemotherapy(carb/ Alimta), currently on maintenance alimta since 2015, Also pleural/pericardial effusion with bilateral pulmonary embolism in 04/2014, s/p pericardial window, on lovenox, NIDDM, with 5 days of minimal po intake, no urinary outpatient, found with IGOR, hypotension -IGOR, ?from hypovolumia/poor oral intake/lasix+/- tumor lysis syndrome, r/o sepsis UO improving, cr improving avoid nephrotoxic drugs daily weight oncology on case serology negative renal function pending got lasix today -Lower uncomplicated UTI off from antibiotics afebrile Abnormal LFTS, hypotension, improving NIDDM bgm insulin sliding scale thrombocytopenia; improving plt 131 elevated uric acid continue allopurinol - H/o bilateral pulmonary embolism in 04/2014:started on lovenox renal dose -Adenocarcinoma of lung diagnosed in 04/2014, s/p carb/alimta, now on maintenance alimta since 2015 -h/o pericardial effusion in 2014 s/p pericardial window Fluid; orally allowed electrolyte: repeat in am nutrition: diabetic and renal diet gi pro:not required dvt pro: lovenox dispo:med surg Visit type - Emergency Visit Emergency Visit: Yes ED Registration Date: 06/01/18 Care time: The patient presented to the Emergency Department on the above date and was hospitalized for further evaluation of their emergent condition. - New Patient This patient is new to me today: No - Critical Care Critical Care patient: No
[2018-06-15] MEDS: oxyCODONE HCL 5 MG TABLET PO PRN ×5 (00:58→19:29)
[2018-06-15] MEDS: diazePAM 5 MG TABLET PO PRN ×3 (05:17→20:56)
[2018-06-15] MEDS: INSULIN SLIDING SCALE (NOVOLOG) 1 VIAL SQ SCH ×4 (06:33→20:59)
[2018-06-15] MEDS ORDERED: INSULIN (NOVOLOG) ASPART 100 UNITS/ML 10ML VIAL ONE ×4 (07:03→20:55)
--- NOTE | 2018-06-15 08:22 | PN ---
Teaching Attending Note Name of Resident: Rohith Eduardo ATTENDING PHYSICIAN STATEMENT I saw and evaluated the patient. I reviewed the resident's note and discussed the case with the resident. I agree with the resident's findings and plan as documented. SUBJECTIVE: OBJECTIVE: Vital Signs Temperature 98.5 F 06/15/18 06:00 Pulse Rate 84 06/15/18 06:00 Respiratory Rate 20 06/15/18 06:00 Blood Pressure 133/68 06/15/18 06:00 O2 Sat by Pulse Oximetry (%) 96 06/13/18 22:00 HEENT: Mm moist, no anemia NECK: No JVd No Bruit CHEST: CTA B/L CVS: s1S2 R no m/g/r ABD: obese, no distention, non tender Bs + EXT: no bethany afeet , no calf tenderness, Pulses + STORE ASSOCIATE: AOX3 non focal CBC, BMP 06/14/18 06:30 06/15/18 07:30 ASSESSMENT AND PLAN:ASSESSMENT AND PLAN:63 yrs old man h/o obesity adenocarcinoma Lung s/p Chemotherapy(carb/Alimta), currently on maintenance alimta since 2015, Also pleural/pericardial effusion with bilateral pulmonary embolism in 04/2014, s/p pericardial window, on lovenox, T2DM admitted with hypotention with poor PO intake and nausea, vomiting and diarrhea, with IGOR initially treated for sepsis and IV Hydration renal functions are improving at home on therapeutic dose of Lovenox switched to Heparin infusion, evaluated by Oncology recommended Lovenox 1 mg /KG daily for AC. Problem List - Problems (1) Acute kidney injury Assessment/Plan: Due to Hypotention improving on Hydration F/U BMP and renal recommendations Code(s): N17.9 - ACUTE KIDNEY FAILURE, UNSPECIFIED (2) Acute renal failure Assessment/Plan: Cont IV Hydration F/U BMP Code(s): N17.9 - ACUTE KIDNEY FAILURE, UNSPECIFIED (3) Hypotension Assessment/Plan: Resolved due to sepsis Code(s): I95.9 - HYPOTENSION, UNSPECIFIED Qualifiers: Hypotension type: unspecified hypotension type Qualified Code(s): I95.9 - Hypotension, unspecified (4) Elevated liver enzymes Assessment/Plan: Due to Hypotention Code(s): R74.8 - ABNORMAL LEVELS OF OTHER SERUM ENZYMES (5) Hypertension Assessment/Plan: Off BP meds due to Hypotention Code(s): I10 - ESSENTIAL (PRIMARY) HYPERTENSION (6) Pulmonary embolism Assessment/Plan: on Life long AC switch to Lovenox 130 mg daily as recommended by Hematology consult. Code(s): I26.99 - OTHER PULMONARY EMBOLISM WITHOUT ACUTE COR PULMONALE (7) Carcinoma, lung Assessment/Plan: F/U Oncology recommendation Code(s): C34.90 - MALIGNANT NEOPLASM OF UNSP PART OF UNSP BRONCHUS OR LUNG (8) Elevated uric acid in blood Assessment/Plan: on Zyloric Code(s): E79.0 - HYPERURICEMIA W/O SIGNS OF INFLAM ARTHRIT AND TOPHACEOUS DIS
[2018-06-15 08:59] LABS: ALBUMIN 2.4 g/dl (3.4-5.0); ALK PHOS 122 U/L (45-117); ANION GAP 7 MMOL/L (8-16); BILIRUBIN,TOTAL 0.6 mg/dL (0.2-1); BLOOD UREA NITROGEN 35 mg/dL (7-18); CALCIUM 7.9 mg/dL (8.5-10.1); CHLORIDE 101 mmol/L (98-107); CO2 32 mmol/L (21-32); CREATININE 5.8 mg/dL (0.55-1.3); GLUCOSE,RANDOM 167 mg/dL (74-106); MAGNESIUM 1.3 mg/dL (1.8-2.4); POTASSIUM 3.6 mmol/L (3.5-5.1); SGOT/AST 15 U/L (15-37); SGPT/ALT 35 U/L (13-61); SODIUM 141 mmol/L (136-145); TOT PROT 6.2 g/dl (6.4-8.2)
[2018-06-15] MEDS ORDERED: MAGNESIUM OXIDE 400 MG TABLET (FP) PO ONE (10:19)
[2018-06-15] MEDS ORDERED: ENOXAPARIN NA (PORCINE) 30 MG/0.3 ML DISP.SYRIN SQ ONE (10:37)
[2018-06-15] MEDS ORDERED: ENOXAPARIN NA (PORCINE) 100 MG/1 ML DISP.SYRIN SQ ONE (10:37)
[2018-06-15] MEDS: ENOXAPARIN 100 MG, ENOXAPARIN 30 MG SQ SCH (10:40)
[2018-06-15] MEDS: ALLOPURINOL 100 MG TABLET (FP) PO SCH (10:41)
[2018-06-15] MEDS: METOPROLOL TARTRATE 25 MG TABLET (FP) PO SCH (10:41)
[2018-06-15] MEDS ORDERED: MAGNESIUM SULF 50% (8.12 MEQ/2 ML-1 GM VIAL) IVPB ONE (13:29)
--- NOTE | 2018-06-15 15:40 | PN ---
Progress Note, Physician History of Present Illness: Pt seen and examined at bedside. He is awake and alert. He denies shortness of breath. He feels that edema is improving. - Current Medication List Current Medications: Active Medications Allopurinol (Zyloprim -) 100 mg PO DAILY [facility] Last Admin: 06/15/18 10:41 Dose: 100 mg Diazepam (Valium -) 10 mg PO Q6H PRN PRN Reason: WITHDRAWAL(CONT SUBST) Stop: 06/17/18 20:20 Last Admin: 06/15/18 14:21 Dose: 10 mg Enoxaparin Sodium 100 mg/ (Enoxaparin Sodium 30 mg) 130 mg SQ DAILY [facility] Last Admin: 06/15/18 10:40 Dose: 130 mg Insulin Aspart (Novolog Vial Sliding Scale -) 1 vial SQ [facility]; Protocol Last Admin: 06/15/18 11:09 Dose: 2 unit Metoprolol Tartrate (Lopressor -) 25 mg PO DAILY [facility] Last Admin: 06/15/18 10:41 Dose: 25 mg Oxycodone HCl (Roxicodone -) 10 mg PO Q4H PRN PRN Reason: PAIN LEVEL 6-10 Last Admin: 06/15/18 15:32 Dose: 10 mg Ranitidine HCl (Zantac -) 150 mg PO DAILY PRN PRN Reason: INDIGESTION Last Admin: 06/12/18 09:22 Dose: 150 mg - Objective Vital Signs: Vital Signs Temperature 98.1 F 06/15/18 14:05 Pulse Rate 88 06/15/18 10:00 Respiratory Rate 20 06/15/18 10:00 Blood Pressure 130/80 06/15/18 10:00 O2 Sat by Pulse Oximetry (%) 96 06/13/18 22:00 Constitutional: Yes: Calm Eyes: Yes: Conjunctiva Clear HENT: Yes: Atraumatic Neck: Yes: Supple Cardiovascular: Yes: S1, S2 Respiratory: Yes: CTA Bilaterally Gastrointestinal: Yes: Normal Bowel Sounds, Soft, Abdomen, Obese Genitourinary: Yes: WNL Musculoskeletal: Yes: WNL Edema: Yes Edema: LLE: 2+, RLE: 2+ Neurological: Yes: Oriented Psychiatric: Yes: Oriented Labs: CBC, BMP 06/14/18 06:30 06/15/18 07:30 INR, PTT INR 1.13 (0.83-1.09) H 06/13/18 08:30 Problem List - Problems (1) Acute kidney injury Code(s): N17.9 - ACUTE KIDNEY FAILURE, UNSPECIFIED (2) Dehydration Code(s): E86.0 - DEHYDRATION (3) Prerenal azotemia Code(s): R79.89 - OTHER SPECIFIED ABNORMAL FINDINGS OF BLOOD CHEMISTRY Assessment/Plan Current Medications Generic Name Dose Route Start Last Admin Trade Name Freq PRN Reason Stop Dose Admin Allopurinol 100 mg 06/11/18 10:00 06/15/18 10:41 Zyloprim - PO 100 mg DAILY [facility] Administration Diazepam 10 mg 06/14/18 20:19 06/15/18 14:21 Valium - PO 06/17/18 20:20 10 mg Q6H PRN Administration WITHDRAWAL(CONT SUBST) Enoxaparin Sodium 100 mg/ 130 mg 06/14/18 11:00 06/15/18 10:40 Enoxaparin Sodium 30 mg SQ 130 mg DAILY [facility] Administration Insulin Aspart 1 vial 06/09/18 16:30 06/15/18 11:09 Novolog Vial Sliding Scale - SQ 2 unit ACHS [facility] Administration Protocol Metoprolol Tartrate 25 mg 06/10/18 10:00 06/15/18 10:41 Lopressor - PO 25 mg DAILY [facility] Administration Oxycodone HCl 10 mg 06/09/18 14:13 06/15/18 15:32 Roxicodone - PO 10 mg Q4H PRN Administration PAIN LEVEL 6-10 Ranitidine HCl 150 mg 06/09/18 13:53 06/12/18 09:22 Zantac - PO 150 mg DAILY PRN Administration INDIGESTION Impression 1. lung cancer 2. IGOR 3. hyponatremia 4. fever/chills 5. decreased appetite/nausea Plan - cont with lasix - repeat labs in am - renal function improving - replace mag - likely atn Dr Foley
[2018-06-15] MEDS ORDERED: FUROSEMIDE 40 MG/4 ML INJECTABLE VIAL IVPB ONE (15:42)
[2018-06-15] MEDS ORDERED: POTASSIUM CHLORIDE TABS 20 MEQ TABLET.ER (FP) PO ONE (15:43)
--- NOTE | 2018-06-15 23:06 | PN ---
Progress Note (short form) - Note Progress Note: patient seen and examined feels beeter no specific c/o afvss Cor: RSR, No murmurs, No gallops Lungs: Clear to P&A Abd: Soft, Normal bowel sounds, No organomegaly Ext:No significant edema Labs/meds reviewed a/p 63 y/o patient with metastatic lung cancer Also IGOR/ATN Gradually improving f/u renal recomendations h/o hypercoagulable state of malignancy --on o nce a day lovenox
[2018-06-16] MEDS: oxyCODONE HCL 5 MG TABLET PO PRN ×6 (00:55→23:28)
[2018-06-16] MEDS: diazePAM 5 MG TABLET PO PRN ×4 (03:07→21:38)
[2018-06-16] MEDS ORDERED: FUROSEMIDE 40 MG/4 ML INJECTABLE VIAL IVPB SCH (06:00)
[2018-06-16] MEDS: INSULIN SLIDING SCALE (NOVOLOG) 1 VIAL SQ SCH ×4 (06:09→21:41)
[2018-06-16 08:17] LABS: ALBUMIN 2.4 g/dl (3.4-5.0); ALK PHOS 115 U/L (45-117); ANION GAP 7 MMOL/L (8-16); BILIRUBIN,TOTAL 0.5 mg/dL (0.2-1); BLOOD UREA NITROGEN 33 mg/dL (7-18); CALCIUM 8.2 mg/dL (8.5-10.1); CHLORIDE 100 mmol/L (98-107); CO2 33 mmol/L (21-32); GLUCOSE,RANDOM 155 mg/dL (74-106); MAGNESIUM 1.2 mg/dL (1.8-2.4); POTASSIUM 3.6 mmol/L (3.5-5.1); SGOT/AST 15 U/L (15-37); SGPT/ALT 32 U/L (13-61); SODIUM 140 mmol/L (136-145)
[2018-06-16] MEDS ORDERED: MAGNESIUM OXIDE 400 MG TABLET (FP) PO ONE (08:54)
[2018-06-16] MEDS ORDERED: MAGNESIUM SULF 50% (8.12 MEQ/2 ML-1 GM VIAL) IVPB ONE (08:54)
--- NOTE | 2018-06-16 09:14 | PN ---
Teaching Attending Note Name of Resident: Rohith Eduardo ATTENDING PHYSICIAN STATEMENT I saw and evaluated the patient. I reviewed the resident's note and discussed the case with the resident. I agree with the resident's findings and plan as documented. 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 Lab Results WBC 4.3 K/mm3 (4.0-10.0) 06/14/18 06:30 RBC 2.88 M/mm3 (4.00-5.60) L 06/14/18 06:30 Hgb 9.2 GM/dL (11.7-16.9) L 06/14/18 06:30 Hct 27.1 % (35.4-49) L 06/14/18 06:30 MCV 94.0 fl (80-96) 06/14/18 06:30 MCHC 33.9 g/dl (32.0-35.9) 06/14/18 06:30 RDW 14.4 % (11.9-15.9) 06/14/18 06:30 Plt Count 131 K/MM3 (134-434) L 06/14/18 06:30 Sodium 140 mmol/L (136-145) 06/16/18 06:30 Potassium 3.6 mmol/L (3.5-5.1) 06/16/18 06:30 Chloride 100 mmol/L (98-107) 06/16/18 06:30 Carbon Dioxide 33 mmol/L (21-32) H 06/16/18 06:30 Anion Gap 7 MMOL/L (8-16) L 06/16/18 06:30 BUN 33 mg/dL (7-18) H 06/16/18 06:30 Creatinine 5.0 mg/dL (0.55-1.3) H 06/16/18 06:30 Random Glucose 155 mg/dL (74-106) H 06/16/18 06:30 Calcium 8.2 mg/dL (8.5-10.1) L 06/16/18 06:30 INR 1.13 (0.83-1.09) H 06/13/18 08:30 Active Medications Allopurinol (Zyloprim -) 100 mg PO DAILY [facility] Last Admin: 06/15/18 10:41 Dose: 100 mg Diazepam (Valium -) 10 mg PO Q6H PRN PRN Reason: WITHDRAWAL(CONT SUBST) Stop: 06/17/18 20:20 Last Admin: 06/16/18 03:07 Dose: 10 mg Enoxaparin Sodium 100 mg/ (Enoxaparin Sodium 30 mg) 130 mg SQ DAILY [facility] Last Admin: 06/15/18 10:40 Dose: 130 mg Furosemide (Lasix Injection -) 80 mg IVPB DAILY@0600 [facility] Last Admin: 06/16/18 05:38 Dose: 80 mg Insulin Aspart (Novolog Vial Sliding Scale -) 1 vial SQ [facility]; Protocol Last Admin: 06/16/18 06:09 Dose: Not Given Metoprolol Tartrate (Lopressor -) 25 mg PO DAILY [facility] Last Admin: 06/15/18 10:41 Dose: 25 mg Oxycodone HCl (Roxicodone -) 10 mg PO Q4H PRN PRN Reason: PAIN LEVEL 6-10 Last Admin: 06/16/18 05:38 Dose: 10 mg Ranitidine HCl (Zantac -) 150 mg PO DAILY PRN PRN Reason: INDIGESTION Last Admin: 06/12/18 09:22 Dose: 150 mg ASSESSMENT AND PLAN:ASSESSMENT AND PLAN:63 yrs old man h/o obesity adenocarcinoma Lung s/p Chemotherapy(carb/Alimta), currently on maintenance alimta since 2016, Also pleural/pericardial effusion with bilateral pulmonary embolism in 04/2014, s/p pericardial window, on lovenox, T2DM admitted with hypotention with poor PO intake and nausea, vomiting and diarrhea, with IGOR initially treated for sepsis and IV Hydration renal functions are improving at home on therapeutic dose of Lovenox switched to Heparin infusion, evaluated by Oncology recommended Lovenox 1 mg /KG daily for AC. Problem List - Problems (1) Acute kidney injury Assessment/Plan: Due to Hypotention improving on Hydration F/U BMP and renal recommendations Code(s): N17.9 - ACUTE KIDNEY FAILURE, UNSPECIFIED (2) Acute renal failure Assessment/Plan: Improving F/U BMP Code(s): N17.9 - ACUTE KIDNEY FAILURE, UNSPECIFIED (3) Elevated liver enzymes Code(s): R74.8 - ABNORMAL LEVELS OF OTHER SERUM ENZYMES (4) Hypertension Code(s): I10 - ESSENTIAL (PRIMARY) HYPERTENSION (5) Pulmonary embolism Assessment/Plan: on Life long AC switch to Lovenox 130 mg daily as recommended by Hematology consult. Code(s): I26.99 - OTHER PULMONARY EMBOLISM WITHOUT ACUTE COR PULMONALE (6) Carcinoma, lung Assessment/Plan: F/U Oncology recommendation Code(s): C34.90 - MALIGNANT NEOPLASM OF UNSP PART OF UNSP BRONCHUS OR LUNG (7) Elevated uric acid in blood Assessment/Plan: on Zyloric Code(s): E79.0 - HYPERURICEMIA W/O SIGNS OF INFLAM ARTHRIT AND TOPHACEOUS DIS
[2018-06-16] MEDS ORDERED: ENOXAPARIN NA (PORCINE) 100 MG/1 ML DISP.SYRIN SQ ONE (09:26)
[2018-06-16] MEDS ORDERED: ENOXAPARIN NA (PORCINE) 30 MG/0.3 ML DISP.SYRIN SQ ONE (09:26)
[2018-06-16] MEDS: METOPROLOL TARTRATE 25 MG TABLET (FP) PO SCH (09:30)
[2018-06-16] MEDS: ENOXAPARIN 100 MG, ENOXAPARIN 30 MG SQ SCH (09:35)
[2018-06-16] MEDS: ALLOPURINOL 100 MG TABLET (FP) PO SCH (09:35)
--- NOTE | 2018-06-16 17:14 | PN ---
Progress Note, Physician History of Present Illness: Pt seen and examined at bedside. He is awake and alert. He denies shortness of breath. - Current Medication List Current Medications: Active Medications Allopurinol (Zyloprim -) 100 mg PO DAILY [facility] Last Admin: 06/16/18 09:35 Dose: 100 mg Diazepam (Valium -) 10 mg PO Q6H PRN PRN Reason: WITHDRAWAL(CONT SUBST) Stop: 06/17/18 20:20 Last Admin: 06/16/18 15:28 Dose: 10 mg Enoxaparin Sodium 100 mg/ (Enoxaparin Sodium 30 mg) 130 mg SQ DAILY [facility] Last Admin: 06/16/18 09:35 Dose: 130 mg Insulin Aspart (Novolog Vial Sliding Scale -) [address] [facility]; Protocol Last Admin: 06/16/18 10:50 Dose: 2 unit Metoprolol Tartrate (Lopressor -) 25 mg PO DAILY [facility] Last Admin: 06/16/18 09:30 Dose: 25 mg Oxycodone HCl (Roxicodone -) 10 mg PO Q4H PRN PRN Reason: PAIN LEVEL 6-10 Last Admin: 06/16/18 14:41 Dose: 10 mg Ranitidine HCl (Zantac -) 150 mg PO DAILY PRN PRN Reason: INDIGESTION Last Admin: 06/12/18 09:22 Dose: 150 mg - Objective Vital Signs: Vital Signs Temperature 98.2 F 06/16/18 14:22 Pulse Rate 85 06/16/18 14:22 Respiratory Rate 20 06/16/18 14:22 Blood Pressure 120/59 L 06/16/18 14:22 O2 Sat by Pulse Oximetry (%) 96 06/13/18 22:00 Constitutional: Yes: Calm Eyes: Yes: Conjunctiva Clear HENT: Yes: Atraumatic Neck: Yes: Supple Cardiovascular: Yes: S1, S2 Respiratory: Yes: CTA Bilaterally Gastrointestinal: Yes: Soft, Abdomen, Obese Genitourinary: Yes: WNL Musculoskeletal: Yes: WNL Edema: Yes Edema: LLE: 1+, RLE: 1+ Neurological: Yes: Oriented Psychiatric: Yes: Oriented Labs: CBC, BMP 06/14/18 06:30 06/16/18 06:30 INR, PTT INR 1.13 (0.83-1.09) H 06/13/18 08:30 Problem List - Problems (1) Acute kidney injury Code(s): N17.9 - ACUTE KIDNEY FAILURE, UNSPECIFIED (2) Dehydration Code(s): E86.0 - DEHYDRATION (3) Prerenal azotemia Code(s): R79.89 - OTHER SPECIFIED ABNORMAL FINDINGS OF BLOOD CHEMISTRY Assessment/Plan Current Medications Generic Name Dose Route Start Last Admin Trade Name Freq PRN Reason Stop Dose Admin Allopurinol 100 mg 06/11/18 10:00 06/16/18 09:35 Zyloprim - PO 100 mg DAILY [facility] Administration Diazepam 10 mg 06/14/18 20:19 06/16/18 15:28 Valium - PO 06/17/18 20:20 10 mg Q6H PRN Administration WITHDRAWAL(CONT SUBST) Enoxaparin Sodium 100 mg/ 130 mg 06/14/18 11:00 06/16/18 09:35 Enoxaparin Sodium 30 mg SQ 130 mg DAILY [facility] Administration Insulin Aspart 1 vial 06/09/18 16:30 06/16/18 10:50 Novolog Vial Sliding Scale - SQ 2 unit ACHS [facility] Administration Protocol Metoprolol Tartrate 25 mg 06/10/18 10:00 06/16/18 09:30 Lopressor - PO 25 mg DAILY [facility] Administration Oxycodone HCl 10 mg 06/09/18 14:13 06/16/18 14:41 Roxicodone - PO 10 mg Q4H PRN Administration PAIN LEVEL 6-10 Ranitidine HCl 150 mg 06/09/18 13:53 06/12/18 09:22 Zantac - PO 150 mg DAILY PRN Administration INDIGESTION Impression 1. lung cancer 2. IGOR 3. hyponatremia 4. fever/chills 5. decreased appetite/nausea Plan - renal function is improving - po lasix tomorrow - will have pt come to office on Tuesday to check bmp and I will see him on Tuesday - repeat labs in am - replace mag - likely atn - discussed with medical team Dr Foley
--- NOTE | 2018-06-16 18:41 | PN ---
Progress Note (short form) - Note Progress Note: patient seen and examined feels beeter no specific c/o Last Vital Signs Temp Pulse Resp BP Pulse Ox 98.2 F 85 20 120/59 L 96 06/16/18 14:22 06/16/18 14:22 06/16/18 14:22 06/16/18 14:22 06/13/18 22:00 Cor: RSR, No murmurs, No gallops Lungs: Clear to P&A Abd: Soft, Normal bowel sounds, No organomegaly Ext:No significant edema Abnormal Lab Results 06/16/18 06:30 Carbon Dioxide 33 H Anion Gap 7 L BUN 33 H Creatinine 5.0 H Random Glucose 155 H Calcium 8.2 L Magnesium 1.2 L Total Protein 6.0 L Albumin 2.4 L Active Medications Generic Name Dose Route Start Last Admin Trade Name Freq PRN Reason Stop Dose Admin Allopurinol 100 mg 06/11/18 10:00 06/16/18 09:35 Zyloprim - PO 100 mg DAILY [facility] Administration Diazepam 10 mg 06/14/18 20:19 06/16/18 15:28 Valium - PO 06/17/18 20:20 10 mg Q6H PRN Administration WITHDRAWAL(CONT SUBST) Enoxaparin Sodium 100 mg/ 130 mg 06/14/18 11:00 06/16/18 09:35 Enoxaparin Sodium 30 mg SQ 130 mg DAILY [facility] Administration Furosemide 40 mg 06/17/18 10:00 Lasix - PO DAILY [facility] Insulin Aspart 1 vial 06/09/18 16:30 06/16/18 17:29 Novolog Vial Sliding Scale - SQ 2 unit ACHS [facility] Administration Protocol Metoprolol Tartrate 25 mg 06/10/18 10:00 06/16/18 09:30 Lopressor - PO 25 mg DAILY [facility] Administration Oxycodone HCl 10 mg 06/09/18 14:13 06/16/18 14:41 Roxicodone - PO 10 mg Q4H PRN Administration PAIN LEVEL 6-10 Ranitidine HCl 150 mg 06/09/18 13:53 06/12/18 09:22 Zantac - PO 150 mg DAILY PRN Administration INDIGESTION a/p 63 y/o patient with metastatic lung cancer Also IGOR/ATN Gradually improving f/u renal recomendations h/o hypercoagulable state of malignancy --on once a day lovenox
[2018-06-16] MEDS ORDERED: PT OWN MED DRAWER 7, Y5N ONE (21:51)
[2018-06-17] MEDS: oxyCODONE HCL 5 MG TABLET PO PRN ×5 (03:35→21:19)
[2018-06-17] MEDS: diazePAM 5 MG TABLET PO PRN ×3 (05:56→17:48)
[2018-06-17] MEDS: INSULIN SLIDING SCALE (NOVOLOG) 1 VIAL SQ SCH ×4 (06:11→21:19)
--- NOTE | 2018-06-17 08:03 | DS ---
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 Labs: CBC, BMP 06/18/18 06:15 06/18/18 06:15 Discharge Summary Reason For Visit: PRERENAL AZOTEMIA, ELEVATED TRANSAMINASE Current Active Problems Acute kidney injury (Acute) Acute renal failure (Acute) Adenocarcinoma (Acute) Carcinoma, lung (Acute) Dehydration (Acute) Elevated liver enzymes (Acute) Elevated uric acid in blood (Acute) Heartburn (Acute) Hypotension (Acute) Prerenal azotemia (Acute) Pulmonary embolism (Acute) Transaminitis (Acute) Hospital Course: 63 yrs old man h/o obesity adenocarcinoma Lung s/p Chemotherapy(carb/Alimta) , currently on maintenance alimta since 2016, Also pleural/pericardial effusion with bilateral pulmonary embolism in 04/2014, s/p pericardial window, on lovenox , T2DM admitted with hypotention with poor PO intake and nausea, vomiting and diarrhea, with IGOR initially treated for sepsis and IV Hydration renal functions are improving at home on therapeutic dose of Lovenox switched to Heparin infusion, evaluated by Oncology recommended Lovenox 1 mg /KG daily patient will cont Lovenox 120 mg Daily as his dry weight dose at home, patient diabetic medication adjusted Glipizide XL decreased to 2.5 mg daily and Janumet stopped for IGOR can be resumed in future, patient K was noted 3.3 repleted and educated to have a modertae K Diet, patient will F/U with Eviction Specialist today Creat is 3.8, no clinical sign of volume over load. Condition: Fair - Instructions Referrals: Vinod Olivier MD [Primary Care Provider] - Dayanara Foley MD [Staff Physician] - 06/19/18 David Mcgill MD [Staff Physician] - 1 Week Disposition: HOME - Home Medications Comprehensive Discharge Medication List: Ambulatory Orders Glipizide [Glipizide ER] 2.5 mg PO DAILY 04/16/14 Folic Acid 1 mg PO HS 05/24/17 Furosemide [Lasix] 40 mg PO Q48H 05/24/17 Enoxaparin [Lovenox -] 130 mg SQ Daily Diazepam [Valium] 10 mg PO Q6H PRN 06/02/18 Oxycodone HCl 10 mg PO Q6H PRN 06/02/18
[2018-06-17] MEDS ORDERED: ENOXAPARIN NA (PORCINE) 30 MG/0.3 ML DISP.SYRIN SQ ONE (09:00)
[2018-06-17] MEDS ORDERED: ENOXAPARIN NA (PORCINE) 100 MG/1 ML DISP.SYRIN SQ ONE (09:00)
[2018-06-17] MEDS ORDERED: PT OWN MED DRAWER 7, Y5N ONE (09:01)
[2018-06-17] MEDS: ENOXAPARIN 100 MG, ENOXAPARIN 30 MG SQ SCH (09:12)
[2018-06-17] MEDS: FUROSEMIDE 40 MG TABLET (FP) PO SCH (09:12)
[2018-06-17] MEDS: ALLOPURINOL 100 MG TABLET (FP) PO SCH (09:12)
[2018-06-17] MEDS: METOPROLOL TARTRATE 25 MG TABLET (FP) PO SCH (09:18)
[2018-06-17 10:20] LABS: BASO % 0.4 % (0-2.0); EOS % 1.9 % (0-4.5); HEMATOCRIT 27.7 % (35.4-49); HEMOGLOBIN 9.3 GM/dL (11.7-16.9); LYMPH % 12.4 % (8-40); MCH 31.8 pg (25.7-33.7); MCHC 33.5 g/dl (32.0-35.9); MEAN CELL VOLUME 95.1 fl (80-96); MEAN PLT VOLUME 8.3 fl (7.5-11.1); MONO % 10.7 % (3.8-10.2); NEUT % 74.6 % (42.8-82.8); PLATELET COUNT 143 K/MM3 (134-434); RBC 2.92 M/mm3 (4.00-5.60); RDW 14.6 % (11.9-15.9); WHITE BLOOD COUNT 5.1 K/mm3 (4.0-10.0)
[2018-06-17 10:46] LABS: ALBUMIN 2.3 g/dl (3.4-5.0); ALK PHOS 109 U/L (45-117); ANION GAP 6 MMOL/L (8-16); BILIRUBIN,TOTAL 0.7 mg/dL (0.2-1); BLOOD UREA NITROGEN 33 mg/dL (7-18); CALCIUM 8.1 mg/dL (8.5-10.1); CHLORIDE 96 mmol/L (98-107); CO2 36 mmol/L (21-32); CREATININE 4.4 mg/dL (0.55-1.3); GLUCOSE,RANDOM 250 mg/dL (74-106); POTASSIUM 3.7 mmol/L (3.5-5.1); SGOT/AST 15 U/L (15-37); SGPT/ALT 27 U/L (13-61); SODIUM 138 mmol/L (136-145)
[2018-06-17] MEDS ORDERED: INSULIN (NOVOLOG) ASPART 100 UNITS/ML 10ML VIAL ONE (11:42)
--- NOTE | 2018-06-17 13:49 | PN ---
Progress Note, Physician Chief Complaint: Comfortable no acute issue - Current Medication List Current Medications: Active Medications Allopurinol (Zyloprim -) 100 mg PO DAILY [facility] Last Admin: 06/17/18 09:12 Dose: 100 mg Diazepam (Valium -) 10 mg PO Q6H PRN PRN Reason: WITHDRAWAL(CONT SUBST) Stop: 06/17/18 20:20 Last Admin: 06/17/18 11:48 Dose: 10 mg Enoxaparin Sodium 100 mg/ (Enoxaparin Sodium 30 mg) 130 mg SQ DAILY [facility] Last Admin: 06/17/18 09:12 Dose: 130 mg Furosemide (Lasix -) 40 mg PO DAILY [facility] Last Admin: 06/17/18 09:12 Dose: 40 mg Insulin Aspart (Novolog Vial Sliding Scale -) 1 vial SQ [facility]; Protocol Last Admin: 06/17/18 11:46 Dose: 3 unit Metoprolol Tartrate (Lopressor -) 25 mg PO DAILY [facility] Last Admin: 06/17/18 09:18 Dose: 25 mg Oxycodone HCl (Roxicodone -) 10 mg PO Q4H PRN PRN Reason: PAIN LEVEL 6-10 Last Admin: 06/17/18 12:43 Dose: 10 mg Ranitidine HCl (Zantac -) 150 mg PO DAILY PRN PRN Reason: INDIGESTION Last Admin: 06/12/18 09:22 Dose: 150 mg - Objective Vital Signs: Vital Signs Temperature 98.5 F 06/17/18 09:21 Pulse Rate 89 06/17/18 09:21 Respiratory Rate 20 06/17/18 09:21 Blood Pressure 121/60 06/17/18 09:21 O2 Sat by Pulse Oximetry (%) 96 06/13/18 22:00 HEENT: Mm moist, no anemia NECK: No JVd No Bruit CHEST: CTA B/L CVS: s1S2 R no m/g/r ABD: obese, no distention, non tender Bs + EXT: + edema feet , scrotal swelling is regressing no calf tenderness, 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 Labs: CBC, BMP 06/17/18 08:30 06/17/18 08:30 INR, PTT INR 1.13 (0.83-1.09) H 06/13/18 08:30 Problem List - Problems (1) Acute kidney injury Assessment/Plan: Due to Hypotention improving Creat 4.4 F/U BMP and renal recommendations Code(s): N17.9 - ACUTE KIDNEY FAILURE, UNSPECIFIED (2) Acute renal failure Assessment/Plan: Improving F/U BMP Code(s): N17.9 - ACUTE KIDNEY FAILURE, UNSPECIFIED (3) Hypertension Assessment/Plan: Off BP meds due to Hypotention Code(s): I10 - ESSENTIAL (PRIMARY) HYPERTENSION (4) Pulmonary embolism Assessment/Plan: on Life long AC switch to Lovenox 130 mg daily as recommended by Hematology consult. Code(s): I26.99 - OTHER PULMONARY EMBOLISM WITHOUT ACUTE COR PULMONALE (5) Carcinoma, lung Assessment/Plan: F/U Oncology recommendation Code(s): C34.90 - MALIGNANT NEOPLASM OF UNSP PART OF UNSP BRONCHUS OR LUNG (6) Elevated uric acid in blood Assessment/Plan: on Zyloric Code(s): E79.0 - HYPERURICEMIA W/O SIGNS OF INFLAM ARTHRIT AND TOPHACEOUS DIS (7) T2DM (type 2 diabetes mellitus) Assessment/Plan: Meds were on hold due to IGOR now FS are persistently > 200 add Glipizide 2.5 mg daily Code(s): E11.9 - TYPE 2 DIABETES MELLITUS WITHOUT COMPLICATIONS
[2018-06-17] MEDS ORDERED: glipiZIDE-XL 5 MG TAB.ER.24 PO SCH (14:00)
[2018-06-17] MEDS: glipiZIDE-XL 2.5 MG TAB.ER.24 PO SCH (14:46)
--- NOTE | 2018-06-17 16:09 | PN ---
Progress Note, Physician History of Present Illness: Pt seen and examined at bedside. He is awake and alert. He feels that the edema is improving. - Current Medication List Current Medications: Active Medications Allopurinol (Zyloprim -) 100 mg PO DAILY [facility] Last Admin: 06/17/18 09:12 Dose: 100 mg Diazepam (Valium -) 10 mg PO Q6H PRN PRN Reason: WITHDRAWAL(CONT SUBST) Stop: 06/17/18 20:20 Last Admin: 06/17/18 11:48 Dose: 10 mg Enoxaparin Sodium 100 mg/ (Enoxaparin Sodium 30 mg) 130 mg SQ DAILY [facility] Last Admin: 06/17/18 09:12 Dose: 130 mg Furosemide (Lasix -) 40 mg PO DAILY [facility] Last Admin: 06/17/18 09:12 Dose: 40 mg Glipizide (Glucotrol Xl -) 2.5 mg PO ACBK [facility] Last Admin: 06/17/18 14:46 Dose: 2.5 mg Insulin Aspart (Novolog Vial Sliding Scale -) 1 vial SQ [facility]; Protocol Last Admin: 06/17/18 11:46 Dose: 3 unit Metoprolol Tartrate (Lopressor -) 25 mg PO DAILY [facility] Last Admin: 06/17/18 09:18 Dose: 25 mg Oxycodone HCl (Roxicodone -) 10 mg PO Q4H PRN PRN Reason: PAIN LEVEL 6-10 Last Admin: 06/17/18 12:43 Dose: 10 mg Ranitidine HCl (Zantac -) 150 mg PO DAILY PRN PRN Reason: INDIGESTION Last Admin: 06/12/18 09:22 Dose: 150 mg - Objective Vital Signs: Vital Signs Temperature 98.4 F 06/17/18 15:45 Pulse Rate 87 06/17/18 15:45 Respiratory Rate 20 06/17/18 15:45 Blood Pressure 133/65 06/17/18 15:45 O2 Sat by Pulse Oximetry (%) 96 06/13/18 22:00 Constitutional: Yes: Calm Eyes: Yes: Conjunctiva Clear HENT: Yes: Atraumatic Neck: Yes: Supple Cardiovascular: Yes: S1, S2 Respiratory: Yes: CTA Bilaterally Gastrointestinal: Yes: Soft, Abdomen, Obese Genitourinary: Yes: WNL Musculoskeletal: Yes: WNL Edema: Yes Edema: LLE: 1+, RLE: 1+ Neurological: Yes: Oriented Psychiatric: Yes: Oriented Labs: CBC, BMP 06/17/18 08:30 06/17/18 08:30 INR, PTT INR 1.13 (0.83-1.09) H 06/13/18 08:30 Problem List - Problems (1) Acute kidney injury Code(s): N17.9 - ACUTE KIDNEY FAILURE, UNSPECIFIED (2) Dehydration Code(s): E86.0 - DEHYDRATION (3) Prerenal azotemia Code(s): R79.89 - OTHER SPECIFIED ABNORMAL FINDINGS OF BLOOD CHEMISTRY Assessment/Plan Current Medications Generic Name Dose Route Start Last Admin Trade Name Freq PRN Reason Stop Dose Admin Allopurinol 100 mg 06/11/18 10:00 06/17/18 09:12 Zyloprim - PO 100 mg DAILY [facility] Administration Diazepam 10 mg 06/14/18 20:19 06/17/18 11:48 Valium - PO 06/17/18 20:20 10 mg Q6H PRN Administration WITHDRAWAL(CONT SUBST) Enoxaparin Sodium 100 mg/ 130 mg 06/14/18 11:00 06/17/18 09:12 Enoxaparin Sodium 30 mg SQ 130 mg DAILY [facility] Administration Furosemide 40 mg 06/17/18 10:00 06/17/18 09:12 Lasix - PO 40 mg DAILY [facility] Administration Glipizide 2.5 mg 06/17/18 14:30 06/17/18 14:46 Glucotrol Xl - PO 2.5 mg ACBK [facility] Administration Insulin Aspart 1 vial 06/09/18 16:30 06/17/18 11:46 Novolog Vial Sliding Scale - SQ 3 unit ACHS [facility] Administration Protocol Magnesium Oxide 800 mg 06/17/18 16:07 Mag-Ox - PO 06/17/18 16:08 ONCE ONE Metoprolol Tartrate 25 mg 06/10/18 10:00 06/17/18 09:18 Lopressor - PO 25 mg DAILY [facility] Administration Oxycodone HCl 10 mg 06/09/18 14:13 06/17/18 12:43 Roxicodone - PO 10 mg Q4H PRN Administration PAIN LEVEL 6-10 Ranitidine HCl 150 mg 06/09/18 13:53 06/12/18 09:22 Zantac - PO 150 mg DAILY PRN Administration INDIGESTION Impression 1. lung cancer 2. IGOR 3. hyponatremia 4. fever/chills 5. decreased appetite/nausea Plan - renal function stabilizing - can follow as outpt - po lasix - will give another dose of mag today - check mag in am - pt will come to office on Tuesday - likely atn - discussed with medical team Dr Foley
[2018-06-17] MEDS ORDERED: MAGNESIUM OXIDE 400 MG TABLET (FP) PO ONE (16:15)
[2018-06-18] MEDS ORDERED: diazePAM 5 MG TABLET PO ONE ×2 (01:04→01:30)
[2018-06-18] MEDS: oxyCODONE HCL 5 MG TABLET PO PRN ×2 (02:55→06:51)
[2018-06-18] MEDS ORDERED: PT OWN MED DRAWER 7, Y5N ONE ×2 (05:55→08:38)
[2018-06-18] MEDS: glipiZIDE-XL 2.5 MG TAB.ER.24 PO SCH (06:08)
[2018-06-18] MEDS: INSULIN SLIDING SCALE (NOVOLOG) 1 VIAL SQ SCH (06:09)
[2018-06-18 06:41] VITALS: BP 146/68; PULSE 84; TEMP 98.2
[2018-06-18 07:45] LABS: BASO % 0.5 % (0-2.0); EOS % 2.1 % (0-4.5); HEMATOCRIT 26.3 % (35.4-49); LYMPH % 16.9 % (8-40); MCH 32.3 pg (25.7-33.7); MCHC 34.4 g/dl (32.0-35.9); MEAN PLT VOLUME 8.3 fl (7.5-11.1); MONO % 11.5 % (3.8-10.2); PLATELET COUNT 133 K/MM3 (134-434); RDW 14.5 % (11.9-15.9); WHITE BLOOD COUNT 5.2 K/mm3 (4.0-10.0)
[2018-06-18 07:52] LABS: ANION GAP 6 MMOL/L (8-16); BLOOD UREA NITROGEN 32 mg/dL (7-18); CALCIUM 8.3 mg/dL (8.5-10.1); CHLORIDE 96 mmol/L (98-107); CO2 37 mmol/L (21-32); CREATININE 3.8 mg/dL (0.55-1.3); GLUCOSE,RANDOM 129 mg/dL (74-106); MAGNESIUM 1.5 mg/dL (1.8-2.4); POTASSIUM 3.3 mmol/L (3.5-5.1); SODIUM 138 mmol/L (136-145)
[2018-06-18] MEDS ORDERED: POTASSIUM CHLORIDE TABS 20 MEQ TABLET.ER (FP) PO ONE (07:57)
[2018-06-18] MEDS ORDERED: ENOXAPARIN NA (PORCINE) 100 MG/1 ML DISP.SYRIN SQ ONE (08:40)
[2018-06-18] MEDS ORDERED: ENOXAPARIN NA (PORCINE) 30 MG/0.3 ML DISP.SYRIN SQ ONE (08:40)
[2018-06-18] MEDS: ENOXAPARIN 100 MG, ENOXAPARIN 30 MG SQ SCH (09:08)
[2018-06-18] MEDS: FUROSEMIDE 40 MG TABLET (FP) PO SCH (09:08)
[2018-06-18] MEDS: METOPROLOL TARTRATE 25 MG TABLET (FP) PO SCH (09:09)
== END 2018-06-18 10:09 | disposition home or self-care (01) | DRG 682 ==
LOC: JER 16:28 → JERBED 20:02 → J4W 06-02 06:31 → J6S 06-09 13:30
PROVIDERS: ADMIT Internal Medicine; ATTEND Internal Medicine
PROC: 06HM33Z Insertion of Infusion Device into Right Femoral Vein, Percutaneous Approach (ICD-10-PCS; principal; 2018-06-03)
PROC: 06PYX3Z Removal of Infusion Device from Lower Vein, External Approach (ICD-10-PCS; 2018-06-06)
DX: N17.0 Acute kidney failure with tubular necrosis (principal); I50.31 Acute diastolic (congestive) heart failure; C34.90 Malignant neoplasm of unspecified part of unspecified bronchus or lung; E87.1 Hypo-osmolality and hyponatremia; Z68.41 Body mass index [BMI] 40.0-44.9, adult; E46 Unspecified protein-calorie malnutrition; E86.0 Dehydration; I95.9 Hypotension, unspecified; I11.0 Hypertensive heart disease with heart failure; E11.9 Type 2 diabetes mellitus without complications; Z86.711 Personal history of pulmonary embolism; Z92.21 Personal history of antineoplastic chemotherapy; E88.09 Other disorders of plasma-protein metabolism, not elsewhere classified; E66.9 Obesity, unspecified; Z79.84 Long term (current) use of oral hypoglycemic drugs; R74.0 Nonspecific elevation of levels of transaminase and lactic acid dehydrogenase [LDH]; D69.6 Thrombocytopenia, unspecified; R74.8 Abnormal levels of other serum enzymes; F41.9 Anxiety disorder, unspecified; R12 Heartburn; F43.20 Adjustment disorder, unspecified
CPT/HCPCS: 36415; 71045-TC-FY; 72170-TC-FY; 74176-TC; 76700-TC; 76775-TC; 76856-TC; 80048; 80053; 80074; 80076; 81003; 81015; 82248; 82272; 82436; 82533; 82550; 82570; 82962; 83516; 83520; 83735; 84100; 84133; 84155; 84156; 84165; 84300; 84550; 85025; 85610; 85730; 86038; 86060; 86215; 86225; 86256; 86704; 86706; 86708; 87040; 87086; 87340; 87522; 87804; 93005; 93010; 93306-TC; 96365; 96366; 97116-GP; 97162-GP; 99283-25; G0480; J1644; J7030

== ENCOUNTER 2018-07-27 11:15 | Emergency (ER) | payer OTHER ==
[2018-07-27] MEDS ORDERED: SODIUM CHLORIDE 1,000 ML IV ONE (11:18)
[2018-07-27 11:23] VITALS: TEMP 98.6; BMI 40.1
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
[2018-07-27 12:41] LABS: BASO % 0.4 % (0-2.0); EOS % 1.7 % (0-4.5); HEMOGLOBIN 12.3 GM/dl (11.7-16.9); MCH 31.7 pg (25.7-33.7); MCHC 33.2 g/dl (32.0-35.9); MEAN CELL VOLUME 95.4 fl (80-96); MEAN PLT VOLUME 8.6 fl (7.5-11.1); MONO % 4.9 % (3.8-10.2); PLATELET COUNT 122 K/MM3 (134-434); RBC 3.88 M/mm3 (4.00-5.60); RDW 13.4 % (11.9-15.9); WHITE BLOOD COUNT 5.6 K/mm3 (4.0-10.8)
[2018-07-27 12:50] LABS: ALBUMIN 3.4 g/dl (3.4-5.0); ALK PHOS 134 U/L (45-117); ANION GAP 7 MMOL/L (8-16); BILIRUBIN,TOTAL 0.4 mg/dl (0.2-1); BLOOD UREA NITROGEN 15 mg/dl (7-18); CALCIUM 8.8 mg/dl (8.5-10); CHLORIDE 99 mmol/L (98-107); CO2 30 mmol/L (21-32); CREATININE 1.3 mg/dl (0.55-1.3); MAGNESIUM 1.6 mg/dL (1.8-2.4); PHOSPHOROUS 2.8 mg/dl (2.5-4.9); POTASSIUM 4.1 mmol/L (3.5-5.1); SGOT/AST 18 U/L (15-37); SGPT/ALT 29 U/L (13-61); SODIUM 136 mmol/L (136-145); TOT PROT 6.6 g/dl (6.4-8.2)
[2018-07-27 13:13] LABS: GLUCOSE,RANDOM 310 mg/dl (74-106)
[2018-07-27 14:09] VITALS: BP 158/95; PULSE 79
[2018-07-27 15:04] LABS: VENOUS PC02 66.1 mmHg (41-51); VENOUS PH 7.3 (7.31-7.41)
[2018-07-27 15:08] LABS: VENOUS PO2 29.9 mmHg (30-40)
--- NOTE | 2018-07-27 16:38 | EKG ---
Test Reason : Blood Pressure : / mmHG Vent. Rate : 076 BPM Atrial Rate : 076 BPM P-R Int : 142 ms QRS Dur : 092 ms QT Int : 392 ms P-R-T Axes : 036 045 032 degrees QTc Int : 441 ms NORMAL SINUS RHYTHM INCOMPLETE RIGHT BUNDLE BRANCH BLOCK BORDERLINE ECG WHEN COMPARED WITH ECG OF 01-JUN-2018 17:12, NO SIGNIFICANT CHANGE WAS FOUND Confirmed by AYLEEN ROCHE, ANTOINETTE ([id number]) on 07/27/2018 4:38:11 PM Referred By: АННА JONES Confirmed By:ANTOINETTE ABBASI MD
== END 2018-07-27 13:55 | disposition home or self-care (01) ==
LOC: FER 11:15
DX: E11.65 Type 2 diabetes mellitus with hyperglycemia (principal); N17.9 Acute kidney failure, unspecified; Z85.118 Personal history of other malignant neoplasm of bronchus and lung
CPT/HCPCS: 36415; 80053; 81003; 81015; 82803; 82962; 83735; 84100; 85025; 93005; 99284-25

== ENCOUNTER 2018-08-14 07:14 | Day surgery (SDC) | payer OTHER ==
[2018-08-14] MEDS ORDERED: SODIUM CHLORIDE 250 ML IV ONE ×2 (08:00→09:15)
[2018-08-14] MEDS ORDERED: DEXAMETHASONE SODIUM PHOSPHATE 10 MG in SODIUM CHLORIDE 50 ML IVPB ONE (08:30)
[2018-08-14] MEDS ORDERED: PALONOSETRON HCL 0.25 MG/5 ML VIAL IVPUSH ONE (08:30)
[2018-08-14] MEDS ORDERED: CYANOCOBALAMIN (VITAMIN B-12) 1000 MCG/1 ML VIAL IM ONE (08:30)
[2018-08-14 08:36] LABS: BASO % 0.5 % (0-2.0); EOS % 1.3 % (0-4.5); HEMATOCRIT 41.2 % (35.4-49); HEMOGLOBIN 13.9 GM/dL (11.7-16.9); LYMPH % 21.2 % (8-40); MCH 31.4 pg (25.7-33.7); MCHC 33.7 g/dl (32.0-35.9); MEAN PLT VOLUME 8.7 fl (7.5-11.1); MONO % 6.5 % (3.8-10.2); NEUT % 70.5 % (42.8-82.8); PLATELET COUNT 119 K/MM3 (134-434); RBC 4.43 M/mm3 (4.00-5.60); RDW 12.9 % (11.9-15.9)
[2018-08-14] MEDS ORDERED: PEMETREXED DISODIUM IVPB ONE (09:00)
[2018-08-14] MEDS ORDERED: SODIUM CHLORIDE IVPB ONE (09:00)
[2018-08-14 09:09] LABS: ALBUMIN 3.7 g/dl (3.4-5.0); ALK PHOS 152 U/L (45-117); ANION GAP 7 MMOL/L (8-16); BILIRUBIN,DIRECT 0.1 mg/dL (0.0-0.2); BILIRUBIN,TOTAL 0.4 mg/dL (0.2-1); BLOOD UREA NITROGEN 17 mg/dL (7-18); CALCIUM 9.2 mg/dL (8.5-10.1); CHLORIDE 102 mmol/L (98-107); CO2 31 mmol/L (21-32); CREATININE 1.5 mg/dL (0.55-1.3); GLUCOSE,RANDOM 229 mg/dL (74-106); MAGNESIUM 1.6 mg/dL (1.8-2.4); POTASSIUM 4.1 mmol/L (3.5-5.1); SGOT/AST 17 U/L (15-37); SGPT/ALT 47 U/L (13-61); SODIUM 140 mmol/L (136-145); TOT PROT 7.5 g/dl (6.4-8.2)
[2018-08-14] MEDS ORDERED: MAGNESIUM SULF 50% (8.12 MEQ/2 ML-1 GM VIAL) IVPB ONE (11:00)
[2018-08-14] MEDS ORDERED: PORTA CATH FLUSH 10 ML IVPUSH ONE (15:02)
[2018-08-14 15:06] VITALS: BP 136/76; PULSE 77; TEMP 98.6
== END 2018-08-14 12:40 | disposition home or self-care (01) ==
LOC: JONCCHEMO 07:14 → J7W 09:40 → JONCCHEMO 12:40
PROVIDERS: ATTEND Internal Medicine Hematology & Oncology
PROC: 3E04305 Introduction of Other Antineoplastic into Central Vein, Percutaneous Approach (ICD-10-PCS; principal; 2018-08-14)
PROC: 3E043GC Introduction of Other Therapeutic Substance into Central Vein, Percutaneous Approach (ICD-10-PCS; 2018-08-14)
DX: Z51.11 Encounter for antineoplastic chemotherapy (principal); C34.90 Malignant neoplasm of unspecified part of unspecified bronchus or lung
CPT/HCPCS: 36415; 80048; 80076; 82378; 83735; 85025; 96361; 96365; 96367; 96375; 96409; 96413; 96417; J2469; J9305

== ENCOUNTER 2018-08-15 07:27 | Day surgery (SDC) | payer OTHER ==
[2018-08-15] MEDS ORDERED: PEGFILGRASTIM 6 MG/0.6 ML DISP.SYRIN SQ ONE (09:00)
[2018-08-15 14:53] VITALS: BP 142/64; PULSE 69; TEMP 98.2
== END 2018-08-15 12:40 | disposition home or self-care (01) ==
LOC: JONCCHEMO 07:27 → J7W 12:21 → JONCCHEMO 12:40
PROVIDERS: ATTEND Internal Medicine Hematology & Oncology
PROC: 3E013GC Introduction of Other Therapeutic Substance into Subcutaneous Tissue, Percutaneous Approach (ICD-10-PCS; principal; 2018-08-15)
DX: C34.90 Malignant neoplasm of unspecified part of unspecified bronchus or lung (principal); Z76.89 Persons encountering health services in other specified circumstances
CPT/HCPCS: 96372; J2505

== ENCOUNTER 2018-09-13 09:32 | Day surgery (SDC) | payer OTHER ==
[~2018-09-13 09:32] MED LIST changes: -PEGFILGRASTIM 6 MG/0.6 ML DISP.SYRIN SQ ONE; +SODIUM CHLORIDE 250 ML IV ONE
[2018-09-13] MEDS ORDERED: CYANOCOBALAMIN (VITAMIN B-12) 1000 MCG/1 ML VIAL IM ONE (10:00)
[2018-09-13] MEDS ORDERED: DEXAMETHASONE SODIUM PHOSPHATE 10 MG in SODIUM CHLORIDE 50 ML IVPB ONE (10:00)
[2018-09-13] MEDS ORDERED: PALONOSETRON HCL 0.25 MG/5 ML VIAL IVPUSH ONE (10:00)
[2018-09-13] MEDS ORDERED: SODIUM CHLORIDE IVPB ONE (10:30)
[2018-09-13] MEDS ORDERED: PEMETREXED DISODIUM IVPB ONE (10:30)
[2018-09-13] MEDS ORDERED: SODIUM CHLORIDE 250 ML IV ONE (10:40)
[2018-09-13 11:42] LABS: BILIRUBIN,DIRECT 0.1 mg/dL (0.0-0.2); BILIRUBIN,TOTAL 0.4 mg/dL (0.2-1); MAGNESIUM 1.8 mg/dL (1.8-2.4); TOT PROT 7.3 g/dl (6.4-8.2)
[2018-09-13 13:36] LABS: CREATININE 1.5 mg/dL (0.55-1.3)
[2018-09-13 13:37] LABS: CALCIUM 9.3 mg/dL (8.5-10.1); POTASSIUM 4.3 mmol/L (3.5-5.1)
[2018-09-13 14:52] VITALS: BP 166/90; PULSE 77; TEMP 97.4
[2018-09-13] MEDS ORDERED: PORTA CATH FLUSH 10 ML IVPUSH ONE (14:52)
[2018-09-13 15:40] LABS: ALBUMIN 3.7 g/dl (3.4-5.0)
== END 2018-09-13 12:25 | disposition home or self-care (01) ==
LOC: J7W 09:32 → JONCCHEMO 09:32
PROVIDERS: ATTEND Internal Medicine Hematology & Oncology
DX: Z51.11 Encounter for antineoplastic chemotherapy (principal); C34.90 Malignant neoplasm of unspecified part of unspecified bronchus or lung
CPT/HCPCS: 36415; 80053; 80076; 83036; 83735; 96375; 96409; 96413; J2469; J9305

== ENCOUNTER 2018-09-14 06:18 | Day surgery (SDC) | payer OTHER ==
[2018-09-14] MEDS ORDERED: PEGFILGRASTIM 6 MG/0.6 ML DISP.SYRIN SQ ONE (10:00)
[2018-09-14 15:53] VITALS: BP 143/74; PULSE 71; TEMP 98.3
== END 2018-09-14 12:20 | disposition home or self-care (01) ==
LOC: JONCCHEMO 06:18 → J7W 11:51 → JONCCHEMO 12:20
PROVIDERS: ATTEND Internal Medicine Hematology & Oncology
PROC: 3E013GC Introduction of Other Therapeutic Substance into Subcutaneous Tissue, Percutaneous Approach (ICD-10-PCS; principal; 2018-09-14)
DX: C34.90 Malignant neoplasm of unspecified part of unspecified bronchus or lung (principal); Z76.89 Persons encountering health services in other specified circumstances
CPT/HCPCS: 96372; J2505

== ENCOUNTER 2018-10-10 07:14 | Day surgery (SDC) | payer OTHER ==
[2018-10-10 08:44] LABS: BASO % 0.5 % (0-2.0); EOS % 1.1 % (0-4.5); HEMATOCRIT 43.5 % (35.4-49); HEMOGLOBIN 14.4 GM/dL (11.7-16.9); LYMPH % 18.1 % (8-40); MCH 30.5 pg (25.7-33.7); MCHC 33.1 g/dl (32.0-35.9); MEAN CELL VOLUME 92.1 fl (80-96); MEAN PLT VOLUME 8.3 fl (7.5-11.1); MONO % 6.2 % (3.8-10.2); NEUT % 74.1 % (42.8-82.8); PLATELET COUNT 138 K/MM3 (134-434); RBC 4.73 M/mm3 (4.00-5.60); WHITE BLOOD COUNT 7.2 K/mm3 (4.0-10.0)
[2018-10-10] MEDS ORDERED: SODIUM CHLORIDE 250 ML IV ONE ×2 (09:00→10:15)
[2018-10-10 09:11] LABS: ALBUMIN 3.5 g/dl (3.4-5.0); BILIRUBIN,DIRECT 0.1 mg/dL (0.0-0.2); BILIRUBIN,TOTAL 0.4 mg/dL (0.2-1); CREATININE 1.5 mg/dL (0.55-1.3); MAGNESIUM 2.1 mg/dL (1.8-2.4); POTASSIUM 4.3 mmol/L (3.5-5.1); TOT PROT 7.1 g/dl (6.4-8.2)
[2018-10-10] MEDS ORDERED: CYANOCOBALAMIN (VITAMIN B-12) 1000 MCG/1 ML VIAL IM ONE (09:30)
[2018-10-10] MEDS ORDERED: DEXAMETHASONE SODIUM PHOSPHATE 10 MG in SODIUM CHLORIDE 50 ML IVPB ONE (09:30)
[2018-10-10] MEDS ORDERED: PALONOSETRON HCL 0.25 MG/5 ML VIAL IVPUSH ONE (09:30)
[2018-10-10] MEDS ORDERED: SODIUM CHLORIDE IVPB ONE (10:00)
[2018-10-10] MEDS ORDERED: PEMETREXED DISODIUM IVPB ONE (10:00)
[2018-10-10] MEDS ORDERED: INSULIN (NOVOLOG) ASPART 100 UNITS/ML 10ML VIAL SQ ONE (12:00)
[2018-10-10 16:27] VITALS: TEMP 98.2
[2018-10-10] MEDS ORDERED: PORTA CATH FLUSH 10 ML IVPUSH ONE (16:27)
[2018-10-10 16:28] VITALS: BP 152/84; PULSE 68
== END 2018-10-10 11:45 | disposition home or self-care (01) ==
LOC: JONCCHEMO 07:14 → J7W 09:24 → JONCCHEMO 11:45
PROVIDERS: ATTEND Internal Medicine Hematology & Oncology
DX: Z51.11 Encounter for antineoplastic chemotherapy (principal); C34.90 Malignant neoplasm of unspecified part of unspecified bronchus or lung
CPT/HCPCS: 36415; 80048; 80076; 82378; 83735; 85025; 96361; 96372; 96375; 96409; 96413; J2469; J9305

== ENCOUNTER 2018-10-11 07:10 | Day surgery (SDC) | payer OTHER ==
[2018-10-11] MEDS ORDERED: PEGFILGRASTIM 6 MG/0.6 ML DISP.SYRIN SQ ONE (08:15)
[2018-10-11] MEDS ORDERED: PEGFILGRASTIM (NEULASTA ONPRO) 6 MG/0.6 ML KIT SQ ONE (09:00)
[2018-10-11 15:49] VITALS: BP 126/74; PULSE 73; TEMP 98.2
== END 2018-10-11 10:50 | disposition home or self-care (01) ==
LOC: JONCCHEMO 07:10 → J7W 10:14 → JONCCHEMO 10:50
PROVIDERS: ATTEND Internal Medicine Hematology & Oncology
PROC: 3E013GC Introduction of Other Therapeutic Substance into Subcutaneous Tissue, Percutaneous Approach (ICD-10-PCS; principal; 2018-10-11)
DX: C34.90 Malignant neoplasm of unspecified part of unspecified bronchus or lung (principal)
CPT/HCPCS: 96372; J2505

== ENCOUNTER 2018-11-07 07:22 | Day surgery (SDC) | payer OTHER ==
[2018-11-07 08:31] LABS: BASO % 0.7 % (0-2.0); EOS % 1.9 % (0-4.5); HEMATOCRIT 42.2 % (35.4-49); HEMOGLOBIN 14.1 GM/dL (11.7-16.9); LYMPH % 18.7 % (8-40); MCH 30.9 pg (25.7-33.7); MCHC 33.5 g/dl (32.0-35.9); MEAN CELL VOLUME 92.2 fl (80-96); MEAN PLT VOLUME 8.2 fl (7.5-11.1); MONO % 7.5 % (3.8-10.2); NEUT % 71.2 % (42.8-82.8); PLATELET COUNT 133 K/MM3 (134-434); RBC 4.57 M/mm3 (4.00-5.60); RDW 14.4 % (11.9-15.9); WHITE BLOOD COUNT 7.2 K/mm3 (4.0-10.0)
[2018-11-07] MEDS ORDERED: SODIUM CHLORIDE 250 ML IV ONE ×2 (09:00→10:40)
[2018-11-07 09:03] LABS: ALBUMIN 3.4 g/dl (3.4-5.0); BILIRUBIN,DIRECT 0.1 mg/dL (0.0-0.2); BILIRUBIN,TOTAL 0.5 mg/dL (0.2-1); BLOOD UREA NITROGEN 15.5 mg/dL (7-18); CALCIUM 8.7 mg/dL (8.5-10.1); CREATININE 1.4 mg/dL (0.55-1.3); POTASSIUM 4.2 mmol/L (3.5-5.1); TOT PROT 6.9 g/dl (6.4-8.2)
[2018-11-07] MEDS ORDERED: INSULIN (NOVOLOG) ASPART 100 UNITS/ML 10ML VIAL SQ ONE (09:30)
[2018-11-07] MEDS ORDERED: PALONOSETRON HCL 0.25 MG/5 ML VIAL IVPUSH ONE (10:00)
[2018-11-07] MEDS ORDERED: DEXAMETHASONE SODIUM PHOSPHATE 10 MG in SODIUM CHLORIDE 50 ML IVPB ONE (10:00)
[2018-11-07] MEDS ORDERED: CYANOCOBALAMIN (VITAMIN B-12) 1000 MCG/1 ML VIAL IM ONE (10:00)
[2018-11-07] MEDS ORDERED: SODIUM CHLORIDE IVPB ONE (10:30)
[2018-11-07] MEDS ORDERED: PEMETREXED DISODIUM IVPB ONE (10:30)
[2018-11-07 16:55] VITALS: TEMP 98.1
[2018-11-07 17:03] VITALS: BP 110/58; PULSE 68
[2018-11-07] MEDS ORDERED: PORTA CATH FLUSH 10 ML IVPUSH ONE (17:03)
== END 2018-11-07 12:00 | disposition home or self-care (01) ==
LOC: JONCCHEMO 07:22 → J7W 09:20 → JONCCHEMO 12:00
PROVIDERS: ATTEND Internal Medicine Hematology & Oncology
DX: Z51.11 Encounter for antineoplastic chemotherapy (principal); C34.90 Malignant neoplasm of unspecified part of unspecified bronchus or lung
CPT/HCPCS: 36415; 80048; 80076; 82378; 83036; 83735; 85025; 96361; 96375; 96413; J2469; J9305

== ENCOUNTER 2018-11-08 07:22 | Day surgery (SDC) | payer OTHER | END 2018-11-08 11:45 | disposition home or self-care (01) | LOC: JONCCHEMO 07:22 → J7W 11:34 → JONCCHEMO 11:45 ==

== ENCOUNTER 2018-12-05 07:21 | Day surgery (SDC) | payer OTHER ==
[2018-12-05 08:50] LABS: BASO % 0.7 % (0-2.0); EOS % 1.6 % (0-4.5); HEMATOCRIT 40.9 % (35.4-49); HEMOGLOBIN 13.8 GM/dL (11.7-16.9); MCH 31.4 pg (25.7-33.7); MCHC 33.8 g/dl (32.0-35.9); MEAN CELL VOLUME 92.9 fl (80-96); MEAN PLT VOLUME 8.4 fl (7.5-11.1); MONO % 5.9 % (3.8-10.2); NEUT % 73.8 % (42.8-82.8); PLATELET COUNT 127 K/MM3 (134-434); RDW 14.9 % (11.9-15.9); WHITE BLOOD COUNT 6.3 K/mm3 (4.0-10.0)
[2018-12-05] MEDS ORDERED: SODIUM CHLORIDE 250 ML IV ONE ×2 (09:00→10:11)
[2018-12-05 09:22] LABS: ALBUMIN 3.4 g/dl (3.4-5.0); BILIRUBIN,DIRECT 0.1 mg/dL (0.0-0.2); BILIRUBIN,TOTAL 0.5 mg/dL (0.2-1); BLOOD UREA NITROGEN 12.8 mg/dL (7-18); CALCIUM 8.8 mg/dL (8.5-10.1); CREATININE 1.5 mg/dL (0.55-1.3); MAGNESIUM 1.9 mg/dL (1.8-2.4); POTASSIUM 4.1 mmol/L (3.5-5.1); TOT PROT 6.7 g/dl (6.4-8.2)
[2018-12-05] MEDS ORDERED: CYANOCOBALAMIN (VITAMIN B-12) 1000 MCG/1 ML VIAL IM ONE (09:30)
[2018-12-05] MEDS ORDERED: PALONOSETRON HCL 0.25 MG/5 ML VIAL IVPUSH ONE (09:30)
[2018-12-05] MEDS ORDERED: DEXAMETHASONE SODIUM PHOSPHATE 10 MG in SODIUM CHLORIDE 50 ML IVPB ONE (09:30)
[2018-12-05] MEDS ORDERED: INSULIN SLIDING SCALE (NOVOLOG) 1 VIAL SQ SCH (09:45)
[2018-12-05] MEDS ORDERED: PEMETREXED DISODIUM IVPB ONE (10:00)
[2018-12-05] MEDS ORDERED: SODIUM CHLORIDE IVPB ONE (10:00)
[2018-12-05] MEDS ORDERED: INSULIN (NOVOLOG) ASPART 100 UNITS/ML 10ML VIAL ONE (10:16)
[2018-12-05 16:52] VITALS: TEMP 98.5
[2018-12-05 17:00] VITALS: BP 143/87; PULSE 79
[2018-12-05] MEDS ORDERED: PORTA CATH FLUSH 10 ML IVPUSH ONE (17:00)
== END 2018-12-05 12:45 | disposition home or self-care (01) ==
LOC: JONCCHEMO 07:21 → J7W 09:29 → JONCCHEMO 12:45
PROVIDERS: ATTEND Internal Medicine Hematology & Oncology
PROC: 3E04305 Introduction of Other Antineoplastic into Central Vein, Percutaneous Approach (ICD-10-PCS; principal; 2018-12-05)
PROC: 3E043GC Introduction of Other Therapeutic Substance into Central Vein, Percutaneous Approach (ICD-10-PCS; 2018-12-05)
PROC: 3E043GC Introduction of Other Therapeutic Substance into Central Vein, Percutaneous Approach (ICD-10-PCS; 2018-12-05)
DX: Z51.11 Encounter for antineoplastic chemotherapy (principal); C34.90 Malignant neoplasm of unspecified part of unspecified bronchus or lung
CPT/HCPCS: 36415; 80048; 80076; 82962; 83735; 85025; 96361; 96367; 96375; 96413; J2469; J9305

== ENCOUNTER 2018-12-06 06:55 | Day surgery (SDC) | payer OTHER ==
[2018-12-06] MEDS ORDERED: PEGFILGRASTIM 6 MG/0.6 ML DISP.SYRIN SQ ONE (09:00)
[2018-12-06 17:14] VITALS: BP 139/77; PULSE 80; TEMP 98.2
== END 2018-12-06 12:45 | disposition home or self-care (01) ==
LOC: JONCCHEMO 06:55 → J7W 12:28 → JONCCHEMO 12:45
PROVIDERS: ATTEND Internal Medicine Hematology & Oncology
PROC: 3E013GC Introduction of Other Therapeutic Substance into Subcutaneous Tissue, Percutaneous Approach (ICD-10-PCS; principal; 2018-12-06)
DX: C34.90 Malignant neoplasm of unspecified part of unspecified bronchus or lung (principal)
CPT/HCPCS: 96372; J2505

== ENCOUNTER 2019-01-02 06:17 | Day surgery (SDC) | payer OTHER ==
[2019-01-02] MEDS ORDERED: SODIUM CHLORIDE 250 ML IV ONE ×2 (09:00→10:30)
[2019-01-02] MEDS ORDERED: DEXAMETHASONE SODIUM PHOSPHATE 10 MG in SODIUM CHLORIDE 50 ML IVPB ONE (10:00)
[2019-01-02] MEDS ORDERED: CYANOCOBALAMIN (VITAMIN B-12) 1000 MCG/1 ML VIAL IM ONE (10:00)
[2019-01-02] MEDS ORDERED: PALONOSETRON HCL 0.25 MG/5 ML VIAL IVPUSH ONE (10:00)
[2019-01-02 10:26] LABS: BASO % 0.5 % (0-2.0); EOS % 1.2 % (0-4.5); HEMATOCRIT 42.3 % (35.4-49); HEMOGLOBIN 14.2 GM/dL (11.7-16.9); LYMPH % 15.5 % (8-40); MCH 31.8 pg (25.7-33.7); MCHC 33.6 g/dl (32.0-35.9); MEAN CELL VOLUME 94.6 fl (80-96); MEAN PLT VOLUME 8.9 fl (7.5-11.1); MONO % 5.9 % (3.8-10.2); NEUT % 76.9 % (42.8-82.8); PLATELET COUNT 132 K/MM3 (134-434); RBC 4.48 M/mm3 (4.00-5.60); RDW 14.3 % (11.9-15.9)
[2019-01-02] MEDS ORDERED: PEMETREXED DISODIUM IVPB ONE (10:30)
[2019-01-02] MEDS ORDERED: SODIUM CHLORIDE IVPB ONE (10:30)
[2019-01-02 11:51] LABS: ALBUMIN 3.6 g/dl (3.4-5.0); BILIRUBIN,TOTAL 0.6 mg/dL (0.2-1); BLOOD UREA NITROGEN 13.1 mg/dL (7-18); CALCIUM 8.7 mg/dL (8.5-10.1); CREATININE 1.6 mg/dL (0.55-1.3); MAGNESIUM 1.9 mg/dL (1.8-2.4); POTASSIUM 4.4 mmol/L (3.5-5.1)
[2019-01-02 12:14] VITALS: BP 145/80; TEMP 98.4
[2019-01-02] MEDS ORDERED: INSULIN (NOVOLOG) ASPART 100 UNITS/ML 10ML VIAL SQ ONE (12:27)
[2019-01-02] MEDS ORDERED: SODIUM CHLORIDE 0.45% 500 ML IV SCH (12:30)
[2019-01-02 15:46] VITALS: PULSE 74
[2019-01-02] MEDS ORDERED: PORTA CATH FLUSH 10 ML IVPUSH ONE (15:46)
== END 2019-01-02 14:58 | disposition home or self-care (01) ==
LOC: JONCCHEMO 06:17 → J7W 09:54 → JONCCHEMO 14:58
PROVIDERS: ATTEND Internal Medicine Hematology & Oncology
PROC: 3E04305 Introduction of Other Antineoplastic into Central Vein, Percutaneous Approach (ICD-10-PCS; principal; 2019-01-02)
PROC: 3E043GC Introduction of Other Therapeutic Substance into Central Vein, Percutaneous Approach (ICD-10-PCS; 2019-01-02)
PROC: 3E043GC Introduction of Other Therapeutic Substance into Central Vein, Percutaneous Approach (ICD-10-PCS; 2019-01-02)
DX: Z51.11 Encounter for antineoplastic chemotherapy (principal); C34.90 Malignant neoplasm of unspecified part of unspecified bronchus or lung
CPT/HCPCS: 36415; 80053; 83735; 85025; 96361; 96365; 96367; 96375; 96409; 96413; J2469; J9305

== ENCOUNTER 2019-01-03 05:43 | Day surgery (SDC) | payer OTHER ==
[2019-01-03] MEDS ORDERED: PEGFILGRASTIM 6 MG/0.6 ML DISP.SYRIN SQ ONE (10:00)
[2019-01-03 16:41] VITALS: BP 145/76; PULSE 76; TEMP 98
== END 2019-01-03 12:35 | disposition home or self-care (01) ==
LOC: JONCCHEMO 05:43 → J7W 12:22 → JONCCHEMO 12:35
PROVIDERS: ATTEND Internal Medicine Hematology & Oncology
PROC: 3E013GC Introduction of Other Therapeutic Substance into Subcutaneous Tissue, Percutaneous Approach (ICD-10-PCS; principal; 2019-01-03)
DX: C34.90 Malignant neoplasm of unspecified part of unspecified bronchus or lung (principal); Z76.89 Persons encountering health services in other specified circumstances
CPT/HCPCS: 96372; J2505

== ENCOUNTER 2019-04-25 05:34 | Day surgery (SDC) | payer OTHER ==
[2019-04-25] MEDS ORDERED: MAGNESIUM SULF 50% (8.12 MEQ/2 ML-1 GM VIAL) ONE (09:04)
[2019-04-25] MEDS ORDERED: MAGNESIUM SULF 50% (8.12 MEQ/2 ML-1 GM VIAL) IVPB ONE (09:15)
[2019-04-25] MEDS ORDERED: SODIUM CHLORIDE 0.45% 1,000 ML IV ONE (09:15)
[2019-04-25 09:59] LABS: ALBUMIN 3.3 g/dl (3.4-5.0); BILIRUBIN,TOTAL 0.5 mg/dL (0.2-1); BLOOD UREA NITROGEN 10.2 mg/dL (7-18); CALCIUM 8.4 mg/dL (8.5-10.1); CREATININE 1.4 mg/dL (0.55-1.3); TOT PROT 6.7 g/dl (6.4-8.2)
[2019-04-25] MEDS ORDERED: Insulin (LOG) Aspart 100 UNITS/ML VIAL SQ ONE (11:30)
[2019-04-25] MEDS ORDERED: INSULIN (NOVOLOG) ASPART 100 UNITS/ML 10ML VIAL ONE (11:44)
[2019-04-25 11:58] VITALS: BP 139/78; PULSE 62; TEMP 97.7
[2019-04-25] MEDS ORDERED: PORTA CATH FLUSH 10 ML IVPUSH ONE (15:53)
== END 2019-04-25 12:05 | disposition home or self-care (01) ==
LOC: JONCNONCHE 05:34 → J7W 08:38 → JONCNONCHE 12:05
PROVIDERS: ATTEND Internal Medicine Hematology & Oncology
PROC: 3E043GC Introduction of Other Therapeutic Substance into Central Vein, Percutaneous Approach (ICD-10-PCS; principal; 2019-04-25)
DX: C34.11 Malignant neoplasm of upper lobe, right bronchus or lung (principal); Z76.89 Persons encountering health services in other specified circumstances
CPT/HCPCS: 36415; 80053; 83036; 87040; 96365; 96366

== ENCOUNTER 2019-11-28 10:11 | Inpatient (IN) | payer OTHER ==
[2019-11-28] MEDS ORDERED: ALBUTEROL SO4 HFA INHALER IH ONE ×2 (11:08→11:11)
[2019-11-28 11:51] LABS: BASO % 0.4 % (0-2.0); EOS % 1.1 % (0-4.5); HEMATOCRIT 48.9 % (35.4-49); HEMOGLOBIN 15.7 GM/dL (11.7-16.9); LYMPH % 13.1 % (8-40); MCH 28.5 pg (25.7-33.7); MEAN CELL VOLUME 89.2 fl (80-96); MEAN PLT VOLUME 8.7 fl (7.5-11.1); MONO % 6.6 % (3.8-10.2); NEUT % 78.8 % (42.8-82.8); PLATELET COUNT 157 K/MM3 (134-434); RBC 5.48 M/mm3 (4.00-5.60); WHITE BLOOD COUNT 7.8 K/mm3 (4.0-10.0)
[2019-11-28 12:08] LABS: VENOUS BASE EXCESS 1.7 mmol/L (-2-2); VENOUS O2 SATURATION 91.1 % (70-80); VENOUS PH 7.265 (7.310-7.410)
[2019-11-28 12:14] LABS: VENOUS PCO2 70.6 mmHg (38-52)
[2019-11-28 12:20] LABS: BILIRUBIN,TOTAL 0.2 mg/dL (0.2-1); BLOOD UREA NITROGEN 17.6 mg/dL (7-18); CALCIUM 8.5 mg/dL (8.5-10.1); CREATININE 1.4 mg/dL (0.55-1.3); POTASSIUM 4.7 mmol/L (3.5-5.1); TOT PROT 6.4 g/dl (6.4-8.2)
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
[2019-11-28] MEDS ORDERED: CLINDAMYCIN IVPB 300 MG in DEXTROSE 5%-WATER - 48 ML IVPB ONE (12:29)
[2019-11-28] MEDS ORDERED: CEFTRIAXONE 1,000 MG in DEXTROSE 5%-WATER - 50 ML IVPB ONE (12:29)
[2019-11-28] MEDS ORDERED: CEFTRIAXONE 1 GM/50 ML BAG ONE (12:40)
[2019-11-28] MEDS ORDERED: CLINDAMYCIN 600MG PREMIX IVPB 600 MG/50 ML BAG IVPB ONE (12:40)
--- NOTE | 2019-11-28 16:06 | PN ---
Progress Note (short form) - Note Progress Note: PULMONARY CONSULTATION DICTATED 11/28/19 IMP ACUTE HYPOXEMIC/HYPERCAPNEIC RESPIRATORY FAILURE BILATERAL PNEUMONIA HEMOPTYSIS METASTATIC LUNG CA H/O COVID 08/05 HTN HLD + TROPONIN PLAN SUPPLEMENTAL O2 INHALED BRONCHODILATORS ABX CULTURES QUANTIFY HEMOPTYSIS ABG TREND TROPONIN F/U CHEST X-RAYS DR CHOUDHARY Problem List - Problems (1) Hemoptysis Code(s): R04.2 - HEMOPTYSIS (2) Pneumonia Code(s): J18.9 - PNEUMONIA, UNSPECIFIED ORGANISM Qualifiers: Pneumonia type: due to unspecified organism Laterality: bilateral Lung location: unspecified part of lung Qualified Code(s): J18.9 - Pneumonia, unspecified organism (3) Acute hypoxemic respiratory failure Code(s): J96.01 - ACUTE RESPIRATORY FAILURE WITH HYPOXIA (4) Adenocarcinoma Code(s): C80.1 - MALIGNANT (PRIMARY) NEOPLASM, UNSPECIFIED (5) Carcinoma, lung Code(s): C34.90 - MALIGNANT NEOPLASM OF UNSP PART OF UNSP BRONCHUS OR LUNG (6) Diabetes Code(s): E11.9 - TYPE 2 DIABETES MELLITUS WITHOUT COMPLICATIONS (7) Elevated troponin I level Code(s): R79.89 - OTHER SPECIFIED ABNORMAL FINDINGS OF BLOOD CHEMISTRY (8) Hypoxia Code(s): R09.02 - HYPOXEMIA (9) Acute respiratory failure with hypoxia and hypercarbia Code(s): J96.01 - ACUTE RESPIRATORY FAILURE WITH HYPOXIA; J96.02 - ACUTE RESPIRATORY FAILURE WITH HYPERCAPNIA
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
[2019-11-28] MEDS ORDERED: DEXTROSE 5%-WATER - 50 ML IVPB ONE (17:03)
[2019-11-28] MEDS ORDERED: PIPERACILLIN/TAZOBACTAM 3.375 GM VIAL IVPB ONE (17:03)
[2019-11-28] MEDS ORDERED: oxyCODONE HCL 5 MG TABLET PO PRN (17:15)
[2019-11-28] MEDS: PIPERACILLIN/TAZOB 3.375 GM 3.375 GM in DEXTROSE 5%-WATER - 50 ML IVPB SCH (17:34)
[2019-11-28] MEDS: oxyCODONE HCL 5 MG TABLET PO PRN ×2 (17:35→21:40)
[2019-11-28 17:37] LABS: ARTERIAL BLD GAS O2 SATURATION 92.4 mmHg (95-98); ARTERIAL BLOOD GAS BASE EXCESS 1.4 mmol/L (-2-2); ARTERIAL BLOOD GAS PO2 68.7 mmHg (80-100); ARTERIAL BLOOD GAS pH 7.338 (7.350-7.450)
[2019-11-28 17:38] LABS: ALLENS TEST POSITIVE
[2019-11-28] MEDS: methylPREDNISolone NA SUCC 40 MG/1 ML VIAL IVPUSH SCH (17:38)
--- NOTE | 2019-11-28 17:48 | EKG ---
Test Reason : Blood Pressure : / mmHG Vent. Rate : 094 BPM Atrial Rate : 094 BPM P-R Int : 144 ms QRS Dur : 090 ms QT Int : 330 ms P-R-T Axes : 063 071 006 degrees QTc Int : 412 ms NORMAL SINUS RHYTHM POSSIBLE LEFT ATRIAL ENLARGEMENT CANNOT RULE OUT INFERIOR INFARCT (CITED ON OR BEFORE 13-AUG-2019) ABNORMAL ECG WHEN COMPARED WITH ECG OF 13-AUG-2019 12:08, NO SIGNIFICANT CHANGE WAS FOUND Confirmed by MD Alexandru, Edmund ([id number]) on 11/28/2019 5:48:16 PM Referred By: Confirmed By:Edmund Horvath MD
[2019-11-28] MEDS ORDERED: PT OWN MED DRAWER 7, Y5N ONE ×2 (17:52→21:50)
--- NOTE | 2019-11-28 18:55 | CONS ---
DATE OF CONSULTATION: 11/28/2019 PULMONARY CONSULTATION REFERRING PHYSICIAN: Kem Johnson MD. HISTORY OF PRESENT ILLNESS: The patient is a 64-year-old male known to me from previous hospitalization with past medical history of metastatic lung cancer on immunotherapy 3 months ago, history of diabetes mellitus, pulmonary embolism on therapeutic dose of Lovenox at home, hypertension, history of COVID-19 pneumonia in July 2019 treated with steroids and bronchodilators with good response, chronic kidney disease, hypertension, also known on hemodialysis 1 year ago, was admitted to [facility] today with complaint of 1.5-week history of productive cough, green sputum as well as hemoptysis. Patient denies any fever, did complain of increasing shortness of breath. Denies any chest pains or palpitations. He initially did not seek medical advice. He presented to the emergency department with the above. In the ER, he had a chest x-ray performed which revealed a right- sided infiltrate. Subsequent CAT scan of chest performed with bilateral infiltrates right greater than left. The patient was admitted to the floor and started on antibiotic therapy. Patient has history of tobacco use approximately 1.5 packs per day for many years, quit 5 years ago. He denies history of occupational exposure to chemicals and fumes. Of note, the patient also in ER was noted to be hypoxic on room air, with O2 saturations in the 70s, subsequently placed on supplemental O2 with good response. PAST MEDICAL HISTORY: Again includes metastatic lung cancer on chemotherapy, COVID-19 pneumonia, pulmonary emboli on Lovenox therapeutic dose x3 years, kidney stones, colonic polyps, noninsulin dependent diabetes mellitus, and hypertension. CURRENT MEDICATIONS: Include currently on no medications. REVIEW OF SYSTEMS: Positive shortness of breath. Positive cough. Positive hemoptysis. No fever. No chills. No chest pain. No palpitations. PHYSICAL EXAMINATION: General: The patient is a well-developed, well-nourished male, awake, alert, in no acute distress, he is afebrile. Vital Signs: Blood pressure 132/69, respiratory rate 18, O2 saturation 93% on 2 L nasal cannula. HEENT: Normocephalic, atraumatic. Neck: Supple. Heart: Regular S1, S2. Chest: Crackles on the right. Abdomen: Soft, bowel sounds positive. Extremities: No cyanosis, edema. LABORATORY: WBC 7.8, hemoglobin 15.7, hematocrit 48.9, with platelet count of 157,000. Blood gas venous: 7.26, pCO2 of 70, and pO2 of 70, bicarbonate 31, and saturation of 91. Chemistries: BUN 17, creatinine 1.4. Troponin is 0.22. Chest CT as noted earlier. IMPRESSION: 1. Acute hypercapnic, hypoxemic respiratory failure secondary to bilateral pneumonia. 2. Bilateral pneumonia. 3. Hemoptysis, likely secondary to pneumonia. 4. Metastatic lung carcinoma. 5. History of COVID-19 pneumonia in July 2019. 6. Hypertension. 7. Hyperlipidemia. 8. Positive troponin. PLAN: Supplemental O2 to maintain O2 saturation 90% or greater. Inhaled bronchodilators. Antibiotics. Short course of steroids. Obtain cultures. Quantify hemoptysis. Check arterial blood gases. Trend troponins as well as followup chest x-rays. ALEXANDER CHOUDHARY M.D. [id number] DAVID
[2019-11-28] MEDS ORDERED: ASPIRIN 81 MG CHEWABLE TABLETS PO ONE (19:19)
[2019-11-28 20:10] LABS: N-TERMINAL BNP 839.5 pg/ml (5-125)
--- NOTE | 2019-11-28 20:11 | CONSULT ---
Consult - text type - Consultation Consultation Note: The patient is a 64 year old male with a significant PMH of Lung Ca (diagnosed 5 years ago), DM, HTN and HLD who presents to the emergency department for evaluation of a couple of days of difficulty breathing. Patient is also endorsing 1.5 week of a productive cough of green phlegm, that has recently turned into hemoptysis. The patient denies chest pain, headache and dizziness. Denies fever, chills, nausea, vomiting, diarrhea and constipation. Denies dysuria, frequency, urgency and hematuria. He denies any fevers Allergies: NKA Social history: No reported hx of tobacco use, alcohol use or illicit drug use. PCP: Soy Oncologist: Nano Past History - Medical History Allergies/Adverse Reactions: Allergies Allergy/AdvReac Type Severity Reaction Status Date / Time No Known Drug Allergies Allergy Verified 11/28/19 10:30 Home Medications: Ambulatory Orders Diazepam [Valium] 10 mg PO Q6H PRN 06/02/18 Linagliptin [Tradjenta] 5 mg PO DAILY #20 tablet 07/27/18 Insulin Glargine,Hum.rec.anlog [Lantus] 20 unit SQ HS 08/13/19 Albuterol Sulfate [Albuterol Sulfate Hfa] 2 puff IH Q4H 08/22/19 Enoxaparin Sodium 1 syringe SQ BID 08/22/19 Metoprolol Succinate [Toprol XL -] 25 mg PO DAILY #30 tab.sr.24h 08/22/19 Oxycodone HCl 10 mg PO Q4H 08/22/19 Glipizide [Glucotrol -] 10 mg PO DAILY 11/28/19 PMH Cancer: Yes (lung ca-04/2014-CHEMOTHERAPY) Cardiac Disorders: Yes (PE? HAS BEEN ON LOVENOX X 3 YEARS.) Diabetes: Yes (NIDDM) GI Disorders: Yes (COLONIC POLYPS) HTN: Yes Hypercholesterolemia: Yes Kidney Stones: Yes (LASER TREATMENT) - Surgical History Neurologic Surgery: Yes (SPINAL CERVICAL FUSION TIMES TWO, LUMBAR LAMINECTOMY) Orthopedic Surgery: Yes (SPINAL FUSIONS X2 LAMINECTOMY X2 RIGHT KNEE ART HROSCOPY) - Psycho-Social/Smoking History Smoking Status: Yes Smoking History: Former smoker - Vital Signs Last Vital Signs Temp Pulse Resp BP Pulse Ox 98.1 F 109 H 24 H 164/95 78 L 11/28/19 10:15 11/28/19 10:15 11/28/19 10:15 11/28/19 10:15 11/28/19 10:15 Cor: RSR, No murmurs, No gallops Lungs: decreased at bases Abd: Soft, Normal bowel sounds, Ext:chronic stasis dermatitis A/P Patient is a morbidly obese 64-year-old male, with history of metastatic adeno CA of lung,s/p carbo/alimta status post COVID in July 2019, presents with hemoptysis and difficulty breathing for the past 7 to 10 days, in association with productive purulent sputum. Lung ca-- stage IV -- had a great response to carbo/alimta and was on alimta mintenance --past 01/04 CT chest PAtchy b/l infiltrates -- RUL, LLL. Mild mediastinal adenopathy On steroids/zosyn On correction lovenox Feels clinically improved f/u pulmonary recs will need to f/u with Dr. Nano tim acute issues resolve to resume systemic therapy
[2019-11-28] MEDS ORDERED: INSULIN (NOVOLOG) ASPART 100 UNITS/ML 10ML VIAL ONE (21:29)
[2019-11-28] MEDS: ALBUTEROL SO4 2.5/IPRATROPIUM 0.5 INH SOL 3 ML VIAL.NEB. NEB SCH (21:34)
[2019-11-28] MEDS: INSULIN SLIDING SCALE (NOVOLOG) 1 VIAL SQ SCH (21:40)
[2019-11-28] MEDS: diazePAM 5 MG TABLET PO PRN (21:41)
[2019-11-28] MEDS: ATORVASTATIN CA 40 MG TABLET (FP) PO SCH (21:41)
[2019-11-28] MEDS: ENOXAPARIN NA (PORCINE) 120 MG/0.8 ML DISP.SYRIN SQ SCH (21:51)
[2019-11-28] MEDS ORDERED: INSULIN (LEVEMIR) 100 UNITS/ML UNITS SQ SCH (22:00)
[2019-11-29] MEDS ORDERED: PIPERACILLIN/TAZOBACTAM 3.375 GM VIAL IVPB ONE ×3 (01:48→16:03)
[2019-11-29] MEDS ORDERED: DEXTROSE 5%-WATER - 50 ML IVPB ONE ×3 (01:48→16:03)
[2019-11-29] MEDS: methylPREDNISolone NA SUCC 40 MG/1 ML VIAL IVPUSH SCH ×3 (02:32→17:01)
[2019-11-29] MEDS: PIPERACILLIN/TAZOB 3.375 GM 3.375 GM in DEXTROSE 5%-WATER - 50 ML IVPB SCH ×3 (02:32→17:00)
[2019-11-29] MEDS: oxyCODONE HCL 5 MG TABLET PO PRN ×4 (04:38→22:42)
[2019-11-29] MEDS: INSULIN SLIDING SCALE (NOVOLOG) 1 VIAL SQ SCH ×4 (07:03→22:48)
[2019-11-29] MEDS: ALBUTEROL SO4 2.5/IPRATROPIUM 0.5 INH SOL 3 ML VIAL.NEB. NEB SCH ×3 (07:45→20:51)
[2019-11-29 08:28] LABS: CALCIUM 8.8 mg/dL (8.5-10.1); MAGNESIUM 2.2 mg/dL (1.8-2.4); POTASSIUM 5.1 mmol/L (3.5-5.1)
[2019-11-29 08:30] LABS: BILIRUBIN,TOTAL 0.6 mg/dL (0.2-1); CREATININE 1.3 mg/dL (0.55-1.3); PHOSPHOROUS 3.9 mg/dL (2.5-4.9); TOT PROT 6.7 g/dl (6.4-8.2)
[2019-11-29] MEDS: metoPROLOL SUCCINATE 25 MG TAB.SR.24H (FP) PO SCH (09:17)
[2019-11-29] MEDS: ASPIRIN COATED 81 MG TABLET.EC PO SCH (09:18)
[2019-11-29] MEDS: PANTOPRAZOLE 40 MG TABLET PO SCH (09:18)
[2019-11-29] MEDS: ENOXAPARIN NA (PORCINE) 120 MG/0.8 ML DISP.SYRIN SQ SCH ×2 (09:19→22:44)
--- NOTE | 2019-11-29 10:00 | CONSULT ---
Consult Consult Specialty:: Thoracic Surgery Referred by:: Medicine/ED Reason for Consultation:: hemoptysis x 1 week - History of Present Illness Chief Complaint: sob and hemoptysis x 1 week - History Source History Provided By: Patient, Medical Record Limitations to Obtaining History: No Limitations - Past Medical History Cardio/Vascular: Yes: HTN Pulmonary: Yes: Cancer (Lung CA s/p chemotherapy) Gastrointestinal: Yes: Other (colon polyps). No: Peptic Ulcer Disease Renal/: Yes: Renal Calculi Heme/Onc: Yes: Other (h/o PE) Musculoskeletal: Yes: Chronic low back pain Endocrine: Yes: Diabetes Mellitus - Past Surgical History Past Surgical History: Yes: Laminectomy (x2,) - Alcohol/Substance Use Hx Alcohol Use: No History of Substance Use: reports: None - Smoking History Smoking history: Former smoker Have you smoked in the past 12 months: No Aproximately how many cigarettes per day: 30 If you are a former smoker, when did you quit?: 05/02 - Social History ADL: Independent Home Medications - Allergies Allergies/Adverse Reactions: Allergies Allergy/AdvReac Type Severity Reaction Status Date / Time No Known Drug Allergies Allergy Verified 11/28/19 10:30 - Home Medications Home Medications: Ambulatory Orders Diazepam [Valium] 10 mg PO Q6H PRN 06/02/18 Linagliptin [Tradjenta] 5 mg PO DAILY #20 tablet 07/27/18 Insulin Glargine,Hum.rec.anlog [Lantus] 20 unit SQ HS 08/13/19 Albuterol Sulfate [Albuterol Sulfate Hfa] 2 puff IH Q4H 08/22/19 Enoxaparin Sodium 1 syringe SQ BID 08/22/19 Metoprolol Succinate [Toprol XL -] 25 mg PO DAILY #30 tab.sr.24h 08/22/19 Oxycodone HCl 10 mg PO Q4H 08/22/19 Aspirin Coated [Ecotrin -] 81 mg PO DAILY 11/28/19 Atorvastatin Ca [Lipitor] 40 mg PO HS 11/28/19 Pantoprazole Sodium [Protonix] 40 mg PO DAILY 11/28/19 Review of Systems - Review of Systems Constitutional: reports: Weakness. denies: Fever, Unintentional Wgt. Loss Eyes: reports: No Symptoms HENT: reports: No Symptoms Cardiovascular: reports: Shortness of Breath Respiratory: reports: SOB Gastrointestinal: reports: No Symptoms Genitourinary: reports: No Symptoms Breasts: reports: No Symptoms Reported Physical Exam Vital Signs: Vital Signs Temperature 98 F 11/29/19 05:53 Pulse Rate 87 11/29/19 05:53 Respiratory Rate 18 11/29/19 05:53 Blood Pressure 125/85 11/29/19 05:53 O2 Sat by Pulse Oximetry (%) 93 L 11/29/19 05:53 Constitutional: Yes: Well Nourished Eyes: Yes: WNL HENT: Yes: WNL Neck: Yes: WNL Respiratory: Yes: Diminished Extremities: Yes: WNL Labs: CBC, BMP 11/29/19 06:40 11/29/19 06:40 Imaging - Results Cat Scan: Report Reviewed, Image Reviewed Problem List - Problems (1) Acute respiratory failure with hypoxia and hypercarbia Code(s): J96.01 - ACUTE RESPIRATORY FAILURE WITH HYPOXIA; J96.02 - ACUTE RESPIRA TORY FAILURE WITH HYPERCAPNIA (2) Hemoptysis Code(s): R04.2 - HEMOPTYSIS (3) Pleural effusion Code(s): J90 - PLEURAL EFFUSION, NOT ELSEWHERE CLASSIFIED (4) Lung cancer, hilus Code(s): C34.00 - MALIGNANT NEOPLASM OF UNSPECIFIED MAIN BRONCHUS Assessment/Plan 64M former smoker with h/o lung cancer dx'd 5 years ago (stage 3 or 4 with adenopathy and ?pericardial effusion) s/p chemo and maintenance therapy, COVID in July, hospitalized x 1 week, recovered and 1 week ago had mild hemoptysis and sob and now admitted with hypoxia. He is anticoagulated. -Consider u/s LE or CT chest PE protocol to assess if can stop anticoagulation; -Consider steroids as appears to have pneumonitis? -If worsens, consider bronchoscopy with washings, but hemoptysis is mild at this point and I think DAH is possibility.
[2019-11-29 10:33] LABS: HEMATOCRIT 47.3 % (35.4-49); MCH 27.9 pg (25.7-33.7); MCHC 31.8 g/dl (32.0-35.9); MEAN CELL VOLUME 87.6 fl (80-96); MEAN PLT VOLUME 8.3 fl (7.5-11.1); PLATELET COUNT 149 K/MM3 (134-434); RDW 14.7 % (11.9-15.9); WHITE BLOOD COUNT 8.5 K/mm3 (4.0-10.0)
--- NOTE | 2019-11-29 10:43 | PN ---
Progress Note (short form) - Note Progress Note: PULMONARY Still with some hemoptysis, blood mixed with clear sputum. States he feels better. No fevers. Vital Signs Period Temp Pulse Resp BP Sys/Small Pulse Ox Last 24 Hr 97.9 F-98.6 F 80-87 18-20 119-147/69-91 87-95 Gen: NAD at rest Heart: RRR Lung: decreased breath sounds at the bases Abd: soft, nontender Ext: no edema CBC, BMP 11/29/19 06:40 Active Medications Albuterol/Ipratropium (Duoneb -) 1 amp NEB RTID [facility] Last Admin: 11/29/19 07:45 Dose: 1 amp Documented by: Aspirin (Ecotrin -) 81 mg PO DAILY [facility] Last Admin: 11/29/19 09:18 Dose: 81 mg Documented by: Atorvastatin Calcium (Lipitor -) 40 mg PO [facility] Last Admin: 11/28/19 21:41 Dose: 40 mg Documented by: Diazepam (Valium -) 10 mg PO Q6H PRN PRN Reason: ANXIETY Last Admin: 11/28/19 21:41 Dose: 10 mg Documented by: Enoxaparin Sodium (Lovenox -) 120 mg SQ BID [facility] Last Admin: 11/29/19 09:19 Dose: 120 mg Documented by: Piperacillin Sod/Tazobactam (Sod 3.375 gm/ Dextrose) 50 mls @ 100 mls/hr IVPB Q8H-IV [facility]; Protocol Last Admin: 11/29/19 09:16 Dose: 100 mls/hr Documented by: Insulin Aspart (Novolog Vial Sliding Scale -) [address] [facility]; Protocol Last Admin: 11/29/19 07:03 Dose: 4 units Documented by: Insulin Detemir (Levemir Vial) 20 units SQ [facility] Methylprednisolone Sodium Succinate (Solu-Medrol -) 40 mg IVPUSH Q8H-IV [facility] Last Admin: 11/29/19 09:17 Dose: 40 mg Documented by: Metoprolol Succinate (Toprol Xl -) 25 mg PO DAILY [facility] Last Admin: 11/29/19 09:17 Dose: 25 mg Documented by: Oxycodone HCl (Roxicodone -) 10 mg PO Q4H PRN PRN Reason: PAIN LEVEL 6-10 Last Admin: 11/29/19 04:38 Dose: 10 mg Documented by: Pantoprazole Sodium (Protonix -) 40 mg PO DAILY [facility] Last Admin: 11/29/19 09:18 Dose: 40 mg Documented by: A/P Acute Hypoxic and Hypercapneic Respiratory Failure Pneumonia Hemoptysis Metastatic Lung Ca +Troponins likely Demand Ischemia h/o PE h/o COVID19 HTN Hyperlipidemia - continue antibiotics - f/u cultures - continue medrol - monitor/quantify hemoptysis - hemoptysis streaky, would continue anticoagulation and observe - O2 to keep SpO2 >90%
[2019-11-29 12:01] LABS: PH,URINE 5.5 (5.0-8.0); URINE APPEARANCE CLOUDY; URINE BILIRUBIN NEGATIVE (NEGATIVE); URINE COLOR YELLOW; URINE GLUCOSE (UA) TRACE (NEGATIVE); URINE KETONE NEGATIVE (NEGATIVE); URINE LEUK ESTERASE NEGATIVE (NEGATIVE); URINE NITRITE NEGATIVE (NEGATIVE); URINE PROTEIN TRACE (NEGATIVE); URINE UROBILINOGEN 0.2 mg/dL (0.2-1.0)
--- NOTE | 2019-11-29 14:43 | CON.ID ---
Consult Referred by:: hospitalist Reason for Consultation:: pneumonia - History of Present Illness Chief Complaint: hemoptysis History of Present Illness: 64 yo man with known history of lung cancer 5 years, s/p chemo last March, admitted with cough for last 10 days, originally grenn then blood tinged, no fevers cxray with right sided infiltrate chest ct with patchy bilateral infiltrates RUL, LLL no nausea or vomiting no fevers no dysuria he was hospitalized 08/12 to 08/21 with covid 19, he has not been on antiibotics since that time discharged on nasal oxygen, now off started on zosyn in ED now feels improved - History Source History Provided By: Patient, Medical Record Limitations to Obtaining History: No Limitations - Past Medical History Cardio/Vascular: Yes: HTN, [place] (NSTEMI 08/12) Pulmonary: Yes: Cancer (Lung CA s/p chemotherapy), Pulmonary Embolus Gastrointestinal: Yes: Other (colon polyps). 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 Place of : [facility] History of Recent Travel: No Home Medications - Allergies Allergies/Adverse Reactions: Allergies Allergy/AdvReac Type Severity Reaction Status Date / Time No Known Drug Allergies Allergy Verified 11/28/19 10:30 - Home Medications Home Medications: Ambulatory Orders Diazepam [Valium] 10 mg PO Q6H PRN 06/02/18 Linagliptin [Tradjenta] 5 mg PO DAILY #20 tablet 07/27/18 Insulin Glargine,Hum.rec.anlog [Lantus] 20 unit SQ HS 08/13/19 Albuterol Sulfate [Albuterol Sulfate Hfa] 2 puff IH Q4H 08/22/19 Enoxaparin Sodium 1 syringe SQ BID 05/06/20 Metoprolol Succinate [Toprol XL -] 25 mg PO DAILY #30 tab.sr.24h 08/22/19 Oxycodone HCl 10 mg PO Q4H 08/22/19 Aspirin Coated [Ecotrin -] 81 mg PO DAILY 11/28/19 Atorvastatin Ca [Lipitor] 40 mg PO HS 11/28/19 Pantoprazole Sodium [Protonix] 40 mg PO DAILY 11/28/19 Family Medical History Family History: Denies Review of Systems - Review of Systems Constitutional: denies: Chills, Fever Eyes: reports: No Symptoms HENT: reports: No Symptoms Neck: reports: No Symptoms Cardiovascular: reports: No Symptoms Respiratory: reports: Cough, Hemoptysis, SOB Gastrointestinal: reports: No Symptoms. denies: Abdominal Pain Genitourinary: reports: No Symptoms. denies: Burning, Discharge, Dysuria Musculoskeletal: reports: No Symptoms Integumentary: reports: No Symptoms Physical Exam Vital Signs: Vital Signs Temperature 98.4 F 11/29/19 13:54 Pulse Rate 89 11/29/19 13:54 Respiratory Rate 18 11/29/19 13:54 Blood Pressure 136/79 11/29/19 13:54 O2 Sat by Pulse Oximetry (%) 94 L 11/29/19 13:54 Constitutional: Yes: Well Nourished, Obese Eyes: Yes: Conjunctiva Clear HENT: Yes: Atraumatic, Normocephalic. No: Thrush Neck: Yes: Supple Cardiovascular: Yes: Regular Rate and Rhythm Respiratory: Yes: Diminished (at bases) Gastrointestinal: Yes: Normal Bowel Sounds, Abdomen, Obese. No: Tenderness, Epigastrium ...Rectal Exam: Yes: Deferred Edema: No Integumentary: Yes: WNL. No: Rash Psychiatric: Yes: Alert, Oriented Labs: CBC, BMP 11/29/19 10:10 11/29/19 06:40 Microbiology 11/28/19 10:45 Blood - Peripheral Venous Blood Culture - Preliminary NO GROWTH OBTAINED AFTER 24 HOURS, INCUBATION TO CONTINUE FOR 4 DAYS. 11/28/19 10:30 Blood - Peripheral Venous Blood Culture - Preliminary NO GROWTH OBTAINED AFTER 24 HOURS, INCUBATION TO CONTINUE FOR 4 DAYS. Imaging - Results Chest X-ray: Report Reviewed, Image Reviewed Cat Scan: Report Reviewed, Image Reviewed Problem List - Problems (1) Pneumonia Code(s): J18.9 - PNEUMONIA, UNSPECIFIED ORGANISM Qualifiers: Pneumonia type: due to unspecified organism Laterality: bilateral Lung location: unspecified part of lung Qualified Code(s): J18.9 - Pneumonia, unspecified organism (2) Hemoptysis Code(s): R04.2 - HEMOPTYSIS (3) Lung cancer Code(s): C34.90 - MALIGNANT NEOPLASM OF UNSP PART OF UNSP BRONCHUS OR LUNG (4) Pulmonary embolism Code(s): I26.99 - OTHER PULMONARY EMBOLISM WITHOUT ACUTE COR PULMONALE (5) History of 2019 novel coronavirus disease (COVID-19) Code(s): Z86.19 - PERSONAL HISTORY OF OTHER INFECTIOUS AND PARASITIC DISEASES Assessment/Plan clinically improved on zosyn and steroids f/u cultures check legionella urinary antigen on a/c for last 5 years history of lung cancer no chemo since March covid 19 08/13/19
--- NOTE | 2019-11-29 16:34 | CON.CARD ---
Cardiology Consult (text) - Consultation Consultation Note: cc: sob hpi: 64 m hx lung ca (in remission), htn, dm, dchf here with sob, cough, green sputum, hemoptysis for several days. No cp palps dizzy loc pnd orthopnea le edema. Found to have bl pna. Sees me for cardio. pmh: per hpi psh: per hpi social: no tob fam: no premature cad, scd ros : per hpi; all others nl meds: Home Medications Medication Instructions Recorded Diazepam [Valium] 10 mg PO Q6H PRN 06/02/18 Linagliptin [Tradjenta] 5 mg PO DAILY #20 tablet 07/27/18 Insulin Glargine,Hum.rec.anlog 20 unit SQ HS 08/13/19 [Lantus] Albuterol Sulfate [Albuterol 2 puff IH Q4H 08/22/19 Sulfate Hfa] Enoxaparin Sodium 1 syringe SQ BID 08/22/19 Metoprolol Succinate [Toprol XL -] 25 mg PO DAILY #30 tab.sr.24h 08/22/19 Oxycodone HCl 10 mg PO Q4H 08/22/19 Aspirin Coated [Ecotrin -] 81 mg PO DAILY 11/28/19 Atorvastatin Ca [Lipitor] 40 mg PO HS 11/28/19 Pantoprazole Sodium [Protonix] 40 mg PO DAILY 11/28/19 Current Medications Generic Name Dose Route Start Last Admin Trade Name Freq PRN Reason Stop Dose Admin Albuterol/Ipratropium 1 amp 11/28/19 20:00 11/29/19 13:51 Duoneb - NEB 1 amp RTID MONICA Administration Aspirin 81 mg 11/29/19 10:00 11/29/19 09:18 Ecotrin - PO 81 mg DAILY MONICA Administration Atorvastatin Calcium 40 mg 11/28/19 22:00 11/28/19 21:41 Lipitor - PO 40 mg HS MONICA Administration Diazepam 10 mg 11/28/19 17:02 11/28/19 21:41 Valium - PO 10 mg Q6H PRN Administration ANXIETY Enoxaparin Sodium 120 mg 11/28/19 22:00 11/29/19 09:19 Lovenox - SQ 120 mg BID MONICA Administration Piperacillin Sod/Tazobactam 50 mls @ 100 mls/hr 11/28/19 18:00 11/29/19 09:16 Sod 3.375 gm/ Dextrose IVPB 100 mls/hr Q8H-IV MONICA Administration Protocol Insulin Aspart 1 vial 11/28/19 22:00 11/29/19 16:19 Novolog Vial Sliding Scale - SQ 4 units ACHS MONICA Administration Protocol Insulin Detemir 20 units 11/29/19 08:09 Levemir Vial SQ HS MONICA Methylprednisolone Sodium Succinate 40 mg 11/28/19 18:00 11/29/19 09:17 Solu-Medrol - IVPUSH 40 mg Q8H-IV MONICA Administration Metoprolol Succinate 25 mg 11/29/19 10:00 11/29/19 09:17 Toprol Xl - PO 25 mg DAILY MONICA Administration Oxycodone HCl 10 mg 11/28/19 17:15 11/29/19 11:20 Roxicodone - PO 10 mg Q4H PRN Administration PAIN LEVEL 6-10 Pantoprazole Sodium 40 mg 11/29/19 10:00 11/29/19 09:18 Protonix - PO 40 mg DAILY MONICA Administration pe: Vital Signs Period Temp Pulse Resp BP Sys/Small Pulse Ox Last 24 Hr 97.9 F-98.4 F 83-89 18-18 119-136/73-85 92-94 nad no jvd rrr s1s2 no mrg cta bl nl eff aao3 no le e/c/c abd nt nd pos bs no jaundice diaphoresis pos dp pt no carotid bruits Laboratory Last Values WBC 8.5 K/mm3 (4.0-10.0) 11/29/19 10:10 Corrected WBC (auto) Cancelled 11/29/19 06:40 RBC 5.40 M/mm3 (4.00-5.60) 11/29/19 10:10 Hgb 15.0 GM/dL (11.7-16.9) 11/29/19 10:10 Hct 47.3 % (35.4-49) 11/29/19 10:10 MCV 87.6 fl (80-96) 11/29/19 10:10 MCH 27.9 pg (25.7-33.7) 11/29/19 10:10 MCHC 31.8 g/dl (32.0-35.9) L 11/29/19 10:10 RDW 14.7 % (11.9-15.9) 11/29/19 10:10 Plt Count 149 K/MM3 (134-434) 11/29/19 10:10 MPV 8.3 fl (7.5-11.1) 11/29/19 10:10 Absolute Neuts (auto) 6.1 K/mm3 (1.5-8.0) 11/28/19 10:30 Neutrophils % 78.8 % (42.8-82.8) 11/28/19 10:30 Lymphocytes % 13.1 % (8-40) D 11/28/19 10:30 Monocytes % 6.6 % (3.8-10.2) D 11/28/19 10:30 Eosinophils % 1.1 % (0-4.5) D 11/28/19 10:30 Basophils % 0.4 % (0-2.0) 11/28/19 10:30 Nucleated RBC % 0 % (0-0) 11/28/19 10:30 Manual Slide Review Cancelled 11/29/19 06:40 Platelet Comment Cancelled 11/29/19 06:40 ESR 9 mm/hr (0-20) 11/29/19 06:40 PTT (Actin FS) 35.8 SECONDS (25.2-36.5) 11/28/19 19:00 Anticoagulation Therapy No Result Required. 11/28/19 17: Puncture Site Right radial 11/28/19 17:28 Patient Temperature No Result Required. 11/28/19 17:28 ABG pH 7.338 (7.350-7.450) L 11/28/19 17: ABG pCO2 54.20 mmHg (35-45) H 11/28/19 17:28 ABG pO2 68.7 mmHg (80-100) L 11/28/19 17: ABG HCO3 28.5 mmol/L (22-27) H 11/28/19 17: ABG O2 Sat (Measured) 92.4 mmHg (95-98) L 11/28/19 17: ABG O2 Content No Result Required. 11/28/19 17: ABG Base Excess 1.4 mmol/L (-2-2) 11/28/19 17: Remberto Test Positive 11/28/19 17:28 VBG pH 7.265 (7.310-7.410) L 11/28/19 10:30 POC VBG pCO2 70.6 mmHg (38-52) H* 11/28/19 10:30 POC VBG pO2 70.2 mmHg (28-48) H 11/28/19 10:30 VBG HCO3 31.3 mmol/L (23-29) H 11/28/19 10:30 VBG O2 Sat (Olga) 91.1 % (70-80) H 11/28/19 10:30 VBG Base Excess 1.7 mmol/L (-2-2) 11/28/19 10:30 Patient On Oxygen Yes 11/28/19 17:28 O2 Delivery Device Nasal 11/28/19 17:28 Oxygen Flow Rate 3l 11/28/19 17:28 Vent Mode No Result Required. 11/28/19 17:28 Vent Rate No Result Required. 11/28/19 17:28 Mechanical Rate No Result Required. 11/28/19 17:28 PEEP No Result Required. 11/28/19 17:28 Pressure Support Vent No Result Required. 11/28/19 17:28 Sodium 139 mmol/L (136-145) 11/29/19 06:40 Potassium 5.1 mmol/L (3.5-5.1) 11/29/19 06:40 Chloride 102 mmol/L (98-107) 11/29/19 06:40 Carbon Dioxide 32 mmol/L (21-32) 11/29/19 06:40 Anion Gap 5 MMOL/L (8-16) L 11/29/19 06:40 BUN 16.0 mg/dL (7-18) 11/29/19 06:40 Creatinine 1.3 mg/dL (0.55-1.3) 11/29/19 06:40 Est GFR (CKD-EPI)AfAm 67.78 11/29/19 06:40 Est GFR (CKD-EPI)NonAf 58.48 11/29/19 06:40 POC Glucometer 247 UNITS (80-120) 11/29/19 16:17 Random Glucose 248 mg/dL (74-106) H 11/29/19 06:40 Lactic Acid 1.4 mmol/L (0.4-2.0) 11/28/19 10:30 Calcium 8.8 mg/dL (8.5-10.1) 11/29/19 06:40 Phosphorus 3.9 mg/dL (2.5-4.9) 11/29/19 06:40 Magnesium 2.2 mg/dL (1.8-2.4) 11/29/19 06:40 Total Bilirubin 0.6 mg/dL (0.2-1) 11/29/19 06:40 AST 12 U/L (15-37) L 11/29/19 06:40 ALT 26 U/L (13-61) 11/29/19 06:40 Alkaline Phosphatase 103 U/L (45-117) 11/29/19 06:40 LD Total 201 U/L (87-246) 11/29/19 06:40 Creatine Kinase 68 U/L (26-308) 11/28/19 10:30 Troponin I 0.11 ng/ml (0.00-0.05) H 11/29/19 06:40 C-Reactive Protein 1.0 MG/DL (0.00-0.3) H 11/29/19 06:40 B-Natriuretic Peptide 839.5 pg/ml (5-125) H 11/28/19 19:00 Total Protein 6.7 g/dl (6.4-8.2) 11/29/19 06:40 Albumin 3.0 g/dl (3.4-5.0) L 11/29/19 06:40 Urine Color Yellow 11/29/19 11:20 Urine Appearance Cloudy 11/29/19 11:20 Urine pH 5.5 (5.0-8.0) 11/29/19 11:20 Ur Specific [place] 1.029 (1.010-1.035) 11/29/19 11:20 Urine Protein Trace (NEGATIVE) 11/29/19 11:20 Urine Glucose (UA) Trace (NEGATIVE) 11/29/19 11:20 Urine Ketones Negative (NEGATIVE) 11/29/19 11:20 Urine Blood Negative (NEGATIVE) 11/29/19 11:20 Urine Nitrite Negative (NEGATIVE) 11/29/19 11:20 Urine Bilirubin Negative (NEGATIVE) 11/29/19 11:20 Urine Urobilinogen 0.2 mg/dL (0.2-1.0) 11/29/19 11:20 Ur Leukocyte Esterase Negative (NEGATIVE) 11/29/19 11:20 COVID-19 (RADHA) Not detected (Not Detected) 11/28/19 12:30 Blood Type O POSITIVE 11/28/19 19:00 Antibody Screen Negative 11/28/19 19:00 Echo 07/2019 low normal left ventricular systolic function and ejection fraction, estimated LVEF of between 50-55%, impaired left ventricular relaxation, elevated filling pressures, mild mitral valve regurgitation echo 10/2019: nl lv/rv, no sig valve path ecg: unremarkable ct chest: bl pna a/p: 64 m hx lung ca (in remission), htn, dm, dchf here with pna. pna: -cont abx -pulm, ID following elevated trop: -borderline trop elevation with flat trend, no ischemic ecg changes, not c/w acs -cont asa (had hx of elevated trops 07/2019 during covid admit) hld: -cont statin htn: -cont metoprolol chronic diastolic chf: -recent office echo 10/2019 was unremarkable -vol stable history of lung ca, PE: -heme/onc following, cont ac
--- NOTE | 2019-11-29 17:25 | PN ---
Teaching Attending Note Name of Resident: Vinod Hernandez ATTENDING PHYSICIAN STATEMENT I saw and evaluated the patient. I reviewed the resident's note and discussed the case with the resident. I agree with the resident's findings and plan as documented. SUBJECTIVE: Patient seen and examined at bedside, h/o adenoca of lung s/p RT/chemo w/ PE on therapeutic Lovenox admitted for hemoptysis. VSS. OBJECTIVE: GA obese, AAox3, speaking in full sentences, NAD HEENT NC/aT, EOMI, neck supple, no palpable lymphadenopathy, no oral thrush Chest distant BS b/l, faint end-expiratory wheezing, no accessory M use CVS s1, S2+, RRR Abd obese, Soft, NT, ND, BS+ Ext No LE edema, no calf tenderness Vital Signs - 24 hr 11/28/19 11/28/19 11/29/19 20:00 21:00 02:07 Temperature 97.9 F Pulse Rate 83 Respiratory 18 Rate Blood Pressure 119/73 O2 Sat by Pulse 93 L 93 L 92 L Oximetry (%) 11/29/19 11/29/19 11/29/19 05:53 09:00 13:54 Temperature 98 F 98.4 F Pulse Rate 87 89 Respiratory 18 18 18 Rate Blood Pressure 125/85 136/79 O2 Sat by Pulse 93 L 94 L 94 L Oximetry (%) Microbiology 11/29/19 11:10 Sputum - Expectorated Gram Stain - Final 11/28/19 10:45 Blood - Peripheral Venous Blood Culture - Preliminary NO GROWTH OBTAINED AFTER 24 HOURS, INCUBATION TO CONTINUE FOR 4 DAYS. 11/28/19 10:30 Blood - Peripheral Venous Blood Culture - Preliminary NO GROWTH OBTAINED AFTER 24 HOURS, INCUBATION TO CONTINUE FOR 4 DAYS. Laboratory Results - last 24 hr 11/28/19 11/28/19 11/28/19 12:30 17:28 19:00 WBC Corrected WBC (auto) RBC Hgb Hct MCV MCH MCHC RDW Plt Count MPV Manual Slide Review Platelet Comment ESR PTT (Actin FS) 35.8 Anticoagulation Therapy No Result Required. Puncture Site Right radial Patient Temperature No Result Required. ABG pH 7.338 L ABG pCO2 54.20 H ABG pO2 68.7 L ABG HCO3 28.5 H ABG O2 Sat (Measured) 92.4 L ABG O2 Content No Result Required. ABG Base Excess 1.4 Remberto Test Positive Patient On Oxygen Yes O2 Delivery Device Nasal Oxygen Flow Rate 3l Vent Mode No Result Required. Vent Rate No Result Required. Mechanical Rate No Result Required. PEEP No Result Required. Pressure Support Vent No Result Required. Sodium Potassium Chloride Carbon Dioxide Anion Gap BUN Creatinine Est GFR (CKD-EPI)AfAm Est GFR (CKD-EPI)NonAf POC Glucometer Random Glucose Calcium Phosphorus Magnesium Total Bilirubin AST ALT Alkaline Phosphatase LD Total Troponin I C-Reactive Protein B-Natriuretic Peptide Total Protein Albumin Urine Color Urine Appearance Urine pH Ur Specific [place] Urine Protein Urine Glucose (UA) Urine Ketones Urine Blood Urine Nitrite Urine Bilirubin Urine Urobilinogen Ur Leukocyte Esterase COVID-19 (RADHA) Not detected Blood Type Antibody Screen 11/28/19 11/28/19 11/28/19 19:00 19:00 20:53 WBC Corrected WBC (auto) RBC Hgb Hct MCV MCH MCHC RDW Plt Count MPV Manual Slide Review Platelet Comment ESR PTT (Actin FS) Anticoagulation Therapy Puncture Site Patient Temperature ABG pH ABG pCO2 ABG pO2 ABG HCO3 ABG O2 Sat (Measured) ABG O2 Content ABG Base Excess Remberto Test Patient On Oxygen O2 Delivery Device Oxygen Flow Rate Vent Mode Vent Rate Mechanical Rate PEEP Pressure Support Vent Sodium Potassium Chloride Carbon Dioxide Anion Gap BUN Creatinine Est GFR (CKD-EPI)AfAm Est GFR (CKD-EPI)NonAf POC Glucometer 209 Random Glucose Calcium Phosphorus Magnesium Total Bilirubin AST ALT Alkaline Phosphatase LD Total Troponin I 0.32 H C-Reactive Protein B-Natriuretic Peptide 839.5 H Total Protein Albumin Urine Color Urine Appearance Urine pH Ur Specific [place] Urine Protein Urine Glucose (UA) Urine Ketones Urine Blood Urine Nitrite Urine Bilirubin Urine Urobilinogen Ur Leukocyte Esterase COVID-19 (RADHA) Blood Type O POSITIVE Antibody Screen Negative 11/29/19 11/29/19 11/29/19 06:40 06:40 06:40 WBC Cancelled Corrected WBC (auto) Cancelled RBC Cancelled Hgb Cancelled Hct Cancelled MCV Cancelled MCH Cancelled MCHC Cancelled RDW Cancelled Plt Count Cancelled MPV Cancelled Manual Slide Review Cancelled Platelet Comment Cancelled ESR 9 PTT (Actin FS) Anticoagulation Therapy Puncture Site Patient Temperature ABG pH ABG pCO2 ABG pO2 ABG HCO3 ABG O2 Sat (Measured) ABG O2 Content ABG Base Excess Remberto Test Patient On Oxygen O2 Delivery Device Oxygen Flow Rate Vent Mode Vent Rate Mechanical Rate PEEP Pressure Support Vent Sodium 139 Potassium 5.1 Chloride 102 Carbon Dioxide 32 Anion Gap 5 L BUN 16.0 Creatinine 1.3 Est GFR (CKD-EPI)AfAm 67.78 Est GFR (CKD-EPI)NonAf 58.48 POC Glucometer Random Glucose 248 H Calcium 8.8 Phosphorus 3.9 Magnesium 2.2 Total Bilirubin 0.6 AST 12 L ALT 26 Alkaline Phosphatase 103 LD Total 201 Troponin I 0.11 H C-Reactive Protein 1.0 H B-Natriuretic Peptide Total Protein 6.7 Albumin 3.0 L Urine Color Urine Appearance Urine pH Ur Specific [place] Urine Protein Urine Glucose (UA) Urine Ketones Urine Blood Urine Nitrite Urine Bilirubin Urine Urobilinogen Ur Leukocyte Esterase COVID-19 (RADHA) Blood Type Antibody Screen 11/29/19 11/29/19 11/29/19 07:01 10:10 11:16 WBC 8.5 Corrected WBC (auto) RBC 5.40 Hgb 15.0 Hct 47.3 MCV 87.6 MCH 27.9 MCHC 31.8 L RDW 14.7 Plt Count 149 MPV 8.3 Manual Slide Review Platelet Comment ESR PTT (Actin FS) Anticoagulation Therapy Puncture Site Patient Temperature ABG pH ABG pCO2 ABG pO2 ABG HCO3 ABG O2 Sat (Measured) ABG O2 Content ABG Base Excess Remberto Test Patient On Oxygen O2 Delivery Device Oxygen Flow Rate Vent Mode Vent Rate Mechanical Rate PEEP Pressure Support Vent Sodium Potassium Chloride Carbon Dioxide Anion Gap BUN Creatinine Est GFR (CKD-EPI)AfAm Est GFR (CKD-EPI)NonAf POC Glucometer 247 264 Random Glucose Calcium Phosphorus Magnesium Total Bilirubin AST ALT Alkaline Phosphatase LD Total Troponin I C-Reactive Protein B-Natriuretic Peptide Total Protein Albumin Urine Color Urine Appearance Urine pH Ur Specific [place] Urine Protein Urine Glucose (UA) Urine Ketones Urine Blood Urine Nitrite Urine Bilirubin Urine Urobilinogen Ur Leukocyte Esterase COVID-19 (RADHA) Blood Type Antibody Screen 11/29/19 11/29/19 11:20 16:17 WBC Corrected WBC (auto) RBC Hgb Hct MCV MCH MCHC RDW Plt Count MPV Manual Slide Review Platelet Comment ESR PTT (Actin FS) Anticoagulation Therapy Puncture Site Patient Temperature ABG pH ABG pCO2 ABG pO2 ABG HCO3 ABG O2 Sat (Measured) ABG O2 Content ABG Base Excess Remberto Test Patient On Oxygen O2 Delivery Device Oxygen Flow Rate Vent Mode Vent Rate Mechanical Rate PEEP Pressure Support Vent Sodium Potassium Chloride Carbon Dioxide Anion Gap BUN Creatinine Est GFR (CKD-EPI)AfAm Est GFR (CKD-EPI)NonAf POC Glucometer 247 Random Glucose Calcium Phosphorus Magnesium Total Bilirubin AST ALT Alkaline Phosphatase LD Total Troponin I C-Reactive Protein B-Natriuretic Peptide Total Protein Albumin Urine Color Yellow Urine Appearance Cloudy Urine pH 5.5 Ur Specific [place] 1.029 Urine Protein Trace Urine Glucose (UA) Trace Urine Ketones Negative Urine Blood Negative Urine Nitrite Negative Urine Bilirubin Negative Urine Urobilinogen 0.2 Ur Leukocyte Esterase Negative COVID-19 (RADHA) Blood Type Antibody Screen Home Medications Medication Instructions Recorded Diazepam [Valium] 10 mg PO Q6H PRN 06/02/18 Linagliptin [Tradjenta] 5 mg PO DAILY #20 tablet 07/27/18 Insulin Glargine,Hum.rec.anlog 20 unit SQ HS 08/13/19 [Lantus] Albuterol Sulfate [Albuterol 2 puff IH Q4H 08/22/19 Sulfate Hfa] Enoxaparin Sodium 1 syringe SQ BID 08/22/19 Metoprolol Succinate [Toprol XL -] 25 mg PO DAILY #30 tab.sr.24h 08/22/19 Oxycodone HCl 10 mg PO Q4H 08/22/19 Aspirin Coated [Ecotrin -] 81 mg PO DAILY 11/28/19 Atorvastatin Ca [Lipitor] 40 mg PO HS 11/28/19 Pantoprazole Sodium [Protonix] 40 mg PO DAILY 11/28/19 Current Medications Generic Name Dose Route Start Last Admin Trade Name Freq PRN Reason Stop Dose Admin Albuterol/Ipratropium 1 amp 11/28/19 20:00 11/29/19 13:51 Duoneb - NEB 1 amp RTID MONICA Administration Aspirin 81 mg 11/29/19 10:00 11/29/19 09:18 Ecotrin - PO 81 mg DAILY MONICA Administration Atorvastatin Calcium 40 mg 11/28/19 22:00 11/28/19 21:41 Lipitor - PO 40 mg HS MONICA Administration Diazepam 10 mg 11/28/19 17:02 11/28/19 21:41 Valium - PO 10 mg Q6H PRN Administration ANXIETY Enoxaparin Sodium 120 mg 11/28/19 22:00 11/29/19 09:19 Lovenox - SQ 120 mg BID MONICA Administration Piperacillin Sod/Tazobactam 50 mls @ 100 mls/hr 11/28/19 18:00 11/29/19 17:00 Sod 3.375 gm/ Dextrose IVPB 100 mls/hr Q8H-IV MONICA Administration Protocol Insulin Aspart 1 vial 11/28/19 22:00 11/29/19 16:19 Novolog Vial Sliding Scale - SQ 4 units ACHS MONICA Administration Protocol Insulin Detemir 20 units 11/29/19 08:09 Levemir Vial SQ HS MONICA Methylprednisolone Sodium Succinate 40 mg 11/28/19 18:00 11/29/19 17:01 Solu-Medrol - IVPUSH 40 mg Q8H-IV MONICA Administration Metoprolol Succinate 25 mg 11/29/19 10:00 11/29/19 09:17 Toprol Xl - PO 25 mg DAILY MONICA Administration Oxycodone HCl 10 mg 11/28/19 17:15 11/29/19 16:59 Roxicodone - PO 10 mg Q4H PRN Administration PAIN LEVEL 6-10 Pantoprazole Sodium 40 mg 11/29/19 10:00 11/29/19 09:18 Protonix - PO 40 mg DAILY MONICA Administration ASSESSMENT AND PLAN: 64 M Adenocarcinoma of lung, s/p RT/chemo Streak hemoptysis h/o PE on therapeutic Lovenox Troponemia HTN HLD Obesity Former smoker COPD with acute exacerbation Anxiety disorder Plan: Cont. therapeutic Lovenox w/ monitoring of CBC Q12H, hemoptysis is streak w/ sputum no signs of significant blood loss Monitor O2 levels, supplement O2 PRN to keep >92% Cont. 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
--- NOTE | 2019-11-29 17:29 | PN ---
Teaching Attending Note Name of Resident: Vinod Hernandez ATTENDING PHYSICIAN STATEMENT I saw and evaluated the patient. I reviewed the resident's note and discussed the case with the resident. I agree with the resident's findings and plan as documented. SUBJECTIVE: Patient seen and examined at bedside, feeling better, will cont. AC and observe one more day. VSS. OBJECTIVE: GA obese, AAox3, speaking in full sentences, NAD HEENT NC/aT, EOMI, neck supple, no palpable lymphadenopathy, no oral thrush Chest CTAB, no crackles or wheezing, no hemoptysis appreciated, no coughing CVS s1, S2+, RRR Abd obese, Soft, NT, ND, BS+ Ext No LE edema, no calf tenderness Vital Signs - 24 hr 11/28/19 11/28/19 11/29/19 20:00 21:00 02:07 Temperature 97.9 F Pulse Rate 83 Respiratory 18 Rate Blood Pressure 119/73 O2 Sat by Pulse 93 L 93 L 92 L Oximetry (%) 11/29/19 11/29/19 11/29/19 05:53 09:00 13:54 Temperature 98 F 98.4 F Pulse Rate 87 89 Respiratory 18 18 18 Rate Blood Pressure 125/85 136/79 O2 Sat by Pulse 93 L 94 L 94 L Oximetry (%) Microbiology 11/29/19 11:10 Sputum - Expectorated Gram Stain - Final 11/28/19 10:45 Blood - Peripheral Venous Blood Culture - Preliminary NO GROWTH OBTAINED AFTER 24 HOURS, INCUBATION TO CONTINUE FOR 4 DAYS. 11/28/19 10:30 Blood - Peripheral Venous Blood Culture - Preliminary NO GROWTH OBTAINED AFTER 24 HOURS, INCUBATION TO CONTINUE FOR 4 DAYS. Laboratory Results - last 24 hr 11/28/19 11/28/19 11/28/19 12:30 17:28 19:00 WBC Corrected WBC (auto) RBC Hgb Hct MCV MCH MCHC RDW Plt Count MPV Manual Slide Review Platelet Comment ESR PTT (Actin FS) 35.8 Anticoagulation Therapy No Result Required. Puncture Site Right radial Patient Temperature No Result Required. ABG pH 7.338 L ABG pCO2 54.20 H ABG pO2 68.7 L ABG HCO3 28.5 H ABG O2 Sat (Measured) 92.4 L ABG O2 Content No Result Required. ABG Base Excess 1.4 Remberto Test Positive Patient On Oxygen Yes O2 Delivery Device Nasal Oxygen Flow Rate 3l Vent Mode No Result Required. Vent Rate No Result Required. Mechanical Rate No Result Required. PEEP No Result Required. Pressure Support Vent No Result Required. Sodium Potassium Chloride Carbon Dioxide Anion Gap BUN Creatinine Est GFR (CKD-EPI)AfAm Est GFR (CKD-EPI)NonAf POC Glucometer Random Glucose Calcium Phosphorus Magnesium Total Bilirubin AST ALT Alkaline Phosphatase LD Total Troponin I C-Reactive Protein B-Natriuretic Peptide Total Protein Albumin Urine Color Urine Appearance Urine pH Ur Specific [place] Urine Protein Urine Glucose (UA) Urine Ketones Urine Blood Urine Nitrite Urine Bilirubin Urine Urobilinogen Ur Leukocyte Esterase COVID-19 (RADHA) Not detected Blood Type Antibody Screen 11/28/19 11/28/19 11/28/19 19:00 19:00 20:53 WBC Corrected WBC (auto) RBC Hgb Hct MCV MCH MCHC RDW Plt Count MPV Manual Slide Review Platelet Comment ESR PTT (Actin FS) Anticoagulation Therapy Puncture Site Patient Temperature ABG pH ABG pCO2 ABG pO2 ABG HCO3 ABG O2 Sat (Measured) ABG O2 Content ABG Base Excess [place] Test Patient On Oxygen O2 Delivery Device Oxygen Flow Rate Vent Mode Vent Rate Mechanical Rate PEEP Pressure Support Vent Sodium Potassium Chloride Carbon Dioxide Anion Gap BUN Creatinine Est GFR (CKD-EPI)AfAm Est GFR (CKD-EPI)NonAf POC Glucometer 209 Random Glucose Calcium Phosphorus Magnesium Total Bilirubin AST ALT Alkaline Phosphatase LD Total Troponin I 0.32 H C-Reactive Protein B-Natriuretic Peptide 839.5 H Total Protein Albumin Urine Color Urine Appearance Urine pH Ur Specific [place] Urine Protein Urine Glucose (UA) Urine Ketones Urine Blood Urine Nitrite Urine Bilirubin Urine Urobilinogen Ur Leukocyte Esterase COVID-19 (RADHA) Blood Type O POSITIVE Antibody Screen Negative 11/29/19 11/29/19 11/29/19 06:40 06:40 06:40 WBC Cancelled Corrected WBC (auto) Cancelled RBC Cancelled Hgb Cancelled Hct Cancelled MCV Cancelled MCH Cancelled MCHC Cancelled RDW Cancelled Plt Count Cancelled MPV Cancelled Manual Slide Review Cancelled Platelet Comment Cancelled ESR 9 PTT (Actin FS) Anticoagulation Therapy Puncture Site Patient Temperature ABG pH ABG pCO2 ABG pO2 ABG HCO3 ABG O2 Sat (Measured) ABG O2 Content ABG Base Excess [place]emberto Test Patient On Oxygen O2 Delivery Device Oxygen Flow Rate Vent Mode Vent Rate Mechanical Rate PEEP Pressure Support Vent Sodium 139 Potassium 5.1 Chloride 102 Carbon Dioxide 32 Anion Gap 5 L BUN 16.0 Creatinine 1.3 Est GFR (CKD-EPI)AfAm 67.78 Est GFR (CKD-EPI)NonAf 58.48 POC Glucometer Random Glucose 248 H Calcium 8.8 Phosphorus 3.9 Magnesium 2.2 Total Bilirubin 0.6 AST 12 L ALT 26 Alkaline Phosphatase 103 LD Total 201 Troponin I 0.11 H C-Reactive Protein 1.0 H B-Natriuretic Peptide Total Protein 6.7 Albumin 3.0 L Urine Color Urine Appearance Urine pH Ur Specific [place] Urine Protein Urine Glucose (UA) Urine Ketones Urine Blood Urine Nitrite Urine Bilirubin Urine Urobilinogen Ur Leukocyte Esterase COVID-19 (RADHA) Blood Type Antibody Screen 11/29/19 11/29/19 11/29/19 07:01 10:10 11:16 WBC 8.5 Corrected WBC (auto) RBC 5.40 Hgb 15.0 Hct 47.3 MCV 87.6 MCH 27.9 MCHC 31.8 L RDW 14.7 Plt Count 149 MPV 8.3 Manual Slide Review Platelet Comment ESR PTT (Actin FS) Anticoagulation Therapy Puncture Site Patient Temperature ABG pH ABG pCO2 ABG pO2 ABG HCO3 ABG O2 Sat (Measured) ABG O2 Content ABG Base Excess [place]emberto Test Patient On Oxygen O2 Delivery Device Oxygen Flow Rate Vent Mode Vent Rate Mechanical Rate PEEP Pressure Support Vent Sodium Potassium Chloride Carbon Dioxide Anion Gap BUN Creatinine Est GFR (CKD-EPI)AfAm Est GFR (CKD-EPI)NonAf POC Glucometer 247 264 Random Glucose Calcium Phosphorus Magnesium Total Bilirubin AST ALT Alkaline Phosphatase LD Total Troponin I C-Reactive Protein B-Natriuretic Peptide Total Protein Albumin Urine Color Urine Appearance Urine pH Ur Specific [place] Urine Protein Urine Glucose (UA) Urine Ketones Urine Blood Urine Nitrite Urine Bilirubin Urine Urobilinogen Ur Leukocyte Esterase COVID-19 (RADHA) Blood Type Antibody Screen 11/29/19 11/29/19 11:20 16:17 WBC Corrected WBC (auto) RBC Hgb Hct MCV MCH MCHC RDW Plt Count MPV Manual Slide Review Platelet Comment ESR PTT (Actin FS) Anticoagulation Therapy Puncture Site Patient Temperature ABG pH ABG pCO2 ABG pO2 ABG HCO3 ABG O2 Sat (Measured) ABG O2 Content ABG Base Excess Remberto Test Patient On Oxygen O2 Delivery Device Oxygen Flow Rate Vent Mode Vent Rate Mechanical Rate PEEP Pressure Support Vent Sodium Potassium Chloride Carbon Dioxide Anion Gap BUN Creatinine Est GFR (CKD-EPI)AfAm Est GFR (CKD-EPI)NonAf POC Glucometer 247 Random Glucose Calcium Phosphorus Magnesium Total Bilirubin AST ALT Alkaline Phosphatase LD Total Troponin I C-Reactive Protein B-Natriuretic Peptide Total Protein Albumin Urine Color Yellow Urine Appearance Cloudy Urine pH 5.5 Ur Specific [place] 1.029 Urine Protein Trace Urine Glucose (UA) Trace Urine Ketones Negative Urine Blood Negative Urine Nitrite Negative Urine Bilirubin Negative Urine Urobilinogen 0.2 Ur Leukocyte Esterase Negative COVID-19 (RADHA) Blood Type Antibody Screen Home Medications Medication Instructions Recorded Diazepam [Valium] 10 mg PO Q6H PRN 06/02/18 Linagliptin [Tradjenta] 5 mg PO DAILY #20 tablet 07/27/18 Insulin Glargine,Hum.rec.anlog 20 unit SQ HS 08/13/19 [Lantus] Albuterol Sulfate [Albuterol 2 puff IH Q4H 08/22/19 Sulfate Hfa] Enoxaparin Sodium 1 syringe SQ BID 08/22/19 Metoprolol Succinate [Toprol XL -] 25 mg PO DAILY #30 tab.sr.24h 08/22/19 Oxycodone HCl 10 mg PO Q4H 08/22/19 Aspirin Coated [Ecotrin -] 81 mg PO DAILY 11/28/19 Atorvastatin Ca [Lipitor] 40 mg PO HS 11/28/19 Pantoprazole Sodium [Protonix] 40 mg PO DAILY 11/28/19 Current Medications Generic Name Dose Route Start Last Admin Trade Name Freq PRN Reason Stop Dose Admin Albuterol/Ipratropium 1 amp 11/28/19 20:00 11/29/19 13:51 Duoneb - NEB 1 amp RTID MONICA Administration Aspirin 81 mg 11/29/19 10:00 11/29/19 09:18 Ecotrin - PO 81 mg DAILY OMNICA Administration Atorvastatin Calcium 40 mg 11/28/19 22:00 11/28/19 21:41 Lipitor - PO 40 mg HS MONICA Administration Diazepam 10 mg 11/28/19 17:02 11/28/19 21:41 Valium - PO 10 mg Q6H PRN Administration ANXIETY Enoxaparin Sodium 120 mg 11/28/19 22:00 11/29/19 09:19 Lovenox - SQ 120 mg BID MONICA Administration Piperacillin Sod/Tazobactam 50 mls @ 100 mls/hr 11/28/19 18:00 11/29/19 17:00 Sod 3.375 gm/ Dextrose IVPB 100 mls/hr Q8H-IV MONICA Administration Protocol Insulin Aspart 1 vial 11/28/19 22:00 11/29/19 16:19 Novolog Vial Sliding Scale - SQ 4 units ACHS MONICA Administration Protocol Insulin Detemir 20 units 11/29/19 08:09 Levemir Vial SQ HS MONICA Methylprednisolone Sodium Succinate 40 mg 11/28/19 18:00 11/29/19 17:01 Solu-Medrol - IVPUSH 40 mg Q8H-IV MONICA Administration Metoprolol Succinate 25 mg 11/29/19 10:00 11/29/19 09:17 Toprol Xl - PO 25 mg DAILY MONICA Administration Oxycodone HCl 10 mg 11/28/19 17:15 11/29/19 16:59 Roxicodone - PO 10 mg Q4H PRN Administration PAIN LEVEL 6-10 Pantoprazole Sodium 40 mg 11/29/19 10:00 11/29/19 09:18 Protonix - PO 40 mg DAILY MONICA Administration ASSESSMENT AND PLAN: 64 M Adenocarcinoma of lung, s/p RT/chemo Streak hemoptysis h/o PE on therapeutic Lovenox Troponemia HTN HLD Obesity Former smoker COPD with acute exacerbation Anxiety disorder Plan: Cont. therapeutic Lovenox w/ monitoring of CBC Q12H Monitor O2 levels, supplement O2 PRN to keep >92% Cont. BP meds Zosyn for PNA Pulmonary following Heme Onc following Cardiology following DVT ppx: Lovenox SC
--- NOTE | 2019-11-29 18:27 | PN ---
Physical Exam: SUBJECTIVE: Patient seen and examined. Pt. 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 Pt. states his last BM was the day before he came in. OBJECTIVE: Vital Signs Period Temp Pulse Resp BP Sys/Small Pulse Ox Last 24 Hr 97.9 F-98.4 F 83-89 18-18 119-136/73-85 92-94 GENERAL: Awake, alert, and fully oriented, in no acute distress. HEAD: Normal with no signs of trauma. EYES: Extraocular movements intact, sclera anicteric, conjunctiva clear. EARS, NOSE, THROAT: Ears normal, nares patent, oropharynx clear without exudates. Moist mucous membranes. NECK: Normal range of motion, supple without lymphadenopathy, JVD, or masses. LUNGS: Breath sounds equal, clear to auscultation bilaterally. No wheezes, and no crackles. No accessory muscle use. HEART: Regular rate and rhythm, normal S1 and S2 without murmur ABDOMEN: Soft, nontender, obese, not distended, normoactive bowel sounds, no guarding MUSCULOSKELETAL: Normal range of motion at all joints. Surgical scars from spine surgeries. No CVA tenderness. UPPER EXTREMITIES: 2+ radial pulses, warm, well-perfused. No cyanosis. No clubbing. LOWER EXTREMITIES: 2+ dorsal pedal pulses, warm, well-perfused. No calf tenderness. peripheral edema. NEUROLOGICAL: No focal deficits appreciated. Normal speech. Normal gait. PSYCHIATRIC: Cooperative. Good eye contact. Appropriate mood and affect. SKIN: Warm, dry, abdominal bruising form lovenox injections Laboratory Results - last 24 hr 11/28/19 11/28/19 11/28/19 12:30 19:00 19:00 WBC Corrected WBC (auto) RBC Hgb Hct MCV MCH MCHC RDW Plt Count MPV Manual Slide Review Platelet Comment ESR PTT (Actin FS) 35.8 Sodium Potassium Chloride Carbon Dioxide Anion Gap BUN Creatinine Est GFR (CKD-EPI)AfAm Est GFR (CKD-EPI)NonAf POC Glucometer Random Glucose Calcium Phosphorus Magnesium Total Bilirubin AST ALT Alkaline Phosphatase LD Total Troponin I 0.32 H C-Reactive Protein B-Natriuretic Peptide 839.5 H Total Protein Albumin Urine Color Urine Appearance Urine pH Ur Specific [place] Urine Protein Urine Glucose (UA) Urine Ketones Urine Blood Urine Nitrite Urine Bilirubin Urine Urobilinogen Ur Leukocyte Esterase COVID-19 (RADHA) Not detected Blood Type Antibody Screen 11/28/19 11/28/19 11/29/19 19:00 20:53 06:40 WBC Corrected WBC (auto) RBC Hgb Hct MCV MCH MCHC RDW Plt Count MPV Manual Slide Review Platelet Comment ESR PTT (Actin FS) Sodium 139 Potassium 5.1 Chloride 102 Carbon Dioxide 32 Anion Gap 5 L BUN 16.0 Creatinine 1.3 Est GFR (CKD-EPI)AfAm 67.78 Est GFR (CKD-EPI)NonAf 58.48 POC Glucometer 209 Random Glucose 248 H Calcium 8.8 Phosphorus 3.9 Magnesium 2.2 Total Bilirubin 0.6 AST 12 L ALT 26 Alkaline Phosphatase 103 LD Total 201 Troponin I C-Reactive Protein 1.0 H B-Natriuretic Peptide Total Protein 6.7 Albumin 3.0 L Urine Color Urine Appearance Urine pH Ur Specific [place] Urine Protein Urine Glucose (UA) Urine Ketones Urine Blood Urine Nitrite Urine Bilirubin Urine Urobilinogen Ur Leukocyte Esterase COVID-19 (RADHA) Blood Type O POSITIVE Antibody Screen Negative 11/29/19 11/29/19 11/29/19 06:40 06:40 07:01 WBC Cancelled Corrected WBC (auto) Cancelled RBC Cancelled Hgb Cancelled Hct Cancelled MCV Cancelled MCH Cancelled MCHC Cancelled RDW Cancelled Plt Count Cancelled MPV Cancelled Manual Slide Review Cancelled Platelet Comment Cancelled ESR 9 PTT (Actin FS) Sodium Potassium Chloride Carbon Dioxide Anion Gap BUN Creatinine Est GFR (CKD-EPI)AfAm Est GFR (CKD-EPI)NonAf POC Glucometer 247 Random Glucose Calcium Phosphorus Magnesium Total Bilirubin AST ALT Alkaline Phosphatase LD Total Troponin I 0.11 H C-Reactive Protein B-Natriuretic Peptide Total Protein Albumin Urine Color Urine Appearance Urine pH Ur Specific [place] Urine Protein Urine Glucose (UA) Urine Ketones Urine Blood Urine Nitrite Urine Bilirubin Urine Urobilinogen Ur Leukocyte Esterase COVID-19 (RADHA) Blood Type Antibody Screen 11/29/19 11/29/19 11/29/19 10:10 11:16 11:20 WBC 8.5 Corrected WBC (auto) RBC 5.40 Hgb 15.0 Hct 47.3 MCV 87.6 MCH 27.9 MCHC 31.8 L RDW 14.7 Plt Count 149 MPV 8.3 Manual Slide Review Platelet Comment ESR PTT (Actin FS) Sodium Potassium Chloride Carbon Dioxide Anion Gap BUN Creatinine Est GFR (CKD-EPI)AfAm Est GFR (CKD-EPI)NonAf POC Glucometer 264 Random Glucose Calcium Phosphorus Magnesium Total Bilirubin AST ALT Alkaline Phosphatase LD Total Troponin I C-Reactive Protein B-Natriuretic Peptide Total Protein Albumin Urine Color Yellow Urine Appearance Cloudy Urine pH 5.5 Ur Specific [place] 1.029 Urine Protein Trace Urine Glucose (UA) Trace Urine Ketones Negative Urine Blood Negative Urine Nitrite Negative Urine Bilirubin Negative Urine Urobilinogen 0.2 Ur Leukocyte Esterase Negative COVID-19 (RADHA) Blood Type Antibody Screen 11/29/19 16:17 WBC Corrected WBC (auto) RBC Hgb Hct MCV MCH MCHC RDW Plt Count MPV Manual Slide Review Platelet Comment ESR PTT (Actin FS) Sodium Potassium Chloride Carbon Dioxide Anion Gap BUN Creatinine Est GFR (CKD-EPI)AfAm Est GFR (CKD-EPI)NonAf POC Glucometer 247 Random Glucose Calcium Phosphorus Magnesium Total Bilirubin AST ALT Alkaline Phosphatase LD Total Troponin I C-Reactive Protein B-Natriuretic Peptide Total Protein Albumin Urine Color Urine Appearance Urine pH Ur Specific [place] Urine Protein Urine Glucose (UA) Urine Ketones Urine Blood Urine Nitrite Urine Bilirubin Urine Urobilinogen Ur Leukocyte Esterase COVID-19 (RADHA) Blood Type Antibody Screen Active Medications Generic Name Dose Route Start Last Admin Trade Name Freq PRN Reason Stop Dose Admin Albuterol/Ipratropium 1 amp 11/28/19 20:00 11/29/19 13:51 Duoneb - NEB 1 amp RTID MONICA Administration Aspirin 81 mg 11/29/19 10:00 11/29/19 09:18 Ecotrin - PO 81 mg DAILY MONICA Administration Atorvastatin Calcium 40 mg 11/28/19 22:00 11/28/19 21:41 Lipitor - PO 40 mg HS MONICA Administration Diazepam 10 mg 11/28/19 17:02 11/28/19 21:41 Valium - PO 10 mg Q6H PRN Administration ANXIETY Enoxaparin Sodium 120 mg 11/28/19 22:00 11/29/19 09:19 Lovenox - SQ 120 mg BID MONICA Administration Piperacillin Sod/Tazobactam 50 mls @ 100 mls/hr 11/28/19 18:00 11/29/19 17:00 Sod 3.375 gm/ Dextrose IVPB 100 mls/hr Q8H-IV MONICA Administration Protocol Insulin Aspart 1 vial 11/28/19 22:00 11/29/19 16:19 Novolog Vial Sliding Scale - SQ 4 units ACHS MONICA Administration Protocol Insulin Detemir 20 units 11/29/19 08:09 Levemir Vial SQ HS MONICA Methylprednisolone Sodium Succinate 40 mg 11/28/19 18:00 11/29/19 17:01 Solu-Medrol - IVPUSH 40 mg Q8H-IV MONICA Administration Metoprolol Succinate 25 mg 11/29/19 10:00 11/29/19 09:17 Toprol Xl - PO 25 mg DAILY MONICA Administration Oxycodone HCl 10 mg 11/28/19 17:15 11/29/19 16:59 Roxicodone - PO 10 mg Q4H PRN Administration PAIN LEVEL 6-10 Pantoprazole Sodium 40 mg 11/29/19 10:00 11/29/19 09:18 Protonix - PO 40 mg DAILY MONICA Administration ASSESSMENT/PLAN: Pt. is a 64 y.o. M w/ PMHx. of Stage 4 lung adenocarcinoma (s/p chemotherapy with Alimta 04/05 with ), PE (on therapeutic lovenox), Hx. of COVID (08/05), CKD stage 3, DM2 and HTN presents to the ED with progressive SOB and hemoptysis of 1 week duration. #Acute hypoxic respiratory failure secondary to CAP vs progression of Lung CA vs COPD exacerbation ED: Rocephin 1 gm, clindamycin 600 mg start Zosyn 3.5 g, ID consult appreciated daily inflammatory cytokines fluid resuscitation pulmonary consult appreciated, concern for diffuse alveolar hemorrhage oncology consult cardiothoracic consult CBC q12h T&S SCDs LE duplex US fluid resuscitation will hold off on Duplex for now. Duonebs Solumedrol 40mg Q8H #Elevated Troponin Trend Troponin, decreased compared to previous admission, EKG unchanged from prior, no chest pain likely demand ischemia f/u recent Echo last month at [employer] office Cardiology consult appreciated BNP: 839; half the lowest it has ever been in a hospital visit. #IGOR Cr. 1.1 on last d/c, now 1.4 will c/w trend, likely 2/2 hypoxia f/u UA for specific gravity #HTN #HLD #CKD #DM2 #Hx. of Covid resume home medications except oral hypogylemics,Increased Lantus to home dose BGMs and ISS ACHS #FEN no IVF, encourage PO intake monitor electrolytes and replete as needed Diabetic diet #DVT Ppx. c/w Lovenox #Dispo Pt. will likely be discharged in AM Visit type - Emergency Visit Emergency Visit: Yes ED Registration Date: 11/28/19 Care time: The patient presented to the Emergency Department on the above date and was hospitalized for further evaluation of their emergent condition. - New Patient This patient is new to me today: No - Critical Care Critical Care patient: No - Discharge Referral Referred to [facility] No ATTENDING PHYSICIAN STATEMENT I saw and evaluated the patient. I reviewed the resident's note and discussed the case with the resident. I agree with the resident's findings and plan as documented. SUBJECTIVE: OBJECTIVE: ASSESSMENT AND PLAN:
[2019-11-29 21:20] LABS: HEMATOCRIT 46.3 % (35.4-49); HEMOGLOBIN 14.8 GM/dL (11.7-16.9); MCH 28.2 pg (25.7-33.7); MCHC 31.9 g/dl (32.0-35.9); MEAN CELL VOLUME 88.3 fl (80-96); MEAN PLT VOLUME 8.6 fl (7.5-11.1); PLATELET COUNT 161 K/MM3 (134-434); RBC 5.25 M/mm3 (4.00-5.60); RDW 14.9 % (11.9-15.9); WHITE BLOOD COUNT 12.7 K/mm3 (4.0-10.0)
[2019-11-29] MEDS ORDERED: PT OWN MED DRAWER 7, Y5N ONE (22:32)
[2019-11-29] MEDS: ATORVASTATIN CA 40 MG TABLET (FP) PO SCH (22:44)
[2019-11-29] MEDS: INSULIN (LEVEMIR) 100 UNITS/ML UNITS SQ SCH (22:45)
[2019-11-29 23:32] LABS: URINE COLOR YELLOW
[2019-11-29 23:33] LABS: PH,URINE 5.5 (5.0-8.0); URINE APPEARANCE CLEAR; URINE BILIRUBIN NEGATIVE (NEGATIVE); URINE GLUCOSE (UA) 100 (NEGATIVE); URINE KETONE 1+ (NEGATIVE); URINE LEUK ESTERASE NEGATIVE (NEGATIVE); URINE NITRITE NEGATIVE (NEGATIVE); URINE PROTEIN 30 (NEGATIVE); URINE UROBILINOGEN 0.2 mg/dL (0.2-1.0)
[2019-11-30] MEDS ORDERED: DEXTROSE 5%-WATER - 50 ML IVPB ONE ×2 (02:36→09:46)
[2019-11-30] MEDS ORDERED: PIPERACILLIN/TAZOBACTAM 3.375 GM VIAL IVPB ONE ×2 (02:36→09:46)
[2019-11-30] MEDS: PIPERACILLIN/TAZOB 3.375 GM 3.375 GM in DEXTROSE 5%-WATER - 50 ML IVPB SCH ×2 (02:50→10:04)
[2019-11-30] MEDS: methylPREDNISolone NA SUCC 40 MG/1 ML VIAL IVPUSH SCH ×3 (02:52→18:06)
[2019-11-30] MEDS: diazePAM 5 MG TABLET PO PRN ×2 (03:11→21:31)
[2019-11-30] MEDS: INSULIN SLIDING SCALE (NOVOLOG) 1 VIAL SQ SCH ×4 (06:52→21:34)
[2019-11-30] MEDS ORDERED: INSULIN (NOVOLOG) ASPART 100 UNITS/ML 10ML VIAL ONE ×3 (06:58→20:48)
[2019-11-30] MEDS: ALBUTEROL SO4 2.5/IPRATROPIUM 0.5 INH SOL 3 ML VIAL.NEB. NEB SCH ×3 (07:35→20:22)
[2019-11-30 08:05] LABS: BLOOD UREA NITROGEN 19.7 mg/dL (7-18); CALCIUM 8.5 mg/dL (8.5-10.1); CREATININE 1.2 mg/dL (0.55-1.3)
[2019-11-30] MEDS ORDERED: PT OWN MED DRAWER 7, Y5N ONE (09:46)
[2019-11-30] MEDS: metoPROLOL SUCCINATE 25 MG TAB.SR.24H (FP) PO SCH (10:05)
[2019-11-30] MEDS: ASPIRIN COATED 81 MG TABLET.EC PO SCH (10:05)
[2019-11-30] MEDS: oxyCODONE HCL 5 MG TABLET PO PRN ×3 (10:06→21:32)
[2019-11-30] MEDS: ENOXAPARIN NA (PORCINE) 120 MG/0.8 ML DISP.SYRIN SQ SCH ×2 (10:06→21:36)
[2019-11-30] MEDS: PANTOPRAZOLE 40 MG TABLET PO SCH (10:06)
[2019-11-30 11:11] LABS: HEMATOCRIT 45.5 % (35.4-49); HEMOGLOBIN 14.5 GM/dL (11.7-16.9); MCH 27.9 pg (25.7-33.7); MCHC 31.9 g/dl (32.0-35.9); MEAN CELL VOLUME 87.5 fl (80-96); MEAN PLT VOLUME 8.2 fl (7.5-11.1); PLATELET COUNT 157 K/MM3 (134-434); RDW 14.9 % (11.9-15.9); WHITE BLOOD COUNT 11.9 K/mm3 (4.0-10.0)
--- NOTE | 2019-11-30 11:25 | PN ---
Teaching Attending Note Name of Resident: Vinod Hernandez ATTENDING PHYSICIAN STATEMENT I saw and evaluated the patient. I reviewed the resident's note and discussed the case with the resident. I agree with the resident's findings and plan as documented. SUBJECTIVE: pt is feeling sob today while going to the bathroom, and had scant hemoptysis, OBJECTIVE: appears comfortable. nad, alert awake, Last Vital Signs Temp Pulse Resp BP Pulse Ox 98.2 F 82 18 122/65 94 L 11/30/19 14:28 11/30/19 14:28 11/30/19 14:28 11/30/19 14:28 11/30/19 14:28 GENERAL: Awake, alert, and fully oriented, in no acute distress. HEAD: Normal with no signs of trauma. EYES: Pupils equal, round and reactive to light, sclera anicteric, conjunctiva clear. LUNGS: Breath sounds equal, clear to auscultation bilaterally. No wheezes, and no crackles. No accessory muscle use. HEART: Regular rate and rhythm, normal S1 and S2 ABDOMEN: Soft, nontender, not distended MUSCULOSKELETAL: Normal range of motion at all joints. No bony deformities or tenderness. No CVA tenderness. UPPER EXTREMITIES: 2+ pulses, warm, well-perfused. No cyanosis. No clubbing. No peripheral edema. LOWER EXTREMITIES: 2+ pulses, warm, well-perfused. No calf tenderness. No peripheral edema. NEUROLOGICAL: Cranial nerves II-XII intact. Normal speech. CBC, BMP 11/30/19 10:58 11/30/19 06:35 ASSESSMENT AND PLAN: 64 M Adenocarcinoma of lung, s/p RT/chemo Streak hemoptysis h/o PE on therapeutic Lovenox Troponemia HTN HLD Obesity Former smoker COPD with acute exacerbation Anxiety disorder Plan: Cont. therapeutic Lovenox w/ monitoring of CBC Q12H Monitor O2 levels, supplement O2 PRN to keep >92% COPDE, and continue nebs and steroids, continue iv abx, Pulmonary fu Heme Onc fu Cardiology fu
--- NOTE | 2019-11-30 11:51 | PN ---
Progress Note (short form) - Note Progress Note: s: no cp palps dizzy; still with mild rich, cough Current Medications Generic Name Dose Route Start Last Admin Trade Name Freq PRN Reason Stop Dose Admin Albuterol/Ipratropium 1 amp 11/28/19 20:00 11/30/19 07:35 Duoneb - NEB 1 amp RTID MONICA Administration Aspirin 81 mg 11/29/19 10:00 11/30/19 10:05 Ecotrin - PO 81 mg DAILY MONICA Administration Atorvastatin Calcium 40 mg 11/28/19 22:00 11/29/19 22:44 Lipitor - PO 40 mg HS MONICA Administration Diazepam 10 mg 11/28/19 17:02 11/30/19 03:11 Valium - PO 10 mg Q6H PRN Administration ANXIETY Enoxaparin Sodium 120 mg 11/28/19 22:00 11/30/19 10:06 Lovenox - SQ 120 mg BID MONICA Administration Piperacillin Sod/Tazobactam 50 mls @ 100 mls/hr 11/28/19 18:00 11/30/19 10:04 Sod 3.375 gm/ Dextrose IVPB 100 mls/hr Q8H-IV MONICA Administration Protocol Insulin Aspart 1 vial 11/28/19 22:00 11/30/19 11:43 Novolog Vial Sliding Scale - SQ 8 units ACHS MONICA Administration Protocol Insulin Detemir 20 units 11/29/19 08:09 11/29/19 22:45 Levemir Vial SQ 20 units HS MONICA Administration Methylprednisolone Sodium Succinate 40 mg 11/28/19 18:00 11/30/19 10:04 Solu-Medrol - IVPUSH 40 mg Q8H-IV MONICA Administration Metoprolol Succinate 25 mg 11/29/19 10:00 11/30/19 10:05 Toprol Xl - PO 25 mg DAILY MONICA Administration Oxycodone HCl 10 mg 11/28/19 17:15 11/30/19 10:06 Roxicodone - PO 10 mg Q4H PRN Administration PAIN LEVEL 6-10 Pantoprazole Sodium 40 mg 11/29/19 10:00 11/30/19 10:06 Protonix - PO 40 mg DAILY MONICA Administration pe: Vital Signs Period Temp Pulse Resp BP Sys/Small Pulse Ox Last 24 Hr 97.4 F-98.8 F 74-89 18-18 131-149/62-79 93-95 nad no jvd rrr s1s2 no mrg cta bl nl eff aao3 no le e/c/c abd nt nd pos bs no jaundice diaphoresis CBC, BMP 11/30/19 10:58 11/30/19 06:35 Echo 07/2019 low normal left ventricular systolic function and ejection fraction, estimated LVEF of between 50-55%, impaired left ventricular relaxation, elevated filling pressures, mild mitral valve regurgitation echo 10/2019: nl lv/rv, no sig valve path ecg: unremarkable ct chest: bl pna a/p: 64 m hx lung ca (in remission), htn, dm, dchf here with pna. pna: -cont abx -pulm, ID following elevated trop: -borderline trop elevation with flat trend, no ischemic ecg changes, not c/w acs -cont asa (had hx of elevated trops 07/2019 during covid admit) hld: -cont statin htn: -cont metoprolol chronic diastolic chf: -recent office echo 10/2019 was unremarkable -vol stable history of lung ca, PE: -heme/onc following, cont ac
--- NOTE | 2019-11-30 14:25 | PN ---
Progress Note, Physician History of Present Illness: PULMONARY ALERT,FEELING BETTER,-HEMOPTYSIS,+HURST - Current Medication List Current Medications: Active Medications Albuterol/Ipratropium (Duoneb -) 1 amp NEB RTID [facility] Last Admin: 11/30/19 13:06 Dose: 1 amp Documented by: Aspirin (Ecotrin -) 81 mg PO DAILY [facility] Last Admin: 11/30/19 10:05 Dose: 81 mg Documented by: Atorvastatin Calcium (Lipitor -) 40 mg PO HS [facility] Last Admin: 11/29/19 22:44 Dose: 40 mg Documented by: Diazepam (Valium -) 10 mg PO Q6H PRN PRN Reason: ANXIETY Last Admin: 11/30/19 03:11 Dose: 10 mg Documented by: Enoxaparin Sodium (Lovenox -) 120 mg SQ BID [facility] Last Admin: 11/30/19 10:06 Dose: 120 mg Documented by: Piperacillin Sod/Tazobactam (Sod 3.375 gm/ Dextrose) 50 mls @ 100 mls/hr IVPB Q8H-IV [facility]; Protocol Last Admin: 11/30/19 10:04 Dose: 100 mls/hr Documented by: Insulin Aspart (Novolog Vial Sliding Scale -) 1 vial SQ [facility]; Protocol Last Admin: 11/30/19 11:43 Dose: 8 units Documented by: Insulin Detemir (Levemir Vial) 20 units SQ [facility] Last Admin: 11/29/19 22:45 Dose: 20 units Documented by: Methylprednisolone Sodium Succinate (Solu-Medrol -) 40 mg IVPUSH Q8H-IV [facility] Last Admin: 11/30/19 10:04 Dose: 40 mg Documented by: Metoprolol Succinate (Toprol Xl -) 25 mg PO DAILY [facility] Last Admin: 11/30/19 10:05 Dose: 25 mg Documented by: Oxycodone HCl (Roxicodone -) 10 mg PO Q4H PRN PRN Reason: PAIN LEVEL 6-10 Last Admin: 11/30/19 10:06 Dose: 10 mg Documented by: Pantoprazole Sodium (Protonix -) 40 mg PO DAILY [facility] Last Admin: 11/30/19 10:06 Dose: 40 mg Documented by: - Objective Vital Signs: Vital Signs Temperature 97.8 F 11/30/19 10:00 Pulse Rate 91 H 11/30/19 10:00 Respiratory Rate 19 11/30/19 10:00 Blood Pressure 121/64 11/30/19 10:00 O2 Sat by Pulse Oximetry (%) 95 11/30/19 10:00 Constitutional: Yes: Well Nourished, Calm Eyes: Yes: WNL HENT: Yes: WNL Neck: Yes: WNL Cardiovascular: Yes: Regular Rate and Rhythm, S1, S2 Respiratory: Yes: Diminished Gastrointestinal: Yes: Normal Bowel Sounds, Soft Extremities: Yes: WNL Edema: Yes Labs: CBC, BMP 11/30/19 10:58 11/30/19 06:35 Problem List - Problems (1) Hemoptysis Code(s): R04.2 - HEMOPTYSIS (2) Pneumonia Code(s): J18.9 - PNEUMONIA, UNSPECIFIED ORGANISM Qualifiers: Pneumonia type: due to unspecified organism Laterality: bilateral Lung location: unspecified part of lung Qualified Code(s): J18.9 - Pneumonia, unspecified organism (3) Acute hypoxemic respiratory failure Code(s): J96.01 - ACUTE RESPIRATORY FAILURE WITH HYPOXIA (4) Adenocarcinoma Code(s): C80.1 - MALIGNANT (PRIMARY) NEOPLASM, UNSPECIFIED (5) Carcinoma, lung Code(s): C34.90 - MALIGNANT NEOPLASM OF UNSP PART OF UNSP BRONCHUS OR LUNG (6) Diabetes Code(s): E11.9 - TYPE 2 DIABETES MELLITUS WITHOUT COMPLICATIONS (7) Elevated troponin I level Code(s): R79.89 - OTHER SPECIFIED ABNORMAL FINDINGS OF BLOOD CHEMISTRY (8) Hypoxia Code(s): R09.02 - HYPOXEMIA (9) Acute respiratory failure with hypoxia and hypercarbia Code(s): J96.01 - ACUTE RESPIRATORY FAILURE WITH HYPOXIA; J96.02 - ACUTE RESPIRATORY FAILURE WITH HYPERCAPNIA Assessment/Plan IMP ACUTE HYPOXEMIC/HYPERCAPNEIC RESPIRATORY FAILURE BILATERAL PNEUMONIA HEMOPTYSIS IMPROVING METASTATIC LUNG CA H/O COVID 08/05 HTN HLD + TROPONIN PLAN SUPPLEMENTAL O2 INHALED BRONCHODILATORS ABX STEROIDS CULTURES QUANTIFY HEMOPTYSIS F/U CHEST X-RAYS DR CHOUDHARY Problem List - Problems (1) Hemoptysis Code(s): R04.2 - HEMOPTYSIS (2) Pneumonia Code(s): J18.9 - PNEUMONIA, UNSPECIFIED ORGANISM Qualifiers: Pneumonia type: due to unspecified organism Laterality: bilateral Lung location: unspecified part of lung Qualified Code(s): J18.9 - Pneumonia, unspecified organism (3) Acute hypoxemic respiratory failure Code(s): J96.01 - ACUTE RESPIRATORY FAILURE WITH HYPOXIA (4) Adenocarcinoma Code(s): C80.1 - MALIGNANT (PRIMARY) NEOPLASM, UNSPECIFIED (5) Carcinoma, lung Code(s): C34.90 - MALIGNANT NEOPLASM OF UNSP PART OF UNSP BRONCHUS OR LUNG (6) Diabetes Code(s): E11.9 - TYPE 2 DIABETES MELLITUS WITHOUT COMPLICATIONS (7) Elevated troponin I level Code(s): R79.89 - OTHER SPECIFIED ABNORMAL FINDINGS OF BLOOD CHEMISTRY (8) Hypoxia Code(s): R09.02 - HYPOXEMIA (9) Acute respiratory failure with hypoxia and hypercarbia Code(s): J96.01 - ACUTE RESPIRATORY FAILURE WITH HYPOXIA; J96.02 - ACUTE RESPIRATORY FAILURE WITH HYPERCAPNIA
--- NOTE | 2019-11-30 14:39 | PN ---
Progress Note (short form) - Note Progress Note: feels improved episode of sob this am, now improved no hemoptysis Vital Signs Period Temp Pulse Resp BP Sys/Small Pulse Ox Last 24 Hr 97.4 F-98.8 F 74-91 18-19 121-149/62-66 93-95 cor-rrr lungs decreased bs at bases +left cw port abd soft,nt ext +swelling LUE-wristband is tight CBC, BMP 11/30/19 10:58 11/30/19 06:35 Microbiology 11/28/19 10:45 Blood - Peripheral Venous Blood Culture - Preliminary NO GROWTH OBTAINED AFTER 48 HOURS, INCUBATION TO CONTINUE FOR 3 DAYS. 11/28/19 10:30 Blood - Peripheral Venous Blood Culture - Preliminary NO GROWTH OBTAINED AFTER 48 HOURS, INCUBATION TO CONTINUE FOR 3 DAYS. 11/29/19 20:40 Urine For Antigen Detection Legionella Antigen - Final 11/29/19 20:40 Urine For Antigen Detection Streptococcus pneumoniae Antigen (M - Final 11/29/19 11:10 Sputum - Expectorated Gram Stain - Final 11/29/19 11:10 Sputum - Expectorated Sputum Culture - Preliminary NORMAL RESPIRATORY KARTHIK a/p pneumonia- switch to rocephin hemoptysis resolved LUE swelling- will get sonogram r/o dvt PE on lovenox Lung cancer DM Problem List - Problems (1) Pneumonia Code(s): J18.9 - PNEUMONIA, UNSPECIFIED ORGANISM Qualifiers: Pneumonia type: due to unspecified organism Laterality: bilateral Lung location: unspecified part of lung Qualified Code(s): J18.9 - Pneumonia, uns pecified organism (2) Hemoptysis Code(s): R04.2 - HEMOPTYSIS (3) Lung cancer Code(s): C34.90 - MALIGNANT NEOPLASM OF UNSP PART OF UNSP BRONCHUS OR LUNG (4) Pulmonary embolism Code(s): I26.99 - OTHER PULMONARY EMBOLISM WITHOUT ACUTE COR PULMONALE (5) History of 2019 novel coronavirus disease (COVID-19) Code(s): Z86.19 - PERSONAL HISTORY OF OTHER INFECTIOUS AND PARASITIC DISEASES
[2019-11-30] MEDS ORDERED: DEXTROSE 5%-WATER 100 ML IVPB ONE (15:12)
[2019-11-30] MEDS: CEFTRIAXONE 2 GM in DEXTROSE 5%-WATER 100 ML IVPB SCH (15:14)
--- NOTE | 2019-11-30 19:51 | PN ---
Physical Exam: SUBJECTIVE: Patient seen and examined. Pt. stated that early this AM he had one episode of scant hemoptysis. Pt. states he walked to the bathroom and experienced shortness of breath that was worse than yesterday. OBJECTIVE: Vital Signs Period Temp Pulse Resp BP Sys/Small Pulse Ox Last 24 Hr 97.6 F-98.8 F 74-91 18-20 121-149/62-77 93-95 GENERAL: Awake, alert, and fully oriented, in mild acute distress 2/2 to dyspnea and anxiety. HEAD: Normal with no signs of trauma. EYES: Extraocular movements intact, sclera anicteric, conjunctiva clear. EARS, NOSE, THROAT: Ears normal, nares patent, oropharynx clear without exudates. Moist mucous membranes. NECK: Normal range of motion, supple without lymphadenopathy, JVD, or masses. LUNGS: Breath sounds equal, clear to auscultation bilaterally. No wheezes, and no crackles. No accessory muscle use. HEART: Regular rate and rhythm, normal S1 and S2 without murmur ABDOMEN: Soft, nontender, obese, not distended, normoactive bowel sounds, no guarding MUSCULOSKELETAL: Normal range of motion at all joints. Surgical scars from spine surgeries. No CVA tenderness. UPPER EXTREMITIES: 2+ radial pulses, warm, well-perfused. No cyanosis. No clubbing. LOWER EXTREMITIES: 2+ dorsal pedal pulses, warm, well-perfused. No calf tenderness. peripheral edema. NEUROLOGICAL: No focal deficits appreciated. Normal speech. Normal gait. PSYCHIATRIC: Cooperative. Good eye contact. Appropriate mood and affect. SKIN: Warm, dry, abdominal bruising form lovenox injections Laboratory Results - last 24 hr 11/29/19 11/29/19 11/29/19 20:40 21:00 22:35 WBC 12.7 H RBC 5.25 Hgb 14.8 Hct 46.3 MCV 88.3 MCH 28.2 MCHC 31.9 L RDW 14.9 Plt Count 161 MPV 8.6 Sodium Potassium Chloride Carbon Dioxide Anion Gap BUN Creatinine Est GFR (CKD-EPI)AfAm Est GFR (CKD-EPI)NonAf POC Glucometer 288 Random Glucose Calcium Urine Color Yellow Urine Appearance Clear Urine pH 5.5 Ur Specific [place] 1.031 Urine Protein 30 Urine Glucose (UA) 100 Urine Ketones 1+ H Urine Blood Negative Urine Nitrite Negative Urine Bilirubin Negative Urine Urobilinogen 0.2 Ur Leukocyte Esterase Negative 11/30/19 11/30/19 11/30/19 06:35 06:51 10:58 WBC 11.9 H RBC 5.20 Hgb 14.5 Hct 45.5 MCV 87.5 MCH 27.9 MCHC 31.9 L RDW 14.9 Plt Count 157 MPV 8.2 Sodium 140 Potassium 5.0 Chloride 104 Carbon Dioxide 28 Anion Gap 9 BUN 19.7 H Creatinine 1.2 Est GFR (CKD-EPI)AfAm 74.66 Est GFR (CKD-EPI)NonAf 64.42 POC Glucometer 177 Random Glucose 177 H Calcium 8.5 Urine Color Urine Appearance Urine pH Ur Specific [place] Urine Protein Urine Glucose (UA) Urine Ketones Urine Blood Urine Nitrite Urine Bilirubin Urine Urobilinogen Ur Leukocyte Esterase 11/30/19 11/30/19 11:29 16:20 WBC RBC Hgb Hct MCV MCH MCHC RDW Plt Count MPV Sodium Potassium Chloride Carbon Dioxide Anion Gap BUN Creatinine Est GFR (CKD-EPI)AfAm Est GFR (CKD-EPI)NonAf POC Glucometer 304 324 Random Glucose Calcium Urine Color Urine Appearance Urine pH Ur Specific [place] Urine Protein Urine Glucose (UA) Urine Ketones Urine Blood Urine Nitrite Urine Bilirubin Urine Urobilinogen Ur Leukocyte Esterase Active Medications Generic Name Dose Route Start Last Admin Trade Name Freq PRN Reason Stop Dose Admin Albuterol/Ipratropium 1 amp 11/28/19 20:00 11/30/19 13:06 Duoneb - NEB 1 amp RTID [facility] Administration Aspirin 81 mg 11/29/19 10:00 11/30/19 10:05 Ecotrin - PO 81 mg DAILY [facility] Administration Atorvastatin Calcium 40 mg 11/28/19 22:00 11/29/19 22:44 Lipitor - PO 40 mg HS [facility] Administration Diazepam 10 mg 11/28/19 17:02 11/30/19 03:11 Valium - PO 10 mg Q6H PRN Administration ANXIETY Enoxaparin Sodium 120 mg 11/28/19 22:00 11/30/19 10:06 Lovenox - SQ 120 mg BID [facility] Administration Ceftriaxone Sodium 2 gm/ 100 mls @ 200 mls/hr 11/30/19 14:45 11/30/19 15:14 Dextrose IVPB 200 mls/hr DAILY [facility] Administration Protocol Insulin Aspart 1 vial 11/28/19 22:00 11/30/19 16:22 Novolog Vial Sliding Scale - SQ 8 units ACHS [facility] Administration Protocol Insulin Detemir 20 units 11/29/19 08:09 11/29/19 22:45 Levemir Vial SQ 20 units HS [facility] Administration Methylprednisolone Sodium Succinate 40 mg 11/28/19 18:00 11/30/19 18:06 Solu-Medrol - IVPUSH 40 mg Q8H-IV [facility] Administration Metoprolol Succinate 25 mg 11/29/19 10:00 11/30/19 10:05 Toprol Xl - PO 25 mg DAILY [facility] Administration Oxycodone HCl 10 mg 11/28/19 17:15 11/30/19 16:21 Roxicodone - PO 10 mg Q4H PRN Administration PAIN LEVEL 6-10 Pantoprazole Sodium 40 mg 11/29/19 10:00 11/30/19 10:06 Protonix - PO 40 mg DAILY [facility] Administration ASSESSMENT/PLAN: Pt. is a 64 y.o. M w/ PMHx. of Stage 4 lung adenocarcinoma (s/p chemotherapy with Alimta 04/05 with ), PE (on therapeutic lovenox), Hx. of COVID (08/05), CKD stage 3, DM2 and HTN presents to the ED with progressive SOB and hemoptysis of 1 week duration. #Acute hypoxic respiratory failure secondary to CAP vs progression of Lung CA vs COPD exacerbation ED: Rocephin 1 gm, clindamycin 600 mg ID consult appreciated-> switched to Ceftriaxone (Day 3 of Total Abx.) pulmonary consult appreciated oncology consult cardiothoracic consult appreciated T&S SCDs f/u LUE Duplex for swelling noted by Dr. Miller. Duonebs Solumedrol 40mg Q8H #Elevated Troponin Trend Troponin, decreased compared to previous admission, EKG unchanged from prior, no chest pain likely demand ischemia f/u recent Echo last month at [facility] Cardiology consult appreciated BNP: 839; half the lowest it has ever been in a hospital visit. #IGOR- resolving Cr. 1.1 on last d/c, now improved to 1.2 from 1.4 yesterday likely 2/2 hypoxia f/u UA for specific gravity #HTN #HLD #CKD #DM2 #Hx. of Covid resume home medications except oral hypogylemics,Increased Lantus to home dose BGMs and ISS ACHS #FEN no IVF, encourage PO intake monitor electrolytes and replete as needed Diabetic diet #DVT Ppx. c/w Lovenox #Dispo Pt. will likely be discharged in AM Visit type - Emergency Visit Emergency Visit: Yes ED Registration Date: 11/28/19 Care time: The patient presented to the Emergency Department on the above date and was hospitalized for further evaluation of their emergent condition. - New Patient This patient is new to me today: No - Critical Care Critical Care patient: No - Discharge Referral Referred to [facility] Med P.C.: No ATTENDING PHYSICIAN STATEMENT I saw and evaluated the patient. I reviewed the resident's note and discussed the case with the resident. I agree with the resident's findings and plan as documented. SUBJECTIVE: OBJECTIVE: ASSESSMENT AND PLAN:
[2019-11-30] MEDS: ATORVASTATIN CA 40 MG TABLET (FP) PO SCH (21:33)
[2019-11-30] MEDS: INSULIN (LEVEMIR) 100 UNITS/ML UNITS SQ SCH (21:34)
[2019-12-01] MEDS: methylPREDNISolone NA SUCC 40 MG/1 ML VIAL IVPUSH SCH ×3 (02:15→17:58)
[2019-12-01] MEDS: INSULIN SLIDING SCALE (NOVOLOG) 1 VIAL SQ SCH ×4 (06:01→21:13)
[2019-12-01] MEDS ORDERED: INSULIN (NOVOLOG) ASPART 100 UNITS/ML 10ML VIAL ONE ×4 (06:15→21:01)
[2019-12-01] MEDS ORDERED: INSULIN (LEVEMIR) 100 UNITS/ML UNITS SQ ONE (06:15)
[2019-12-01 06:35] LABS: BASO % 0.1 % (0-2.0); HEMATOCRIT 44.9 % (35.4-49); HEMOGLOBIN 14.3 GM/dL (11.7-16.9); LYMPH % 3.6 % (8-40); MCH 27.8 pg (25.7-33.7); MCHC 31.9 g/dl (32.0-35.9); MEAN CELL VOLUME 87.3 fl (80-96); MEAN PLT VOLUME 8.4 fl (7.5-11.1); MONO % 3.8 % (3.8-10.2); NEUT % 92.5 % (42.8-82.8); PLATELET COUNT 149 K/MM3 (134-434); RBC 5.14 M/mm3 (4.00-5.60); RDW 14.7 % (11.9-15.9); WHITE BLOOD COUNT 10.6 K/mm3 (4.0-10.0)
[2019-12-01 07:22] LABS: ALBUMIN 2.9 g/dl (3.4-5.0); BILIRUBIN,TOTAL 0.2 mg/dL (0.2-1); BLOOD UREA NITROGEN 22.2 mg/dL (7-18); CALCIUM 8.5 mg/dL (8.5-10.1); CREATININE 1.3 mg/dL (0.55-1.3); PHOSPHOROUS 4.1 mg/dL (2.5-4.9); POTASSIUM 4.7 mmol/L (3.5-5.1); TOT PROT 5.8 g/dl (6.4-8.2)
[2019-12-01] MEDS: oxyCODONE HCL 5 MG TABLET PO PRN ×2 (08:14→17:58)
[2019-12-01] MEDS: ALBUTEROL SO4 2.5/IPRATROPIUM 0.5 INH SOL 3 ML VIAL.NEB. NEB SCH ×3 (08:40→20:48)
--- NOTE | 2019-12-01 08:57 | PN ---
Progress Note (short form) - Note Progress Note: Patient seen in follow up. Reports feeling better than before, but still [id number] on supplemental O2. Cough and poor appetite improved. Inpatient meds reviewed: Current Medications Generic Name Dose Route Start Last Admin Trade Name Freq PRN Reason Stop Dose Admin Albuterol/Ipratropium 1 amp 11/28/19 20:00 12/01/19 08:40 Duoneb - NEB 1 amp RTID [facility] Administration Aspirin 81 mg 11/29/19 10:00 11/30/19 10:05 Ecotrin - PO 81 mg DAILY [facility] Administration Atorvastatin Calcium 40 mg 11/28/19 22:00 11/30/19 21:33 Lipitor - PO 40 mg HS [facility] Administration Diazepam 10 mg 11/28/19 17:02 11/30/19 21:31 Valium - PO 10 mg Q6H PRN Administration ANXIETY Enoxaparin Sodium 120 mg 11/28/19 22:00 11/30/19 21:36 Lovenox - SQ 120 mg BID [facility] Administration Ceftriaxone Sodium 2 gm/ 100 mls @ 200 mls/hr 11/30/19 14:45 11/30/19 15:14 Dextrose IVPB 200 mls/hr DAILY [facility] Administration Protocol Insulin Aspart 1 vial 11/28/19 22:00 12/01/19 06:01 Novolog Vial Sliding Scale - SQ 6 units ACHS [facility] Administration Protocol Insulin Detemir 20 units 11/29/19 08:09 11/30/19 21:34 Levemir Vial SQ 20 units HS [facility] Administration Methylprednisolone Sodium Succinate 40 mg 11/28/19 18:00 12/01/19 02:15 Solu-Medrol - IVPUSH 40 mg Q8H-IV [facility] Administration Metoprolol Succinate 25 mg 11/29/19 10:00 11/30/19 10:05 Toprol Xl - PO 25 mg DAILY [facility] Administration Oxycodone HCl 10 mg 11/28/19 17:15 12/01/19 08:14 Roxicodone - PO 10 mg Q4H PRN Administration PAIN LEVEL 6-10 Pantoprazole Sodium 40 mg 11/29/19 10:00 11/30/19 10:06 Protonix - PO 40 mg DAILY [facility] Administration On Examination: Last Vital Signs Temp Pulse Resp BP Pulse Ox 97.5 F L 71 20 136/80 96 12/01/19 06:00 12/01/19 06:00 12/01/19 06:00 12/01/19 06:00 12/01/19 06:00 General: In no acute distress, sitting at bedside, obese Extremities: No pallor or icterus. No pedal edema. Chest: Nasal canulae, comfortable, decreased breath sounds, no adventitious sounds appreciated Abdomen: non-distended Neuro: Alert, oriented, non-focal. Labs: CBC, BMP 12/01/19 05:45 12/01/19 05:45 Assessment. History of NSC tavo cancer, most recently on maintenance Alimta (not received s everal months due to COVID, and patient had COVID in July), presents with cough and exacerbation in dyspnea, attributed to bilateral pneumonia - on ceftriaxone - ID following. Current CT chest reveals no suggestion of recurrent pulmonary disease.
[2019-12-01] MEDS ORDERED: DEXTROSE 5%-WATER 100 ML IVPB ONE (09:06)
[2019-12-01] MEDS ORDERED: PT OWN MED DRAWER 7, Y5N ONE ×2 (09:06→21:02)
[2019-12-01] MEDS: CEFTRIAXONE 2 GM in DEXTROSE 5%-WATER 100 ML IVPB SCH (09:27)
[2019-12-01] MEDS: PANTOPRAZOLE 40 MG TABLET PO SCH (09:27)
[2019-12-01] MEDS: ENOXAPARIN NA (PORCINE) 120 MG/0.8 ML DISP.SYRIN SQ SCH ×2 (09:27→21:11)
[2019-12-01] MEDS: metoPROLOL SUCCINATE 25 MG TAB.SR.24H (FP) PO SCH (09:27)
[2019-12-01] MEDS: ASPIRIN COATED 81 MG TABLET.EC PO SCH (09:27)
--- NOTE | 2019-12-01 11:58 | PN ---
Progress Note, Physician History of Present Illness: SEATED IN BED EATING LUNCH DENIES HEMOPTYSIS BREATHING NON LABORED ON RA AFEBRILE WBC IMPROVED BC (-) SPUTUM NORMAL KARTHIK DOPPLER (-) DVT - Current Medication List Current Medications: Active Medications Albuterol/Ipratropium (Duoneb -) 1 amp NEB RTID [facility] Last Admin: 12/01/19 08:40 Dose: 1 amp Documented by: Aspirin (Ecotrin -) 81 mg PO DAILY [facility] Last Admin: 12/01/19 09:27 Dose: 81 mg Documented by: Atorvastatin Calcium (Lipitor -) 40 mg PO HS [facility] Last Admin: 11/30/19 21:33 Dose: 40 mg Documented by: Diazepam (Valium -) 10 mg PO Q6H PRN PRN Reason: ANXIETY Last Admin: 11/30/19 21:31 Dose: 10 mg Documented by: Enoxaparin Sodium (Lovenox -) 120 mg SQ BID [facility] Last Admin: 12/01/19 09:27 Dose: 120 mg Documented by: Ceftriaxone Sodium 2 gm/ (Dextrose) 100 mls @ 200 mls/hr IVPB DAILY [facility]; Protocol Last Admin: 12/01/19 09:27 Dose: 200 mls/hr Documented by: Insulin Aspart (Novolog Vial Sliding Scale -) 1 vial SQ ACHS [facility]; Protocol Last Admin: 12/01/19 11:01 Dose: 8 units Documented by: Insulin Detemir (Levemir Vial) 20 units SQ HS [facility] Last Admin: 11/30/19 21:34 Dose: 20 units Documented by: Methylprednisolone Sodium Succinate (Solu-Medrol -) 40 mg IVPUSH Q8H-IV [facility] Last Admin: 12/01/19 09:27 Dose: 40 mg Documented by: Metoprolol Succinate (Toprol Xl -) 25 mg PO DAILY [facility] Last Admin: 12/01/19 09:27 Dose: 25 mg Documented by: Oxycodone HCl (Roxicodone -) 10 mg PO Q4H PRN PRN Reason: PAIN LEVEL 6-10 Last Admin: 12/01/19 08:14 Dose: 10 mg Documented by: Pantoprazole Sodium (Protonix -) 40 mg PO DAILY [facility] Last Admin: 12/01/19 09:27 Dose: 40 mg Documented by: - Objective Vital Signs: Vital Signs Temperature 97.8 F 12/01/19 09:00 Pulse Rate 82 08/15/20 09:00 Respiratory Rate 20 12/01/19 09:00 Blood Pressure 116/61 12/01/19 09:00 O2 Sat by Pulse Oximetry (%) 92 L 12/01/19 09:00 Constitutional: Yes: No Distress Cardiovascular: Yes: Regular Rate and Rhythm, S1, S2 Respiratory: Yes: CTA Bilaterally Gastrointestinal: Yes: Normal Bowel Sounds, Soft, Abdomen, Obese Extremities: Yes: Other (L UE EDEMA) Integumentary: Yes: Other (PORT SITE NO ERYTHEMA) Labs: CBC, BMP 12/01/19 05:45 12/01/19 05:45 Assessment/Plan PNEUMONIA HEMOPTYSIS LUNG CA DM CONTINUE EMPIRIC CEFTRIAXONE
[2019-12-01 12:57] LABS: ANISOCYTOSIS 0; MACROCYTOSIS 0; PLATELET ESTIMATE DECREASED
--- NOTE | 2019-12-01 14:58 | PN ---
Progress Note (short form) - Note Progress Note: Feels overall better. Small amounts of blood tinged sputum, dark. No acute events overnight. Intake & Output 11/28/19 11/29/19 11/30/19 12/01/19 23:59 23:59 23:59 23:59 Intake Total 850 100 700 Balance 850 100 700 Weight 305 lb Last Vital Signs Temp Pulse Resp BP Pulse Ox 97.8 F 82 20 116/61 92 L 12/01/19 09:00 12/01/19 09:00 12/01/19 09:00 12/01/19 09:00 12/01/19 09:00 Active Medications Albuterol/Ipratropium (Duoneb -) 1 amp NEB RTID [facility] Last Admin: 12/01/19 14:49 Dose: 1 amp Documented by: Aspirin (Ecotrin -) 81 mg PO DAILY [facility] Last Admin: 12/01/19 09:27 Dose: 81 mg Documented by: Atorvastatin Calcium (Lipitor -) 40 mg PO HS [facility] Last Admin: 11/30/19 21:33 Dose: 40 mg Documented by: Diazepam (Valium -) 10 mg PO Q6H PRN PRN Reason: ANXIETY Last Admin: 11/30/19 21:31 Dose: 10 mg Documented by: Enoxaparin Sodium (Lovenox -) 120 mg SQ BID [facility] Last Admin: 12/01/19 09:27 Dose: 120 mg Documented by: Ceftriaxone Sodium 2 gm/ (Dextrose) 100 mls @ 200 mls/hr IVPB DAILY [facility]; Protocol Last Admin: 12/01/19 09:27 Dose: 200 mls/hr Documented by: Insulin Aspart (Novolog Vial Sliding Scale -) 1 vial SQ ACHS [facility]; Protocol Last Admin: 12/01/19 11:01 Dose: 8 units Documented by: Insulin Detemir (Levemir Vial) 20 units SQ HS [facility] Last Admin: 11/30/19 21:34 Dose: 20 units Documented by: Methylprednisolone Sodium Succinate (Solu-Medrol -) 40 mg IVPUSH Q8H-IV [facility] Last Admin: 12/01/19 09:27 Dose: 40 mg Documented by: Metoprolol Succinate (Toprol Xl -) 25 mg PO DAILY [facility] Last Admin: 12/01/19 09:27 Dose: 25 mg Documented by: Oxycodone HCl (Roxicodone -) 10 mg PO Q4H PRN PRN Reason: PAIN LEVEL 6-10 Last Admin: 12/01/19 08:14 Dose: 10 mg Documented by: Pantoprazole Sodium (Protonix -) 40 mg PO DAILY [facility] Last Admin: 12/01/19 09:27 Dose: 40 mg Documented by: Constitutional: Yes: Well Nourished, Calm Eyes: Yes: WNL HENT: Yes: WNL Neck: Yes: WNL Cardiovascular: Yes: Regular Rate and Rhythm, S1, S2 Respiratory: Yes: Diminished Gastrointestinal: Yes: Normal Bowel Sounds, Soft Extremities: Yes: WNL Edema: Yes Labs: Laboratory Results - last 24 hr 11/30/19 11/30/19 12/01/19 16:20 21:27 05:45 WBC 10.6 H RBC 5.14 Hgb 14.3 Hct 44.9 MCV 87.3 MCH 27.8 MCHC 31.9 L RDW 14.7 Plt Count 149 MPV 8.4 Absolute Neuts (auto) 9.8 H Neutrophils % 92.5 H Neutrophils % (Manual) 91.0 H Band Neutrophils % 0.0 Lymphocytes % 3.6 L D Lymphocytes % (Manual) 5.0 L D Monocytes % 3.8 Monocytes % (Manual) 4 Eosinophils % 0.0 D Eosinophils % (Manual) 0.0 Basophils % 0.1 Basophils % (Manual) 0.0 Myelocytes % (Man) 0 D Promyelocytes % (Man) 0 Blast Cells % (Manual) 0 Nucleated RBC % 0 Metamyelocytes 0 Hypochromia 0 Platelet Estimate Decreased Polychromasia 0 Poikilocytosis 0 Anisocytosis 0 Microcytosis 0 Macrocytosis 0 Sodium Potassium Chloride Carbon Dioxide Anion Gap BUN Creatinine Est GFR (CKD-EPI)AfAm Est GFR (CKD-EPI)NonAf POC Glucometer 324 374 Random Glucose Calcium Phosphorus Magnesium Total Bilirubin AST ALT Alkaline Phosphatase Total Protein Albumin 12/01/19 12/01/19 12/01/19 05:45 05:51 11:01 WBC RBC Hgb Hct MCV MCH MCHC RDW Plt Count MPV Absolute Neuts (auto) Neutrophils % Neutrophils % (Manual) Band Neutrophils % Lymphocytes % Lymphocytes % (Manual) Monocytes % Monocytes % (Manual) Eosinophils % Eosinophils % (Manual) Basophils % Basophils % (Manual) Myelocytes % (Man) Promyelocytes % (Man) Blast Cells % (Manual) Nucleated RBC % Metamyelocytes Hypochromia Platelet Estimate Polychromasia Poikilocytosis Anisocytosis Microcytosis Macrocytosis Sodium 140 Potassium 4.7 Chloride 102 Carbon Dioxide 31 Anion Gap 7 L BUN 22.2 H Creatinine 1.3 Est GFR (CKD-EPI)AfAm 67.78 Est GFR (CKD-EPI)NonAf 58.48 POC Glucometer 264 350 Random Glucose 288 H Calcium 8.5 Phosphorus 4.1 Magnesium 2.0 Total Bilirubin 0.2 AST 8 L ALT 21 Alkaline Phosphatase 79 Total Protein 5.8 L Albumin 2.9 L Problem List - Problems (1) Hemoptysis Code(s): R04.2 - HEMOPTYSIS (2) Pneumonia Code(s): J18.9 - PNEUMONIA, UNSPECIFIED ORGANISM Qualifiers: Pneumonia type: due to unspecified organism Laterality: bilateral Lung location: unspecified part of lung Qualified Code(s): J18.9 - Pneumonia, unspecified organism (3) Acute hypoxemic respiratory failure Code(s): J96.01 - ACUTE RESPIRATORY FAILURE WITH HYPOXIA (4) Adenocarcinoma Code(s): C80.1 - MALIGNANT (PRIMARY) NEOPLASM, UNSPECIFIED (5) Carcinoma, lung Code(s): C34.90 - MALIGNANT NEOPLASM OF UNSP PART OF UNSP BRONCHUS OR LUNG (6) Diabetes Code(s): E11.9 - TYPE 2 DIABETES MELLITUS WITHOUT COMPLICATIONS (7) Elevated troponin I level Code(s): R79.89 - OTHER SPECIFIED ABNORMAL FINDINGS OF BLOOD CHEMISTRY (8) Hypoxia Code(s): R09.02 - HYPOXEMIA (9) Acute respiratory failure with hypoxia and hypercarbia Code(s): J96.01 - ACUTE RESPIRATORY FAILURE WITH HYPOXIA; J96.02 - ACUTE RESPIRATORY FAILURE WITH HYPERCAPNIA Assessment/Plan IMP ACUTE HYPOXEMIC/HYPERCAPNEIC RESPIRATORY FAILURE BILATERAL PNEUMONIA HEMOPTYSIS IMPROVING METASTATIC LUNG CA H/O COVID 08/05 HTN HLD + TROPONIN PLAN SUPPLEMENTAL O2 NEEDED INHALED BRONCHODILATORS ABX STEROIDS CULTURES QUANTIFY HEMOPTYSIS Dr Siegel
[2019-12-01] MEDS: ATORVASTATIN CA 40 MG TABLET (FP) PO SCH (21:10)
[2019-12-01] MEDS: INSULIN (LEVEMIR) 100 UNITS/ML UNITS SQ SCH (21:12)
[2019-12-02] MEDS ORDERED: MELATONIN 5 MG TABLETS PO ONE (00:06)
[2019-12-02] MEDS: methylPREDNISolone NA SUCC 40 MG/1 ML VIAL IVPUSH SCH ×2 (01:01→10:15)
[2019-12-02] MEDS ORDERED: INSULIN (NOVOLOG) ASPART 100 UNITS/ML 10ML VIAL ONE ×4 (05:16→21:50)
[2019-12-02] MEDS: INSULIN SLIDING SCALE (NOVOLOG) 1 VIAL SQ SCH ×4 (06:22→22:34)
[2019-12-02 07:45] LABS: BASO % 0.1 % (0-2.0); HEMATOCRIT 47.1 % (35.4-49); HEMOGLOBIN 15.3 GM/dL (11.7-16.9); LYMPH % 4.2 % (8-40); MCH 28.5 pg (25.7-33.7); MCHC 32.5 g/dl (32.0-35.9); MEAN CELL VOLUME 87.6 fl (80-96); MEAN PLT VOLUME 8.8 fl (7.5-11.1); MONO % 4.2 % (3.8-10.2); NEUT % 91.5 % (42.8-82.8); PLATELET COUNT 147 K/MM3 (134-434); RBC 5.38 M/mm3 (4.00-5.60); RDW 14.4 % (11.9-15.9); WHITE BLOOD COUNT 8.6 K/mm3 (4.0-10.0)
[2019-12-02 08:07] LABS: BLOOD UREA NITROGEN 22.3 mg/dL (7-18); CALCIUM 8.6 mg/dL (8.5-10.1); CREATININE 1.3 mg/dL (0.55-1.3); POTASSIUM 4.4 mmol/L (3.5-5.1); TOT PROT 6.5 g/dl (6.4-8.2)
[2019-12-02 08:21] LABS: BILIRUBIN,TOTAL 0.4 mg/dL (0.2-1)
[2019-12-02] MEDS: ALBUTEROL SO4 2.5/IPRATROPIUM 0.5 INH SOL 3 ML VIAL.NEB. NEB SCH ×3 (08:33→20:13)
[2019-12-02 09:31] LABS: ANISOCYTOSIS 0; MACROCYTOSIS 0; PLATELET ESTIMATE DECREASED
[2019-12-02] MEDS ORDERED: DEXTROSE 5%-WATER 100 ML IVPB ONE (09:47)
[2019-12-02] MEDS: ASPIRIN COATED 81 MG TABLET.EC PO SCH (10:01)
[2019-12-02] MEDS: PANTOPRAZOLE 40 MG TABLET PO SCH (10:05)
[2019-12-02] MEDS: metoPROLOL SUCCINATE 25 MG TAB.SR.24H (FP) PO SCH (10:10)
[2019-12-02] MEDS: CEFTRIAXONE 2 GM in DEXTROSE 5%-WATER 100 ML IVPB SCH (10:10)
[2019-12-02 11:18] VITALS: BMI 42.5
--- NOTE | 2019-12-02 14:12 | PN ---
Progress Note (short form) - Note Progress Note: Feels overall better. Minimal blood tinged sputum, dark. No acute events overnight. Intake & Output 11/29/19 11/30/19 12/01/19 12/02/19 23:59 23:59 23:59 23:59 Intake Total 100 700 120 Balance 100 700 120 Weight 305 lb Last Vital Signs Temp Pulse Resp BP Pulse Ox 97.6 F 71 20 148/77 98 12/02/19 06:32 12/02/19 06:32 12/02/19 06:32 12/02/19 06:32 12/01/19 21:47 Active Medications Albuterol/Ipratropium (Duoneb -) 1 amp NEB RTID [facility] Last Admin: 12/02/19 08:33 Dose: 1 amp Documented by: Aspirin (Ecotrin -) 81 mg PO DAILY [facility] Last Admin: 12/01/19 09:27 Dose: 81 mg Documented by: Atorvastatin Calcium (Lipitor -) 40 mg PO HS [facility] Last Admin: 12/01/19 21:10 Dose: 40 mg Documented by: Enoxaparin Sodium (Lovenox -) 120 mg SQ BID [facility] Last Admin: 12/01/19 21:11 Dose: 120 mg Documented by: Ceftriaxone Sodium 2 gm/ (Dextrose) 100 mls @ 200 mls/hr IVPB DAILY [facility]; Protocol Last Admin: 12/01/19 09:27 Dose: 200 mls/hr Documented by: Insulin Aspart (Novolog Vial Sliding Scale -) 1 vial SQ ACHS [facility]; Protocol Last Admin: 12/02/19 06:22 Dose: 6 units Documented by: Insulin Detemir (Levemir Vial) 20 units SQ [facility] Last Admin: 12/01/19 21:12 Dose: 20 units Documented by: Methylprednisolone Sodium Succinate (Solu-Medrol -) 40 mg IVPUSH Q8H-IV [facility] Last Admin: 12/02/19 01:01 Dose: 40 mg Documented by: Metoprolol Succinate (Toprol Xl -) 25 mg PO DAILY [facility] Last Admin: 12/01/19 09:27 Dose: 25 mg Documented by: Oxycodone HCl (Roxicodone -) 10 mg PO Q4H PRN PRN Reason: PAIN LEVEL 6-10 Last Admin: 12/01/19 17:58 Dose: 10 mg Documented by: Pantoprazole Sodium (Protonix -) 40 mg PO DAILY [facility] Last Admin: 12/01/19 09:27 Dose: 40 mg Documented by: Constitutional: Yes: Well Nourished, Calm Eyes: Yes: WNL HENT: Yes: WNL Neck: Yes: WNL Cardiovascular: Yes: Regular Rate and Rhythm, S1, S2 Respiratory: Yes: Diminished Gastrointestinal: Yes: Normal Bowel Sounds, Soft Extremities: Yes: WNL Edema: Yes Labs: Laboratory Results - last 24 hr 12/01/19 12/01/19 12/02/19 16:59 21:07 06:18 WBC RBC Hgb Hct MCV MCH MCHC RDW Plt Count MPV Absolute Neuts (auto) Neutrophils % Neutrophils % (Manual) Band Neutrophils % Lymphocytes % Lymphocytes % (Manual) Monocytes % Monocytes % (Manual) Eosinophils % Eosinophils % (Manual) Basophils % Basophils % (Manual) Myelocytes % (Man) Promyelocytes % (Man) Blast Cells % (Manual) Nucleated RBC % Metamyelocytes Hypochromia Platelet Estimate Polychromasia Poikilocytosis Anisocytosis Microcytosis Macrocytosis Sodium Potassium Chloride Carbon Dioxide Anion Gap BUN Creatinine Est GFR (CKD-EPI)AfAm Est GFR (CKD-EPI)NonAf POC Glucometer 364 380 264 Random Glucose Calcium Total Bilirubin AST ALT Alkaline Phosphatase Total Protein Albumin 12/02/19 12/02/19 12/02/19 06:30 06:30 13:08 WBC 8.6 RBC 5.38 Hgb 15.3 Hct 47.1 MCV 87.6 MCH 28.5 MCHC 32.5 RDW 14.4 Plt Count 147 MPV 8.8 Absolute Neuts (auto) 7.9 Neutrophils % 91.5 H Neutrophils % (Manual) 93.9 H Band Neutrophils % 0.0 Lymphocytes % 4.2 L Lymphocytes % (Manual) 3.1 L D Monocytes % 4.2 Monocytes % (Manual) 2 L Eosinophils % 0.0 Eosinophils % (Manual) 0.0 Basophils % 0.1 Basophils % (Manual) 0.0 Myelocytes % (Man) 0 Promyelocytes % (Man) 0 Blast Cells % (Manual) 0 Nucleated RBC % 1 H Metamyelocytes 0 Hypochromia 0 Platelet Estimate Decreased Polychromasia 0 Poikilocytosis 0 Anisocytosis 0 Microcytosis 0 Macrocytosis 0 Sodium 139 Potassium 4.4 Chloride 101 Carbon Dioxide 30 Anion Gap 8 BUN 22.3 H Creatinine 1.3 Est GFR (CKD-EPI)AfAm 67.78 Est GFR (CKD-EPI)NonAf 58.48 POC Glucometer 342 Random Glucose 274 H Calcium 8.6 Total Bilirubin 0.4 AST 6 L ALT 22 Alkaline Phosphatase 81 Total Protein 6.5 Albumin 3.0 L Problem List - Problems (1) Hemoptysis Code(s): R04.2 - HEMOPTYSIS (2) Pneumonia Code(s): J18.9 - PNEUMONIA, UNSPECIFIED ORGANISM Qualifiers: Pneumonia type: due to unspecified organism Laterality: bilateral Lung location: unspecified part of lung Qualified Code(s): J18.9 - Pneumonia, unspecified organism (3) Acute hypoxemic respiratory failure Code(s): J96.01 - ACUTE RESPIRATORY FAILURE WITH HYPOXIA (4) Adenocarcinoma Code(s): C80.1 - MALIGNANT (PRIMARY) NEOPLASM, UNSPECIFIED (5) Carcinoma, lung Code(s): C34.90 - MALIGNANT NEOPLASM OF UNSP PART OF UNSP BRONCHUS OR LUNG (6) Diabetes Code(s): E11.9 - TYPE 2 DIABETES MELLITUS WITHOUT COMPLICATIONS (7) Elevated troponin I level Code(s): R79.89 - OTHER SPECIFIED ABNORMAL FINDINGS OF BLOOD CHEMISTRY (8) Hypoxia Code(s): R09.02 - HYPOXEMIA (9) Acute respiratory failure with hypoxia and hypercarbia Code(s): J96.01 - ACUTE RESPIRATORY FAILURE WITH HYPOXIA; J96.02 - ACUTE RESPIRATORY FAILURE WITH HYPERCAPNIA Assessment/Plan IMP ACUTE HYPOXEMIC/HYPERCAPNEIC RESPIRATORY FAILURE BILATERAL PNEUMONIA HEMOPTYSIS IMPROVING METASTATIC LUNG CA H/O COVID 08/05 HTN HLD + TROPONIN PLAN SUPPLEMENTAL O2 NEEDED INHALED BRONCHODILATORS ABX PER ID STOP STEROIDS Dr Siegel
--- NOTE | 2019-12-02 17:09 | PN ---
Progress Note (short form) - Note Progress Note: Patient seen in follow up. Reports feeling better than before, with improvement in dyspnea, but reports productive cough in am. Inpatient meds reviewed: Current Medications Generic Name Dose Route Start Last Admin Trade Name Freq PRN Reason Stop Dose Admin Albuterol/Ipratropium 1 amp 11/28/19 20:00 12/02/19 14:50 Duoneb - NEB 1 amp RTID [facility] Administration Aspirin 81 mg 11/29/19 10:00 12/01/19 09:27 Ecotrin - PO 81 mg DAILY [facility] Administration Atorvastatin Calcium 40 mg 11/28/19 22:00 12/01/19 21:10 Lipitor - PO 40 mg HS [facility] Administration Enoxaparin Sodium 120 mg 11/28/19 22:00 12/01/19 21:11 Lovenox - SQ 120 mg BID [facility] Administration Ceftriaxone Sodium 2 gm/ 100 mls @ 200 mls/hr 11/30/19 14:45 12/01/19 09:27 Dextrose IVPB 200 mls/hr DAILY [facility] Administration Protocol Insulin Aspart 1 vial 11/28/19 22:00 12/02/19 06:22 Novolog Vial Sliding Scale - SQ 6 units ACHS [facility] Administration Protocol Insulin Detemir 20 units 11/29/19 08:09 12/01/19 21:12 Levemir Vial SQ 20 units HS [facility] Administration Metoprolol Succinate 25 mg 11/29/19 10:00 12/01/19 09:27 Toprol Xl - PO 25 mg DAILY [facility] Administration Oxycodone HCl 10 mg 12/01/19 17:35 12/01/19 17:58 Roxicodone - PO 10 mg Q4H PRN Administration PAIN LEVEL 6-10 Pantoprazole Sodium 40 mg 11/29/19 10:00 12/01/19 09:27 Protonix - PO 40 mg DAILY [facility] Administration On Examination: Last Vital Signs Temp Pulse Resp BP Pulse Ox 98 F 75 20 139/79 98 12/02/19 14:00 12/02/19 14:00 12/02/19 14:00 12/02/19 14:00 12/02/19 14:00 General: In no acute distress, sitting at bedside, obese Extremities: No pallor or icterus. No pedal edema. Chest: Nasal canulae, comfortable, decreased breath sounds, no adventitious sounds appreciated Abdomen: non-distended Neuro: Alert, oriented, non-focal. Labs: CBC, BMP 12/02/19 06:30 12/02/19 06:30 Assessment. History of NSC tavo cancer, most recently on maintenance Alimta (not received several months due to COVID, and patient had COVID in July), presents with cough and exacerbation in dyspnea, attributed to bilateral pneumonia - on ceftriaxone - ID following. Current CT chest reveals no suggestion of recurrent pulmonary disease.
[2019-12-02] MEDS: oxyCODONE HCL 5 MG TABLET PO PRN (17:37)
[2019-12-02] MEDS: ENOXAPARIN NA (PORCINE) 120 MG/0.8 ML DISP.SYRIN SQ SCH ×2 (18:00→22:34)
--- NOTE | 2019-12-02 18:04 | PN ---
Physical Exam: SUBJECTIVE: Patient seen and examined at bedside, breathing much improved, still endorses streak/trace hemoptysis but CBC stable, will cont. to monitor will likely need home O2 prior to DC. VSS. OBJECTIVE: GA obese, AAox3, speaking in full sentences, NAD HEENT NC/aT, EOMI, neck supple, no palpable lymphadenopathy, no oral thrush Chest CTAB, no crackles or wheezing, no hemoptysis appreciated, no coughing CVS s1, S2+, RRR Abd obese, Soft, NT, ND, BS+ Ext No LE edema, no calf tenderness Laboratory Results - last 24 hr 12/01/19 12/02/19 12/02/19 21:07 06:18 06:30 WBC 8.6 RBC 5.38 Hgb 15.3 Hct 47.1 MCV 87.6 MCH 28.5 MCHC 32.5 RDW 14.4 Plt Count 147 MPV 8.8 Absolute Neuts (auto) 7.9 Neutrophils % 91.5 H Neutrophils % (Manual) 93.9 H Band Neutrophils % 0.0 Lymphocytes % 4.2 L Lymphocytes % (Manual) 3.1 L D Monocytes % 4.2 Monocytes % (Manual) 2 L Eosinophils % 0.0 Eosinophils % (Manual) 0.0 Basophils % 0.1 Basophils % (Manual) 0.0 Myelocytes % (Man) 0 Promyelocytes % (Man) 0 Blast Cells % (Manual) 0 Nucleated RBC % 1 H Metamyelocytes 0 Hypochromia 0 Platelet Estimate Decreased Polychromasia 0 Poikilocytosis 0 Anisocytosis 0 Microcytosis 0 Macrocytosis 0 Sodium Potassium Chloride Carbon Dioxide Anion Gap BUN Creatinine Est GFR (CKD-EPI)AfAm Est GFR (CKD-EPI)NonAf POC Glucometer 380 264 Random Glucose Calcium Total Bilirubin AST ALT Alkaline Phosphatase Total Protein Albumin 12/02/19 12/02/19 12/02/19 06:30 13:08 17:44 WBC RBC Hgb Hct MCV MCH MCHC RDW Plt Count MPV Absolute Neuts (auto) Neutrophils % Neutrophils % (Manual) Band Neutrophils % Lymphocytes % Lymphocytes % (Manual) Monocytes % Monocytes % (Manual) Eosinophils % Eosinophils % (Manual) Basophils % Basophils % (Manual) Myelocytes % (Man) Promyelocytes % (Man) Blast Cells % (Manual) Nucleated RBC % Metamyelocytes Hypochromia Platelet Estimate Polychromasia Poikilocytosis Anisocytosis Microcytosis Macrocytosis Sodium 139 Potassium 4.4 Chloride 101 Carbon Dioxide 30 Anion Gap 8 BUN 22.3 H Creatinine 1.3 Est GFR (CKD-EPI)AfAm 67.78 Est GFR (CKD-EPI)NonAf 58.48 POC Glucometer 342 330 Random Glucose 274 H Calcium 8.6 Total Bilirubin 0.4 AST 6 L ALT 22 Alkaline Phosphatase 81 Total Protein 6.5 Albumin 3.0 L Active Medications Generic Name Dose Route Start Last Admin Trade Name Freq PRN Reason Stop Dose Admin Albuterol/Ipratropium 1 amp 11/28/19 20:00 12/02/19 14:50 Duoneb - NEB 1 amp RTID [facility] Administration Aspirin 81 mg 11/29/19 10:00 12/02/19 10:01 Ecotrin - PO 81 mg DAILY [facility] Administration Atorvastatin Calcium 40 mg 11/28/19 22:00 12/01/19 21:10 Lipitor - PO 40 mg HS [facility] Administration Enoxaparin Sodium 120 mg 11/28/19 22:00 12/01/19 21:11 Lovenox - SQ 120 mg BID [facility] Administration Ceftriaxone Sodium 2 gm/ 100 mls @ 200 mls/hr 11/30/19 14:45 12/02/19 10:10 Dextrose IVPB 200 mls/hr DAILY [facility] Administration Protocol Insulin Aspart 1 vial 11/28/19 22:00 12/02/19 17:53 Novolog Vial Sliding Scale - SQ 8 units ACHS [facility] Administration Protocol Insulin Detemir 15 units 12/02/19 22:00 Levemir Vial SQ BID@0700,2200 [facility] Metoprolol Succinate 25 mg 11/29/19 10:00 12/02/19 10:10 Toprol Xl - PO 25 mg DAILY [facility] Administration Oxycodone HCl 10 mg 12/01/19 17:35 12/02/19 17:37 Roxicodone - PO 10 mg Q4H PRN Administration PAIN LEVEL 6-10 Pantoprazole Sodium 40 mg 11/29/19 10:00 12/02/19 10:05 Protonix - PO 40 mg DAILY [facility] Administration ASSESSMENT/PLAN: 64 M Adenocarcinoma of lung, s/p RT/chemo Streak hemoptysis h/o PE on therapeutic Lovenox CAP Troponemia HTN HLD Obesity Former smoker COPD with acute exacerbation Anxiety disorder Plan: Cont. therapeutic Lovenox w/ monitoring of CBC Monitor O2 levels, supplement O2 PRN to keep >92% Cont. BP meds Zosyn switched to Rocephin for CAP, cont. Pulmonary following Heme Onc following Cardiology following DVT ppx: Lovenox SC Visit type - Emergency Visit Emergency Visit: Yes ED Registration Date: 11/28/19 Care time: The patient presented to the Emergency Department on the above date and was hospitalized for further evaluation of their emergent condition. - New Patient This patient is new to me today: No - Critical Care Critical Care patient: No - Discharge Referral Referred to [facility] Med P.C.: Yes
--- NOTE | 2019-12-02 18:08 | PN ---
Physical Exam: SUBJECTIVE: Patient seen and examined at bedside, no fevers/changes in status overnight, will need pre-post for O2 necessity, DC planning for tomorrow, VSS. OBJECTIVE: GA obese, AAox3, speaking in full sentences, NAD HEENT NC/aT, EOMI, neck supple, no palpable lymphadenopathy, no oral thrush Chest CTAB, no crackles or wheezing, no hemoptysis appreciated, no coughing CVS s1, S2+, RRR Abd obese, Soft, NT, ND, BS+ Ext No LE edema, no calf tenderness Laboratory Results - last 24 hr 12/01/19 12/02/19 12/02/19 21:07 06:18 06:30 WBC 8.6 RBC 5.38 Hgb 15.3 Hct 47.1 MCV 87.6 MCH 28.5 MCHC 32.5 RDW 14.4 Plt Count 147 MPV 8.8 Absolute Neuts (auto) 7.9 Neutrophils % 91.5 H Neutrophils % (Manual) 93.9 H Band Neutrophils % 0.0 Lymphocytes % 4.2 L Lymphocytes % (Manual) 3.1 L D Monocytes % 4.2 Monocytes % (Manual) 2 L Eosinophils % 0.0 Eosinophils % (Manual) 0.0 Basophils % 0.1 Basophils % (Manual) 0.0 Myelocytes % (Man) 0 Promyelocytes % (Man) 0 Blast Cells % (Manual) 0 Nucleated RBC % 1 H Metamyelocytes 0 Hypochromia 0 Platelet Estimate Decreased Polychromasia 0 Poikilocytosis 0 Anisocytosis 0 Microcytosis 0 Macrocytosis 0 Sodium Potassium Chloride Carbon Dioxide Anion Gap BUN Creatinine Est GFR (CKD-EPI)AfAm Est GFR (CKD-EPI)NonAf POC Glucometer 380 264 Random Glucose Calcium Total Bilirubin AST ALT Alkaline Phosphatase Total Protein Albumin 12/02/19 12/02/19 12/02/19 06:30 13:08 17:44 WBC RBC Hgb Hct MCV MCH MCHC RDW Plt Count MPV Absolute Neuts (auto) Neutrophils % Neutrophils % (Manual) Band Neutrophils % Lymphocytes % Lymphocytes % (Manual) Monocytes % Monocytes % (Manual) Eosinophils % Eosinophils % (Manual) Basophils % Basophils % (Manual) Myelocytes % (Man) Promyelocytes % (Man) Blast Cells % (Manual) Nucleated RBC % Metamyelocytes Hypochromia Platelet Estimate Polychromasia Poikilocytosis Anisocytosis Microcytosis Macrocytosis Sodium 139 Potassium 4.4 Chloride 101 Carbon Dioxide 30 Anion Gap 8 BUN 22.3 H Creatinine 1.3 Est GFR (CKD-EPI)AfAm 67.78 Est GFR (CKD-EPI)NonAf 58.48 POC Glucometer 342 330 Random Glucose 274 H Calcium 8.6 Total Bilirubin 0.4 AST 6 L ALT 22 Alkaline Phosphatase 81 Total Protein 6.5 Albumin 3.0 L Active Medications Generic Name Dose Route Start Last Admin Trade Name Freq PRN Reason Stop Dose Admin Albuterol/Ipratropium 1 amp 11/28/19 20:00 12/02/19 14:50 Duoneb - NEB 1 amp RTID [facility] Administration Aspirin 81 mg 11/29/19 10:00 12/02/19 10:01 Ecotrin - PO 81 mg DAILY [facility] Administration Atorvastatin Calcium 40 mg 11/28/19 22:00 12/01/19 21:10 Lipitor - PO 40 mg HS [facility] Administration Enoxaparin Sodium 120 mg 11/28/19 22:00 12/01/19 21:11 Lovenox - SQ 120 mg BID [facility] Administration Ceftriaxone Sodium 2 gm/ 100 mls @ 200 mls/hr 11/30/19 14:45 12/02/19 10:10 Dextrose IVPB 200 mls/hr DAILY [facility] Administration Protocol Insulin Aspart 1 vial 11/28/19 22:00 12/02/19 17:53 Novolog Vial Sliding Scale - SQ 8 units ACHS [facility] Administration Protocol Insulin Detemir 15 units 12/02/19 22:00 Levemir Vial SQ BID@0700,2200 [facility] Metoprolol Succinate 25 mg 11/29/19 10:00 12/02/19 10:10 Toprol Xl - PO 25 mg DAILY [facility] Administration Oxycodone HCl 10 mg 12/01/19 17:35 12/02/19 17:37 Roxicodone - PO 10 mg Q4H PRN Administration PAIN LEVEL 6-10 Pantoprazole Sodium 40 mg 11/29/19 10:00 12/02/19 10:05 Protonix - PO 40 mg DAILY [facility] Administration ASSESSMENT/PLAN: 64 M Adenocarcinoma of lung, s/p RT/chemo Streak hemoptysis h/o PE on therapeutic Lovenox CAP Troponemia HTN HLD Obesity Former smoker COPD with acute exacerbation Anxiety disorder Plan: Cont. therapeutic Lovenox w/ monitoring of CBC Monitor O2 levels, supplement O2 PRN to keep >92% Obtain pre-post on RA for O2 necessity Cont. BP meds Cont. Rocephin for CAP, will transition to PO Augmentin or Vantin on DC Pulmonary following Heme Onc following Cardiology following DVT ppx: Lovenox SC Visit type - Emergency Visit Emergency Visit: Yes ED Registration Date: 11/28/19 Care time: The patient presented to the Emergency Department on the above date and was hospitalized for further evaluation of their emergent condition. - New Patient This patient is new to me today: No - Critical Care Critical Care patient: No - Discharge Referral Referred to [facility] Med P.C.: No
[2019-12-02] MEDS ORDERED: PT OWN MED DRAWER 7, Y5N ONE (22:29)
[2019-12-02] MEDS: INSULIN (LEVEMIR) 100 UNITS/ML UNITS SQ SCH (22:36)
[2019-12-02] MEDS: ATORVASTATIN CA 40 MG TABLET (FP) PO SCH (22:36)
[2019-12-03] MEDS ORDERED: INSULIN (NOVOLOG) ASPART 100 UNITS/ML 10ML VIAL ONE ×3 (06:06→22:17)
[2019-12-03] MEDS: INSULIN (LEVEMIR) 100 UNITS/ML UNITS SQ SCH ×2 (06:36→22:25)
[2019-12-03] MEDS: INSULIN SLIDING SCALE (NOVOLOG) 1 VIAL SQ SCH ×4 (06:38→22:26)
[2019-12-03] MEDS: ALBUTEROL SO4 2.5/IPRATROPIUM 0.5 INH SOL 3 ML VIAL.NEB. NEB SCH ×2 (07:30→14:09)
[2019-12-03] MEDS ORDERED: DEXTROSE 5%-WATER 100 ML IVPB ONE (09:00)
[2019-12-03] MEDS: CEFTRIAXONE 2 GM in DEXTROSE 5%-WATER 100 ML IVPB SCH (09:02)
[2019-12-03] MEDS: metoPROLOL SUCCINATE 25 MG TAB.SR.24H (FP) PO SCH (09:03)
[2019-12-03] MEDS: oxyCODONE HCL 5 MG TABLET PO PRN ×2 (09:03→16:58)
[2019-12-03] MEDS: ASPIRIN COATED 81 MG TABLET.EC PO SCH (09:03)
[2019-12-03] MEDS: PANTOPRAZOLE 40 MG TABLET PO SCH (09:03)
[2019-12-03] MEDS ORDERED: PT OWN MED DRAWER 7, Y5N ONE ×2 (09:04→22:17)
[2019-12-03] MEDS: ENOXAPARIN NA (PORCINE) 120 MG/0.8 ML DISP.SYRIN SQ SCH ×2 (09:05→22:27)
--- NOTE | 2019-12-03 13:09 | PN ---
Progress Note (short form) - Note Progress Note: s: no cp palps dizzy; sob improving Current Medications Generic Name Dose Route Start Last Admin Trade Name Freq PRN Reason Stop Dose Admin Albuterol/Ipratropium 1 amp 11/28/19 20:00 12/03/19 07:30 Duoneb - NEB 1 amp RTID [facility] Administration Aspirin 81 mg 11/29/19 10:00 12/03/19 09:03 Ecotrin - PO 81 mg DAILY [facility] Administration Atorvastatin Calcium 40 mg 11/28/19 22:00 12/02/19 22:36 Lipitor - PO 40 mg HS [facility] Administration Enoxaparin Sodium 120 mg 11/28/19 22:00 12/03/19 09:05 Lovenox - SQ 120 mg BID [facility] Administration Ceftriaxone Sodium 2 gm/ 100 mls @ 200 mls/hr 11/30/19 14:45 12/03/19 09:02 Dextrose IVPB 200 mls/hr DAILY [facility] Administration Protocol Insulin Aspart 1 vial 11/28/19 22:00 12/03/19 11:39 Novolog Vial Sliding Scale - SQ 4 units ACHS [facility] Administration Protocol Insulin Detemir 15 units 12/02/19 22:00 12/03/19 06:36 Levemir Vial SQ 15 units BID@0700,2200 [facility] Administration Metoprolol Succinate 25 mg 11/29/19 10:00 12/03/19 09:03 Toprol Xl - PO 25 mg DAILY [facility] Administration Oxycodone HCl 10 mg 12/01/19 17:35 12/03/19 09:03 Roxicodone - PO 10 mg Q4H PRN Administration PAIN LEVEL 6-10 Pantoprazole Sodium 40 mg 11/29/19 10:00 12/03/19 09:03 Protonix - PO 40 mg DAILY [facility] Administration Vital Signs Period Temp Pulse Resp BP Sys/Small Pulse Ox Last 24 Hr 97.6 F-98.2 F 70-92 20-20 130-149/68-79 93-98 nad no jvd rrr s1s2 no mrg cta bl nl eff aao3 no le e/c/c abd nt nd pos bs no jaundice diaphoresis CBC, BMP 12/02/19 06:30 12/02/19 06:30 Echo 07/2019 low normal left ventricular systolic function and ejection fraction, estimated LVEF of between 50-55%, impaired left ventricular relaxation, elevated filling pressures, mild mitral valve regurgitation echo 10/2019: nl lv/rv, no sig valve path ecg: unremarkable ct chest: bl pna a/p: 64 m hx lung ca (in remission), htn, dm, dchf here with pna. pna: -cont abx -pulm, ID following elevated trop: -borderline trop elevation with flat trend, no ischemic ecg changes, not c/w acs -cont asa (had hx of elevated trops 07/2019 during covid admit) hld: -cont statin htn: -cont metoprolol chronic diastolic chf: -recent office echo 10/2019 was unremarkable -vol stable history of lung ca, PE: -heme/onc following, cont ac
--- NOTE | 2019-12-03 13:43 | DS ---
Physical Exam: SUBJECTIVE: Patient seen and examined. No acute complaints today. Pt. stable for D/c home pending O2 delivery to his house. OBJECTIVE: Vital Signs Period Temp Pulse Resp BP Sys/Small Pulse Ox Last 24 Hr 97.6 F-98.2 F 70-92 20-20 130-149/68-79 93-98 PHYSICAL EXAM GGENERAL: Awake, alert, and fully oriented, in mild acute distress 2/2 to dyspnea and anxiety. HEAD: Normal with no signs of trauma. EYES: Extraocular movements intact, sclera anicteric, conjunctiva clear. EARS, NOSE, THROAT: Ears normal, nares patent, oropharynx clear without exudates. Moist mucous membranes. NECK: Normal range of motion, supple without lymphadenopathy, JVD, or masses. LUNGS: Breath sounds equal, clear to auscultation bilaterally. No wheezes, and no crackles. No accessory muscle use. HEART: Regular rate and rhythm, normal S1 and S2 without murmur ABDOMEN: Soft, nontender, obese, not distended, normoactive bowel sounds, no guarding MUSCULOSKELETAL: Normal range of motion at all joints. Surgical scars from spine surgeries. No CVA tenderness. UPPER EXTREMITIES: 2+ radial pulses, warm, well-perfused. No cyanosis. No clubbing. LOWER EXTREMITIES: 2+ dorsal pedal pulses, warm, well-perfused. No calf tenderness. peripheral edema. NEUROLOGICAL: No focal deficits appreciated. Normal speech. Normal gait. PSYCHIATRIC: Cooperative. Good eye contact. Appropriate mood and affect. SKIN: Warm, dry, abdominal bruising form lovenox injections LABS Laboratory Results - last 24 hr 12/02/19 12/02/19 12/03/19 17:44 22:02 06:02 POC Glucometer 330 275 146 12/03/19 11:28 POC Glucometer 239 HOSPITAL COURSE: Date of Admission:11/28/19 Date of Discharge: 12/03/19 Pt. is a 64 y.o. M presenting for shortness of breath and scant hemoptysis. CT chest showed patchy bilateral consolidation, splenomegaly and mild mediastinal lymphadenopathy. HgB remained stable throughout hospital course. Pt. started on IV Ceftriaxone. Pt. also started on IV steroids and Duonebs PRN for COPD exacerbation. Pt. presented with elevated Troponins, EKG unchanged form prior, ACS ruled out. Pt. was seen by Infectious Disease, Cardiology, Pulmonology, Hematology/Oncology, Physical Therapy. Pt. determined to require O2 after destaturating to 80s with ambulation. Pt. discharged with home O2 and PO antibiotics as detailed below. Hospital course discussed and agreed with Pt. and medical staff. Minutes to complete discharge: 35 Discharge Summary Problems reviewed: Yes Reason For Visit: PNA Current Active Problems Acute respiratory failure with hypoxia and hypercarbia (Acute) Hemoptysis (Acute) History of 2019 novel coronavirus disease (COVID-19) (Acute) Lung cancer (Acute) Pleural effusion (Acute) Pneumonia (Acute) Condition: Fair - Instructions Diet, Activity, Other Instructions: You came in for shortness of breath and coughing up blood. We monitored your blood counts and they were stable. We imaged your chest and saw signs of pneumonia which we treated with IV antibiotics. We think you may also be having a COPD exacerbation and we treated you with steroids and nebulizer treatments. You tested negative for COVID during this hospital stay. Please take your medications as prescribed. We have started you on Augmentin, Please take one every 12 hours until the pills are finished. Start taking this medications tonight at 6pm-7pm. Please follow up with Dr. Mcgill within 1 week for ongoing management of your Lung CA Please follow up with your PCP, Dr. Olivier within 1 week If you are experiencing worsening shortness of breath, coughing up blood, fever, chills, chest pain or any concerning symptoms please return to the ED. Referrals: David Mcgill MD [Staff Physician] - 1 Week Vinod Olivier MD [Primary Care Provider] - 1 Week Disposition: HOME - Home Medications Comprehensive Discharge Medication List: Ambulatory Orders Diazepam [Valium] 10 mg PO Q6H PRN 06/02/18 Linagliptin [Tradjenta] 5 mg PO DAILY #20 tablet 07/27/18 Insulin Glargine,Hum.rec.anlog [Lantus] 20 unit SQ HS 08/13/19 Albuterol Sulfate [Albuterol Sulfate Hfa] 2 puff IH Q4H 08/22/19 Enoxaparin Sodium 1 syringe SQ BID 08/22/19 Metoprolol Succinate [Toprol XL -] 25 mg PO DAILY #30 tab.sr.24h 08/22/19 Oxycodone HCl 10 mg PO Q4H 08/22/19 Aspirin Coated [Ecotrin -] 81 mg PO DAILY 11/28/19 Atorvastatin Ca [Lipitor] 40 mg PO HS 11/28/19 Pantoprazole Sodium [Protonix] 40 mg PO DAILY 11/28/19 Amoxicillin/Potassium Clav [Augmentin 875-125 Tablet] 1 each PO BID #5 tablet 12/03/19 This patient is new to me today: No Emergency Visit: Yes ED Registration Date: 11/28/19 Care time: The patient presented to the Emergency Department on the above date and was hospitalized for further evaluation of their emergent condition. Critical Care patient: No - Discharge Referral Referred to [facility] Med P.C.: No ATTENDING PHYSICIAN STATEMENT I saw and evaluated the patient. I reviewed the resident's note and discussed the case with the resident. I agree with the resident's findings and plan as documented. SUBJECTIVE: OBJECTIVE: ASSESSMENT AND PLAN:
--- NOTE | 2019-12-03 14:02 | PN ---
Progress Note (short form) - Note Progress Note: Feels overall better. Minimal blood tinged sputum, dark. No acute events overnight. Intake & Output 11/30/19 12/01/19 12/02/19 12/03/19 23:59 23:59 23:59 23:59 Intake Total 700 120 220 650 Balance 700 120 220 650 Weight 305 lb Last Vital Signs Temp Pulse Resp BP Pulse Ox 98.2 F 92 H 20 130/68 95 12/03/19 09:00 12/03/19 09:00 12/03/19 09:00 12/03/19 09:00 12/03/19 09:00 Active Medications Albuterol/Ipratropium (Duoneb -) 1 amp NEB RTID [facility] Last Admin: 12/03/19 07:30 Dose: 1 amp Documented by: Aspirin (Ecotrin -) 81 mg PO DAILY [facility] Last Admin: 12/03/19 09:03 Dose: 81 mg Documented by: Atorvastatin Calcium (Lipitor -) 40 mg PO HS [facility] Last Admin: 12/02/19 22:36 Dose: 40 mg Documented by: Enoxaparin Sodium (Lovenox -) 120 mg SQ BID [facility] Last Admin: 12/03/19 09:05 Dose: 120 mg Documented by: Ceftriaxone Sodium 2 gm/ (Dextrose) 100 mls @ 200 mls/hr IVPB DAILY [facility]; Protocol Last Admin: 12/03/19 09:02 Dose: 200 mls/hr Documented by: Insulin Aspart (Novolog Vial Sliding Scale -) 1 vial SQ ACHS [facility]; Protocol Last Admin: 12/03/19 11:39 Dose: 4 units Documented by: Insulin Detemir (Levemir Vial) 15 units SQ BID@0700,2200 [facility] Last Admin: 12/03/19 06:36 Dose: 15 units Documented by: Metoprolol Succinate (Toprol Xl -) 25 mg PO DAILY [facility] Last Admin: 12/03/19 09:03 Dose: 25 mg Documented by: Oxycodone HCl (Roxicodone -) 10 mg PO Q4H PRN PRN Reason: PAIN LEVEL 6-10 Last Admin: 12/03/19 09:03 Dose: 10 mg Documented by: Pantoprazole Sodium (Protonix -) 40 mg PO DAILY [facility] Last Admin: 12/03/19 09:03 Dose: 40 mg Documented by: Constitutional: Yes: Well Nourished, Calm Eyes: Yes: WNL HENT: Yes: WNL Neck: Yes: WNL Cardiovascular: Yes: Regular Rate and Rhythm, S1, S2 Respiratory: Yes: Diminished Gastrointestinal: Yes: Normal Bowel Sounds, Soft Extremities: Yes: WNL Edema: Yes Labs: Laboratory Results - last 24 hr 12/02/19 12/02/19 12/03/19 17:44 22:02 06:02 POC Glucometer 330 275 146 12/03/19 11:28 POC Glucometer 239 Problem List - Problems (1) Hemoptysis Code(s): R04.2 - HEMOPTYSIS (2) Pneumonia Code(s): J18.9 - PNEUMONIA, UNSPECIFIED ORGANISM Qualifiers: Pneumonia type: due to unspecified organism Laterality: bilateral Lung location: unspecified part of lung Qualified Code(s): J18.9 - Pneumonia, unspecified organism (3) Acute hypoxemic respiratory failure Code(s): J96.01 - ACUTE RESPIRATORY FAILURE WITH HYPOXIA (4) Adenocarcinoma Code(s): C80.1 - MALIGNANT (PRIMARY) NEOPLASM, UNSPECIFIED (5) Carcinoma, lung Code(s): C34.90 - MALIGNANT NEOPLASM OF UNSP PART OF UNSP BRONCHUS OR LUNG (6) Diabetes Code(s): E11.9 - TYPE 2 DIABETES MELLITUS WITHOUT COMPLICATIONS (7) Elevated troponin I level Code(s): R79.89 - OTHER SPECIFIED ABNORMAL FINDINGS OF BLOOD CHEMISTRY (8) Hypoxia Code(s): R09.02 - HYPOXEMIA (9) Acute respiratory failure with hypoxia and hypercarbia Code(s): J96.01 - ACUTE RESPIRATORY FAILURE WITH HYPOXIA; J96.02 - ACUTE RESP IRATORY FAILURE WITH HYPERCAPNIA Assessment/Plan IMP ACUTE HYPOXEMIC/HYPERCAPNEIC RESPIRATORY FAILURE BILATERAL PNEUMONIA HEMOPTYSIS IMPROVING METASTATIC LUNG CA H/O COVID 08/05 HTN HLD + TROPONIN PLAN CHECK PRE AND POST O2 SATURATION INHALED BRONCHODILATORS ABX PER ID MONITOR OFF STEROIDS DC PLANNING Dr Siegel
--- NOTE | 2019-12-03 14:19 | PN ---
Progress Note (short form) - Note Progress Note: feels improved ambulating in his room without difficulty Vital Signs Period Temp Pulse Resp BP Sys/Small Pulse Ox Last 24 Hr 97.6 F-98.2 F 70-92 20-20 130-149/68-77 93-96 cor-rrr lungs decreased bs at bases abd soft,nt ext no edema CBC, BMP 12/02/19 06:30 12/02/19 06:30 Microbiology 11/28/19 10:45 Blood - Peripheral Venous Blood Culture - Final NO GROWTH AFTER 5 DAYS INCUBATION 11/28/19 10:30 Blood - Peripheral Venous Blood Culture - Final NO GROWTH AFTER 5 DAYS INCUBATION 11/29/19 11:10 Sputum - Expectorated Gram Stain - Final 11/29/19 11:10 Sputum - Expectorated Sputum Culture - Final NORMAL RESPIRATORY KARTHIK 11/29/19 20:40 Urine For Antigen Detection Legionella Antigen - Final 11/29/19 20:40 Urine For Antigen Detection Streptococcus pneumoniae Antigen (M - Final a/p pneumonia- agree with switch to po augmentin, he will need f/u imaging as outpt hemoptysis resolved PE on lovenox Lung cancer-f/u oncology DM Problem List - Problems (1) Pneumonia Code(s): J18.9 - PNEUMONIA, UNSPECIFIED ORGANISM Qualifiers: Pneumonia type: due to unspecified organism Laterality: bilateral Lung location: unspecified part of lung Qualified Code(s): J18.9 - Pneumonia, unspecified organism (2) Hemoptysis Code(s): R04.2 - HEMOPTYSIS (3) Lung cancer Code(s): C34.90 - MALIGNANT NEOPLASM OF UNSP PART OF UNSP BRONCHUS OR LUNG (4) Pulmonary embolism Code(s): I26.99 - OTHER PULMONARY EMBOLISM WITHOUT ACUTE COR PULMONALE (5) History of 2019 novel coronavirus disease (COVID-19) Code(s): Z86.19 - PERSONAL HISTORY OF OTHER INFECTIOUS AND PARASITIC DISEASES
[2019-12-03] MEDS ORDERED: diazePAM 5 MG TABLET PO PRN (16:57)
--- NOTE | 2019-12-03 17:50 | PN ---
Teaching Attending Note Name of Resident: Mandie Villalobos ATTENDING PHYSICIAN STATEMENT I saw and evaluated the patient. I reviewed the resident's note and discussed the case with the resident. I agree with the resident's findings and plan as documented. ASSESSMENT AND PLAN: Patient is a morbidly obese 64-year-old male, with history of metastatic adeno CA of lung,s/p carbo/alimta status post COVID in July 2019, presents with hemoptysis and difficulty breathing for the past 7 to 10 days, in association with productive purulent sputum. Lung ca-- stage IV -- had a great response to carbo/alimta and was on alimta mintenance --past 01/04 CT chest PAtchy b/l infiltrates -- RUL, LLL. 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 Mcgill ftmarce acute issues resolve to resume systemic therapy
--- NOTE | 2019-12-03 19:56 | PN ---
Teaching Attending Note Name of Resident: Vinod Hernandez ATTENDING PHYSICIAN STATEMENT I saw and evaluated the patient. I reviewed the resident's note and discussed the case with the resident. I agree with the resident's findings and plan as documented. SUBJECTIVE: Patient seen and examined at bedside, no fevers/changes in status overnight, transition to PO Augmentin and DC in AM when home oxygen arrives. VSS. OBJECTIVE: GA obese, AAox3, speaking in full sentences, NAD HEENT NC/aT, EOMI, neck supple, no palpable lymphadenopathy, no oral thrush Chest CTAB, no crackles or wheezing, no hemoptysis appreciated, no coughing CVS s1, S2+, RRR Abd obese, Soft, NT, ND, BS+ Ext No LE edema, no calf tenderness Vital Signs - 24 hr 12/02/19 12/03/19 12/03/19 20:16 02:00 06:39 Temperature 97.6 F 97.9 F Pulse Rate 70 72 Respiratory 20 20 20 Rate Blood Pressure 133/71 140/77 O2 Sat by Pulse 96 93 L 95 Oximetry (%) 12/03/19 12/03/19 12/03/19 09:00 14:16 14:50 Temperature 98.2 F 98.1 F Pulse Rate 92 H 80 108 H Respiratory 20 19 Rate Blood Pressure 130/68 110/60 O2 Sat by Pulse 94 L 98 91 L Oximetry (%) 12/03/19 18:33 Temperature 98.2 F Pulse Rate 80 Respiratory 20 Rate Blood Pressure 147/85 O2 Sat by Pulse 94 L Oximetry (%) Microbiology 11/28/19 10:45 Blood - Peripheral Venous Blood Culture - Final NO GROWTH AFTER 5 DAYS INCUBATION 11/28/19 10:30 Blood - Peripheral Venous Blood Culture - Final NO GROWTH AFTER 5 DAYS INCUBATION 11/29/19 11:10 Sputum - Expectorated Gram Stain - Final 11/29/19 11:10 Sputum - Expectorated Sputum Culture - Final NORMAL RESPIRATORY KARTHIK 11/29/19 20:40 Urine For Antigen Detection Legionella Antigen - Final 11/29/19 20:40 Urine For Antigen Detection Streptococcus pneumoniae Antigen (M - Final Laboratory Results - last 24 hr 12/02/19 12/03/19 12/03/19 22:02 06:02 11:28 POC Glucometer 275 146 239 12/03/19 16:29 POC Glucometer 223 Home Medications Medication Instructions Recorded Diazepam [Valium] 10 mg PO Q6H PRN 06/02/18 Linagliptin [Tradjenta] 5 mg PO DAILY #20 tablet 07/27/18 Insulin Glargine,Hum.rec.anlog 20 unit SQ HS 08/13/19 [Lantus] Albuterol Sulfate [Albuterol 2 puff IH Q4H 08/22/19 Sulfate Hfa] Enoxaparin Sodium 1 syringe SQ BID 08/22/19 Metoprolol Succinate [Toprol XL -] 25 mg PO DAILY #30 tab.sr.24h 08/22/19 Oxycodone HCl 10 mg PO Q4H 08/22/19 Aspirin Coated [Ecotrin -] 81 mg PO DAILY 11/28/19 Atorvastatin Ca [Lipitor] 40 mg PO HS 11/28/19 Pantoprazole Sodium [Protonix] 40 mg PO DAILY 11/28/19 Amoxicillin/Potassium Clav 1 each PO BID #5 tablet 12/03/19 [Augmentin 875-125 Tablet] Current Medications Generic Name Dose Route Start Last Admin Trade Name Freq PRN Reason Stop Dose Admin Albuterol/Ipratropium 1 amp 11/28/19 20:00 12/03/19 14:09 Duoneb - NEB 1 amp RTID [facility] Administration Aspirin 81 mg 11/29/19 10:00 12/03/19 09:03 Ecotrin - PO 81 mg DAILY [facility] Administration Atorvastatin Calcium 40 mg 11/28/19 22:00 12/02/19 22:36 Lipitor - PO 40 mg HS [facility] Administration Diazepam 10 mg 12/03/19 16:57 Valium - PO 12/06/19 16:57 Q6H PRN ANXIETY Enoxaparin Sodium 120 mg 11/28/19 22:00 12/03/19 09:05 Lovenox - SQ 120 mg BID [facility] Administration Ceftriaxone Sodium 2 gm/ 100 mls @ 200 mls/hr 11/30/19 14:45 12/03/19 09:02 Dextrose IVPB 200 mls/hr DAILY [facility] Administration Protocol Insulin Aspart 1 vial 11/28/19 22:00 12/03/19 16:57 Novolog Vial Sliding Scale - SQ 4 units ACHS [facility] Administration Protocol Insulin Detemir 15 units 12/02/19 22:00 12/03/19 06:36 Levemir Vial SQ 15 units BID@0700,2200 [facility] Administration Metoprolol Succinate 25 mg 11/29/19 10:00 12/03/19 09:03 Toprol Xl - PO 25 mg DAILY [facility] Administration Oxycodone HCl 10 mg 12/01/19 17:35 12/03/19 16:58 Roxicodone - PO 10 mg Q4H PRN Administration PAIN LEVEL 6-10 Pantoprazole Sodium 40 mg 11/29/19 10:00 12/03/19 09:03 Protonix - PO 40 mg DAILY [facility] Administration ASSESSMENT AND PLAN: 64 M Adenocarcinoma of lung, s/p RT/chemo Streak hemoptysis h/o PE on therapeutic Lovenox CAP Troponemia HTN HLD Obesity Former smoker COPD with acute exacerbation Anxiety disorder Plan: Cont. therapeutic Lovenox w/ monitoring of CBC Monitor O2 levels, supplement O2 PRN to keep >92% Obtain pre-post on RA for O2 necessity Cont. BP meds Transition to PO Augmentin to complete 7 days for CAP DC home with home O2 (awaiting delivery/setup) Pulmonary following Heme Onc following Cardiology following DVT ppx: Lovenox SC
[2019-12-03] MEDS: ATORVASTATIN CA 40 MG TABLET (FP) PO SCH (22:27)
[2019-12-04] MEDS ORDERED: INSULIN (NOVOLOG) ASPART 100 UNITS/ML 10ML VIAL ONE (06:06)
[2019-12-04] MEDS: INSULIN (LEVEMIR) 100 UNITS/ML UNITS SQ SCH (06:11)
[2019-12-04] MEDS: INSULIN SLIDING SCALE (NOVOLOG) 1 VIAL SQ SCH ×2 (06:12→11:15)
[2019-12-04] MEDS ORDERED: DEXTROSE 5%-WATER 100 ML IVPB ONE (09:29)
[2019-12-04] MEDS ORDERED: PT OWN MED DRAWER 7, Y5N ONE ×2 (09:29→10:44)
[2019-12-04] MEDS: ASPIRIN COATED 81 MG TABLET.EC PO SCH (09:32)
[2019-12-04] MEDS: PANTOPRAZOLE 40 MG TABLET PO SCH (09:32)
[2019-12-04] MEDS: metoPROLOL SUCCINATE 25 MG TAB.SR.24H (FP) PO SCH (09:32)
[2019-12-04] MEDS: CEFTRIAXONE 2 GM in DEXTROSE 5%-WATER 100 ML IVPB SCH (09:33)
[2019-12-04] MEDS: oxyCODONE HCL 5 MG TABLET PO PRN (10:22)
[2019-12-04] MEDS: ENOXAPARIN NA (PORCINE) 120 MG/0.8 ML DISP.SYRIN SQ SCH (10:24)
[2019-12-04 10:52] VITALS: BP 124/65; PULSE 87; TEMP 98.5
[2019-12-04] MEDS ORDERED: AMOX TR/POT CLAV 875MG/125MG TABLETS (FP) PO SCH (11:06)
--- NOTE | 2019-12-04 13:30 | PN ---
Progress Note (short form) - Note Progress Note: Feels overall better. Qualified for home O2: desaturation to 897%. No hemoptysis. No acute events overnight. Intake & Output 12/01/19 12/02/19 12/03/19 12/04/19 23:59 23:59 23:59 23:59 Intake Total 068 283 2475 600 Balance 089 783 0142 600 Weight 305 lb Last Vital Signs Temp Pulse Resp BP Pulse Ox 98.5 F 87 20 124/65 92 L 12/04/19 08:35 12/04/19 08:35 12/04/19 08:35 12/04/19 08:35 12/04/19 09:00 Active Medications Amoxicillin/Clavulanate Potassium (Augmentin - 875mg Tablet) 1 tab PO BID@0800,1730 [facility] Last Admin: 12/04/19 11:12 Dose: 1 tab Documented by: Aspirin (Ecotrin -) 81 mg PO DAILY [facility] Last Admin: 12/04/19 09:32 Dose: 81 mg Documented by: Atorvastatin Calcium (Lipitor -) 40 mg PO HS [facility] Last Admin: 12/03/19 22:27 Dose: 40 mg Documented by: Diazepam (Valium -) 10 mg PO Q6H PRN PRN Reason: ANXIETY Stop: 12/06/19 16:57 Last Admin: 12/03/19 22:30 Dose: 10 mg Documented by: Enoxaparin Sodium (Lovenox -) 120 mg SQ BID [facility] Last Admin: 12/04/19 10:24 Dose: 120 mg Documented by: Insulin Aspart (Novolog Vial Sliding Scale -) 1 vial SQ [facility]; Protocol Last Admin: 12/04/19 11:15 Dose: Not Given Documented by: Insulin Detemir (Levemir Vial) 15 units SQ BID@0700,2200 [facility] Last Admin: 12/04/19 06:11 Dose: 15 units Documented by: Metoprolol Succinate (Toprol Xl -) 25 mg PO DAILY [facility] Last Admin: 12/04/19 09:32 Dose: 25 mg Documented by: Oxycodone HCl (Roxicodone -) 10 mg PO Q4H PRN PRN Reason: PAIN LEVEL 6-10 Last Admin: 12/04/19 10:22 Dose: 10 mg Documented by: Pantoprazole Sodium (Protonix -) 40 mg PO DAILY [facility] Last Admin: 12/04/19 09:32 Dose: 40 mg Documented by: Constitutional: Yes: Well Nourished, Calm Eyes: Yes: WNL HENT: Yes: WNL Neck: Yes: WNL Cardiovascular: Yes: Regular Rate and Rhythm, S1, S2 Respiratory: Yes: Diminished Gastrointestinal: Yes: Normal Bowel Sounds, Soft Extremities: Yes: WNL Edema: Yes Labs: Laboratory Results - last 24 hr 12/03/19 12/03/19 12/04/19 16:29 22:23 05:53 POC Glucometer 223 269 167 12/04/19 11:14 POC Glucometer 150 Problem List - Problems (1) Hemoptysis Code(s): R04.2 - HEMOPTYSIS (2) Pneumonia Code(s): J18.9 - PNEUMONIA, UNSPECIFIED ORGANISM Qualifiers: Pneumonia type: due to unspecified organism Laterality: bilateral Lung location: unspecified part of lung Qualified Code(s): J18.9 - Pneumonia, unspecified organism (3) Acute hypoxemic respiratory failure Code(s): J96.01 - ACUTE RESPIRATORY FAILURE WITH HYPOXIA (4) Adenocarcinoma Code(s): C80.1 - MALIGNANT (PRIMARY) NEOPLASM, UNSPECIFIED (5) Carcinoma, lung Code(s): C34.90 - MALIGNANT NEOPLASM OF UNSP PART OF UNSP BRONCHUS OR LUNG (6) Diabetes Code(s): E11.9 - TYPE 2 DIABETES MELLITUS WITHOUT COMPLICATIONS (7) Elevated troponin I level Code(s): R79.89 - OTHER SPECIFIED ABNORMAL FINDINGS OF BLOOD CHEMISTRY (8) Hypoxia Code(s): R09.02 - HYPOXEMIA (9) Acute respiratory failure with hypoxia and hypercarbia Code(s): J96.01 - ACUTE RESPIRATORY FAILURE WITH HYPOXIA; J96.02 - ACUTE RESPIRATORY FAILURE WITH HYPERCAPNIA Assessment/Plan IMP ACUTE HYPOXEMIC/HYPERCAPNEIC RESPIRATORY FAILURE BILATERAL PNEUMONIA HEMOPTYSIS IMPROVING METASTATIC LUNG CA H/O COVID 08/05 HTN HLD + TROPONIN PLAN PATIENT HAS QUALIFIED FOR SUPPLEMENTAL HOME O2 : BEING ARRANGED INHALED BRONCHODILATORS ABX PER ID MONITOR OFF STEROIDS DC PLANNING Dr Siegel
--- NOTE | 2019-12-04 14:04 | PN ---
Progress Note (short form) - Note Progress Note: cc: sob s: no cp palps dizzy sob Current Medications Generic Name Dose Route Start Last Admin Trade Name Freq PRN Reason Stop Dose Admin Amoxicillin/Clavulanate Potassium 1 tab 12/04/19 11:06 12/04/19 11:12 Augmentin - 875mg Tablet PO 1 tab BID@0800,1730 [facility] Administration Aspirin 81 mg 11/29/19 10:00 12/04/19 09:32 Ecotrin - PO 81 mg DAILY [facility] Administration Atorvastatin Calcium 40 mg 11/28/19 22:00 12/03/19 22:27 Lipitor - PO 40 mg HS [facility] Administration Diazepam 10 mg 12/03/19 16:57 12/03/19 22:30 Valium - PO 12/06/19 16:57 10 mg Q6H PRN Administration ANXIETY Enoxaparin Sodium 120 mg 11/28/19 22:00 12/04/19 10:24 Lovenox - SQ 120 mg BID [facility] Administration Insulin Aspart 1 vial 11/28/19 22:00 12/04/19 11:15 Novolog Vial Sliding Scale - SQ Not Given ACHS [facility] Protocol Insulin Detemir 15 units 12/02/19 22:00 12/04/19 06:11 Levemir Vial SQ 15 units BID@0700,2200 [facility] Administration Metoprolol Succinate 25 mg 11/29/19 10:00 12/04/19 09:32 Toprol Xl - PO 25 mg DAILY [facility] Administration Oxycodone HCl 10 mg 12/01/19 17:35 12/04/19 10:22 Roxicodone - PO 10 mg Q4H PRN Administration PAIN LEVEL 6-10 Pantoprazole Sodium 40 mg 11/29/19 10:00 12/04/19 09:32 Protonix - PO 40 mg DAILY [facility] Administration Vital Signs Period Temp Pulse Resp BP Sys/Small Pulse Ox Last 24 Hr 97.8 F-98.5 F 76-108 19-20 110-147/60-85 91-98 nad no jvd rrr s1s2 no mrg cta bl nl eff aao3 no le e/c/c abd nt nd pos bs no jaundice diaphoresis Echo 07/2019 low normal left ventricular systolic function and ejection fraction, estimated LVEF of between 50-55%, impaired left ventricular relaxation, elevated filling pressures, mild mitral valve regurgitation echo 10/2019: nl lv/rv, no sig valve path ecg: unremarkable ct chest: bl pna a/p: 64 m hx lung ca (in remission), htn, dm, dchf here with pna. pna: -on abx -pulm, ID following elevated trop: -borderline trop elevation with flat trend, no ischemic ecg changes, not c/w acs -cont asa (had hx of elevated trops 07/2019 during covid admit) hld: -cont statin htn: -cont metoprolol chronic diastolic chf: -recent office echo 10/2019 was unremarkable -vol stable history of lung ca, PE: -heme/onc following, cont ac
--- NOTE | 2019-12-04 14:13 | PN ---
Teaching Attending Note Name of Resident: Vinod Hernandez ATTENDING PHYSICIAN STATEMENT I saw and evaluated the patient. I reviewed the resident's note and discussed the case with the resident. I agree with the resident's findings and plan as documented. SUBJECTIVE: pt seen and examined at bedside, waiting to leave OBJECTIVE: Last Vital Signs Temp Pulse Resp BP Pulse Ox 98.5 F 87 20 124/65 92 L 12/04/19 08:35 12/04/19 08:35 12/04/19 08:35 12/04/19 08:35 12/04/19 09:00 GENERAL: Awake, alert, and fully oriented, in no acute distress. HEENT: NC/AT, not p/c/j, neck supple, surgical cervical spine scar LUNGS: Breath sounds equal, clear to auscultation bilaterally. No wheezes, and no crackles. No accessory muscle use. HEART: Regular rate and rhythm, normal S1 and S2 ABDOMEN: Soft, nontender, not distended MUSCULOSKELETAL: Normal range of motion at all joints. No bony deformities or tenderness. No CVA tenderness. UPPER EXTREMITIES: 2+ pulses, warm, well-perfused. No cyanosis. No clubbing. No peripheral edema. LOWER EXTREMITIES: 2+ pulses, warm, well-perfused. No calf tenderness. No peripheral edema. NEUROLOGICAL: Cranial nerves II-XII intact. Normal speech. CBCD WBC 8.6 K/mm3 (4.0-10.0) 12/02/19 06:30 RBC 5.38 M/mm3 (4.00-5.60) 12/02/19 06:30 Hgb 15.3 GM/dL (11.7-16.9) 12/02/19 06:30 Hct 47.1 % (35.4-49) 12/02/19 06:30 MCV 87.6 fl (80-96) 12/02/19 06:30 MCHC 32.5 g/dl (32.0-35.9) 12/02/19 06:30 RDW 14.4 % (11.9-15.9) 12/02/19 06:30 Plt Count 147 K/MM3 (134-434) 12/02/19 06:30 MPV 8.8 fl (7.5-11.1) 12/02/19 06:30 CMP Sodium 139 mmol/L (136-145) 12/02/19 06:30 Potassium 4.4 mmol/L (3.5-5.1) 12/02/19 06:30 Chloride 101 mmol/L (98-107) 12/02/19 06:30 Carbon Dioxide 30 mmol/L (21-32) 12/02/19 06:30 Anion Gap 8 MMOL/L (8-16) 12/02/19 06:30 BUN 22.3 mg/dL (7-18) H 12/02/19 06:30 Creatinine 1.3 mg/dL (0.55-1.3) 12/02/19 06:30 Calcium 8.6 mg/dL (8.5-10.1) 12/02/19 06:30 Total Bilirubin 0.4 mg/dL (0.2-1) 12/02/19 06:30 AST 6 U/L (15-37) L 12/02/19 06:30 ALT 22 U/L (13-61) 12/02/19 06:30 Alkaline Phosphatase 81 U/L (45-117) 12/02/19 06:30 Total Protein 6.5 g/dl (6.4-8.2) 12/02/19 06:30 Albumin 3.0 g/dl (3.4-5.0) L 12/02/19 06:30 Active Medications Amoxicillin/Clavulanate Potassium (Augmentin - 875mg Tablet) 1 tab PO BID@0800,1730 [facility] Last Admin: 12/04/19 11:12 Dose: 1 tab Documented by: Aspirin (Ecotrin -) 81 mg PO DAILY [facility] Last Admin: 12/04/19 09:32 Dose: 81 mg Documented by: Atorvastatin Calcium (Lipitor -) 40 mg PO HS [facility] Last Admin: 12/03/19 22:27 Dose: 40 mg Documented by: Diazepam (Valium -) 10 mg PO Q6H PRN PRN Reason: ANXIETY Stop: 12/06/19 16:57 Last Admin: 12/03/19 22:30 Dose: 10 mg Documented by: Enoxaparin Sodium (Lovenox -) 120 mg SQ BID [facility] Last Admin: 12/04/19 10:24 Dose: 120 mg Documented by: Insulin Aspart (Novolog Vial Sliding Scale -) 1 vial SQ [facility]; Protocol Last Admin: 08/18/20 11:15 Dose: Not Given Documented by: Insulin Detemir (Levemir Vial) 15 units SQ BID@0700,2200 [facility] Last Admin: 12/04/19 06:11 Dose: 15 units Documented by: Metoprolol Succinate (Toprol Xl -) 25 mg PO DAILY [facility] Last Admin: 12/04/19 09:32 Dose: 25 mg Documented by: Oxycodone HCl (Roxicodone -) 10 mg PO Q4H PRN PRN Reason: PAIN LEVEL 6-10 Last Admin: 12/04/19 10:22 Dose: 10 mg Documented by: Pantoprazole Sodium (Protonix -) 40 mg PO DAILY [facility] Last Admin: 12/04/19 09:32 Dose: 40 mg Documented by: ASSESSMENT AND PLAN: 64 y.o. M w/ PMHx. of Stage 4 lung adenocarcinoma (s/p chemotherapy with Alimta 04/05 with ), PE (on therapeutic lovenox), Hx. of COVID (08/05), CKD stage 3, DM2 and HTN presents to the ED with progressive SOB and hemoptysis of 1 week duration. #Acute hypoxic respiratory failure due to CAP (resolved) Adenocarcinoma of lung, s/p RT/chemo now on Augmentin PO for 7 days total afebrile, non tachypneic, sat 92 with NC Qualified for home O2 will need to f/u with HemOnc, PCP after discharge Pulmonary following Heme Onc following Cardiology following h/o PE on therapeutic Lovenox HTN HLD Obesity Former smoker COPD with acute exacerbation Anxiety disorder DVT ppx: Lovenox SC discharge planning
== END 2019-12-04 14:25 | disposition home or self-care (01) | DRG 193 ==
LOC: JER 10:11 → JERBED 14:40 → J7W 15:43
PROVIDERS: ATTEND Student in an Organized Health Care Education/Training Program
DX: J18.9 Pneumonia, unspecified organism (principal); J96.01 Acute respiratory failure with hypoxia; J96.02 Acute respiratory failure with hypercapnia; C34.90 Malignant neoplasm of unspecified part of unspecified bronchus or lung; R04.2 Hemoptysis; I13.0 Hypertensive heart and chronic kidney disease with heart failure and stage 1 through stage 4 chronic kidney disease, or unspecified chronic kidney disease; I50.32 Chronic diastolic (congestive) heart failure; N17.9 Acute kidney failure, unspecified; Z68.41 Body mass index [BMI] 40.0-44.9, adult; I24.8 Other forms of acute ischemic heart disease; J44.1 Chronic obstructive pulmonary disease with (acute) exacerbation; N18.3 Chronic kidney disease, stage 3 (moderate); E11.22 Type 2 diabetes mellitus with diabetic chronic kidney disease; E66.01 Morbid (severe) obesity due to excess calories; E78.5 Hyperlipidemia, unspecified; F41.9 Anxiety disorder, unspecified
CPT/HCPCS: 36415; 36600; 71045-TC-FY; 71250-TC; 80048; 80053; 81003; 82550; 82803; 82962; 83605; 83615; 83735; 83880; 84100; 84484; 85025; 85027; 85651; 85730; 86140; 86850; 86900; 86901; 87040; 87070; 87205; 87899; 93005; 93010; 93971; 94640; 94761; 97116-GP; 97161-GP; 99285-25; U0003

== ENCOUNTER 2020-02-20 07:47 | Inpatient (IN) | payer OTHER ==
[2020-02-20 07:56] VITALS: BMI 41.8
[2020-02-20] MEDS ORDERED: ALBUTEROL SO4 2.5/IPRATROPIUM 0.5 INH SOL 3 ML VIAL.NEB. NEB ONE ×2 (08:04→08:07)
[2020-02-20] MEDS ORDERED: methylPREDNISolone NA SUCC 125 MG/2 ML VIAL IVPB ONE (08:08)
[2020-02-20] MEDS ORDERED: methylPREDNISolone NA SUCC 125 MG/2 ML VIAL ONE (08:37)
[2020-02-20] MEDS ORDERED: FUROSEMIDE 40 MG/4 ML INJECTABLE VIAL IVPUSH ONE (08:55)
[2020-02-20] MEDS ORDERED: FUROSEMIDE 40 MG/4 ML INJECTABLE VIAL ONE (08:56)
[2020-02-20 08:59] LABS: BASO % 0.4 % (0-2.0); EOS % 0.7 % (0-4.5); HEMATOCRIT 45.8 % (35.4-49); HEMOGLOBIN 14.6 GM/dL (11.7-16.9); LYMPH % 8.4 % (8-40); MCH 27.5 pg (25.7-33.7); MCHC 31.8 g/dl (32.0-35.9); MEAN CELL VOLUME 86.4 fl (80-96); MEAN PLT VOLUME 7.9 fl (7.5-11.1); MONO % 5.5 % (3.8-10.2); PLATELET COUNT 116 K/MM3 (134-434); WHITE BLOOD COUNT 8.6 K/mm3 (4.0-10.0)
[2020-02-20] MEDS ORDERED: PIPERACILLIN/TAZOB 4.5 GM 4.5 GM in DEXTROSE 5%-WATER 100 ML IVPB ONE (08:59)
[2020-02-20 09:04] LABS: INR 0.99 (0.83-1.09)
[2020-02-20 09:06] LABS: ACTIVATED PTT 70.8 SECONDS (25.2-36.5)
[2020-02-20] MEDS ORDERED: PIPERACILLIN/TAZOB 4.5 GM 4.5 GM/100 ML BAG IVPB ONE ×2 (09:06→17:44)
[2020-02-20 09:56] LABS: EPI CELLS 9 /uL (0-25.1); HYALINE CASTS 1 /uL (0-3.1); URINE APPEARANCE CLEAR; URINE BACTERIA 5 /uL (0-1359); URINE BILIRUBIN NEGATIVE (NEGATIVE); URINE COLOR YELLOW; URINE GLUCOSE (UA) 2+ (NEGATIVE); URINE KETONE 1+ (NEGATIVE); URINE LEUK ESTERASE NEGATIVE (NEGATIVE); URINE NITRITE NEGATIVE (NEGATIVE); URINE PROTEIN 1+ (NEGATIVE); URINE RBC 2 /uL (0-23.9); URINE UROBILINOGEN 0.2 mg/dL (0.2-1.0); URINE WBC 2 /uL (0-25.8)
[2020-02-20 10:44] LABS: ALBUMIN 2.5 g/dl (3.4-5.0); BILIRUBIN,TOTAL 0.6 mg/dL (0.2-1); BLOOD UREA NITROGEN 14.7 mg/dL (7-18); CALCIUM 8.5 mg/dL (8.5-10.1); CREATININE 1.1 mg/dL (0.55-1.3); POTASSIUM 4.1 mmol/L (3.5-5.1); TOT PROT 5.5 g/dl (6.4-8.2)
[2020-02-20] MEDS ORDERED: INSULIN REGULAR HUMAN 100 UNITS/ML *VIAL SQ ONE (11:13)
[2020-02-20] MEDS ORDERED: VANCOMYCIN 1 GM in D5W (PRE-DOCKED) 1,000 MG/250 ML IVPB ONE (11:27)
[2020-02-20] MEDS ORDERED: VANCOMYCIN 1 GRAM (PRE-DOCKED) 1,000 MG/250 ML BAG IVPB ONE (11:36)
[2020-02-20 11:55] LABS: VENOUS BASE EXCESS 1.2 mmol/L (-2-2); VENOUS O2 SATURATION 97.4 % (70-80); VENOUS PCO2 56.6 mmHg (38-52); VENOUS PH 7.322 (7.310-7.410)
[2020-02-20 12:19] LABS: N-TERMINAL BNP 93.5 pg/ml (5-125)
[2020-02-20] MEDS ORDERED: oxyCODONE HCL 10 MG SUSTAINED ACTING TABLET PO ONE (12:39)
[2020-02-20] MEDS ORDERED: oxyCODONE HCL 10 MG SUSTAINED ACTING TABLET ONE (13:05)
[2020-02-20] MEDS ORDERED: ALBUTEROL SO4 HFA INHALER IH PRN (14:04)
[2020-02-20] MEDS ORDERED: ACETAMINOPHEN 500 MG TABLET (FP) PO ONE (14:11)
[2020-02-20] MEDS ORDERED: ACETAMINOPHEN 325 MG TABLET (FP) ONE (14:58)
[2020-02-20] MEDS ORDERED: INSULIN (LEVEMIR) 100 UNITS/ML UNITS SQ ONE ×2 (16:49→16:52)
[2020-02-20] MEDS: INSULIN SLIDING SCALE (NOVOLOG) 1 VIAL SQ SCH ×2 (16:53→22:20)
[2020-02-20] MEDS ORDERED: methylPREDNISolone NA SUCC 40 MG/1 ML VIAL ONE (17:44)
[2020-02-20 17:46] LABS: ALLENS TEST POSITIVE; ARTERIAL BLD GAS O2 SATURATION 93.2 mmHg (95-98); ARTERIAL BLOOD GAS BASE EXCESS -0.8 mmol/L (-2-2); ARTERIAL BLOOD GAS PO2 73.3 mmHg (80-100); ARTERIAL BLOOD GAS pH 7.309 (7.350-7.450)
[2020-02-20 17:47] LABS: PT'S TEMP 98.6
[2020-02-20] MEDS: PIPERACILLIN/TAZOB 4.5 GM 4.5 GM in DEXTROSE 5%-WATER 100 ML IVPB SCH (17:56)
[2020-02-20] MEDS: methylPREDNISolone NA SUCC 40 MG/1 ML VIAL IVPUSH SCH (17:56)
[2020-02-20] MEDS ORDERED: ENOXAPARIN NA (PORCINE) 60 MG/0.6 ML DISP.SYRIN SQ ONE (22:10)
[2020-02-20] MEDS: ENOXAPARIN NA (PORCINE) 120 MG/0.8 ML DISP.SYRIN SQ SCH (22:15)
[2020-02-20] MEDS ORDERED: oxyCODONE HCL 5 MG TABLET ONE (22:22)
[2020-02-20] MEDS: oxyCODONE HCL 5 MG TABLET PO PRN (22:24)
[2020-02-21] MEDS ORDERED: MELATONIN 5 MG TABLETS PO ONE (00:34)
[2020-02-21] MEDS ORDERED: PIPERACILLIN/TAZOBACTAM 4.5 GM VIAL IVPB ONE ×4 (02:08→17:16)
[2020-02-21] MEDS ORDERED: DEXTROSE 5%-WATER 100 ML IVPB ONE ×3 (02:08→17:16)
[2020-02-21] MEDS: methylPREDNISolone NA SUCC 40 MG/1 ML VIAL IVPUSH SCH ×4 (02:28→21:04)
[2020-02-21] MEDS: PIPERACILLIN/TAZOB 4.5 GM 4.5 GM in DEXTROSE 5%-WATER 100 ML IVPB SCH ×3 (02:29→17:17)
[2020-02-21] MEDS: INSULIN SLIDING SCALE (NOVOLOG) 1 VIAL SQ SCH ×4 (06:41→21:42)
[2020-02-21 06:53] LABS: BASO % 0.3 % (0-2.0); HEMATOCRIT 46.3 % (35.4-49); HEMOGLOBIN 14.6 GM/dL (11.7-16.9); LYMPH % 4.1 % (8-40); MCH 27.2 pg (25.7-33.7); MCHC 31.5 g/dl (32.0-35.9); MEAN CELL VOLUME 86.4 fl (80-96); MONO % 2.3 % (3.8-10.2); NEUT % 93.3 % (42.8-82.8); PLATELET COUNT 116 K/MM3 (134-434); RBC 5.36 M/mm3 (4.00-5.60); RDW 15.9 % (11.9-15.9); WHITE BLOOD COUNT 8.1 K/mm3 (4.0-10.0)
[2020-02-21] MEDS ORDERED: INSULIN (LEVEMIR) 100 UNITS/ML UNITS SQ SCH ×4 (07:00→22:00)
[2020-02-21 07:21] LABS: POTASSIUM 4.4 mmol/L (3.5-5.1)
[2020-02-21 07:54] LABS: CALCIUM 8.8 mg/dL (8.5-10.1)
[2020-02-21 07:55] LABS: ALBUMIN 2.6 g/dl (3.4-5.0); MAGNESIUM 2.1 mg/dL (1.8-2.4)
[2020-02-21 07:57] LABS: CREATININE 1.2 mg/dL (0.55-1.3); PHOSPHOROUS 4.1 mg/dL (2.5-4.9)
[2020-02-21 07:59] LABS: BILIRUBIN,TOTAL 0.6 mg/dL (0.2-1); TOT PROT 5.8 g/dl (6.4-8.2)
[2020-02-21 09:26] LABS: ANISOCYTOSIS 0; MACROCYTOSIS 0; PLATELET ESTIMATE DECREASED
[2020-02-21] MEDS ORDERED: PT OWN MED DRAWER 7, Y5N ONE ×2 (09:31→20:56)
[2020-02-21] MEDS: oxyCODONE HCL 5 MG TABLET PO PRN ×3 (09:47→20:18)
[2020-02-21] MEDS: sitaGLIPtin PHOSPHATE 50 MG TABLET PO SCH (09:47)
[2020-02-21] MEDS: metoPROLOL SUCCINATE 25 MG TAB.SR.24H (FP) PO SCH (09:47)
[2020-02-21] MEDS ORDERED: FUROSEMIDE 40 MG/4 ML INJECTABLE VIAL IVPUSH SCH (10:00)
[2020-02-21] MEDS: ENOXAPARIN NA (PORCINE) 120 MG/0.8 ML DISP.SYRIN SQ SCH ×2 (11:22→21:35)
[2020-02-21] MEDS: diazePAM 5 MG TABLET PO PRN ×2 (11:22→22:45)
[2020-02-21] MEDS: INSULIN (NOVOLOG) ASPART 100 UNITS/ML 10ML VIAL SQ SCH ×3 (11:24→21:36)
[2020-02-21] MEDS ORDERED: ALBUTEROL SO4 2.5/IPRATROPIUM 0.5 INH SOL 3 ML VIAL.NEB. NEB SCH (16:00)
[2020-02-22] MEDS ORDERED: PIPERACILLIN/TAZOBACTAM 4.5 GM VIAL IVPB ONE ×3 (01:36→16:21)
[2020-02-22] MEDS ORDERED: DEXTROSE 5%-WATER 100 ML IVPB ONE ×3 (01:36→16:21)
[2020-02-22] MEDS: PIPERACILLIN/TAZOB 4.5 GM 4.5 GM in DEXTROSE 5%-WATER 100 ML IVPB SCH ×2 (01:44→09:58)
[2020-02-22] MEDS: methylPREDNISolone NA SUCC 40 MG/1 ML VIAL IVPUSH SCH ×4 (02:21→21:34)
[2020-02-22] MEDS: INSULIN (NOVOLOG) ASPART 100 UNITS/ML 10ML VIAL SQ SCH ×4 (06:25→21:43)
[2020-02-22] MEDS: sitaGLIPtin PHOSPHATE 50 MG TABLET PO SCH (06:26)
[2020-02-22] MEDS: INSULIN SLIDING SCALE (NOVOLOG) 1 VIAL SQ SCH ×4 (06:27→21:47)
[2020-02-22 07:08] LABS: BASO % 0.1 % (0-2.0); HEMATOCRIT 44.5 % (35.4-49); HEMOGLOBIN 14.3 GM/dL (11.7-16.9); MCH 27.5 pg (25.7-33.7); MCHC 32.1 g/dl (32.0-35.9); MEAN CELL VOLUME 85.7 fl (80-96); MEAN PLT VOLUME 7.9 fl (7.5-11.1); MONO % 2.3 % (3.8-10.2); NEUT % 93.6 % (42.8-82.8); PLATELET COUNT 129 K/MM3 (134-434); RDW 15.6 % (11.9-15.9); WHITE BLOOD COUNT 10.6 K/mm3 (4.0-10.0)
[2020-02-22 07:27] LABS: POTASSIUM 4.5 mmol/L (3.5-5.1)
[2020-02-22 07:31] LABS: CALCIUM 8.5 mg/dL (8.5-10.1)
[2020-02-22 07:32] LABS: ALBUMIN 2.6 g/dl (3.4-5.0)
[2020-02-22 07:34] LABS: BILIRUBIN,TOTAL 0.4 mg/dL (0.2-1)
[2020-02-22 07:35] LABS: CREATININE 1.2 mg/dL (0.55-1.3)
[2020-02-22 07:36] LABS: TOT PROT 5.5 g/dl (6.4-8.2)
[2020-02-22 09:44] LABS: ERYTHROCYTE SEDIMENTATION RATE 16 mm/hr (0-20)
[2020-02-22] MEDS: diazePAM 5 MG TABLET PO PRN ×3 (10:00→22:23)
[2020-02-22] MEDS: ENOXAPARIN NA (PORCINE) 120 MG/0.8 ML DISP.SYRIN SQ SCH ×2 (10:00→21:45)
[2020-02-22] MEDS: metoPROLOL SUCCINATE 25 MG TAB.SR.24H (FP) PO SCH (10:01)
[2020-02-22] MEDS: oxyCODONE HCL 5 MG TABLET PO PRN ×3 (10:01→21:40)
[2020-02-22 11:32] LABS: ANISOCYTOSIS 0; MACROCYTOSIS 0; PLATELET ESTIMATE DECREASED
[2020-02-22] MEDS ORDERED: TIOTROPIUM/OLODATEROL HCL (STIOLTO) 4 GM INHALER IH SCH (12:00)
[2020-02-22] MEDS ORDERED: ALBUTEROL SO4 0.083% IH SOL 2.5 MG/3 ML VIAL.NEB. NEB SCH (12:00)
[2020-02-22] MEDS: TIOTROPIUM BROMIDE 2.5 MCG (SPIRIVA) RESPIMAT INHALER IH SCH (15:09)
[2020-02-22] MEDS: BUDESONIDE/FORMETEROL FUMARATE 80/4.5 mcg INHALER IH SCH ×2 (15:09→21:41)
[2020-02-22] MEDS: INSULIN (LEVEMIR) 100 UNITS/ML UNITS SQ SCH (21:44)
[2020-02-23] MEDS: methylPREDNISolone NA SUCC 40 MG/1 ML VIAL IVPUSH SCH ×3 (02:57→21:49)
[2020-02-23] MEDS: INSULIN SLIDING SCALE (NOVOLOG) 1 VIAL SQ SCH ×4 (06:43→21:48)
[2020-02-23] MEDS: INSULIN (LEVEMIR) 100 UNITS/ML UNITS SQ SCH ×2 (06:44→21:47)
[2020-02-23] MEDS: INSULIN (NOVOLOG) ASPART 100 UNITS/ML 10ML VIAL SQ SCH ×4 (06:50→21:48)
[2020-02-23 07:30] LABS: BASO % 0.2 % (0-2.0); HEMOGLOBIN 14.3 GM/dL (11.7-16.9); LYMPH % 4.6 % (8-40); MCH 27.5 pg (25.7-33.7); MCHC 31.9 g/dl (32.0-35.9); MEAN CELL VOLUME 86.3 fl (80-96); MONO % 2.7 % (3.8-10.2); NEUT % 92.5 % (42.8-82.8); PLATELET COUNT 124 K/MM3 (134-434); RBC 5.22 M/mm3 (4.00-5.60); RDW 15.8 % (11.9-15.9); WHITE BLOOD COUNT 7.3 K/mm3 (4.0-10.0)
[2020-02-23] MEDS: oxyCODONE HCL 5 MG TABLET PO PRN ×2 (07:39→15:59)
[2020-02-23 07:54] LABS: POTASSIUM 4.7 mmol/L (3.5-5.1)
[2020-02-23 08:06] LABS: ALBUMIN 2.8 g/dl (3.4-5.0); BLOOD UREA NITROGEN 23.6 mg/dL (7-18)
[2020-02-23 08:08] LABS: CALCIUM 8.5 mg/dL (8.5-10.1)
[2020-02-23 08:13] LABS: BILIRUBIN,TOTAL 0.4 mg/dL (0.2-1); CREATININE 1.1 mg/dL (0.55-1.3); TOT PROT 5.5 g/dl (6.4-8.2)
[2020-02-23 09:49] LABS: ANISOCYTOSIS 0; MACROCYTOSIS 0; PLATELET ESTIMATE DECREASED; TARGET CELLS 1+; TOXIC GRANULATION 1+
[2020-02-23] MEDS: metoPROLOL SUCCINATE 25 MG TAB.SR.24H (FP) PO SCH (09:59)
[2020-02-23] MEDS: BUDESONIDE/FORMETEROL FUMARATE 80/4.5 mcg INHALER IH SCH ×2 (10:00→21:59)
[2020-02-23] MEDS: TIOTROPIUM BROMIDE 2.5 MCG (SPIRIVA) RESPIMAT INHALER IH SCH (10:00)
[2020-02-23] MEDS ORDERED: PORTA CATH FLUSH 10 ML IVPUSH PRN (10:42)
[2020-02-23] MEDS: ENOXAPARIN NA (PORCINE) 120 MG/0.8 ML DISP.SYRIN SQ SCH ×2 (11:02→21:48)
[2020-02-23] MEDS: diazePAM 5 MG TABLET PO PRN ×2 (11:03→21:49)
[2020-02-23] MEDS ORDERED: methylPREDNISolone NA SUCC 40 MG/1 ML VIAL IVPUSH SCH (12:00)
[2020-02-23] MEDS: DOCUSATE SODIUM 100 MG CAPSULE (FP) PO PRN (13:28)
[2020-02-23] MEDS: ALBUTEROL SO4 2.5/IPRATROPIUM 0.5 INH SOL 3 ML VIAL.NEB. NEB PRN ×2 (13:28→21:12)
[2020-02-23] MEDS: PANTOPRAZOLE 40 MG TABLET PO SCH (13:28)
[2020-02-23] MEDS ORDERED: SULFAMETHOXAZOLE/TRIMETHOPRIM 800MG/160MG D.S. TABLET PO ONE (17:20)
[2020-02-23] MEDS ORDERED: PT OWN MED DRAWER 7, Y5N ONE (21:20)
[2020-02-24] MEDS: INSULIN (NOVOLOG) ASPART 100 UNITS/ML 10ML VIAL SQ SCH ×4 (06:46→21:45)
[2020-02-24] MEDS: INSULIN SLIDING SCALE (NOVOLOG) 1 VIAL SQ SCH ×4 (06:46→21:46)
[2020-02-24] MEDS: INSULIN (LEVEMIR) 100 UNITS/ML UNITS SQ SCH ×2 (06:46→21:43)
[2020-02-24] MEDS ORDERED: PT OWN MED DRAWER 7, Y5N ONE ×3 (08:58→21:17)
[2020-02-24] MEDS: ALBUTEROL SO4 2.5/IPRATROPIUM 0.5 INH SOL 3 ML VIAL.NEB. NEB PRN ×3 (09:23→19:59)
[2020-02-24] MEDS: methylPREDNISolone NA SUCC 40 MG/1 ML VIAL IVPUSH SCH ×2 (09:23→21:46)
[2020-02-24] MEDS: BUDESONIDE/FORMETEROL FUMARATE 80/4.5 mcg INHALER IH SCH ×2 (09:24→21:48)
[2020-02-24] MEDS: ENOXAPARIN NA (PORCINE) 120 MG/0.8 ML DISP.SYRIN SQ SCH ×2 (09:24→21:45)
[2020-02-24] MEDS: oxyCODONE HCL 5 MG TABLET PO PRN ×2 (09:24→16:38)
[2020-02-24] MEDS: PANTOPRAZOLE 40 MG TABLET PO SCH (09:24)
[2020-02-24] MEDS: metoPROLOL SUCCINATE 25 MG TAB.SR.24H (FP) PO SCH (09:24)
[2020-02-24] MEDS: TIOTROPIUM BROMIDE 2.5 MCG (SPIRIVA) RESPIMAT INHALER IH SCH (09:24)
[2020-02-24] MEDS: DOCUSATE SODIUM 100 MG CAPSULE (FP) PO PRN (09:25)
[2020-02-24] MEDS: diazePAM 5 MG TABLET PO PRN (22:03)
[2020-02-25] MEDS: INSULIN (LEVEMIR) 100 UNITS/ML UNITS SQ SCH (06:38)
[2020-02-25] MEDS: INSULIN (NOVOLOG) ASPART 100 UNITS/ML 10ML VIAL SQ SCH ×2 (06:39→10:50)
[2020-02-25] MEDS: INSULIN SLIDING SCALE (NOVOLOG) 1 VIAL SQ SCH ×2 (06:39→10:53)
[2020-02-25] MEDS: ALBUTEROL SO4 2.5/IPRATROPIUM 0.5 INH SOL 3 ML VIAL.NEB. NEB PRN (07:21)
[2020-02-25 07:22] LABS: BASO % 0.2 % (0-2.0); EOS % 0.1 % (0-4.5); HEMATOCRIT 46.7 % (35.4-49); HEMOGLOBIN 14.9 GM/dL (11.7-16.9); LYMPH % 8.4 % (8-40); MCH 27.7 pg (25.7-33.7); MCHC 31.9 g/dl (32.0-35.9); MEAN CELL VOLUME 86.7 fl (80-96); MEAN PLT VOLUME 8.4 fl (7.5-11.1); MONO % 5.8 % (3.8-10.2); NEUT % 85.5 % (42.8-82.8); PLATELET COUNT 119 K/MM3 (134-434); RBC 5.39 M/mm3 (4.00-5.60); RDW 15.6 % (11.9-15.9); WHITE BLOOD COUNT 7.3 K/mm3 (4.0-10.0)
[2020-02-25 07:36] LABS: POTASSIUM 4.7 mmol/L (3.5-5.1)
[2020-02-25 07:39] LABS: CALCIUM 8.6 mg/dL (8.5-10.1)
[2020-02-25 07:40] LABS: ALBUMIN 2.9 g/dl (3.4-5.0); BLOOD UREA NITROGEN 20.6 mg/dL (7-18)
[2020-02-25 07:42] LABS: CREATININE 1.1 mg/dL (0.55-1.3)
[2020-02-25 07:44] LABS: BILIRUBIN,TOTAL 0.4 mg/dL (0.2-1); TOT PROT 5.8 g/dl (6.4-8.2)
[2020-02-25] MEDS ORDERED: PT OWN MED DRAWER 7, Y5N ONE (08:59)
[2020-02-25] MEDS: oxyCODONE HCL 5 MG TABLET PO PRN (09:14)
[2020-02-25] MEDS: PANTOPRAZOLE 40 MG TABLET PO SCH (09:15)
[2020-02-25] MEDS: methylPREDNISolone NA SUCC 40 MG/1 ML VIAL IVPUSH SCH (09:15)
[2020-02-25] MEDS: ENOXAPARIN NA (PORCINE) 120 MG/0.8 ML DISP.SYRIN SQ SCH (09:15)
[2020-02-25] MEDS: metoPROLOL SUCCINATE 25 MG TAB.SR.24H (FP) PO SCH (09:15)
[2020-02-25] MEDS: BUDESONIDE/FORMETEROL FUMARATE 80/4.5 mcg INHALER IH SCH (09:16)
[2020-02-25] MEDS ORDERED: SULFAMETHOXAZOLE/TRIMETHOPRIM 800MG/160MG D.S. TABLET PO SCH (10:00)
[2020-02-25 10:03] VITALS: BP 134/72; PULSE 100; TEMP 98.4
== END 2020-02-25 14:26 | disposition home health service (06) | DRG 189 ==
LOC: JER 07:47 → JERBED 11:37 → J4W 02-21 00:22
PROVIDERS: ATTEND Internal Medicine
DX: J96.21 Acute and chronic respiratory failure with hypoxia (principal); J44.1 Chronic obstructive pulmonary disease with (acute) exacerbation; C34.90 Malignant neoplasm of unspecified part of unspecified bronchus or lung; I50.32 Chronic diastolic (congestive) heart failure; N17.9 Acute kidney failure, unspecified; J44.0 Chronic obstructive pulmonary disease with (acute) lower respiratory infection; Z68.41 Body mass index [BMI] 40.0-44.9, adult; E66.01 Morbid (severe) obesity due to excess calories; J96.22 Acute and chronic respiratory failure with hypercapnia; E11.9 Type 2 diabetes mellitus without complications; E78.5 Hyperlipidemia, unspecified; Z86.19 Personal history of other infectious and parasitic diseases; Z79.4 Long term (current) use of insulin; F41.9 Anxiety disorder, unspecified; Z87.891 Personal history of nicotine dependence; I25.2 Old myocardial infarction; I11.0 Hypertensive heart disease with heart failure; Z86.711 Personal history of pulmonary embolism; Z79.01 Long term (current) use of anticoagulants
CPT/HCPCS: 36415; 36600; 71045-TC-FY; 71250-TC; 80053; 81003; 82378; 82728; 82803; 82962; 83605; 83615; 83735; 83880; 84100; 84484; 85025; 85379; 85610; 85651; 85730; 86140; 87040; 87070; 87086; 87205; 87899; 93005; 93010; 94640; 97116-GP; 97161-GP; 99285-25; C9803; J3535; U0003